=== PATIENT | male | born 1980 | race Caucasian/White ===

== ENCOUNTER 2021-05-14 19:10 | Emergency (ER) | payer OTHER, SELFPAY ==
--- NOTE | ~2021-05-14 | XR_ITS ---
EXAMINATION: XR thoracic spine 3V DATE: 05/14/2021 19:52 INDICATION: Back injury. TECHNIQUE: 3 views of thoracic spine on 4 radiographs were obtained. COMPARISON: Thoracic spine CT 07/30/2018 FINDINGS: There is 8 degrees dextrocurvature of thoracic spine. Vertebral body heights and interverte bral disc heights are normal. There are endplate osteophytes at multiple levels. IMPRESSION: 1. Mild thoracic spondylosis. Reviewed, dictated and finalized at location A.
--- NOTE | ~2021-05-14 | XR_ITS ---
EXAMINATION: XR_CERV2-3V_CR DATE: 05/14/2021 19:52 INDICATION: Neck injury. TECHNIQUE: 3 views of cervical spine were obtained. COMPARISON: None. FINDINGS: There is 6 degrees levocurvature of cervicothoracic spine. Vertebral body heights are felix l. There is mildly decreased disc height at C4-C5. The facet joints are unremarkable. No central janes l stenosis or prevertebral soft tissue swelling. IMPRESSION: 1. Mild cervical spondylosis. Reviewed, dictated and finalized at location A.
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
[2021-05-14 19:22] VITALS: BP 159/106; PULSE 115; RESP 16; TEMP 36.1; O2SAT 99
[2021-05-14 20:13] VITALS: BP 148/97; PULSE 104; O2SAT 100
== END 2021-05-14 20:13 | disposition home or self-care (01) ==
PROVIDERS: Emergency Provider Nurse Practitioner
DX: M54.6 Pain in thoracic spine (principal); S16.1XXA Strain of muscle, fascia and tendon at neck level, initial encounter; V49.50XA Passenger injured in collision with unspecified motor vehicles in traffic accident, initial encounter
CPT/HCPCS: 72040; 72072; 99213; G0463

== ENCOUNTER 2021-08-06 08:12 | Emergency (ER) | payer OTHER, SELFPAY ==
[2021-08-06 08:22] VITALS: BP 122/81; PULSE 85; RESP 18; TEMP 35.8; O2SAT 100
--- NOTE | 2021-08-06 08:42 | ED.EXTPRO ---
HPI - Extremity Problem General Chief complaint: Extremity Problem,Nontraumatic Stated complaint: Left Knee Pain Time Seen by Provider: 08/06/21 08:42 Source: patient and RN notes reviewed Mode of arrival: ambulatory Limitations: no limitations History of Present Illness HPI Narrative: 41-year-old male presents concern for left knee pain that started on Friday. He reports he did not have any acute injury Friday. Reports he was sleeping on the couch with his knee elevated on his stool, woke up in pain. Reports the pain is sharp and shooting, radiates down the medial left lower leg. He reports distal to the pain his knee feels tingly. He reports he took a leftover amoxicillin. Reports he used ice and an Mika wrap. He reports a week prior to the pain he had a trip and fall, causing a small abrasion on the knee. He denies any pain after that fall until Friday. He denies redness, warmth, swelling to the knee. Denies fever or body aches. MD Complaint: extremity pain Related Data Allergies Allergy/AdvReac Type Severity Reaction Status Date / Time MOXIFLOXACIN HCL Allergy Intermediate rash Uncoded 08/06/21 08:22 Review of Systems Review of Systems: CONSTITUTIONAL: Denies malaise, chills, sweats, or fever. CARDIOVASCULAR: Denies chest pain, palpitations, or edema. RESPIRATORY: Denies cough or dyspnea. SKIN: Reports healing, scabbed abrasion to the left anterior knee MUSCULOSKELETAL: Reports left knee pain, tingling NEUROLOGIC: Denies weakness All systems reviewed & are unremarkable except as noted in HPI and below PMFSH Social History Social History Gender identity (if verbalized by the patient): Male Comments At time of signature, agree with nursing past medical, surgical, social and family history. There is no relevant family history pertinent to the presenting complaint Exam Narrative: GENERAL: Well-appearing, well-nourished, and in no acute distress. HEAD: Normocephalic, atraumatic. EYES: PERRLA, conjunctivae clear NECK: Supple. CHEST: Speaks in full sentences. No respiratory distress. HEART: Regular rate and rhythm. Normal and equal peripheral pulses. EXTREMITIES: Left knee, left lower leg have normal strength and sensation, normal range of motion. No edema, erythema, warmth, or ecchymosis. 5/5 strength with knee flexion and extension. Normal sensation with sensitivity to light touch and pain. Anterior, lateral and medial tenderness to palpation. No calf erythema, warmth, tenderness. No skin tenting, no devitalized tissue or atrophy, no trophic changes, no obvious deformity, alignment normal, nearby joints and structures intact. Distal pulses palpable and equal bilaterally, skin warm, dry, pink. Capillary refill less than 3 seconds. SKIN: Warm, dry, no rash. Scabbed abrasion noted to the anterior knee without surrounding erythema, warmth, induration, no drainage NEURO: Alert and oriented x3. PSYCH: Normal mood and affect Course Course Emergency Course: Patient is aware of diagnosis, understands and agrees to treatment plan. Anticipatory guidance given. Patient agrees to follow-up as directed and is aware of reasons to seek care at the emergency department. Portions of this record may have been created with voice recognition software Vital Signs Vital signs: Vital Signs Temperature 96.5 F L 08/06/21 08:22 Pulse Rate 85 08/06/21 08:22 Respiratory Rate 18 08/06/21 08:22 Blood Pressure 122/81 08/06/21 08:22 Pulse Oximetry 100 08/06/21 08:22 Temperature 96.5 F L 08/06/21 08:22 Pulse Rate 85 08/06/21 08:22 Respiratory Rate 18 08/06/21 08:22 Blood Pressure 122/81 08/06/21 08:22 Pulse Oximetry 100 08/06/21 08:22 Reviewed. MDM - Extremity (Nontraumatic) MDM Narrative Medical decision making narrative: Patients pain is consistent with musculoskeletal etiology. No signs of neurological or vascular compromise on exam. Compartments and ti
== END 2021-08-06 08:59 | disposition home or self-care (01) ==
PROVIDERS: Emergency Provider Nurse Practitioner
DX: M25.562 Pain in left knee (principal); K21.9 Gastro-esophageal reflux disease without esophagitis
CPT/HCPCS: 99213; G0463

== ENCOUNTER 2021-09-07 18:26 | Inpatient (IN) | payer OTHER, SELFPAY ==
--- NOTE | ~2021-09-07 | MR_ITS ---
EXAMINATION: MR MRCP wo/w con/w 3D wo ind DATE: 09/12/2021 09:25 INDICATION: Epigastric pain. Elevated liver function tests. TECHNIQUE: Magnetic resonance imaging (MRI) of the abdomen was performed without and with 12 mL Multi fredrick intravenous contrast. Sequences included coronal T2-weighted SS-FSE, coronal T2-weighted FS SS- FSE, coronal T2-weighted FS FIESTA, axial T2-weighted FS FIESTA, axial T2-weighted FIESTA, sagittal T 2-weighted SS-FSE, axial T1-weighted dual-echo FSPGR, axial T2-weighted SS-FSE, axial T1-weighted LAV A, axial T2-weighted STIR FSE. Thick-slab T2-weighted FRFSE-XL images were obtained for magnetic reso nance cholangiopancreatography (MRCP). Rotating maximum intensity projection 3-D reconstructions of t he volumetric data were created by the technologist. Postcontrast sequences included a time course of axial T1-weighted LAVA. COMPARISON: CT dated 09/07/2021 FINDINGS: ABDOMEN MRI: Mild dependent atelectasis in the bilateral lower lobes. Heart size is normal. No pericardial effusio n. Trace bilateral pleural effusions. Liver, gallbladder, spleen, pancreas and bilateral adrenal glan ds are normal. T2 hyperintense nonenhancing cysts measuring 4 mm in the right kidney and 2 mm in the left kidney. Visualized portion of the bowels are unremarkable with no bowel obstruction. Visualized cephalad aspect of the bladder is normal. No pathologically enlarged abdominal lymphadenopathy. Bones are unremarkable with normal marrow signal throughout. ABDOMEN MRCP: No intra or extrahepatic biliary ductal dilation. The common bile duct measures up to 4 mm in maximal diameter tapering smoothly in the distal duct. The main pancreatic duct is also normal in caliber. N o evident choledocholithiasis. IMPRESSION: 1. Unremarkable abdominal MRI/MRCP with normal gallbladder and biliary tree with no ductal dilation o r cholelithiasis/choledocholithiasis. Reviewed, dictated and finalized at location A. IMPRESSION: 1. Unremarkable abdominal MRI/MRCP with normal gallbladder and biliary tree wit h no ductal dilation or cholelithiasis/choledocholithiasis.
--- NOTE | ~2021-09-07 | CT_ITS ---
EXAMINATION: CT abdomen pelvis w con DATE: 09/13/2021 15:43 INDICATION: Abdominal pain TECHNIQUE: Computed tomography (CT) of the abdomen and pelvis was performed with 100 mL Omnipaque-350 intravenous contrast. Automated exposure control and iterative reconstruction technique were employe d. The dose-length product was 273.19 mGy-cm. COMPARISON: 09/07/2021 and MRI dated 09/12/2021 FINDINGS: Mild dependent atelectasis in the bilateral lower lobes. Heart size is normal. No pericardial or pleu ral effusion. 4 mm cyst at the dome of the liver. Gallbladder, spleen, pancreas, bilateral adrenal gl ands and left kidney are normal. 4 mm right renal cyst. Moderate amount of stool within it or mixed c ontrast material scattered throughout the colon. Additional small amount of retained oral contrast ma terial within the normal appendix. Small bowel is normal with no obstruction. Bladder is normal. Mild prostatomegaly. No free intraperitoneal gas or fluid. No pathologically enlarged abdominal or pelvic lymphadenopathy. Partially lumbarized S1 segment. IMPRESSION: 1. No acute intra-abdominal/pelvic process. Reviewed, dictated and finalized at location A.
--- NOTE | ~2021-09-07 | NM_ITS ---
EXAMINATION: NM hepatobiliary wo pharm DATE: 09/11/2021 13:26 INDICATION: Elevated liver enzymes. Right upper quadrant abdominal pain. COMPARISON: None. TECHNIQUE: 5.7 mCi Tc-99m mebrofenin (Choletec) was administered intravenously. Scintigraphic images of the abdomen were obtained for one hour. At the 1 hour time point, the patient drank 8 oz Ensure, and imaging was continued for 60 minutes. Gallbladder ejection fraction was calculated by the technol ogrebekah. FINDINGS: There is normal clearance of radiotracer from the blood pool. There is homogeneous tracer u ptake by the liver. Activity progresses to the bowel and gallbladder. The gallbladder ejection fract ion (GBEF) is 20%. Note that with this technique, normal GBEF >= 33%. IMPRESSION: 1. Gallbladder ejection fraction is below the lower limits of normal which can be seen with gallblad elba dysfunction or chronic cholecystitis in the appropriate clinical setting. Reviewed, dictated and finalized at location A. IMPRESSION: 1. Gallbladder ejection fraction is below the lower limits of normal which can be seen with gallbladder dysfunction or chronic cholecystitis in the appropria te clinical setting.
--- NOTE | ~2021-09-07 | CT_ITS ---
EXAMINATION: CT abdomen pelvis w con DATE: 09/07/2021 22:23 INDICATION: Epigastric abdominal pain. TECHNIQUE: Computed tomography (CT) of the abdomen and pelvis was performed with 100 mL Omnipaque 350 intravenous contrast. Automated exposure control and iterative reconstruction technique were employe d. The dose-length product was 317.61 mGy-cm. COMPARISON: CT abdomen 02/24/18 FINDINGS: The visualized portions of the lung bases demonstrate minimal atelectasis. No pleural effus ion. The heart size is normal. No pericardial effusion. There is a 5 mm cyst in the liver. The gallbl adder, spleen, pancreas, adrenal glands, and kidneys are normal. There are no dilated loops of bowel. The appendix contains appendicoliths, but is otherwise normal. The prostate is mildly enlarged. Ther e are no pathologically enlarged lymph nodes. There is no free intraperitoneal fluid. There is mild t horacolumbar spondylosis. IMPRESSION: 1. No etiology for the patient's symptoms. Reviewed, dictated and finalized at location A.
--- NOTE | ~2021-09-07 | US_ITS ---
US abdomen limited INDICATION: Right upper quadrant abdominal pain PROCEDURE: Realtime right upper abdominal ultrasound. COMPARISON: 03/03/2013 FINDINGS: The pancreas is not well visualized due to bowel gas.. Liver echotexture is normal without focal mass or intrahepatic biliary dilatation. There is focal fatty infiltration of the liver near t he gallbladder. There is normal directional flow in the portal vein. The gallbladder is normal without stones, gallbladder wall thickening or pericholecystic fluid. Comm on bile duct measures 4 mm. No sonographic Holley's sign. IMPRESSION: 1: Unremarkable limited abdominal ultrasound. Reviewed, dictated and finalized at location A.
--- NOTE | ~2021-09-07 | XR_ITS ---
EXAMINATION: XR chest 2V DATE: 09/07/2021 18:51 INDICATION: Chest pain. TECHNIQUE: Frontal and lateral views of the chest were obtained. COMPARISON: Chest 2 views 07/14/2014 FINDINGS: The chest demonstrates clear lungs without pneumonia, pleural effusion, or pneumothorax. Th e heart size is normal. IMPRESSION: 1. No acute cardiopulmonary disease. Reviewed, dictated and finalized at location A.
--- NOTE | 2021-09-07 18:30 | ECG_ITS ---
Measurements Intervals [place] Rate: 94 P: 42 VT: 127 QRS: 57 QRSD: 67 T: 68 QT: 355 QTc: 445 Interpretive Statements SINUS RHYTHM BASELINE ARTIFACT- I, II, III, AVR, AVL NORMAL ECG Electronically Signed On 09-07-2021 19:58:37 CDT by Cm Yanez D.O.
[2021-09-07 18:34] VITALS: BP 125/89; PULSE 98; RESP 16; TEMP 36.4; O2SAT 98
--- NOTE | 2021-09-07 21:06 | PC.NURSE ---
Pt ambulatory in and out of ED WR multiple times during wait. No s/s of distress.
--- NOTE | 2021-09-07 21:21 | ED.GENADULT ---
HPI - General Adult General Chief complaint: Chest Pain Stated complaint: n/v x 3 wks, cp Time Seen by Provider: 09/07/21 21:10 Source: RN notes reviewed History of Present Illness HPI narrative: Patient presents emergency room from home for abdominal pain. Patient states symptoms began 3 weeks ago and have been constant since that time pain is located in the epigastric right upper quadrant left upper quadrant described as sharp and stabbing in nature. States associated with nausea vomiting and diarrhea he states is not taking thing for the pain today he denies any fevers or chills states he does have a lower midsternal chest pain as well with the symptoms denies any shortness of breath states he has had pancreatitis before in the past Related Data Allergies Allergy/AdvReac Type Severity Reaction Status Date / Time MOXIFLOXACIN HCL Allergy Intermediate rash Uncoded 08/06/21 08:22 Review of Systems Review of Systems: Gen.: Denies fevers or chills ENT: Denies congestion Respiratory: Denies shortness of breath or cough CV: Reports lower midsternal chest pain GI: See HPI Musculoskeletal: Denies back pain or muscle pain Neuro: Denies numbness, tingling, weakness or focal weakness Skin: Denies rash Except as documented, all other systems reviewed and negative [facility] Past Medical History Medical History (Updated 09/07/21 @ 23:47 by Ceferino Aguilar DO) Pancreatitis Social History Social History (Updated 09/07/21 @ 21:23 by Ceferino Aguilar DO) Smoking status: Never smoker Gender identity (if verbalized by the patient): Male Exam Narrative: APPEARANCE: No acute distress, nontoxic, resting in bed HEENT: Normocephalic, atraumatic, OMM RESPIRATORY: No respiratory distress, clear to auscultation bilaterally with no rhonchi wheezing or rales CARDIOVASCULAR: RRR s murmur ABDOMINAL: Soft nondistended tender palpation epigastric and right upper quadrant left upper quadrant no tenderness right lower quadrant left lower quadrant no rebound or guarding MUSCULOSKELETAl: Moves all extremities. No clubbing, cyanosis or edema. NEURO: Awake and alert. Following commands, speech normal, no focal deficits SKIN:: Warm, dry. Normal Color PSYCHIATRIC: Normal affect/mood Course Course Emergency Course: Patient continues to have pain in epigastric right upper quadrant with nausea will admit at this time I discussed with the patient his elevated liver enzymes patient does state he drinks approximately 4-6 beers a day. Patient states he has not drank since yesterday Discussed with Dr. Elias presentation work-up agrees with consult recommends ultrasound of the abdomen be obtained in the a.m. recommends no antibiotics at this time Discussed Dr. Schilling presentation work-up agrees with admission Discussed with patient and family results of workup and diagnosis. Discussed need for admission. Patient and family understand and agree to current treatment plan Vital Signs Vital signs: Vital Signs Temperature 97.5 F L 09/07/21 18:34 Pulse Rate 98 09/07/21 18:34 Respiratory Rate 16 09/07/21 18:34 Blood Pressure 125/89 09/07/21 18:34 Pulse Oximetry 98 09/07/21 18:34 Temperature 97.5 F L 09/07/21 18:34 Pulse Rate 87 09/07/21 22:47 Respiratory Rate 18 09/07/21 22:47 Blood Pressure 139/86 09/07/21 22:47 Pulse Oximetry 100 09/07/21 22:47 Medical Decision Making [facility] Narrative Medical decision making narrative: Patient presents with epigastric right upper quadrant pain for the past 3 weeks progressively worsening associate with nausea and vomiting. Liver enzymes are elevated white count within normal limits CT scan shows normal gallbladder. Further discussions with the patient shows that he does use alcohol regularly 4-6 beers a day question of whether liver enzymes are elevated secondary to alcohol use versus gallbladder dysfunction or combination of the 2 will admit with ultrasound of the abdomen with continued
[2021-09-07 21:35] LABS: Basophils Absolute Auto 0.1 K/mm3 (0.0-0.1); Basophils Percent Auto 1.4 % (0.2-1.2); Eosinophils Percent Auto 0.3 % (0-4.4); Hemoglobin 14.2 g/dL (14.0-18.0); Immature Granulocyte Absolute 0.04 K/mm3 (0.00-0.031); Immature Granulocyte Percent A 0.4 % (0-0.5); Lymphocytes Absolute Auto 2.69 K/mm3 (0.9-3.2); Lymphocytes Percent Auto 29.1 % (18.3-44.2); Mean Corpuscular HGB Conc 36.4 g/dl (32-36); Mean Corpuscular Hemoglobin 35.1 pg (26-34); Mean Corpuscular Volume 96.5 fl (80-100); Mean Platelet Volume 9.3 fl (7.4-10.4); Monocytes Absolute Auto 0.5 K/mm3 (0.1-0.6); Monocytes Percent Auto 5.1 % (2.6-8.5); Neutrophils Absolute Auto 5.9 K/mm3 (1.3-6.7); Neutrophils Percent Auto 63.7 % (45.5-73.1); Platelet Count Result 248 k/mm3 (150-375); Red Blood Count 4.04 M/mm3 (4.6-6.20); Red Cell Distribution Width 11.1 % (11.5-14.5); White Blood Count 9.3 K/mm3 (4.5-10.0)
[2021-09-07 21:47] LABS: INR 1.1; Prothrombin Time 14.5 Seconds (11.1-14.7)
[2021-09-07 21:48] LABS: Partial Thromboplastin Time 29.9 SECONDS (22.3-36.8)
[2021-09-07] MEDS: ONDANSETRON INJ 4 MG/2 ML VIAL IV PUSH (21:49)
[2021-09-07] MEDS: SODIUM CHLORIDE 0.9% IV 1,000 ML 999 ML IV CONT ×2 (21:49→22:49)
[2021-09-07] MEDS: MORPHINE SULFATE (*CRX) 4 MG/ML INJ IV PUSH (21:49)
[2021-09-07 21:52] VITALS: BP 116/84; PULSE 80; RESP 18; O2SAT 100
[2021-09-07 21:58] LABS: Alanine Aminotransferase 201 U/L (4-50); Albumin Level 3.6 g/dL (3.5-5.1); Alkaline Phosphatase 255 U/L (38-126); Anion Gap 8 mmol/L (8-16); Aspartate Amino Transferase 500 U/L (17-59); Bilirubin,Total 0.7 mg/dL (0.2-1.3); Blood Urea Nitrogen 14 mg/dL (9-20); Calcium 8.1 mg/dL (8.4-10.2); Carbon Dioxide 29 mmol/L (22-30); Chloride 96 mmol/L (98-107); Estimated CRCL calculation 90 ml/min; Estimated Glomerular Filt Rate > 60; Glucose 157 mg/dL (65-110); Potassium 3.6 mmol/L (3.4-5.0); Sodium 133 mmol/L (137-145)
[2021-09-07 21:59] LABS: Troponin I < 0.012 ng/mL (0.000-0.034)
[2021-09-07 22:21] LABS: Lipase 213 U/L (23-300)
[2021-09-07 22:47] VITALS: BP 139/86; PULSE 87; RESP 18; O2SAT 100
[2021-09-07] MEDS: PANTOPRAZOLE SODIUM IV 40 MG VIAL IV PUSH (22:48)
[2021-09-07] MEDS: HYDROmorphone HCL INJ (*CRX) 1 MG/ML SYR 0.5 MG IV PUSH (22:49)
[2021-09-07 22:54] LABS: Ethanol 216 mg/dL (<10)
[2021-09-07] MEDS: THIAMINE HCL 200 MG/2 ML VIAL 100 MG IV PUSH (23:01)
[2021-09-08] VITALS (7 sets, daily range): BP systolic 122–145; BP diastolic 80–92; PULSE 74–89; RESP 16; TEMP 36.1–36.9; O2SAT 98–100
--- NOTE | 2021-09-08 00:12 | PM.IMHP ---
H&P: HPI History of Present Illness Date/Time: 09/08/21 00:12 Chief Complaint: Right upper quadrant pain. Narrative: This is a 41-year-old male with past medical history significant for alcohol dependence, pancreatitis, tobacco dependence, patient is an everyday smoker he smokes about a pack of cigarettes a day. Patient has presented to the emergency room due to nausea vomiting and abdominal pain localized to the epigastric and right upper quadrant area this has been happening for the last 3 weeks patient has not been able to eat or drink properly as a result of these has been smoking less as well, patient also states that he has had black stools for the last 3 weeks , but no hematemesis ,no bright red blood per rectum, drinks 3-5 beers daily, has had a 30 lb weight loss roughly in the last 3 weeks unintentional. No fevers ,no chills ,no rigors, no cough, no sputum production, no shortness of breath. Preliminary workup was significant for alcohol level of 216, AST 500, ALT 200, alk phos 255, Hemoglobin is 14 CT of abdomen and pelvis pretty much unrevealing. Review of Systems Review of Systems: nausea and vomiting for 3 weeks weight loss melena epigastric and right upper quadrant pain decreased oral intake Constitutional: Constitutional: Denies chills, Denies fever(s), Denies malaise and Reports poor appetite Eyes: Eyes: Denies change in vision ENT: Reports system reviewed and no additional complaints, except as documented Cardiovascular: Cardiovascular: Reports no additional cardiovascular complaints Respiratory: Respiratory: Reports no additional respiratory complaints Gastrointestinal: Gastrointestinal: Reports abdominal pain, Reports melena, Denies hematochezia, Denies coffee ground emesis, Denies dyspepsia, Denies heartburn, Reports nausea and Reports vomiting Genitourinary: Genitourinary: Reports no additional male genitourinary complaints Musculoskeletal: Musculoskeletal: Reports no additional musculoskeletal complaints Integumentary/Breasts: Skin/Breast: Reports system reviewed and no additional complaints, except as docu Neurologic: Reports system reviewed and no additional complaints, except as documented Psychiatric: Psychiatric: Reports no additional psychiatric complaints Endocrine: Endocrine: Reports no additional endocrine complaints Hematologic/Lymphatic: Hematologic/Lymphatic: Reports no additional hematologic/lymphatic complaints Allergic/Immunologic: Allergic/Immunologic: Reports no additional allergic/immunologic complaints [facility] Past Medical History Medical History (Updated 09/08/21 @ 03:51 by Laurence Chavez MD) Pancreatitis Family History Family History (Updated 09/08/21 @ 02:42 by Maria E Pereyra RN) Father Cerebrovascular accident Hypertension Social History Social History (Updated 09/07/21 @ 21:23 by Ceferino Aguilar DO) Smoking packs per day: 1 Smoking cigarettes per day: 20.0 Years smoked: 20 Smoking pack-years: 20.00 Smoking status: Current every day smoker Tobacco type: cigarettes Alcohol intake: current Drinks per week: 20 Substance use: current Substance use type: marijuana Last use: unsure Gender identity (if verbalized by the patient): Male Spiritual care concerns: No Meds Home Medications and Allergies Allergies Allergy/AdvReac Type Severity Reaction Status Date / Time MOXIFLOXACIN HCL Allergy Intermediate rash Uncoded 08/06/21 08:22 Vital Signs Vital Signs - 24 hr 09/07/21 18:34 09/07/21 21:52 09/07/21 22:47 Temperature 97.5 F L Pulse Rate 98 80 87 Respiratory Rate 16 18 18 Blood Pressure 125/89 116/84 139/86 Pulse Oximetry 98 100 100 Exam Narrative: Laying in [place] Const: General: cooperative, comfortable, no acute distress, well developed, alert, awake, Physically active and other (Apprenhensive) Nutritional Appearance: thin Orientation/consciousness: patient oriented x3 HENMT: Head: normal to inspecti
[2021-09-08 00:14] LABS: Troponin I < 0.012 ng/mL (0.000-0.034)
--- NOTE | 2021-09-08 01:10 | ADMGEN ---
This patient, Iker Kuhn, was admitted to [address] [facility] Surg Room 313-01. Patient/family oriented to hospital policies and general routines including ID bracelet, bed and alarms, visiting hours, pain management, procedures, bathroom and other care routines, personal items, smoking policy, room service/diet, and visiting hours. Information on how to activate the Rapid Response Team has been discussed. Patient/Family are encouraged to report perceived risks to care and to ask questions if they do not understand what they are told or what they should do.
[2021-09-08] MEDS: SODIUM CHLORIDE 0.9% IV 1,000 ML 125 ML IV CONT ×2 (01:15→16:32)
[2021-09-08] MEDS: MORPHINE SULFATE (*CRX) 4 MG/ML INJ IV PUSH ×6 (01:16→19:29)
[2021-09-08 03:34] LABS: Basophils Absolute Auto 0.1 K/mm3 (0.0-0.1); Basophils Percent Auto 1.2 % (0.2-1.2); Eosinophils Percent Auto 0.4 % (0-4.4); Hematocrit 37.6 % (42.0-52.0); Hemoglobin 13.5 g/dL (14.0-18.0); Immature Granulocyte Absolute 0.03 K/mm3 (0.00-0.031); Immature Granulocyte Percent A 0.3 % (0-0.5); Lymphocytes Absolute Auto 3.03 K/mm3 (0.9-3.2); Lymphocytes Percent Auto 32.1 % (18.3-44.2); Mean Corpuscular HGB Conc 35.9 g/dl (32-36); Mean Corpuscular Volume 100.3 fl (80-100); Mean Platelet Volume 9.5 fl (7.4-10.4); Monocytes Absolute Auto 0.5 K/mm3 (0.1-0.6); Neutrophils Absolute Auto 5.8 K/mm3 (1.3-6.7); Platelet Count Result 211 k/mm3 (150-375); Red Blood Count 3.75 M/mm3 (4.6-6.20); Red Cell Distribution Width 11.4 % (11.5-14.5); White Blood Count 9.5 K/mm3 (4.5-10.0)
[2021-09-08 03:50] LABS: Alanine Aminotransferase 196 U/L (4-50); Albumin Level 3.3 g/dL (3.5-5.1); Alkaline Phosphatase 219 U/L (38-126); Anion Gap 5 mmol/L (8-16); Aspartate Amino Transferase 423 U/L (17-59); Bilirubin,Total 0.8 mg/dL (0.2-1.3); Blood Urea Nitrogen 11 mg/dL (9-20); Calcium 7.4 mg/dL (8.4-10.2); Carbon Dioxide 26 mmol/L (22-30); Chloride 102 mmol/L (98-107); Estimated CRCL calculation 106 ml/min; Estimated Glomerular Filt Rate > 60; Glucose 114 mg/dL (65-110); Lipase 320 U/L (23-300); Potassium 4.2 mmol/L (3.4-5.0); Sodium 133 mmol/L (137-145)
[2021-09-08 03:58] LABS: Troponin I < 0.012 ng/mL (0.000-0.034)
[2021-09-08] MEDS: PANTOPRAZOLE SODIUM IV 40 MG VIAL 80 MG IV PUSH (04:37)
[2021-09-08] MEDS: THIAMINE HCL INJ 100 MG, FOLIC ACID INJ 1 MG, MULTIVITAMINS-12 INJ VIAL 1 5 ML, MULTIVI... IV CONT (06:06)
--- NOTE | 2021-09-08 09:37 | PM.CNGS ---
Assessment and Plan Assessment and plan (1) Abdominal pain, acute, right upper quadrant: Code(s): R10.11 - Right upper quadrant pain Status: Acute Assessment and Plan: unknown etiology, CT and ultrasound unremarkable and reviewed, will start diet at this point, await GI workup (2) Elevated liver enzymes: Code(s): R74.8 - Abnormal levels of other serum enzymes Status: Acute Assessment and Plan: await GI workup, likely alcohol induced pathology (3) GI bleed: Code(s): K92.2 - Gastrointestinal hemorrhage, unspecified Status: Acute Assessment and Plan: no signs or symptoms of active bleeding, will check stool occult, await GI workup (4) Alcohol dependence: Code(s): F10.20 - Alcohol dependence, uncomplicated Status: Acute Assessment and Plan: alcohol withdrawal precautions (5) Pancreatitis: Code(s): K85.90 - Acute pancreatitis without necrosis or infection, unspecified Status: Acute Assessment and Plan: likely secondary to alcohol abuse History of Present Illness Consult details Consult date: 09/08/21 Reason for consult: abdominal pain Requesting physician: Laurence Chavez MD Narrative: The patient is a 41-year-old male presenting to the emergency department complaining of right upper quadrant and epigastric abdominal pain. The patient reports that the pain has been progressively worsening over the last 3 weeks. The patient reports associated nausea and vomiting, anorexia. The patient also describes loose dark stools over the last 3 wks. The patient reports no previous similar episodes. The patient does have a history of tobacco and alcohol abuse. The patient reports an unintentional weight loss over this time period. Review of Systems Constitutional: Constitutional: Reports anorexia, Denies body ache(s), Denies chills, Reports fatigue, Denies fever(s), Denies increased appetite, Reports lethargy, Reports malaise, Reports poor appetite, Reports weakness, Denies weight gain and Reports weight loss Eyes: Eyes: Reports no additional eye complaints ENT: Reports system reviewed and no additional complaints, except as documented Cardiovascular: Cardiovascular: Reports no additional cardiovascular complaints Respiratory: Respiratory: Reports no additional respiratory complaints Gastrointestinal: Gastrointestinal: Reports as per HPI, Reports abdominal pain, Reports melena, Reports bloating, Reports change in bowel habits, Reports change in stool character, Denies constipation, Reports GI cramping, Reports diarrhea, Reports loose stools, Reports nausea and Reports vomiting Genitourinary: Genitourinary: Reports no additional male genitourinary complaints Musculoskeletal: Musculoskeletal: Reports no additional musculoskeletal complaints Integumentary/Breasts: Skin/Breast: Reports system reviewed and no additional complaints, except as docu Neurologic: Reports system reviewed and no additional complaints, except as documented Psychiatric: Psychiatric: Reports no additional psychiatric complaints Endocrine: Endocrine: Reports no additional endocrine complaints Hematologic/Lymphatic: Hematologic/Lymphatic: Reports no additional hematologic/lymphatic complaints Allergic/Immunologic: Allergic/Immunologic: Reports no additional allergic/immunologic complaints PMFSH Past Medical History Medical History Pancreatitis Family History Family History Father Cerebrovascular accident Hypertension Social History Social History Smoking packs per day: 1 Smoking cigarettes per day: 20.0 Years smoked: 20 Smoking pack-years: 20.00 Smoking status: Current every day smoker Tobacco type: cigarettes Alcohol intake: current Drinks per week: 20 Substance use: current
[2021-09-08] MEDS: ONDANSETRON INJ 4 MG/2 ML VIAL IV PUSH (10:51)
[2021-09-08 11:25] LABS: Add Urine Microscopic? NO; Appearance Urine Clear (Clear); Bilirubin Urine Negative (Negative); Blood Urine Negative (Negative); Color Urine Straw (Yellow); Glucose Urine UA Negative (Negative); Ketones Urine Negative (Negative); Leukocyte Esterase Ur Negative LEU/UL (Negative); Nitrate Urine Negative (Negative); Protein Urine Negative (Negative); Specific Grav Ur 1.011 (1.001-1.035); Urobilinogen Urine Negative mg/dL (<2.0)
--- NOTE | 2021-09-08 11:25 | PC.NURSE ---
pt's mother called wanting an update. I answered her questions. She stated that he has gone through withdrawal many times before and that he usually hallucinates including having seizures at times. She stated that he is not usually violent but can be quite belligerent when he is hallucinating as well as having high anxiety/fear from the hallucinations.
--- NOTE | 2021-09-08 13:24 | PM.IMPN ---
Progress Note: A&P Assessment and Plan (1) Abdominal pain, acute, right upper quadrant: Code(s): R10.11 - Right upper quadrant pain Status: Acute Assessment and Plan: With alcohol history likely acute alcoholic hepatitis LFTs elevated on admission Continue IV fluids Clear liquid diet CT of abdomen and pelvis reviewed and negative Surgery consult appreciate recommendations GI awaited (2) Elevated liver enzymes: Code(s): R74.8 - Abnormal levels of other serum enzymes Status: Acute Assessment and Plan: Likely secondary to alcoholic hepatitis Continue to monitor supportive treatment (3) Nausea and vomiting: Code(s): R11.2 - Nausea with vomiting, unspecified Status: Acute Assessment and Plan: Supportive care Anti emetics (4) Alcohol dependence: Code(s): F10.20 - Alcohol dependence, uncomplicated Status: Acute Assessment and Plan: CIWA protocol as needed (5) Tobacco dependence: Code(s): F17.200 - Nicotine dependence, unspecified, uncomplicated Status: Acute Assessment and Plan: Nicotine patch as needed (6) GI bleed: Code(s): K92.2 - Gastrointestinal hemorrhage, unspecified Status: Acute Assessment and Plan: GI consult Continue to monitor H&H stable Transfuse as needed (7) Alcohol withdrawal: Code(s): F10.239 - Alcohol dependence with withdrawal, unspecified Status: Acute Assessment and Plan: Start Librium schedule CIWA protocol Subjective Date/time seen: 09/08/21 13:24 Interval history: HPI: This is a 41-year-old male with past medical history significant for alcohol dependence, pancreatitis, tobacco dependence, patient is an everyday smoker he smokes about a pack of cigarettes a day. Patient has presented to the emergency room due to nausea vomiting and abdominal pain localized to the epigastric and right upper quadrant area this has been happening for the last 3 weeks patient has not been able to eat or drink properly as a result of these has been smoking less as well, patient also states that he has had black stools for the last 3 weeks , but no hematemesis ,no bright red blood per rectum, drinks 3-5 beers daily, has had a 30 lb weight loss roughly in the last 3 weeks unintentional. No fevers ,no chills ,no rigors, no cough, no sputum production, no shortness of breath. Preliminary workup was significant for alcohol level of 216, AST 500, ALT 200, alk phos 255, Hemoglobin is 14 CT of abdomen and pelvis pretty much unrevealing. Interval history: Feels shaky right upper quadrant pain persists. Still having nausea and vomiting. No hematemesis or bright red blood per rectum. Drinking for several years. History of pancreatitis Review of Systems Review of Systems: All systems reviewed & are unremarkable except as noted in HPI and below (HPI) Exam Narrative: APPEARANCE: No acute distress, nontoxic, resting in bed is mildly tremulous HEENT: Normocephalic, atraumatic, OMM RESPIRATORY: No respiratory distress, clear to auscultation bilaterally with no rhonchi wheezing or rales CARDIOVASCULAR: RRR s murmur ABDOMINAL: Soft nondistended tender palpation epigastric and right upper quadrant left upper quadrant no tenderness right lower quadrant left lower quadrant no rebound or guarding MUSCULOSKELETAl: Moves all extremities. No clubbing, cyanosis or edema. NEURO: Awake and alert. Following commands, speech normal, no focal deficits SKIN:: Warm, dry. Normal Color PSYCHIATRIC: Normal affect/mood tremulous anxious looking Objective Data Vital Signs Vital Signs: Vital Signs - 24 hr 09/07/21 18:34 09/07/21 21:52 09/07/21 22:47 Temperature 97.5 F L Pulse Rate 98 80 87 Respiratory Rate 16 18 18 Blood Pressure 125/89 116/84 139/86 Pulse Oximetry 98 100 100 09/08/21 00:15 09/08/21 04:00 09/08/21 05:16 Temperature 97.1 F L 97 F L Pulse Rate 82 74 Respiratory Rate 16 16 Blood Pre
[2021-09-08] MEDS: chlordiazePOXIDE (*CRX) 25 MG CAPSULE PO ×3 (14:05→23:13)
[2021-09-08] MEDS: LORazepam INJ (*CRX) 2 MG/ML VIAL 1 MG IV PUSH ×2 (14:05→21:30)
[2021-09-08 14:52] LABS: Hepatitis B Surface Antigen Negative (Negative)
[2021-09-08 14:58] LABS: HAV RESULT Negative (Negative); Hepatitis B Core IgM Result Negative (Negative)
[2021-09-08 15:09] LABS: Hepatitis C Virus Antibody Negative (Negative)
--- NOTE | 2021-09-08 15:20 | PC.NURSE ---
Pt called the nurse's station to inform me that he is seeing tiny bright lights. As of the moment, he knows they are not there but he is still seeing them.
[2021-09-08 15:25] LABS: Acetaminophen < 10 ug/mL (10-30); Salicylate < 1.0 mg/dL (2-20)
--- NOTE | 2021-09-08 15:53 | PC.NURSE ---
pt called the nurse's station and stated that he is having blurry vision, headaches, and hallucinations. I have already given him Ativan and Librium and having nothing else to administer at this time. I will continue to monitor.
[2021-09-08] MEDS: NICOTINE (*PBKC) 21 MG PATCH 1 PATCH TRANSDERM (19:20)
[2021-09-09] VITALS: PULSE 84
[2021-09-09] MEDS: MORPHINE SULFATE (*CRX) 4 MG/ML INJ IV PUSH ×6 (00:24→19:53)
[2021-09-09] MEDS: SODIUM CHLORIDE 0.9% IV 1,000 ML 125 ML IV CONT ×3 (00:43→16:59)
[2021-09-09] MEDS: ONDANSETRON INJ 4 MG/2 ML VIAL IV PUSH ×3 (03:26→19:53)
[2021-09-09] MEDS: chlordiazePOXIDE (*CRX) 25 MG CAPSULE PO ×3 (05:11→16:59)
[2021-09-09 06:00] VITALS: BP 148/91; PULSE 86; RESP 18; TEMP 36.3; O2SAT 100
[2021-09-09 06:36] LABS: Basophils Absolute Auto 0.1 K/mm3 (0.0-0.1); Basophils Percent Auto 0.8 % (0.2-1.2); Eosinophils Absolute Auto 0.1 K/mm3 (0-0.3); Eosinophils Percent Auto 1.5 % (0-4.4); Hematocrit 36.2 % (42.0-52.0); Hemoglobin 13.2 g/dL (14.0-18.0); Immature Granulocyte Absolute 0.02 K/mm3 (0.00-0.031); Immature Granulocyte Percent A 0.2 % (0-0.5); Lymphocytes Absolute Auto 2.86 K/mm3 (0.9-3.2); Lymphocytes Percent Auto 33.6 % (18.3-44.2); Mean Corpuscular HGB Conc 36.5 g/dl (32-36); Mean Corpuscular Hemoglobin 35.5 pg (26-34); Mean Corpuscular Volume 97.3 fl (80-100); Mean Platelet Volume 9.8 fl (7.4-10.4); Monocytes Absolute Auto 0.3 K/mm3 (0.1-0.6); Neutrophils Absolute Auto 5.1 K/mm3 (1.3-6.7); Neutrophils Percent Auto 59.9 % (45.5-73.1); Platelet Count Result 211 k/mm3 (150-375); Red Blood Count 3.72 M/mm3 (4.6-6.20); Red Cell Distribution Width 10.8 % (11.5-14.5); White Blood Count 8.5 K/mm3 (4.5-10.0)
[2021-09-09 07:26] LABS: Alanine Aminotransferase 171 U/L (4-50); Albumin Level 3.3 g/dL (3.5-5.1); Alkaline Phosphatase 193 U/L (38-126); Anion Gap 6 mmol/L (8-16); Aspartate Amino Transferase 278 U/L (17-59); Bilirubin,Total 2.5 mg/dL (0.2-1.3); Blood Urea Nitrogen 4 mg/dL (9-20); Carbon Dioxide 25 mmol/L (22-30); Chloride 100 mmol/L (98-107); Estimated CRCL calculation 106 ml/min; Estimated Glomerular Filt Rate > 60; Glucose 103 mg/dL (65-110); Potassium 3.4 mmol/L (3.4-5.0); Sodium 131 mmol/L (137-145)
[2021-09-09] MEDS: NICOTINE (*PBKC) 21 MG PATCH 1 PATCH TRANSDERM (08:35)
--- NOTE | 2021-09-09 08:47 | PM.PNGS ---
Progress Note: A&P Assessment and Plan (1) Abdominal pain, acute, right upper quadrant: Code(s): R10.11 - Right upper quadrant pain Status: Acute Assessment and Plan: likely secondary to ETOH induced hepatitis, no acute surgical issues, ADAT, will sign off, call c ?s, issues (2) Elevated liver enzymes: Code(s): R74.8 - Abnormal levels of other serum enzymes Status: Acute Assessment and Plan: see above Subjective Subjective Date/Time Seen: 09/09/21 08:47 feels better today, shelley clears, still c RUQ abd pain Review of Systems Review of Systems: All systems reviewed & are unremarkable except as noted in HPI and below Exam Const: General: cooperative, comfortable and no acute distress Orientation/consciousness: patient oriented x3 Resp: Effort & Inspection: normal respiratory effort Auscultation: clear to auscultation bilaterally Cardio: Rate: regular rate Rhythm: regular rhythm GI: Inspection: normal to inspection GI Palp: Yes Soft to palpation, Yes Tenderness to palpation present (GI), No Guarding due to palpation present (GI) and No Rigid due to palpation Objective Data Vital Signs Vital Signs: Vital Signs - 24 hr 09/08/21 16:10 09/08/21 20:00 09/08/21 22:00 Temperature 36.9 C 36.6 C Pulse Rate 75 82 Pulse Rate [Monitor] 89 Respiratory Rate 16 16 Blood Pressure 145/92 H 137/89 137/89 Pulse Oximetry 100 100 09/09/21 00:00 09/09/21 06:00 Temperature 36.3 C L Pulse Rate 86 Pulse Rate [Monitor] 84 Respiratory Rate 18 Blood Pressure 148/91 H Pulse Oximetry 100 Intake/Output Intake/Output: Intake & Output 09/06/21 09/07/21 09/08/21 09/09/21 23:59 23:59 23:59 23:59 Intake Total 2573.2 2450 Output Total 1000 350 Balance 1573.2 2100 Meds/Results Medications: Active Medications Generic Name Dose Route Start Last Admin Trade Name Freq PRN Reason Stop Dose Admin Chlordiazepoxide HCl 25 mg 09/08/21 18:00 09/09/21 05:11 Chlordiazepoxide (*Crx) 25 Mg Capsule PO 25 mg Q6HR VICTORIA Administration Sodium Chloride 1,000 mls @ 125 mls/hr 09/07/21 22:50 09/09/21 08:40 Normal Saline Iv IV CONT 125 mls/hr .Q8H VICTORIA Administration Lorazepam 1 mg 09/08/21 13:56 09/08/21 21:30 Lorazepam Inj (*Crx) 2 Mg/Ml Vial IV PUSH 1 mg Q6H PRN Administration Anxiety Morphine Sulfate 4 mg 09/07/21 22:48 09/09/21 08:35 Morphine Sulfate (*Crx) 4 Mg/Ml Inj IV PUSH 4 mg Q2H PRN Administration Pain Rated 7-10 Nicotine 1 patch 09/08/21 17:15 09/09/21 08:35 Nicotine (*Pbkc) 21 Mg Patch TRANSDERM 1 patch QAM VICTORIA Administration Ondansetron HCl 4 mg 09/07/21 22:48 09/09/21 03:26 Ondansetron Inj 4 Mg/2 Ml Vial IV PUSH 4 mg Q4H PRN Administration Nausea Radiology Results: ITS Impressions Chest X-Ray 09/07/21 18:53 IMPRESSION: 1. No acute cardiopulmonary disease. Abdomen/Pelvis CT 09/07/21 22:27 IMPRESSION: 1. No etiology for the patient's symptoms. Abdomen Ultrasound 09/08/21 09:25 IMPRESSION: 1: Unremarkable limited abdominal ultrasound. Labs Labs: Laboratory Results - last 24 hr 09/08/21 09/08/21 09/08/21 11:11 13:54 13:54 WBC RBC Hgb Hct MCV MCH MCHC RDW Plt Count MPV Immature Gran % (Auto) Neut % (Auto) Lymph % (Auto) [place] % (Auto) Eos % (Auto) Baso % (Auto) Lymph # (Auto) [place] # (Auto) Eos # (Auto) Baso # (Auto) Abs Immat Gran (auto) Absolute Neuts (auto) Absolute Nucleated RBC Nucleated RBC % Sodium Potassium Chloride Carbon Dioxide Anion Gap BUN Creatinine Estim Creat Clear Calc Estimated GFR Glucose Calcium Total Bilirubin AST ALT Alkaline Phosphatase Total Protein Albumin Urine Color Straw Urine Appearance Clear Urine pH 6.0 Ur Specific [place] 1.011 Urine Protein
--- NOTE | 2021-09-09 10:15 | PM.IMPN ---
Progress Note: A&P Assessment and Plan (1) Abdominal pain, acute, right upper quadrant: Code(s): R10.11 - Right upper quadrant pain Status: Acute Assessment and Plan: With alcohol history likely acute alcoholic hepatitis LFTs elevated on admission which continues to improve Continue IV fluids Clear liquid diet CT of abdomen and pelvis reviewed and negative Surgery consult appreciate recommendations GI awaited Discriminant function around 14 (2) Elevated liver enzymes: Code(s): R74.8 - Abnormal levels of other serum enzymes Status: Acute Assessment and Plan: Likely secondary to alcoholic hepatitis Continue to monitor supportive treatment (3) Nausea and vomiting: Code(s): R11.2 - Nausea with vomiting, unspecified Status: Acute Assessment and Plan: Supportive care Anti emetics (4) Alcohol dependence: Code(s): F10.20 - Alcohol dependence, uncomplicated Status: Acute Assessment and Plan: CIWA protocol as needed (5) Tobacco dependence: Code(s): F17.200 - Nicotine dependence, unspecified, uncomplicated Status: Acute Assessment and Plan: Nicotine patch as needed (6) GI bleed: Code(s): K92.2 - Gastrointestinal hemorrhage, unspecified Status: Acute Assessment and Plan: GI consult Continue to monitor H&H stable Transfuse as needed (7) Alcohol withdrawal: Code(s): F10.239 - Alcohol dependence with withdrawal, unspecified Status: Acute Assessment and Plan: Start Librium schedule CIWA protocol Subjective Date/time seen: 09/09/21 10:15 Interval history: HPI: This is a 41-year-old male with past medical history significant for alcohol dependence, pancreatitis, tobacco dependence, patient is an everyday smoker he smokes about a pack of cigarettes a day. Patient has presented to the emergency room due to nausea vomiting and abdominal pain localized to the epigastric and right upper quadrant area this has been happening for the last 3 weeks patient has not been able to eat or drink properly as a result of these has been smoking less as well, patient also states that he has had black stools for the last 3 weeks , but no hematemesis ,no bright red blood per rectum, drinks 3-5 beers daily, has had a 30 lb weight loss roughly in the last 3 weeks unintentional. No fevers ,no chills ,no rigors, no cough, no sputum production, no shortness of breath. Preliminary workup was significant for alcohol level of 216, AST 500, ALT 200, alk phos 255, Hemoglobin is 14 CT of abdomen and pelvis pretty much unrevealing. Interval history: Feels less shaky today right upper quadrant pain is slightly better at 1 episode of vomiting yesterday feels little better today no hematemesis or bright red blood per rectum Review of Systems Review of Systems: All systems reviewed & are unremarkable except as noted in HPI and below (HPI) Exam Narrative: APPEARANCE: No acute distress, nontoxic, resting in bed is mildly tremulous HEENT: Normocephalic, atraumatic, OMM RESPIRATORY: No respiratory distress, clear to auscultation bilaterally with no rhonchi wheezing or rales CARDIOVASCULAR: RRR s murmur ABDOMINAL: Soft nondistended tender palpation epigastric and right upper quadrant left upper quadrant no tenderness right lower quadrant left lower quadrant no rebound or guarding MUSCULOSKELETAl: Moves all extremities. No clubbing, cyanosis or edema. NEURO: Awake and alert. Following commands, speech normal, no focal deficits SKIN:: Warm, dry. Normal Color PSYCHIATRIC: Normal affect/mood tremulous anxious looking Objective Data Vital Signs Vital Signs: Vital Signs - 24 hr 09/08/21 16:10 09/08/21 20:00 09/08/21 22:00 Temperature 98.4 F 97.9 F Pulse Rate 75 82 Pulse Rate [Monitor] 89 Respiratory Rate 16 16 Blood Pressure 145/92 H 137/89 137/89 Pulse Oximetry 100 100 09/09/21 00:00 09/09/21 06:00 Temperature 97.4 F L
[2021-09-09 14:00] VITALS: BP 139/90; PULSE 90; RESP 16; TEMP 36.6; O2SAT 100
[2021-09-09] MEDS: LORazepam INJ (*CRX) 2 MG/ML VIAL 1 MG IV PUSH (19:58)
[2021-09-09 20:00] VITALS: PULSE 90; RESP 16; O2SAT 100
[2021-09-09 22:00] VITALS: BP 141/87; PULSE 89; RESP 18; TEMP 36.8; O2SAT 100
[2021-09-10] VITALS (10 sets, daily range): BP systolic 114–141; BP diastolic 81–99; PULSE 84–108; RESP 16–23; TEMP 35.9–36.7; O2SAT 98–100
[2021-09-10] MEDS: chlordiazePOXIDE (*CRX) 25 MG CAPSULE PO ×2 (00:15→05:39)
[2021-09-10] MEDS: SODIUM CHLORIDE 0.9% IV 1,000 ML 125 ML IV CONT ×3 (01:13→19:56)
[2021-09-10] MEDS: MORPHINE SULFATE (*CRX) 4 MG/ML INJ IV PUSH ×5 (01:26→21:32)
[2021-09-10] MEDS: LORazepam INJ (*CRX) 2 MG/ML VIAL 1 MG IV PUSH ×2 (02:07→16:21)
--- NOTE | 2021-09-10 06:34 | WPDGICN ---
Assessment and Plan Assessment and plan (1) GI bleed: Code(s): K92.2 - Gastrointestinal hemorrhage, unspecified Status: Acute Assessment and Plan: he states his stools have been dark for over a week. He occasionally uses anti-inflammatory medications such as ibuprofen. There was no hematemesis. I doubt that he has varices but peptic ulcer disease would explain his symptoms and black stools. EGD is scheduled for this morning (2) Abdominal pain, acute, right upper quadrant: Code(s): R10.11 - Right upper quadrant pain Status: Acute Assessment and Plan: as noted, CT scan was negative, as was ultrasound, ruling out gallstones. (3) Elevated liver enzymes: Code(s): R74.8 - Abnormal levels of other serum enzymes Status: Acute Assessment and Plan: We need to continue to monitor these. Although transaminases are decreasing, his bilirubin is now 2.5. Fortunately, ultrasound shows hepatopedal flow. hepatitis serology is all negative and acetaminophen level was low, consequently alcohol abuse is most likely etiology (4) Weight loss: Code(s): R63.4 - Abnormal weight loss Status: Acute Assessment and Plan: whether this is due to alcoholic hepatitis or other pathology remains to be clarified GI Consult Note Consult date/time: 09/10/21 06:34 HPI: Iker Kuhn is a 41 year old male Who was admitted 2 days ago with a history of having black stools for the past couple of weeks and also having epigastric and right upper quadrant pain. The pain began about 3 weeks ago the pain seems to be worse when he is eating he and consequently he has not felt like eating and has lost about 30 lb in the last month. He admits to drinking alcohol heavily. Mostly beer but not daily. He states that he has been hospitalized 3 times with pancreatitis. This pain is not similar to the pain he had with pancreatitis. He has been told once that he had the beginnings of cirrhosis however he does not think he has ever had elevated liver enzymes were least was not told that. I admission his AST was 500 and ALT over 200. CT scan of the abdomen was unremarkable. He thinks he was diagnosed with an ulcer many years ago but did not have any diagnostic tests for that. He does get heartburn frequently. He takes [id number] omeprazole. He does not have a primary care physician although he did go see 1 last to get established with a primary care doctor. She told him that he should go straight to the emergency room. He waited in the ER at [facility] for 14 hours and finally left. Two days later he came here and was consequently admitted. He states he still does not feel much like eating he is not vomiting however has not had bloody emesis Review of Systems Review of Systems: All systems reviewed & are unremarkable except as noted in HPI and below PMFSH Past Medical History Medical History Pancreatitis Family History Family History Father Cerebrovascular accident Hypertension Social History Social History Smoking packs per day: 1 Smoking cigarettes per day: 20.0 Years smoked: 20 Smoking pack-years: 20.00 Smoking status: Current every day smoker Tobacco type: cigarettes Alcohol intake: current Drinks per week: 20 Substance use: current Substance use type: marijuana Last use: unsure Gender identity (if verbalized by the patient): Male Spiritual care concerns: No Meds Home Medications and Allergies Allergies Allergy/AdvReac Type Severity Reaction Status Date / Time MOXIFLOXACIN HCL Allergy Intermediate rash Uncoded 08/06/21 08:22 Vital Signs Vital Signs - 24 hr 09/09/21 14:00 09/09/21 20:00 09/09/21 22:00 Temperature 36.6 C 36.8 C Pulse Rate 90 90 89 Pulse R
[2021-09-10 06:37] LABS: Basophils Absolute Auto 0.1 K/mm3 (0.0-0.1); Basophils Percent Auto 1.1 % (0.2-1.2); Eosinophils Absolute Auto 0.1 K/mm3 (0-0.3); Eosinophils Percent Auto 1.7 % (0-4.4); Hematocrit 38.2 % (42.0-52.0); Hemoglobin 13.6 g/dL (14.0-18.0); Immature Granulocyte Absolute 0.02 K/mm3 (0.00-0.031); Immature Granulocyte Percent A 0.3 % (0-0.5); Lymphocytes Absolute Auto 2.54 K/mm3 (0.9-3.2); Lymphocytes Percent Auto 39.4 % (18.3-44.2); Mean Corpuscular HGB Conc 35.6 g/dl (32-36); Mean Corpuscular Hemoglobin 34.9 pg (26-34); Mean Corpuscular Volume 97.9 fl (80-100); Mean Platelet Volume 10.1 fl (7.4-10.4); Monocytes Absolute Auto 0.3 K/mm3 (0.1-0.6); Neutrophils Absolute Auto 3.4 K/mm3 (1.3-6.7); Neutrophils Percent Auto 52.5 % (45.5-73.1); Platelet Count Result 229 k/mm3 (150-375); Red Cell Distribution Width 10.9 % (11.5-14.5); White Blood Count 6.5 K/mm3 (4.5-10.0)
[2021-09-10 06:53] LABS: Alanine Aminotransferase 146 U/L (4-50); Albumin Level 3.5 g/dL (3.5-5.1); Alkaline Phosphatase 169 U/L (38-126); Anion Gap 4 mmol/L (8-16); Aspartate Amino Transferase 169 U/L (17-59); Bilirubin,Total 2.3 mg/dL (0.2-1.3); Calcium 8.5 mg/dL (8.4-10.2); Carbon Dioxide 26 mmol/L (22-30); Chloride 103 mmol/L (98-107); Estimated CRCL calculation 106 ml/min; Estimated Glomerular Filt Rate > 60; Glucose 103 mg/dL (65-110); Potassium 3.6 mmol/L (3.4-5.0); Sodium 133 mmol/L (137-145)
[2021-09-10 07:19] LABS: Blood Urea Nitrogen < 2 mg/dL (9-20)
[2021-09-10] MEDS: NICOTINE (*PBKC) 21 MG PATCH 1 PATCH TRANSDERM (08:52)
--- NOTE | 2021-09-10 09:15 | P.PNIM_ITS ---
Progress Note: A&P Assessment and Plan (1) Abdominal pain, acute, right upper quadrant: Code(s): R10.11 - Right upper quadrant pain Status: Acute Assessment and Plan: * alcohol history: likely acute alcoholic hepatitis * LFTs elevated on admission which continues to improve * IV fluids: NaCl 125 ml/hr * Clear liquid diet, NPO for EGD * CT of abdomen and pelvis - no etiology for the patient's symptoms * Abd Ultrasound: Unremarkable limited abdominal ultrasounds * Surgery consulted no further recommendations at this time * GI consulted, EGD scheduled for today * EGD found: EGD ETOH Gastritis * Discriminant function around 14 * Carafate 1gm PO QID before meals * HIDA scan to assess gallbladder (2) Gastrointestinal hemorrhage: Code(s): K92.2 - Gastrointestinal hemorrhage, unspecified Status: Acute Assessment and Plan: * ETOH cessation * EGD found gastritis * H.Pylori negative * carafate 1gm QID before meals * protonix 40mg PO daily * See above (3) GI bleed: Code(s): K92.2 - Gastrointestinal hemorrhage, unspecified Status: Acute Assessment and Plan: * GI consult thank you for recommendation * H/H 13.6/38.2 * Continue to monitor * H&H stable * Transfuse as needed * EGD scheduled for today (4) Gastritis: Code(s): K29.70 - Gastritis, unspecified, without bleeding Status: Acute Assessment and Plan: * Related to ETOH abuse * Protonix 40mg PO daily * Carafate (5) Elevated liver enzymes: Code(s): R74.8 - Abnormal levels of other serum enzymes Status: Acute Assessment and Plan: * AST/ALT 169/146 on labs * Hep panel negative * Likely secondary to alcoholic hepatitis * Continue to Trend (6) Nausea and vomiting: Code(s): R11.2 - Nausea with vomiting, unspecified Status: Acute Assessment and Plan: * Supportive care * Anti emetics: Zofran 4mg IV Q4hr (7) Alcohol dependence: Code(s): F10.20 - Alcohol dependence, uncomplicated Status: Acute Assessment and Plan: * CIWA protocol * CIWA score 10 * Trend symptoms * Librium 50mg PO Q3hr PRN * Ativan 1mg IV PRN for increased agitation * Cessation education provided (8) Tobacco dependence: Code(s): F17.200 - Nicotine dependence, unspecified, uncomplicated Status: Acute Assessment and Plan: * Nicotine patch as needed * Smoking cessation (9) Alcohol withdrawal: Code(s): F10.239 - Alcohol dependence with withdrawal, unspecified Status: Acute Assessment and Plan: * Librium PRN Q3hr, increase as needed * CIWA protocol * See above (10) Weight loss: Code(s): R63.4 - Abnormal weight loss Status: Acute Assessment and Plan: * Add daily weights * 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 Patient has presented to the emergency room due to nausea vomiting and abdominal pain localized to the
--- NOTE | 2021-09-10 09:15 | PM.IMPN ---
Progress Note: A&P Assessment and Plan (1) Abdominal pain, acute, right upper quadrant: Code(s): R10.11 - Right upper quadrant pain Status: Acute Assessment and Plan: alcohol history: likely acute alcoholic hepatitis LFTs elevated on admission which continues to improve IV fluids: NaCl 125 ml/hr Clear liquid diet, NPO for EGD CT of abdomen and pelvis - no etiology for the patient's symptoms Abd Ultrasound: Unremarkable limited abdominal ultrasounds Surgery consulted no further recommendations at this time GI consulted, EGD scheduled for today EGD found: EGD ETOH Gastritis Discriminant function around 14 Carafate 1gm PO QID before meals HIDA scan to assess gallbladder (2) Gastrointestinal hemorrhage: Code(s): K92.2 - Gastrointestinal hemorrhage, unspecified Status: Acute Assessment and Plan: ETOH cessation EGD found gastritis H.Pylori negative carafate 1gm QID before meals protonix 40mg PO daily See above (3) GI bleed: Code(s): K92.2 - Gastrointestinal hemorrhage, unspecified Status: Acute Assessment and Plan: GI consult thank you for recommendation H/H 13.6/38.2 Continue to monitor H&H stable Transfuse as needed EGD scheduled for today (4) Gastritis: Code(s): K29.70 - Gastritis, unspecified, without bleeding Status: Acute Assessment and Plan: Related to ETOH abuse Protonix 40mg PO daily Carafate (5) Elevated liver enzymes: Code(s): R74.8 - Abnormal levels of other serum enzymes Status: Acute Assessment and Plan: AST/ALT 169/146 on labs Hep panel negative Likely secondary to alcoholic hepatitis Continue to Trend (6) Nausea and vomiting: Code(s): R11.2 - Nausea with vomiting, unspecified Status: Acute Assessment and Plan: Supportive care Anti emetics: Zofran 4mg IV Q4hr (7) Alcohol dependence: Code(s): F10.20 - Alcohol dependence, uncomplicated Status: Acute Assessment and Plan: CIWA protocol CIWA score 10 Trend symptoms Librium 50mg PO Q3hr PRN Ativan 1mg IV PRN for increased agitation Cessation education provided (8) Tobacco dependence: Code(s): F17.200 - Nicotine dependence, unspecified, uncomplicated Status: Acute Assessment and Plan: Nicotine patch as needed Smoking cessation (9) Alcohol withdrawal: Code(s): F10.239 - Alcohol dependence with withdrawal, unspecified Status: Acute Assessment and Plan: Librium PRN Q3hr, increase as needed CIWA protocol See above (10) Weight loss: Code(s): R63.4 - Abnormal weight loss Status: Acute Assessment and Plan: Add daily weights Letter Of Credit Document Examiner 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 Patient has presented to the emergency room due to nausea vomiting and abdominal pain localized to the epigastric and right upper quadrant area this has been happening for the last 3 weeks patient has not been able to eat or drink properly as a result of these has been smoking less as well, patient also states that he has had black stools for the last 3 weeks , but no hematemesis ,no bright red blood per rectum, drinks 3-5 beers daily, has had a 30 lb weight loss roughly in the last 3 weeks unintentional. No fevers ,no chills ,no rigors, no cough, no sputum production, no shortness of breath. Preliminary workup was significant for alcohol level of 216, AST 500, ALT 200, alk phos 255, Hemoglobin is 14 CT of abdomen and pelvis pretty much unre
[2021-09-10] MEDS: chlordiazePOXIDE (*CRX) 25 MG CAPSULE 50 MG PO ×2 (11:08→19:55)
[2021-09-10] MEDS: LACTATED RINGERS 1,000 ML 150 ML IV CONT (11:33)
--- NOTE | 2021-09-10 11:39 | WPDANESEPPF ---
Anes - Initial Pre Proc Eval Procedure: Operation Date: 09/10/21 13:45 Proposed Procedures p Esophagogastroduodenoscopy - Fletcher Pretty MD Date/Time: 09/10/21 11:39 Surgeon: Laurence Chavez MD Pre Op Diagnosis: R upper quad abd pain; Elevated LFTs; Nausea/vomit Patient Data Age: 41 Gender: M Height: 1.78 m Weight: 63.2 kg Last Vital Signs Temp 36.1 C L 09/10/21 11:29 Pulse 84 09/10/21 11:29 Resp 18 09/10/21 11:29 BP 119/89 09/10/21 11:29 Pulse Ox 100 09/10/21 11:29 Allergies Allergy/AdvReac Type Severity Reaction Status Date / Time moxifloxacin Allergy Intermediate Rash Verified 09/10/21 11:24 Laboratory Tests 09/10/21 09/10/21 06:02 06:02 WBC 6.5 K/mm3 K/mm3 (4.5-10.0) RBC 3.90 M/mm3 L M/mm3 (4.6-6.20) Hgb 13.6 g/dL L g/dL (14.0-18.0) Hct 38.2 % L % (42.0-52.0) MCV 97.9 fl fl (80-100) MCH 34.9 pg H pg (26-34) MCHC 35.6 g/dl g/dl (32-36) RDW 10.9 % L % (11.5-14.5) Plt Count 229 k/mm3 k/mm3 (150-375) MPV 10.1 fl fl (7.4-10.4) Immature Gran % (Auto) 0.3 % % (0-0.5) Neut % (Auto) 52.5 % % (45.5-73.1) Lymph % (Auto) 39.4 % % (18.3-44.2) [place] % (Auto) 5.0 % % (2.6-8.5) Eos % (Auto) 1.7 % % (0-4.4) Baso % (Auto) 1.1 % % (0.2-1.2) Lymph # (Auto) 2.54 K/mm3 K/mm3 (0.9-3.2) [place] # (Auto) 0.3 K/mm3 K/mm3 (0.1-0.6) Eos # (Auto) 0.1 K/mm3 K/mm3 (0-0.3) Baso # (Auto) 0.1 K/mm3 K/mm3 (0.0-0.1) Abs Immat Gran (auto) 0.02 K/mm3 K/mm3 (0.00-0.031) Absolute Neuts (auto) 3.4 K/mm3 K/mm3 (1.3-6.7) Absolute Nucleated RBC 0.0 K/mm3 K/mm3 (0.0-0.012) Nucleated RBC % 0.0 % % (0.0-0.2) Sodium 133 mmol/L L mmol/L (137-145) Potassium 3.6 mmol/L mmol/L (3.4-5.0) Chloride 103 mmol/L mmol/L (98-107) Carbon Dioxide 26 mmol/L mmol/L (22-30) Anion Gap 4 mmol/L L mmol/L (8-16) BUN < 2 mg/dL L mg/dL (9-20) Creatinine 0.70 mg/dL mg/dL (0.7-1.3) Estim Creat Clear Calc 106 ml/min ml/min Estimated GFR > 60 (59 - ) Glucose 103 mg/dL mg/dL (65-110) Calcium 8.5 mg/dL mg/dL (8.4-10.2) Total Bilirubin 2.3 mg/dL H mg/dL (0.2-1.3) AST 169 U/L H U/L (17-59) ALT 146 U/L H U/L (4-50) Alkaline Phosphatase 169 U/L H U/L (38-126) Total Protein 6.0 g/dL L g/dL (6.3-8.2) Albumin 3.5 g/dL g/dL (3.5-5.1) Patient hx anesthesia problems: none Family hx anesthesia problems: none Results Review: All pre-operative results and documents have been reviewed as part of the pre-operative evaluation. [facility] Past Medical History Medical History Pancreatitis Family History Family History Father Cerebrovascular accident Hypertension Social History Social History Smoking packs per day: 1 Smoking cigarettes per day: 20.0 Years smoked: 20 Smoking pack-years: 20.00 Smoking status: Current every day smoker Tobacco type: cigarettes Alcohol intake: current Drinks per week: 20 Substance use: current Substance use type: marijuana Last use: unsure Gender identity (if verbalized by the patient): Male Spiritual care concerns: No Anes - Eval Final PreProcedure Day of Procedure 09/10/21 11:39 Patient weight: normal Heart: regular rate and rhythm Lungs: clear to auscultation and normal air movement Airway: Mallampati scale class 1 Neurological: alert and oriented Last oral intake: >/= 8 hours ASA classification: IV Emergent: no Anesthetic plan: proceed Anesthesia type and monitoring: general ETT and standard monitoring Results Review: All pre-operative results and documents have been reviewe
[2021-09-10] MEDS: BENZOCAINE (*SP) 60 ML SPRAY CAN (HURRICAINE) 1 SPRAY MUCOUS MEM (12:48)
[2021-09-10] MEDS: ONDANSETRON INJ 4 MG/2 ML VIAL IV PUSH (14:10)
[2021-09-10] MEDS: SUCRALFATE 1 GM TABLET PO ×2 (16:15→19:55)
[2021-09-11] VITALS (7 sets, daily range): BP systolic 116–131; BP diastolic 76–88; PULSE 81–84; RESP 16; TEMP 36.3–36.6; O2SAT 98–100
[2021-09-11] MEDS: LORazepam INJ (*CRX) 2 MG/ML VIAL 1 MG IV PUSH ×3 (01:03→23:25)
[2021-09-11] MEDS: ONDANSETRON INJ 4 MG/2 ML VIAL IV PUSH ×2 (01:03→13:42)
[2021-09-11] MEDS: SODIUM CHLORIDE 0.9% IV 1,000 ML 125 ML IV CONT ×3 (04:08→23:32)
[2021-09-11] MEDS: MORPHINE SULFATE (*CRX) 4 MG/ML INJ IV PUSH ×4 (04:13→21:15)
[2021-09-11] MEDS: SUCRALFATE 1 GM TABLET PO ×4 (06:40→21:19)
[2021-09-11 06:55] LABS: Basophils Percent Auto 0.5 % (0.2-1.2); Eosinophils Absolute Auto 0.1 K/mm3 (0-0.3); Eosinophils Percent Auto 2.4 % (0-4.4); Hematocrit 36.3 % (42.0-52.0); Hemoglobin 12.6 g/dL (14.0-18.0); Immature Granulocyte Absolute 0.01 K/mm3 (0.00-0.031); Immature Granulocyte Percent A 0.2 % (0-0.5); Lymphocytes Absolute Auto 2.34 K/mm3 (0.9-3.2); Lymphocytes Percent Auto 40.8 % (18.3-44.2); Mean Corpuscular HGB Conc 34.7 g/dl (32-36); Mean Corpuscular Hemoglobin 34.6 pg (26-34); Mean Corpuscular Volume 99.7 fl (80-100); Mean Platelet Volume 10.2 fl (7.4-10.4); Monocytes Absolute Auto 0.3 K/mm3 (0.1-0.6); Monocytes Percent Auto 5.6 % (2.6-8.5); Neutrophils Absolute Auto 2.9 K/mm3 (1.3-6.7); Neutrophils Percent Auto 50.5 % (45.5-73.1); Platelet Count Result 205 k/mm3 (150-375); Red Blood Count 3.64 M/mm3 (4.6-6.20); White Blood Count 5.7 K/mm3 (4.5-10.0)
--- NOTE | 2021-09-11 07:08 | WPDGIPROGNO ---
Progress Note: A&P Assessment and Plan (1) Weight loss: Code(s): R63.4 - Abnormal weight loss Status: Acute Assessment and Plan: I will have him weight today. I told that this is something we will need to follow as an outpatient. Hopefully as his hepatopathy and pain improve his appetite will return. (2) GI bleed: Code(s): K92.2 - Gastrointestinal hemorrhage, unspecified Status: Acute Assessment and Plan: I again emphasized the need for him to stop drinking because of his multiple health problems, the hepatitis, gastritis, not to mention the likelihood of recurrence of pancreatitis. I reviewed the findings of his endoscopy and showed him pictures of his stomach which had a coarse, nodular mucosa consistent with portal hypertensive gastropathy. H pylori is negative but we are awaiting biopsies of the gastric mucosa. Occasionally, gastric lymphoma can have such a pattern and characteristics. (3) Alcohol withdrawal: Code(s): F10.239 - Alcohol dependence with withdrawal, unspecified Status: Acute Assessment and Plan: so far no significant withdrawal issues. There is no asterixis today (4) Abdominal pain, acute, right upper quadrant: Code(s): R10.11 - Right upper quadrant pain Status: Acute Assessment and Plan: because of persistent elevation of enzymes and now rising bilirubin. I am going to get a HIDA scan just to be sure there is not a biliary component Subjective Date/time seen: 09/11/21 07:08 He states that his pain in the right upper quadrant and epigastric area is about the same. It is continuous dull uncomfortable. Consequently he has not had a great appetite. He would however like to try eating regular food this morning. Review of Systems Review of Systems: All systems reviewed & are unremarkable except as noted in HPI and below Exam Const: General: cooperative and no acute distress Nutritional Appearance: average body habitus Orientation/consciousness: patient oriented x3 GI: GI Palp: Yes Tenderness to palpation present (GI) ( Right upper quadrant and epigastric area), Yes Hepatomegaly present ( liver edge palpable just below right upper quadrant) and No Splenomegaly present Auscultation: normal bowel sounds Neuro: Motor exam (neuro): No asterixis Objective Data Vital Signs Vital Signs: Vital Signs - 24 hr 09/10/21 11:29 09/10/21 12:59 09/10/21 13:09 Temperature 36.1 C L Pulse Rate 84 85 98 Pulse Rate [Monitor] Respiratory Rate 18 17 23 H Blood Pressure 119/89 114/82 126/84 Pulse Oximetry 100 100 100 09/10/21 13:16 09/10/21 14:17 09/10/21 20:00 Temperature 36.1 C L Pulse Rate 91 86 86 Pulse Rate [Monitor] 84 Respiratory Rate 20 16 16 Blood Pressure 130/92 H 125/94 H 125/94 H Pulse Oximetry 100 100 100 09/10/21 22:00 09/11/21 00:00 09/11/21 03:51 Temperature 36.7 C Pulse Rate 88 Pulse Rate [Monitor] 84 84 Respiratory Rate 16 Blood Pressure 126/81 126/81 126/81 Pulse Oximetry 100 Intake/Output Intake/Output: Intake & Output 09/08/21 09/09/21 09/10/21 09/11/21 23:59 23:59 23:59 23:59 Intake Total 2573.2 4050 4120 1000 Output Total 1000 1100 2500 Balance 1573.2 2950 1620 1000 Meds/Results Medications: Active Medications Generic Name Dose Route Start Last Admin Trade Name Freq PRN Reason Stop Dose Admin Chlordiazepoxide HCl 50 mg 09/10/21 11:02 09/10/21 19:55 Chlordiazepoxide (*Crx) 25 Mg Capsule PO 50 mg Q3HR PRN Administration CIWA >10 Sodium Chloride 1,000 mls @ 125 mls/hr 09/07/21 22:50 09/11/21 04:08 Normal Saline Iv IV CONT 125 mls/hr .Q8H VICTORIA Administration Lorazepam 1 mg 09/08/21 13:56 09/11/21 01:03 Lorazepam Inj (*Crx) 2 Mg/Ml Vial IV PUSH 1 mg Q6H PRN Administration Anxiety Morphine Sulfate 4 mg 09/07/21 22:48 09/11/21 04:13 Morphine Sulfate (*Crx) 4 Mg/Ml Inj IV PUSH 4 mg Q2H PRN Administration Pain R
[2021-09-11 07:13] LABS: Alanine Aminotransferase 103 U/L (4-50); Alkaline Phosphatase 112 U/L (38-126); Anion Gap 5 mmol/L (8-16); Aspartate Amino Transferase 91 U/L (17-59); Bilirubin,Total 1.6 mg/dL (0.2-1.3); Calcium 8.2 mg/dL (8.4-10.2); Carbon Dioxide 25 mmol/L (22-30); Chloride 106 mmol/L (98-107); Estimated CRCL calculation 122 ml/min; Estimated Glomerular Filt Rate > 60; Glucose 85 mg/dL (65-110); Magnesium 1.6 mg/dL (1.6-2.3); Potassium 3.6 mmol/L (3.4-5.0); Sodium 136 mmol/L (137-145)
[2021-09-11 07:58] LABS: Blood Urea Nitrogen < 2 mg/dL (9-20)
[2021-09-11 08:12] LABS: INR 0.9; Prothrombin Time 11.9 Seconds (11.1-14.7)
[2021-09-11] MEDS: MAGNESIUM SULF 2 GM/WATER 50ML 2 GM/50 ML BAG IVPB (09:56)
[2021-09-11] MEDS: NICOTINE (*PBKC) 21 MG PATCH 1 PATCH TRANSDERM (10:00)
--- NOTE | 2021-09-11 10:35 | P.PNIM_ITS ---
Progress Note: A&P Assessment and Plan (1) Abdominal pain, acute, right upper quadrant: Code(s): R10.11 - Right upper quadrant pain Status: Acute Assessment and Plan: * alcohol history: likely acute alcoholic hepatitis * LFTs elevated on admission which continues to improve * Total bili also trending down 1.6 today * IV fluids: NaCl 125 ml/hr * Regular diet * CT of abdomen and pelvis - no etiology for the patient's symptoms * Abd Ultrasound: Unremarkable limited abdominal ultrasounds * Surgery consulted no further recommendations at this time-follow up outpatient for decreased EF * GI consulted * EGD found: EGD ETOH Gastritis * Carafate 1gm PO QID before meals * HIDA scan shows decrease EF of 20% (2) Gastrointestinal hemorrhage: Code(s): K92.2 - Gastrointestinal hemorrhage, unspecified Status: Acute Assessment and Plan: * ETOH cessation * EGD found gastritis * H.Pylori negative * carafate 1gm QID before meals * protonix 40mg PO daily * See above (3) Gastritis: Code(s): K29.70 - Gastritis, unspecified, without bleeding Status: Acute Assessment and Plan: * Related to ETOH abuse * Protonix 40mg PO daily * Carafate (4) Elevated liver enzymes: Code(s): R74.8 - Abnormal levels of other serum enzymes Status: Acute Assessment and Plan: * AST/ALT 91/103 on labs * Hep panel negative * Likely secondary to alcoholic hepatitis * Continue to Trend (5) Nausea and vomiting: Code(s): R11.2 - Nausea with vomiting, unspecified Status: Acute Assessment and Plan: * Supportive care * Anti emetics: Zofran 4mg IV Q4hr (6) Alcohol dependence: Code(s): F10.20 - Alcohol dependence, uncomplicated Status: Acute Assessment and Plan: * CIWA protocol * CIWA score 10 * Trend symptoms * Librium 50mg PO Q3hr PRN * Ativan 1mg IV PRN for increased agitation * Cessation education provided (7) Tobacco dependence: Code(s): F17.200 - Nicotine dependence, unspecified, uncomplicated Status: Acute Assessment and Plan: * Nicotine patch as needed * Smoking cessation (8) Alcohol withdrawal: Code(s): F10.239 - Alcohol dependence with withdrawal, unspecified Status: Acute Assessment and Plan: * Librium PRN Q3hr, increase as needed * CIWA protocol * See above (9) Weight loss: Code(s): R63.4 - Abnormal weight loss Status: Acute Assessment and Plan: * Add daily weights * Healthcare Insurance Sales Agent consult thank you * Regular diet * Daily weight (10) Hypomagnesemia: Code(s): E83.42 - Hypomagnesemia Status: Acute Assessment and Plan: * Mg 1.6 borderline low * Replace with 2gm IV * Trend * Replace as needed Subjective Date/time seen: 09/11/21 10:35 Interval history: Date of Service 09/08/21 00:12 HPI: This is a 41-year-old male with past medical history significant for alcohol dependence, pancreatitis, tobacco dependence, patient is an everyday smoker he smokes about a pack of cigarettes a day. Patient has presented to the emergency room due to nausea vomiting and abdominal pain localized to the epigastric and right upper quadrant area this has been happening for the last 3 weeks patient h
--- NOTE | 2021-09-11 10:35 | PM.IMPN ---
Progress Note: A&P Assessment and Plan (1) Abdominal pain, acute, right upper quadrant: Code(s): R10.11 - Right upper quadrant pain Status: Acute Assessment and Plan: alcohol history: likely acute alcoholic hepatitis LFTs elevated on admission which continues to improve Total bili also trending down 1.6 today IV fluids: NaCl 125 ml/hr Regular diet CT of abdomen and pelvis - no etiology for the patient's symptoms Abd Ultrasound: Unremarkable limited abdominal ultrasounds Surgery consulted no further recommendations at this time-follow up outpatient for decreased EF GI consulted EGD found: EGD ETOH Gastritis Carafate 1gm PO QID before meals HIDA scan shows decrease EF of 20% (2) Gastrointestinal hemorrhage: Code(s): K92.2 - Gastrointestinal hemorrhage, unspecified Status: Acute Assessment and Plan: ETOH cessation EGD found gastritis H.Pylori negative carafate 1gm QID before meals protonix 40mg PO daily See above (3) Gastritis: Code(s): K29.70 - Gastritis, unspecified, without bleeding Status: Acute Assessment and Plan: Related to ETOH abuse Protonix 40mg PO daily Carafate (4) Elevated liver enzymes: Code(s): R74.8 - Abnormal levels of other serum enzymes Status: Acute Assessment and Plan: AST/ALT 91/103 on labs Hep panel negative Likely secondary to alcoholic hepatitis Continue to Trend (5) Nausea and vomiting: Code(s): R11.2 - Nausea with vomiting, unspecified Status: Acute Assessment and Plan: Supportive care Anti emetics: Zofran 4mg IV Q4hr (6) Alcohol dependence: Code(s): F10.20 - Alcohol dependence, uncomplicated Status: Acute Assessment and Plan: CIWA protocol CIWA score 10 Trend symptoms Librium 50mg PO Q3hr PRN Ativan 1mg IV PRN for increased agitation Cessation education provided (7) Tobacco dependence: Code(s): F17.200 - Nicotine dependence, unspecified, uncomplicated Status: Acute Assessment and Plan: Nicotine patch as needed Smoking cessation (8) Alcohol withdrawal: Code(s): F10.239 - Alcohol dependence with withdrawal, unspecified Status: Acute Assessment and Plan: Librium PRN Q3hr, increase as needed CIWA protocol See above (9) Weight loss: Code(s): R63.4 - Abnormal weight loss Status: Acute Assessment and Plan: Add daily weights [employer] 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 Patient has presented to the emergency room due to nausea vomiting and abdominal pain localized to the epigastric and right upper quadrant area this has been happening for the last 3 weeks patient has not been able to eat or drink properly as a result of these has been smoking less as well, patient also states that he has had black stools for the last 3 weeks , but no hematemesis ,no bright red blood per rectum, drinks 3-5 beers daily, has had a 30 lb weight loss roughly in the last 3 weeks unintentional. No fevers ,no chills ,no rigors, no cough, no sputum production, no shortness of breath. Preliminary workup was significant for alcohol level of 216, AST 500, ALT 200, alk phos 255, Hemoglobin is 14 CT of abdomen and pelvis pretty much unrevealing. Date of Service 09/08/21 13:24 Feels shaky right upper quadrant pain persists. Stil
[2021-09-11] MEDS: PANTOPRAZOLE 40 MG TABLET PO (13:48)
[2021-09-11] MEDS: chlordiazePOXIDE (*CRX) 25 MG CAPSULE 50 MG PO ×2 (15:19→23:26)
[2021-09-11 20:15] LABS: Lipase 35 U/L (23-300)
[2021-09-12] VITALS (7 sets, daily range): BP systolic 111–120; BP diastolic 71–84; PULSE 81–88; RESP 16–18; TEMP 36.1–36.4; O2SAT 100
[2021-09-12] MEDS: MORPHINE SULFATE (*CRX) 4 MG/ML INJ IV PUSH ×4 (05:52→19:09)
[2021-09-12] MEDS: SUCRALFATE 1 GM TABLET PO ×4 (05:59→21:09)
[2021-09-12 06:45] LABS: Alanine Aminotransferase 109 U/L (4-50); Albumin Level 2.8 g/dL (3.5-5.1); Alkaline Phosphatase 130 U/L (38-126); Anion Gap 4 mmol/L (8-16); Aspartate Amino Transferase 100 U/L (17-59); Basophils Absolute Auto 0.1 K/mm3 (0.0-0.1); Basophils Percent Auto 0.8 % (0.2-1.2); Bilirubin,Total 1.1 mg/dL (0.2-1.3); Calcium 8.4 mg/dL (8.4-10.2); Carbon Dioxide 27 mmol/L (22-30); Chloride 106 mmol/L (98-107); Eosinophils Absolute Auto 0.2 K/mm3 (0-0.3); Eosinophils Percent Auto 2.9 % (0-4.4); Estimated CRCL calculation 106 ml/min; Estimated Glomerular Filt Rate > 60; Glucose 102 mg/dL (65-110); Hematocrit 35.5 % (42.0-52.0); Hemoglobin 12.3 g/dL (14.0-18.0); Immature Granulocyte Absolute 0.01 K/mm3 (0.00-0.031); Immature Granulocyte Percent A 0.2 % (0-0.5); Immature Platelet Fraction Pct 4.5 % (0.9-11.2); Lymphocytes Absolute Auto 2.54 K/mm3 (0.9-3.2); Lymphocytes Percent Auto 40.4 % (18.3-44.2); Magnesium 1.8 mg/dL (1.6-2.3); Mean Corpuscular HGB Conc 34.6 g/dl (32-36); Mean Corpuscular Hemoglobin 36.1 pg (26-34); Mean Corpuscular Volume 104.1 fl (80-100); Mean Platelet Volume 10.7 fl (7.4-10.4); Monocytes Absolute Auto 0.4 K/mm3 (0.1-0.6); Monocytes Percent Auto 6.2 % (2.6-8.5); Neutrophils Absolute Auto 3.1 K/mm3 (1.3-6.7); Neutrophils Percent Auto 49.5 % (45.5-73.1); Platelet Count Result 201 k/mm3 (150-375); Potassium 3.7 mmol/L (3.4-5.0); Red Blood Count 3.41 M/mm3 (4.6-6.20); Red Cell Distribution Width 11.2 % (11.5-14.5); Sodium 137 mmol/L (137-145); White Blood Count 6.3 K/mm3 (4.5-10.0)
[2021-09-12] MEDS: LORazepam INJ (*CRX) 2 MG/ML VIAL 1 MG IV PUSH ×3 (07:42→21:54)
[2021-09-12] MEDS: SODIUM CHLORIDE 0.9% IV 1,000 ML 125 ML IV CONT (07:42)
[2021-09-12 07:43] LABS: Blood Urea Nitrogen < 2 mg/dL (9-20)
[2021-09-12] MEDS: chlordiazePOXIDE (*CRX) 25 MG CAPSULE 50 MG PO ×3 (07:43→19:09)
--- NOTE | 2021-09-12 08:17 | PC.NURSE ---
to MRI per w/c for MRCP. nicotine patch removed and iv saline locked
--- NOTE | 2021-09-12 09:20 | WPDGIPROGNO ---
Progress Note: A&P Assessment and Plan (1) Alcohol withdrawal: Code(s): F10.239 - Alcohol dependence with withdrawal, unspecified Status: Acute Assessment and Plan: he has had no signs of alcohol withdrawal syndrome. (2) Abdominal pain, acute, right upper quadrant: Code(s): R10.11 - Right upper quadrant pain Status: Acute Assessment and Plan: Although his pain is improved it continues. No definite etiology. HIDA scan was abnormal. There is a possibility he may have had some common bile duct sludge. Therefore I will obtain a MRCP today. I did repeat his lipase which was slightly elevated on admission and it is normal. (3) Elevated liver enzymes: Code(s): R74.8 - Abnormal levels of other serum enzymes Status: Acute Assessment and Plan: these are improving but still not quite normal Subjective Date/time seen: 09/12/21 09:20 this morning he states that his pain is decreased but is still constant and nagging. Still mostly in the right upper quadrant. He tried eating yesterday. He kept food down but did not feel like eating very much Review of Systems Review of Systems: All systems reviewed & are unremarkable except as noted in HPI and below Exam GI: Inspection: normal to inspection GI Palp: Yes abdominal tenderness ( right upper quadrant) and Yes Soft to palpation Percussion: Yes normal to percussion Auscultation: normal bowel sounds Objective Data Vital Signs Vital Signs: Vital Signs - 24 hr 09/11/21 14:00 09/11/21 14:44 09/11/21 20:00 Temperature 36.6 C Pulse Rate 82 Pulse Rate [Monitor] 84 Respiratory Rate 16 Blood Pressure 118/80 118/78 Pulse Oximetry 98 99 99 09/11/21 22:00 09/12/21 00:00 09/12/21 04:00 Temperature 36.3 C L Pulse Rate 81 Pulse Rate [Monitor] 84 81 Respiratory Rate 16 Blood Pressure 116/76 118/71 120/80 Pulse Oximetry 98 09/12/21 06:00 Temperature 36.1 C L Pulse Rate 82 Pulse Rate [Monitor] Respiratory Rate 18 Blood Pressure 118/81 Pulse Oximetry 100 Intake/Output Intake/Output: Intake & Output 09/09/21 09/10/21 09/11/21 09/12/21 23:59 23:59 23:59 23:59 Intake Total 4050 4120 4360 1400 Output Total 1100 2500 900 850 Balance 2950 1620 3460 550 Meds/Results Medications: Active Medications Generic Name Dose Route Start Last Admin Trade Name Freq PRN Reason Stop Dose Admin Chlordiazepoxide HCl 50 mg 09/10/21 11:02 09/12/21 07:43 Chlordiazepoxide (*Crx) 25 Mg Capsule PO 50 mg Q3HR PRN Administration CIWA >10 Sodium Chloride 1,000 mls @ 125 mls/hr 09/07/21 22:50 09/12/21 07:42 Normal Saline Iv IV CONT 125 mls/hr .Q8H VICTORIA Administration Lorazepam 1 mg 09/08/21 13:56 09/12/21 07:42 Lorazepam Inj (*Crx) 2 Mg/Ml Vial IV PUSH 1 mg Q6H PRN Administration Anxiety Morphine Sulfate 4 mg 09/07/21 22:48 09/12/21 05:52 Morphine Sulfate (*Crx) 4 Mg/Ml Inj IV PUSH 4 mg Q2H PRN Administration Pain Rated 7-10 Nicotine 1 patch 09/08/21 17:15 09/11/21 10:00 Nicotine (*Pbkc) 21 Mg Patch TRANSDERM 1 patch QAM VITCORIA Administration Ondansetron HCl 4 mg 09/07/21 22:48 09/11/21 13:42 Ondansetron Inj 4 Mg/2 Ml Vial IV PUSH 4 mg Q4H PRN Administration Nausea Pantoprazole Sodium 40 mg 09/11/21 09:00 09/11/21 13:48 Pantoprazole 40 Mg Tablet PO 40 mg QAM VICTORIA Administration Sucralfate 1 gm 09/10/21 16:30 09/12/21 05:59 Sucralfate 1 Gm Tablet PO 1 gm ACHS VICTORIA Administration Radiology Results: ITS Impressions Chest X-Ray 09/07/21 18:53 IMPRESSION: 1. No acute cardiopulmonary disease. Abdomen/Pelvis CT 09/07/21 22:27 IMPRESSION: 1. No etiology for the patient's symptoms. Abdomen Ultrasound 09/08/21 09:25 IMPRESSION: 1: Unremarkable limited abdominal ultrasound. Hepatobiliary Scan Nuclear Medicine 09/11/21 13:27 IMPRESSION: 1. Gallbladder ejection f
[2021-09-12] MEDS: NICOTINE (*PBKC) 21 MG PATCH 1 PATCH TRANSDERM (09:35)
[2021-09-12] MEDS: PANTOPRAZOLE 40 MG TABLET PO (09:35)
[2021-09-12] MEDS: ONDANSETRON INJ 4 MG/2 ML VIAL IV PUSH (10:45)
--- NOTE | 2021-09-12 11:00 | PM.IMPN ---
Progress Note: A&P Assessment and Plan (1) Abdominal pain, acute, right upper quadrant: Code(s): R10.11 - Right upper quadrant pain Status: Acute Assessment and Plan: alcohol history: likely acute alcoholic hepatitis LFTs elevated on admission which continues to improve Total bili also trending down 1.1 today IV fluids: NaCl 125 ml/hr, DC'd for now Regular diet, consider bring diet to full liquids CT of abdomen and pelvis - no etiology for the patient's symptoms Abd Ultrasound: Unremarkable limited abdominal ultrasounds General surgery consulted- called to have patient reevaluated GI consulted thank you EGD found: EGD ETOH Gastritis Carafate 1gm PO QID before meals HIDA scan shows decrease EF of 20% MRCP negative for gallstones or sludge (2) Gastrointestinal hemorrhage: Code(s): K92.2 - Gastrointestinal hemorrhage, unspecified Status: Acute Assessment and Plan: ETOH cessation EGD found gastritis H.Pylori negative carafate 1gm QID before meals protonix 40mg PO daily See above (3) Gastritis: Code(s): K29.70 - Gastritis, unspecified, without bleeding Status: Acute Assessment and Plan: Related to ETOH abuse Protonix 40mg PO daily Carafate (4) Elevated liver enzymes: Code(s): R74.8 - Abnormal levels of other serum enzymes Status: Acute Assessment and Plan: AST/ALT 100/109 on labs Hep panel negative Likely secondary to alcoholic hepatitis Continue to Trend (5) Nausea and vomiting: Code(s): R11.2 - Nausea with vomiting, unspecified Status: Acute Assessment and Plan: Supportive care Anti emetics: Zofran 4mg IV Q4hr (6) Alcohol dependence: Code(s): F10.20 - Alcohol dependence, uncomplicated Status: Acute Assessment and Plan: CIWA protocol CIWA score 13 Trend symptoms Librium 50mg PO Q3hr PRN Ativan 1mg IV PRN for increased agitation Cessation education provided (7) Tobacco dependence: Code(s): F17.200 - Nicotine dependence, unspecified, uncomplicated Status: Acute Assessment and Plan: Nicotine patch as needed Smoking cessation (8) Alcohol withdrawal: Code(s): F10.239 - Alcohol dependence with withdrawal, unspecified Status: Acute Assessment and Plan: Librium PRN Q3hr, increase as needed CIWA protocol See above (9) Weight loss: Code(s): R63.4 - Abnormal weight loss Status: Acute Assessment and Plan: Add daily weights Back End Engineer consult thank you Regular diet Daily weight (10) Hypomagnesemia: Code(s): E83.42 - Hypomagnesemia Status: Acute Assessment and Plan: Mg 1.8 Trend Replace as needed Subjective Date/time seen: 09/12/21 11:00 Interval history: Date of Service 09/08/21 00:12 HPI: This is a 41-year-old male with past medical history significant for alcohol dependence, pancreatitis, tobacco dependence, patient is an everyday smoker he smokes about a pack of cigarettes a day. Patient has presented to the emergency room due to nausea vomiting and abdominal pain localized to the epigastric and right upper quadrant area this has been happening for the last 3 weeks patient has not been able to eat or drink properly as a result of these has been smoking less as well, patient also states that he has had black stools for the last 3 weeks , but no hematemesis ,no bright red blood per rectum, drinks 3-5 beers daily, has had a 30 lb weight loss roughly in the last 3 weeks unintentional. No fevers ,no chills ,no rigors, no cough, no sputum production, no shortness of breath. Preliminary workup was significant for alcohol level of 216, AST 500, ALT 200, alk phos 255, Hemoglobin is 14 CT of abdomen and pelvis pretty much unrevealing. Date of Service 09/08/21 13:24 Feels shaky right upp
--- NOTE | 2021-09-12 11:00 | P.PNIM_ITS ---
Progress Note: A&P Assessment and Plan (1) Abdominal pain, acute, right upper quadrant: Code(s): R10.11 - Right upper quadrant pain Status: Acute Assessment and Plan: * alcohol history: likely acute alcoholic hepatitis * LFTs elevated on admission which continues to improve * Total bili also trending down 1.1 today * IV fluids: NaCl 125 ml/hr, DC'd for now * Regular diet, consider bring diet to full liquids * CT of abdomen and pelvis - no etiology for the patient's symptoms * Abd Ultrasound: Unremarkable limited abdominal ultrasounds * General surgery consulted- called to have patient reevaluated * GI consulted thank you * EGD found: EGD ETOH Gastritis * Carafate 1gm PO QID before meals * HIDA scan shows decrease EF of 20% * MRCP negative for gallstones or sludge (2) Gastrointestinal hemorrhage: Code(s): K92.2 - Gastrointestinal hemorrhage, unspecified Status: Acute Assessment and Plan: * ETOH cessation * EGD found gastritis * H.Pylori negative * carafate 1gm QID before meals * protonix 40mg PO daily * See above (3) Gastritis: Code(s): K29.70 - Gastritis, unspecified, without bleeding Status: Acute Assessment and Plan: * Related to ETOH abuse * Protonix 40mg PO daily * Carafate (4) Elevated liver enzymes: Code(s): R74.8 - Abnormal levels of other serum enzymes Status: Acute Assessment and Plan: * AST/ALT 100/109 on labs * Hep panel negative * Likely secondary to alcoholic hepatitis * Continue to Trend (5) Nausea and vomiting: Code(s): R11.2 - Nausea with vomiting, unspecified Status: Acute Assessment and Plan: * Supportive care * Anti emetics: Zofran 4mg IV Q4hr (6) Alcohol dependence: Code(s): F10.20 - Alcohol dependence, uncomplicated Status: Acute Assessment and Plan: * CIWA protocol * CIWA score 13 * Trend symptoms * Librium 50mg PO Q3hr PRN * Ativan 1mg IV PRN for increased agitation * Cessation education provided (7) Tobacco dependence: Code(s): F17.200 - Nicotine dependence, unspecified, uncomplicated Status: Acute Assessment and Plan: * Nicotine patch as needed * Smoking cessation (8) Alcohol withdrawal: Code(s): F10.239 - Alcohol dependence with withdrawal, unspecified Status: Acute Assessment and Plan: * Librium PRN Q3hr, increase as needed * CIWA protocol * See above (9) Weight loss: Code(s): R63.4 - Abnormal weight loss Status: Acute Assessment and Plan: * Add daily weights * [employer] consult thank you * Regular diet * Daily weight (10) Hypomagnesemia: Code(s): E83.42 - Hypomagnesemia Status: Acute Assessment and Plan: * Mg 1.8 * Trend * Replace as needed Subjective Date/time seen: 09/12/21 11:00 Interval history: Date of Service 09/08/21 00:12 HPI: This is a 41-year-old male with past medical history significant for alcohol dependence, pancreatitis, tobacco dependence, patient is an everyday smoker he smokes about a pack of cigarettes a day. Patient has presented to the emergency room due to nausea vomiting and abdominal pain localized to the epigastric and right upper quadrant area this has been happening for the
--- NOTE | 2021-09-12 11:25 | PCNFU ---
Nutrition Follow-Up Complete: Unintended weight loss as related to ab pain as evidenced by 30 ibs weight loss reported in 2-3 weeks. Goal: Adequate Intake of at least 75% of meals/supplements Patient is progressing towards goal. We will continue current goal. Pt current nutrition is regular with Ensure Clear BID. Last recorded weight is 63.2 kg, no new weight to report. Bowel Motility:Last BM reported on 09/07 Labs Reviewed:Alb 2.8,Hct 35.5,Hgb 12.3 Meds Noted:Carafate, Ativan, Morphine,Zofran, NS Additional Notes: Patient seen today for nutrition follow up. He states to not tolerating breakfast well- 1/2 pancake, bites of sausage. GI on the case, MRCP planned. Ensure Clear BID will provide patient with an additional 240 kcals and 8 gms protein. He is going to try and drink supplement today. PO intake encouraged. Agree with diet orders. Monitoring: RD will monitor every 3 days.
[2021-09-13] MEDS: MORPHINE SULFATE (*CRX) 4 MG/ML INJ IV PUSH ×4 (01:13→16:24)
[2021-09-13 05:36] VITALS: BP 105/69; PULSE 81; RESP 18; TEMP 36.7; O2SAT 100
[2021-09-13 06:34] LABS: Basophils Absolute Auto 0.1 K/mm3 (0.0-0.1); Basophils Percent Auto 1.1 % (0.2-1.2); Eosinophils Absolute Auto 0.1 K/mm3 (0-0.3); Eosinophils Percent Auto 2.1 % (0-4.4); Hematocrit 32.2 % (42.0-52.0); Immature Granulocyte Absolute 0.01 K/mm3 (0.00-0.031); Immature Granulocyte Percent A 0.2 % (0-0.5); Lymphocytes Absolute Auto 2.66 K/mm3 (0.9-3.2); Lymphocytes Percent Auto 43.2 % (18.3-44.2); Mean Corpuscular HGB Conc 34.2 g/dl (32-36); Mean Corpuscular Hemoglobin 35.6 pg (26-34); Mean Corpuscular Volume 104.2 fl (80-100); Monocytes Absolute Auto 0.5 K/mm3 (0.1-0.6); Monocytes Percent Auto 8.4 % (2.6-8.5); Neutrophils Absolute Auto 2.8 K/mm3 (1.3-6.7); Platelet Count Result 183 k/mm3 (150-375); Red Blood Count 3.09 M/mm3 (4.6-6.20); Red Cell Distribution Width 11.3 % (11.5-14.5); White Blood Count 6.2 K/mm3 (4.5-10.0)
[2021-09-13 06:44] LABS: Alanine Aminotransferase 76 U/L (4-50); Albumin Level 2.8 g/dL (3.5-5.1); Alkaline Phosphatase 104 U/L (38-126); Anion Gap 2 mmol/L (8-16); Aspartate Amino Transferase 54 U/L (17-59); Bilirubin,Total 0.3 mg/dL (0.2-1.3); Calcium 8.7 mg/dL (8.4-10.2); Carbon Dioxide 33 mmol/L (22-30); Chloride 103 mmol/L (98-107); Estimated CRCL calculation 110 ml/min; Estimated Glomerular Filt Rate > 60; Glucose 124 mg/dL (65-110); Magnesium 1.6 mg/dL (1.6-2.3); Potassium 3.8 mmol/L (3.4-5.0); Sodium 138 mmol/L (137-145)
[2021-09-13 06:45] LABS: Blood Urea Nitrogen < 2 mg/dL (9-20)
--- NOTE | 2021-09-13 07:01 | WPDGIPROGNO ---
Progress Note: A&P Assessment and Plan (1) Alcohol withdrawal: Code(s): F10.239 - Alcohol dependence with withdrawal, unspecified Status: Acute Assessment and Plan: he has had no signs of alcohol withdrawal syndrome. (2) Abdominal pain, acute, right upper quadrant: Code(s): R10.11 - Right upper quadrant pain Status: Acute Assessment and Plan: 09/12 Although his pain is improved it continues. No definite etiology. HIDA scan was abnormal. There is a possibility he may have had some common bile duct sludge. Therefore I will obtain a MRCP today. I did repeat his lipase which was slightly elevated on admission and it is normal. 09/13 his MRCP was unremarkable. No evidence of common bile duct stones. I discussed this with him told that we are still concerned that he may have gallbladder disease. Will have surgery see. I discussed with him cholecystectomy. I told that in most cases he would be home in 24 hours. I told not to eat anything this morning until he is seen by surgery (3) Elevated liver enzymes: Code(s): R74.8 - Abnormal levels of other serum enzymes Status: Acute Assessment and Plan: these are improving but still not quite normal I am sure that he will continue to have some liver enzyme elevation due to his alcohol abuse. He expresses his plan to stop using alcohol Subjective Date/time seen: 09/13/21 07:01 although he feels somewhat better today. His pain persist. Every day it is a little less intense. He still has of poor appetite and he feels that fatty foods make him more uncomfortable. We discussed his diagnostic studies a been done so far. The only thing abnormal is the HIDA scan. I discussed his case with Hay Jang, and we agree that we should get surgery to see him again regarding possible cholecystectomy Review of Systems Review of Systems: All systems reviewed & are unremarkable except as noted in HPI and below Exam Const: General: cooperative, comfortable and no acute distress Nutritional Appearance: average body habitus Orientation/consciousness: patient oriented x3 Resp: Auscultation: clear to auscultation bilaterally Cardio: Rhythm: regular rhythm GI: Inspection: normal to inspection GI Palp: Yes abdominal tenderness ( still mostly right upper quadrant but not quite as much as yesterday) and No Guarding due to palpation present (GI) Auscultation: normal bowel sounds Neuro: General: patient oriented x3 Motor exam (neuro): No asterixis Objective Data Vital Signs Vital Signs: Vital Signs - 24 hr 09/12/21 14:00 09/12/21 15:47 09/12/21 20:00 Temperature 36.3 C L Pulse Rate 88 Pulse Rate [Monitor] 81 Respiratory Rate 16 Blood Pressure 119/84 Pulse Oximetry 100 100 09/12/21 21:50 09/13/21 05:36 Temperature 36.4 C L 36.7 C Pulse Rate 82 81 Pulse Rate [Monitor] Respiratory Rate 18 18 Blood Pressure 111/72 105/69 Pulse Oximetry 100 100 Intake/Output Intake/Output: Intake & Output 09/10/21 09/11/21 09/12/21 09/13/21 23:59 23:59 23:59 23:59 Intake Total 4120 4360 2230 250 Output Total 2500 900 1500 Balance 1620 3460 730 250 Meds/Results Medications: Active Medications Generic Name Dose Route Start Last Admin Trade Name Freq PRN Reason Stop Dose Admin Chlordiazepoxide HCl 50 mg 09/10/21 11:02 09/12/21 19:09 Chlordiazepoxide (*Crx) 25 Mg Capsule PO 50 mg Q3HR PRN Administration CIWA >10 Lorazepam 1 mg 09/08/21 13:56 09/12/21 21:54 Lorazepam Inj (*Crx) 2 Mg/Ml Vial IV PUSH 1 mg Q6H PRN Administration Anxiety Morphine Sulfate 4 mg 09/07/21 22:48 09/13/21 01:13 Morphine Sulfate (*Crx) 4 Mg/Ml Inj IV PUSH 4 mg Q2H PRN Administration Pain Rated 7-10 Nicotine 1 patch 09/08/21 17:15 09/12/21 09:35 Nicotine (*Pbkc) 21 Mg Patch TRANSDERM 1 patch QAM VICTORIA Administration Ondansetron HCl 4 mg 09/07/21 22:48 09/12/21 10:45 Ondansetron I
[2021-09-13] MEDS: LORazepam INJ (*CRX) 2 MG/ML VIAL 1 MG IV PUSH ×2 (07:41→19:19)
[2021-09-13] MEDS: SUCRALFATE 1 GM TABLET PO ×4 (07:47→21:10)
[2021-09-13] MEDS: PANTOPRAZOLE 40 MG TABLET PO (07:47)
[2021-09-13] MEDS: NICOTINE (*PBKC) 21 MG PATCH 1 PATCH TRANSDERM (09:55)
[2021-09-13] MEDS: chlordiazePOXIDE (*CRX) 25 MG CAPSULE 50 MG PO (12:20)
[2021-09-13 14:00] VITALS: BP 115/83; PULSE 80; RESP 16; TEMP 36.5; O2SAT 100
--- NOTE | 2021-09-13 14:02 | PM.PNGS ---
Progress Note: A&P Assessment and Plan (1) Abdominal pain, acute, right upper quadrant: Code(s): R10.11 - Right upper quadrant pain Status: Acute Assessment and Plan: ?etiology, long d/w pt re: cholecystectomy, pt would like to try low fat diet at this time, if shelley ok to dc home c f/u as outpt for discussion of poss interval yara Subjective Subjective Date/Time Seen: 09/13/21 14:02 feels a little better, shelley full liquids Review of Systems Review of Systems: All systems reviewed & are unremarkable except as noted in HPI and below Exam Const: General: cooperative, comfortable, no acute distress and ill appearing Nutritional Appearance: malnourished Orientation/consciousness: patient oriented x3 GI: Inspection: normal to inspection GI Palp: Yes abdominal tenderness, Yes Soft to palpation, Yes Tenderness to palpation present (GI) and No Guarding due to palpation present (GI) Other: mild TTP RUQ Objective Data Vital Signs Vital Signs: Vital Signs - 24 hr 09/12/21 15:47 09/12/21 20:00 09/12/21 21:50 Temperature 36.4 C L Pulse Rate 82 Pulse Rate [Monitor] 81 Respiratory Rate 18 Blood Pressure 111/72 Pulse Oximetry 100 100 09/13/21 05:36 Temperature 36.7 C Pulse Rate 81 Pulse Rate [Monitor] Respiratory Rate 18 Blood Pressure 105/69 Pulse Oximetry 100 Intake/Output Intake/Output: Intake & Output 09/10/21 09/11/21 09/12/21 09/13/21 23:59 23:59 23:59 23:59 Intake Total 4120 4360 2230 490 Output Total 2500 900 1500 Balance 1620 3460 730 490 Meds/Results Medications: Active Medications Generic Name Dose Route Start Last Admin Trade Name Freq PRN Reason Stop Dose Admin Chlordiazepoxide HCl 50 mg 09/10/21 11:02 09/13/21 12:20 Chlordiazepoxide (*Crx) 25 Mg Capsule PO 50 mg Q3HR PRN Administration CIWA >10 Lorazepam 1 mg 09/08/21 13:56 09/13/21 07:41 Lorazepam Inj (*Crx) 2 Mg/Ml Vial IV PUSH 1 mg Q6H PRN Administration Anxiety Morphine Sulfate 4 mg 09/07/21 22:48 09/13/21 12:20 Morphine Sulfate (*Crx) 4 Mg/Ml Inj IV PUSH 4 mg Q2H PRN Administration Pain Rated 7-10 Nicotine 1 patch 09/08/21 17:15 09/13/21 09:55 Nicotine (*Pbkc) 21 Mg Patch TRANSDERM 1 patch QAM VICTORIA Administration Ondansetron HCl 4 mg 09/07/21 22:48 09/12/21 10:45 Ondansetron Inj 4 Mg/2 Ml Vial IV PUSH 4 mg Q4H PRN Administration Nausea Pantoprazole Sodium 40 mg 09/11/21 09:00 09/13/21 07:47 Pantoprazole 40 Mg Tablet PO 40 mg QAM VICTORIA Administration Sucralfate 1 gm 09/10/21 16:30 09/13/21 12:09 Sucralfate 1 Gm Tablet PO 1 gm ACHS VICTORIA Administration Radiology Results: ITS Impressions Chest X-Ray 09/07/21 18:53 IMPRESSION: 1. No acute cardiopulmonary disease. Abdomen/Pelvis CT 09/07/21 22:27 IMPRESSION: 1. No etiology for the patient's symptoms. Abdomen Ultrasound 09/08/21 09:25 IMPRESSION: 1: Unremarkable limited abdominal ultrasound. Hepatobiliary Scan Nuclear Medicine 09/11/21 13:27 IMPRESSION: 1. Gallbladder ejection fraction is below the lower limits of normal which can be seen with gallbladder dysfunction or chronic cholecystitis in the appropriate clinical setting. MRCP 09/12/21 09:34 IMPRESSION: 1. Unremarkable abdominal MRI/MRCP with normal gallbladder and biliary tree with no ductal dilation or cholelithiasis/choledocholithiasis. Labs Labs: Laboratory Results - last 24 hr 09/13/21 09/13/21 05:58 05:58 WBC 6.2 RBC 3.09 L Hgb 11.0 L Hct 32.2 L MCV 104.2 H MCH 35.6 H MCHC 34.2 RDW 11.3 L Plt Count 183 MPV 10.0 Immature Gran % (Auto) 0.2 Neut % (Auto) 45.0 L Lymph % (Auto) 43.2 [place] % (Auto) 8.4 Eos % (Auto) 2.1 Baso % (Auto) 1.1 Lymph # (Auto) 2.66 [place] # (Auto) 0.5 Eos # (Auto) 0.1 Baso # (Auto) 0.1 Abs Immat Gran (auto) 0.01 Absolute Neuts (auto) 2.8
--- NOTE | 2021-09-13 15:15 | P.PNIM_ITS ---
Progress Note: A&P Assessment and Plan (1) Abdominal pain, acute, right upper quadrant: Code(s): R10.11 - Right upper quadrant pain Status: Acute Assessment and Plan: * alcohol history: likely acute alcoholic hepatitis * LFTs elevated on admission which continues to improve * Total bili also trending down 1.1 today * IV fluids: NaCl 125 ml/hr, DC'd for now * Regular diet, consider bring diet to full liquids * CT of abdomen and pelvis - no etiology for the patient's symptoms * Abd Ultrasound: Unremarkable limited abdominal ultrasounds * General surgery consulted- called to have patient reevaluated * GI consulted thank you * EGD found: EGD ETOH Gastritis * Carafate 1gm PO QID before meals * HIDA scan shows decrease EF of 20% * MRCP negative for gallstones or sludge * Abd CT: constipation (2) Gastrointestinal hemorrhage: Code(s): K92.2 - Gastrointestinal hemorrhage, unspecified Status: Acute Assessment and Plan: * ETOH cessation * EGD found gastritis * H.Pylori negative * carafate 1gm QID before meals * protonix 40mg PO daily * See above (3) Gastritis: Code(s): K29.70 - Gastritis, unspecified, without bleeding Status: Acute Assessment and Plan: * Related to ETOH abuse * Protonix 40mg PO daily * Carafate (4) Elevated liver enzymes: Code(s): R74.8 - Abnormal levels of other serum enzymes Status: Acute Assessment and Plan: * AST/ALT 54/76 on labs * Hep panel negative * Likely secondary to alcoholic hepatitis * Continue to Trend (5) Nausea and vomiting: Code(s): R11.2 - Nausea with vomiting, unspecified Status: Acute Assessment and Plan: * Supportive care * Anti emetics: Zofran 4mg IV Q4hr (6) Alcohol dependence: Code(s): F10.20 - Alcohol dependence, uncomplicated Status: Acute Assessment and Plan: * CIWA protocol * CIWA score 12 * Trend symptoms * Librium 75mg PO Q3hr PRN * Ativan 1mg IV PRN for increased agitation * Cessation education provided (7) Tobacco dependence: Code(s): F17.200 - Nicotine dependence, unspecified, uncomplicated Status: Acute Assessment and Plan: * Nicotine patch as needed * Smoking cessation (8) Alcohol withdrawal: Code(s): F10.239 - Alcohol dependence with withdrawal, unspecified Status: Acute Assessment and Plan: * Librium PRN Q3hr, increase as needed * CIWA protocol * See above (9) Weight loss: Code(s): R63.4 - Abnormal weight loss Status: Acute Assessment and Plan: * Add daily weights * Senior Java Ui Developer consult thank you * Regular diet * Daily weight (10) Hypomagnesemia: Code(s): E83.42 - Hypomagnesemia Status: Acute Assessment and Plan: * Mg 1.3 * replace with 4mg IV * Trend * Replace as needed Time Spent With Patient Time with patient: Greater than 35 minutes Subjective Date/time seen: 09/13/21 15:15 Interval history: Date of Service 09/08/21 00:12 HPI: This is a 41-year-old male with past medical history significant for alcohol dependence, pancreatitis, tobacco dependence, patient is an everyday smoker he smokes about a pack of cigarettes a day. Patient has presented to the emergency room due
--- NOTE | 2021-09-13 15:15 | PM.IMPN ---
Progress Note: A&P Assessment and Plan (1) Abdominal pain, acute, right upper quadrant: Code(s): R10.11 - Right upper quadrant pain Status: Acute Assessment and Plan: alcohol history: likely acute alcoholic hepatitis LFTs elevated on admission which continues to improve Total bili also trending down 1.1 today IV fluids: NaCl 125 ml/hr, DC'd for now Regular diet, consider bring diet to full liquids CT of abdomen and pelvis - no etiology for the patient's symptoms Abd Ultrasound: Unremarkable limited abdominal ultrasounds General surgery consulted- called to have patient reevaluated GI consulted thank you EGD found: EGD ETOH Gastritis Carafate 1gm PO QID before meals HIDA scan shows decrease EF of 20% MRCP negative for gallstones or sludge Abd CT: constipation (2) Gastrointestinal hemorrhage: Code(s): K92.2 - Gastrointestinal hemorrhage, unspecified Status: Acute Assessment and Plan: ETOH cessation EGD found gastritis H.Pylori negative carafate 1gm QID before meals protonix 40mg PO daily See above (3) Gastritis: Code(s): K29.70 - Gastritis, unspecified, without bleeding Status: Acute Assessment and Plan: Related to ETOH abuse Protonix 40mg PO daily Carafate (4) Elevated liver enzymes: Code(s): R74.8 - Abnormal levels of other serum enzymes Status: Acute Assessment and Plan: AST/ALT 54/76 on labs Hep panel negative Likely secondary to alcoholic hepatitis Continue to Trend (5) Nausea and vomiting: Code(s): R11.2 - Nausea with vomiting, unspecified Status: Acute Assessment and Plan: Supportive care Anti emetics: Zofran 4mg IV Q4hr (6) Alcohol dependence: Code(s): F10.20 - Alcohol dependence, uncomplicated Status: Acute Assessment and Plan: CIWA protocol CIWA score 12 Trend symptoms Librium 75mg PO Q3hr PRN Ativan 1mg IV PRN for increased agitation Cessation education provided (7) Tobacco dependence: Code(s): F17.200 - Nicotine dependence, unspecified, uncomplicated Status: Acute Assessment and Plan: Nicotine patch as needed Smoking cessation (8) Alcohol withdrawal: Code(s): F10.239 - Alcohol dependence with withdrawal, unspecified Status: Acute Assessment and Plan: Librium PRN Q3hr, increase as needed CIWA protocol See above (9) Weight loss: Code(s): R63.4 - Abnormal weight loss Status: Acute Assessment and Plan: Add daily weights 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 Patient has presented to the emergency room due to nausea vomiting and abdominal pain localized to the epigastric and right upper quadrant area this has been happening for the last 3 weeks patient has not been able to eat or drink properly as a result of these has been smoking less as well, patient also states that he has had black stools for the last 3 weeks , but no hematemesis ,no bright red blood per rectum, drinks 3-5 beers daily, has had a 30 lb weight loss roughly in the last 3 weeks unintentional. No fevers ,no chills ,no rigors, no cough, no sputum production, no shortness of breath. Preliminary workup was significant for alcohol level of 216, AST 500, ALT 200, alk phos 255, Hemoglobin is
[2021-09-13 16:00] VITALS: PULSE 81
[2021-09-13] MEDS: MAGNESIUM SULF 4 GM/WATER100ML 4 GM/100 ML BAG IVPB (17:31)
[2021-09-13 22:00] VITALS: BP 105/72; PULSE 80; RESP 18; TEMP 36.7; O2SAT 100
[2021-09-14] MEDS: MORPHINE SULFATE (*CRX) 4 MG/ML INJ IV PUSH ×2 (00:54→12:10)
[2021-09-14] MEDS: chlordiazePOXIDE (*CRX) 25 MG CAPSULE 75 MG PO ×2 (01:24→06:54)
[2021-09-14] MEDS: LORazepam INJ (*CRX) 2 MG/ML VIAL 1 MG IV PUSH ×2 (01:24→08:31)
[2021-09-14 05:29] VITALS: BP 110/75; PULSE 80; RESP 18; TEMP 36.8; O2SAT 99
[2021-09-14 05:58] LABS: Basophils Absolute Auto 0.1 K/mm3 (0.0-0.1); Basophils Percent Auto 0.8 % (0.2-1.2); Eosinophils Absolute Auto 0.1 K/mm3 (0-0.3); Eosinophils Percent Auto 2.1 % (0-4.4); Hematocrit 33.2 % (42.0-52.0); Hemoglobin 11.6 g/dL (14.0-18.0); Immature Granulocyte Absolute 0.01 K/mm3 (0.00-0.031); Immature Granulocyte Percent A 0.2 % (0-0.5); Lymphocytes Absolute Auto 2.45 K/mm3 (0.9-3.2); Mean Corpuscular HGB Conc 34.9 g/dl (32-36); Mean Corpuscular Hemoglobin 35.3 pg (26-34); Mean Corpuscular Volume 100.9 fl (80-100); Mean Platelet Volume 9.8 fl (7.4-10.4); Monocytes Absolute Auto 0.5 K/mm3 (0.1-0.6); Monocytes Percent Auto 8.1 % (2.6-8.5); Neutrophils Absolute Auto 3.1 K/mm3 (1.3-6.7); Neutrophils Percent Auto 49.8 % (45.5-73.1); Platelet Count Result 188 k/mm3 (150-375); Red Blood Count 3.29 M/mm3 (4.6-6.20); White Blood Count 6.3 K/mm3 (4.5-10.0)
[2021-09-14 06:10] LABS: Alanine Aminotransferase 64 U/L (4-50); Alkaline Phosphatase 95 U/L (38-126); Anion Gap 5 mmol/L (8-16); Aspartate Amino Transferase 38 U/L (17-59); Bilirubin,Total 0.4 mg/dL (0.2-1.3); Calcium 8.5 mg/dL (8.4-10.2); Carbon Dioxide 30 mmol/L (22-30); Chloride 104 mmol/L (98-107); Estimated CRCL calculation 110 ml/min; Estimated Glomerular Filt Rate > 60; Glucose 109 mg/dL (65-110); Magnesium 1.9 mg/dL (1.6-2.3); Potassium 3.5 mmol/L (3.4-5.0); Sodium 139 mmol/L (137-145)
[2021-09-14 06:29] LABS: Blood Urea Nitrogen < 2 mg/dL (9-20)
[2021-09-14] MEDS: SUCRALFATE 1 GM TABLET PO ×2 (06:54→15:34)
[2021-09-14 08:00] VITALS: PULSE 80
--- NOTE | 2021-09-14 08:29 | PM.PNGS ---
Progress Note: A&P Assessment and Plan (1) Abdominal pain, acute, right upper quadrant: Code(s): R10.11 - Right upper quadrant pain Status: Acute Assessment and Plan: exam improved, shelley low fat diet, plan to dc home on low fat diet c f/u c me in 1 wk (2) Elevated liver enzymes: Code(s): R74.8 - Abnormal levels of other serum enzymes Status: Acute Assessment and Plan: resolved, likely secondary to ETOH induced hepatitis Subjective Subjective Date/Time Seen: 09/14/21 08:29 feels better this am, shelley low fat diet for dinner Review of Systems Review of Systems: All systems reviewed & are unremarkable except as noted in HPI and below Exam Const: General: cooperative, comfortable, no acute distress and ill appearing Nutritional Appearance: malnourished Orientation/consciousness: patient oriented x3 Resp: Auscultation: clear to auscultation bilaterally Cardio: Rate: regular rate Rhythm: regular rhythm GI: Inspection: normal to inspection and non-distended GI Palp: Yes Soft to palpation, Yes Tenderness to palpation present (GI), No Guarding due to palpation present (GI) and No Rigid due to palpation Objective Data Vital Signs Vital Signs: Vital Signs - 24 hr 09/13/21 14:00 09/13/21 16:00 09/13/21 22:00 Temperature 36.5 C 36.7 C Pulse Rate 80 80 Pulse Rate [Monitor] 81 Respiratory Rate 16 18 Blood Pressure 115/83 105/72 Pulse Oximetry 100 100 09/14/21 05:29 Temperature 36.8 C Pulse Rate 80 Pulse Rate [Monitor] Respiratory Rate 18 Blood Pressure 110/75 Pulse Oximetry 99 Intake/Output Intake/Output: Intake & Output 09/11/21 09/12/21 09/13/21 09/14/21 23:59 23:59 23:59 23:59 Intake Total 4360 2230 790 250 Output Total 900 1500 Balance 3460 730 790 250 Meds/Results Medications: Active Medications Generic Name Dose Route Start Last Admin Trade Name Freq PRN Reason Stop Dose Admin Chlordiazepoxide HCl 75 mg 09/13/21 16:37 09/14/21 06:54 Chlordiazepoxide (*Crx) 25 Mg Capsule PO 75 mg Q3HR PRN Administration CIWA >10 Lorazepam 1 mg 09/08/21 13:56 09/14/21 01:24 Lorazepam Inj (*Crx) 2 Mg/Ml Vial IV PUSH 1 mg Q6H PRN Administration Anxiety Morphine Sulfate 4 mg 09/07/21 22:48 09/14/21 00:54 Morphine Sulfate (*Crx) 4 Mg/Ml Inj IV PUSH 4 mg Q2H PRN Administration Pain Rated 7-10 Nicotine 1 patch 09/08/21 17:15 09/13/21 09:55 Nicotine (*Pbkc) 21 Mg Patch TRANSDERM 1 patch QAM VICTORIA Administration Ondansetron HCl 4 mg 09/07/21 22:48 09/12/21 10:45 Ondansetron Inj 4 Mg/2 Ml Vial IV PUSH 4 mg Q4H PRN Administration Nausea Pantoprazole Sodium 40 mg 09/11/21 09:00 09/13/21 07:47 Pantoprazole 40 Mg Tablet PO 40 mg QAM VICTORIA Administration Sucralfate 1 gm 09/10/21 16:30 09/14/21 06:54 Sucralfate 1 Gm Tablet PO 1 gm ACHS VICTORIA Administration Radiology Results: ITS Impressions Chest X-Ray 09/07/21 18:53 IMPRESSION: 1. No acute cardiopulmonary disease. Abdomen Ultrasound 09/08/21 09:25 IMPRESSION: 1: Unremarkable limited abdominal ultrasound. Hepatobiliary Scan Nuclear Medicine 09/11/21 13:27 IMPRESSION: 1. Gallbladder ejection fraction is below the lower limits of normal which can be seen with gallbladder dysfunction or chronic cholecystitis in the appropriate clinical setting. MRCP 09/12/21 09:34 IMPRESSION: 1. Unremarkable abdominal MRI/MRCP with normal gallbladder and biliary tree with no ductal dilation or cholelithiasis/choledocholithiasis. Abdomen/Pelvis CT 09/13/21 16:03 IMPRESSION: 1. No acute intra-abdominal/pelvic process. Labs Labs: Laboratory Results - last 24 hr 09/14/21 09/14/21 05:38 05:38 WBC 6.3 RBC 3.29 L Hgb 11.6 L Hct 33.2 L MCV 100.9 H MCH 35.3 H MCHC 34.9 RDW 11.0 L Plt Count 188 MPV 9.8 Immature Gran % (Auto) 0.2 Neut % (
[2021-09-14] MEDS: NICOTINE (*PBKC) 21 MG PATCH 1 PATCH TRANSDERM (08:30)
[2021-09-14] MEDS: PANTOPRAZOLE 40 MG TABLET PO (08:31)
--- NOTE | 2021-09-14 10:54 | PCNFU ---
Nutrition Follow-Up Complete: Unintended weight loss as related to ab pain as evidenced by 30 ibs weight loss reported in 2-3 weeks. Goal: Adequate Intake of at least 75% of meals/supplements Patient is progressing towards goal. We will continue current goal. Pt current nutrition is Low Fat with ensure clear BID. Last recorded weight is 65.4 kg, up from 63.2 kg. Bowel Motility:No BM reported. Labs Reviewed:Hgb 11.6,Hct 33.2,Alb 3.0 Meds Noted:Ativan, NS, Carafate, Librium, Protonix, Zofran. Additional Notes: Nutrition follow up. Patient seen today, he ate better today. Discussed low fat diet, patient instruction attached. No plans for surgery at this time, surgery is following. Agree with diet orders. Monitoring: RD will monitor every 5 days.
--- NOTE | 2021-09-14 11:00 | PM.DS ---
DS: Admitting Diagnosis Discharge Date Date of service 09/14/2021 at 11:00 a.m. Admitting Diagnosis Right upper quadrant abdominal pain DS: Discharge Diagnosis Discharge Diagnosis (1) Abdominal pain, acute, right upper quadrant: Code(s): R10.11 - Right upper quadrant pain Status: Acute Assessment and Plan: alcohol history: likely acute alcoholic hepatitis LFTs elevated on admission which continues to improve Total bili also trending down 1.1 today IV fluids: NaCl 125 ml/hr, DC'd for now Regular diet, consider bring diet to full liquids CT of abdomen and pelvis - no etiology for the patient's symptoms Abd Ultrasound: Unremarkable limited abdominal ultrasounds General surgery consulted- called to have patient reevaluated GI consulted thank you EGD found: EGD ETOH Gastritis Carafate 1gm PO QID before meals HIDA scan shows decrease EF of 20% MRCP negative for gallstones or sludge Abd CT: constipation (2) Gastrointestinal hemorrhage: Code(s): K92.2 - Gastrointestinal hemorrhage, unspecified Status: Acute Assessment and Plan: ETOH cessation EGD found gastritis H.Pylori negative carafate 1gm QID before meals protonix 40mg PO daily See above (3) Gastritis: Code(s): K29.70 - Gastritis, unspecified, without bleeding Status: Acute Assessment and Plan: Related to ETOH abuse Protonix 40mg PO daily Carafate (4) Elevated liver enzymes: Code(s): R74.8 - Abnormal levels of other serum enzymes Status: Acute Assessment and Plan: AST/ALT 38/64 on labs Hep panel negative Likely secondary to alcoholic hepatitis Continue to Trend (5) Nausea and vomiting: Code(s): R11.2 - Nausea with vomiting, unspecified Status: Acute Assessment and Plan: Supportive care Anti emetics: Zofran 4mg IV Q4hr (6) Alcohol dependence: Code(s): F10.20 - Alcohol dependence, uncomplicated Status: Acute Assessment and Plan: CIWA protocol CIWA score 2 Trend symptoms Librium 75mg PO Q3hr PRN Ativan 1mg IV PRN for increased agitation Cessation education provided (7) Tobacco dependence: Code(s): F17.200 - Nicotine dependence, unspecified, uncomplicated Status: Acute Assessment and Plan: Nicotine patch as needed Smoking cessation (8) Alcohol withdrawal: Code(s): F10.239 - Alcohol dependence with withdrawal, unspecified Status: Acute Assessment and Plan: Librium PRN Q3hr, increase as needed CIWA protocol See above (9) Weight loss: Code(s): R63.4 - Abnormal weight loss Status: Acute Assessment and Plan: Add daily weights Manager Ccu consult thank you Regular diet Daily weight (10) Hypomagnesemia: Code(s): E83.42 - Hypomagnesemia Status: Acute Assessment and Plan: Mg 1.9 Trend Replace as needed DS: Summary Hospital Course Hospital Course: Patient is a 41-year-old male with past medical history alcohol dependence, pancreatitis, tobacco abuse presented to the emergency room nausea vomiting abdominal pain the right upper quadrant. GI was consulted for this case who did an EGD and found alcoholic gastritis. General surgery was also consulted for possibility of gallbladder for complications. HIDA scan showed a decreased EF of 20%. Abdominal ultrasound was unremarkable, MRCP was negative for sludge and gallstones in the bile duct, CT of the abdomen showed no etiology for patient's symptoms. A repeat CT of the abdomen for pain radiating to the back showed constipation. Patient states that he is feeling better however he is having lots of anxiety but is stating that he is ready to go home. Long extensive conversation about alcohol cessation was given and provided to the patient. I also recommended is just the patient see someone
--- NOTE | 2021-09-14 11:00 | P.DS_ITS ---
DS: Admitting Diagnosis Discharge Date Date of service 09/14/2021 at 11:00 a.m. Admitting Diagnosis Right upper quadrant abdominal pain DS: Discharge Diagnosis Discharge Diagnosis (1) Abdominal pain, acute, right upper quadrant: Code(s): R10.11 - Right upper quadrant pain Status: Acute Assessment and Plan: * alcohol history: likely acute alcoholic hepatitis * LFTs elevated on admission which continues to improve * Total bili also trending down 1.1 today * IV fluids: NaCl 125 ml/hr, DC'd for now * Regular diet, consider bring diet to full liquids * CT of abdomen and pelvis - no etiology for the patient's symptoms * Abd Ultrasound: Unremarkable limited abdominal ultrasounds * General surgery consulted- called to have patient reevaluated * GI consulted thank you * EGD found: EGD ETOH Gastritis * Carafate 1gm PO QID before meals * HIDA scan shows decrease EF of 20% * MRCP negative for gallstones or sludge * Abd CT: constipation (2) Gastrointestinal hemorrhage: Code(s): K92.2 - Gastrointestinal hemorrhage, unspecified Status: Acute Assessment and Plan: * ETOH cessation * EGD found gastritis * H.Pylori negative * carafate 1gm QID before meals * protonix 40mg PO daily * See above (3) Gastritis: Code(s): K29.70 - Gastritis, unspecified, without bleeding Status: Acute Assessment and Plan: * Related to ETOH abuse * Protonix 40mg PO daily * Carafate (4) Elevated liver enzymes: Code(s): R74.8 - Abnormal levels of other serum enzymes Status: Acute Assessment and Plan: * AST/ALT 38/64 on labs * Hep panel negative * Likely secondary to alcoholic hepatitis * Continue to Trend (5) Nausea and vomiting: Code(s): R11.2 - Nausea with vomiting, unspecified Status: Acute Assessment and Plan: * Supportive care * Anti emetics: Zofran 4mg IV Q4hr (6) Alcohol dependence: Code(s): F10.20 - Alcohol dependence, uncomplicated Status: Acute Assessment and Plan: * CIWA protocol * CIWA score 2 * Trend symptoms * Librium 75mg PO Q3hr PRN * Ativan 1mg IV PRN for increased agitation * Cessation education provided (7) Tobacco dependence: Code(s): F17.200 - Nicotine dependence, unspecified, uncomplicated Status: Acute Assessment and Plan: * Nicotine patch as needed * Smoking cessation (8) Alcohol withdrawal: Code(s): F10.239 - Alcohol dependence with withdrawal, unspecified Status: Acute Assessment and Plan: * Librium PRN Q3hr, increase as needed * CIWA protocol * See above (9) Weight loss: Code(s): R63.4 - Abnormal weight loss Status: Acute Assessment and Plan: * Add daily weights * [employer] 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 GI was consulted for this case who did an EGD and
[2021-09-14] MEDS: polyethylene glycoL 3350 17 GM POWD.PACK PO (12:01)
[2021-09-14] MEDS: DICYCLOMINE HCL 10 MG CAPSULE 20 MG PO (13:00)
[2021-09-14 14:00] VITALS: BP 114/75; PULSE 104; RESP 20; TEMP 36.3; O2SAT 100
== END 2021-09-14 15:30 | disposition home or self-care (01) | DRG 241 ==
LOC: ANHED 22:09 → ANH3MEDSUR 23:26
PROVIDERS: Internal Medicine; Internal Medicine Gastroenterology; Admitting Provider Internal Medicine; Emergency Provider Emergency Medicine; Visit Provider Nurse Practitioner
PROC: 0DJ08ZZ Inspection of Upper Intestinal Tract, Via Natural or Artificial Opening Endoscopic (ICD-10-PCS; CPT 43235; principal; 2021-09-10 13:45)
DX: K29.21 Alcoholic gastritis with bleeding (principal); K76.6 Portal hypertension; E83.42 Hypomagnesemia; K86.1 Other chronic pancreatitis; F10.229 Alcohol dependence with intoxication, unspecified; Y90.9 Presence of alcohol in blood, level not specified; F17.210 Nicotine dependence, cigarettes, uncomplicated; Z23 Encounter for immunization; Y90.7 Blood alcohol level of 200-239 mg/100 ml; R63.4 Abnormal weight loss; Z68.20 Body mass index [BMI] 20.0-20.9, adult; F12.90 Cannabis use, unspecified, uncomplicated; F10.239 Alcohol dependence with withdrawal, unspecified; K59.00 Constipation, unspecified; K31.89 Other diseases of stomach and duodenum; K21.9 Gastro-esophageal reflux disease without esophagitis
CPT/HCPCS: 36415; 71046; 74177; 74183; 76376; 76705; 78226; 80048; 80053; 80074; 80076; 80307; 81003; 83690; 83735; 84484; 85025; 85055; 85610; 85730; 87081; 88305; 90471; 90653; 93005; 96361; 96365; 96366; 96374; 96375; 96376; 99285; A9270; A9537; A9577; C9113; G0008; G0378; G0379; J1170; J2060; J2270; J2405; J2704; J3411; J3475; J7030; J7042; J7120; Q9967

== ENCOUNTER 2021-09-24 08:57 | Outpatient (CLI) | payer OTHER, SELFPAY ==
[2021-09-24 09:44] LABS: Amylase 63 U/L (30-110)
== END 2021-09-24 08:58 | disposition home or self-care (01) ==
LOC: ANHSURGERY 09:03
PROVIDERS: Visit Provider Surgery
DX: K81.1 Chronic cholecystitis (principal); Z01.818 Encounter for other preprocedural examination
CPT/HCPCS: 36415; 82150; 86850; 86900; 86901

== ENCOUNTER 2021-09-26 01:06 | Day surgery (SDC) | payer OTHER, SELFPAY ==
[2021-09-26] VITALS (9 sets, daily range): BP systolic 119–146; BP diastolic 77–94; PULSE 59–104; RESP 11–20; TEMP 36.4–36.9; O2SAT 93–100
--- NOTE | 2021-09-26 10:11 | WPDANESEPPF ---
Anes - Initial Pre Proc Eval Procedure: Operation Date: 09/26/21 13:00 Proposed Procedures p Laparoscopic Cholecystectomy - Jaz Elias MD Date/Time: 09/26/21 10:11 Surgeon: Jaz Elias MD Pre Op Diagnosis: chronic cholecystitis Patient Data Age: 41 Gender: M Height: 1.78 m Weight: 63.5 kg Allergies Allergy/AdvReac Type Severity Reaction Status Date / Time moxifloxacin Allergy Intermediate Rash Verified 09/26/21 11:09 Home Medications Medication Instructions Recorded Confirmed Type pantoprazole 40 mg PO QAM #30 tablet 09/14/21 09/26/21 Rx sucralfate 1 g PO ACHS 30 Days #120 tablet 09/14/21 09/26/21 Rx tramadol 50 mg tablet 50 mg PO Q6H PRN #20 tablet 09/18/21 09/26/21 Rx naproxen 250 mg PO BID PRN 09/26/21 09/26/21 History Patient hx anesthesia problems: none Family hx anesthesia problems: none Results Review: All pre-operative results and documents have been reviewed as part of the pre-operative evaluation. 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 NO DRINKS IN PAST 2 WEEKS. Substance use: current Substance use type: marijuana Other substance usage details: SMOKE Last use: 09/17/21 Living arrangements: with family Gender identity (if verbalized by the patient): Male Spiritual care concerns: No Anes - Eval Final PreProcedure Day of Procedure 09/26/21 10:11 Patient weight: normal Heart: regular rate and rhythm Lungs: clear to auscultation and normal air movement Airway: Mallampati scale class II Neurological: alert and oriented Last oral intake: >/= 8 hours ASA classification: III Emergent: no Anesthetic plan: proceed Anesthesia type and monitoring: general ETT Results Review: All pre-operative results and documents have been reviewed as part of the pre-operative evaluation. Informed Consent: The patient's anesthetic plan and its attendant risks and benefits were discussed with the patient/family/POA. Questions were solicited and answers provided to the satisfaction of the patient/family/POA.
[2021-09-26] MEDS: ACETAMINOPHEN 500 MG TABLET 1000 MG PO (11:21)
[2021-09-26] MEDS: LACTATED RINGERS 1,000 ML 30 ML IV CONT ×2 (11:34→13:23)
[2021-09-26] MEDS: KETOROLAC 15 MG/ML VIAL (*BKC) IV PUSH (11:35)
--- NOTE | 2021-09-26 11:35 | WPDHPUPDATE1 ---
History and Physical Update Update Date/Time: 09/26/21 11:36 History and Physical has been reviewed, including an updated exam of the patient. There are NO changes in the patient's condition. Risks, benefits, and alternatives have been discussed and questions answered. Patient agrees to proceed with procedure.
[2021-09-26] MEDS: ceFAZolin 2 GM/D5W 50 ML 2 GM/50 ML BAG IVPB (11:58)
[2021-09-26] MEDS: BUPIVACAINE HCL 0.5% PF 30 ML VIAL INFILTRATE (11:58)
--- NOTE | 2021-09-26 12:43 | W.PM.PROC2 ---
Procedure Note - Detailed Date of Procedure 09/26/21 Pre-op Diagnosis chronic cholecystitis Post-op Diagnosis same Procedure Performed Laparoscopic cholecystectomy Surgeon Jaz Elias MD Anesthesia general Indications 41-year-old male with history of alcohol abuse presenting with chronic cholecystitis Findings chronic cholecystitis Description of Procedure The patient was taken to the operating room placed in the supine position. After adequate induction of general anesthesia, the patient was prepped and draped in normal sterile fashion. A time-out was then performed to verify the patient's identity as well as the procedure being performed. I then made a 5 mm incision in the infraumbilical region. Through this, a Veress needle was placed into the peritoneal cavity and CO2 gas was then insufflated. After adequate pneumoperitoneum was achieved, the Veress needle was removed and a 5 mm optiview trocar was placed through this incision under direct visualization. I then placed the laparoscope through this trocar site and under direct visualization placed a further 12 mm subxiphoid port as well as 2 additional 5 mm ports in the right upper abdomen. The gallbladder was then identified and was noted to be moderately inflamed and distended. I was able to place a grasper at the dome of the gallbladder and this was retracted anterior and cephalad up over the liver. A 2nd retractor was then placed at the infundibulum and retracted laterally, this allowed visualization of the triangle of Calot. I then was able to visualize the cystic duct in its entirety from its proximal insertion into the gallbladder, to its distal junction with the common hepatic/common bile duct junction. At this point, I carefully skeletonized the proximal cystic duct with the [place] dissector. I then clipped and transected the proximal cystic duct. Next I visualized the cystic artery. Again the artery was skeletonized, clipped, and transected. I then used the Bovie cautery to take down the peritoneal attachments of the gallbladder off the liver bed. Once the gallbladder specimen was completely detached, an endo-pouch was placed through the 12 mm port site. I then placed the gallbladder specimen into the Endo pouch and removed the endo-pouch from the 12 mm port site. The specimen will now be sent to pathology for further review. I then copiously irrigated the right upper quadrant. Some mild oozing was noted in the liver bed and this was controlled with the bovie cautery. Hemostasis was noted in the liver bed, the clips were noted to be in good position on both the cystic duct stump and the cystic artery stump. No other pathology was noted in the right upper quadrant. I then moved the laparoscope to the subxiphoid port. No iatrogenic injury or other pathology was noted in the lower abdomen. I then closed the 12 mm trocar site under direct visualization using the Lan cone and 0 Vicryl suture. At this point, the abdomen was desufflated and all ports removed. All port sites were then closed with 4.O Monocryl subcuticular sutures. Dermabond was placed on each incision. The patient tolerated the procedure well, was extubated in the operating room postoperative and will be transferred to the recovery room in stable condition Estimated Blood Loss 10 Drains No Packing No Pathology yes Complications No immediate complications Condition stable Disposition PACU
[2021-09-26] MEDS: fentaNYL CITRATE INJ (*CRX) 100 MCG/2 ML VIAL 25 MCG IV PUSH ×8 (13:09→13:41)
[2021-09-26] MEDS: oxyCODONE HCL (*CRX) 5 MG TAB IR PO (14:02)
== END 2021-09-26 14:56 | disposition home or self-care (01) ==
PROVIDERS: Visit Provider Surgery
PROC: 0FT44ZZ Resection of Gallbladder, Percutaneous Endoscopic Approach (ICD-10-PCS; CPT 47562; principal; 2021-09-26 12:00)
DX: K81.1 Chronic cholecystitis (principal); F10.20 Alcohol dependence, uncomplicated; F41.9 Anxiety disorder, unspecified; F17.210 Nicotine dependence, cigarettes, uncomplicated; F12.90 Cannabis use, unspecified, uncomplicated
CPT/HCPCS: 47562; 88304; A9270; J0330; J0690; J1170; J1885; J2250; J2405; J2704; J2710; J3010; J7120

== ENCOUNTER 2021-12-17 14:10 | Emergency (ER) | payer OTHER, SELFPAY ==
[2021-12-17 14:15] VITALS: BP 149/95; PULSE 128; RESP 20; TEMP 36.2; O2SAT 97
[2021-12-17 16:28] VITALS: BP 161/91; PULSE 115; RESP 20; TEMP 36.9; O2SAT 95
[2021-12-17 19:45] VITALS: BP 137/104; PULSE 113; RESP 16; O2SAT 97
[2021-12-17] MEDS: LACTATED RINGERS 1,000 ML 999 ML IV CONT (20:44)
[2021-12-17] MEDS: PHENobarbitaL sodium (*CRX) 130 MG/ML VIAL 260 MG IV PUSH (20:45)
[2021-12-17] MEDS: THIAMINE HCL 200 MG/2 ML VIAL IV PUSH (20:45)
[2021-12-17 20:51] LABS: Basophils Percent Auto 0.3 % (0.2-1.2); Eosinophils Percent Auto 0.1 % (0-4.4); Hematocrit 45.2 % (42.0-52.0); Hemoglobin 15.9 g/dL (14.0-18.0); Immature Granulocyte Absolute 0.04 K/mm3 (0.00-0.031); Immature Granulocyte Percent A 0.3 % (0-0.5); Lymphocytes Absolute Auto 1.12 K/mm3 (0.9-3.2); Mean Corpuscular HGB Conc 35.2 g/dl (32-36); Mean Corpuscular Hemoglobin 34.6 pg (26-34); Mean Corpuscular Volume 98.5 fl (80-100); Mean Platelet Volume 8.7 fl (7.4-10.4); Monocytes Absolute Auto 1.1 K/mm3 (0.1-0.6); Monocytes Percent Auto 8.7 % (2.6-8.5); Neutrophils Absolute Auto 10.1 K/mm3 (1.3-6.7); Neutrophils Percent Auto 81.6 % (45.5-73.1); Platelet Count Result 227 k/mm3 (150-375); Red Blood Count 4.59 M/mm3 (4.6-6.20); Red Cell Distribution Width 11.8 % (11.5-14.5); White Blood Count 12.4 K/mm3 (4.5-10.0)
[2021-12-17 20:56] VITALS: BP 130/96; PULSE 104; RESP 14; O2SAT 97
--- NOTE | 2021-12-17 20:58 | ED.SEIZURE ---
HPI - Seizure General Chief Complaint: Seizure Stated Complaint: seizure with history Time Seen by Provider: 12/17/21 19:38 Source: patient Mode of arrival: ambulatory Limitations: no limitations History of Present Illness HPI Narrative: 41-year-old male History of alcoholism Also history of alcohol withdrawal type seizures most recently about 2 years ago to the best of his recollection Patient reports that after a fairly brief period of abstinence measuring a few days that he drank very heavily on Friday and Friday and then this afternoon had a single seizure which she reports was witnessed by his father Said to be brief, generalized, self-limited, and there is no associated incontinence or tongue biting but his dad is not here in the room to get the full description from Seizure History: Yes (FROM ALCOHOL WITHDRAWALS - NONE IN PAST 4 YEARS) Related Data Allergies Allergy/AdvReac Type Severity Reaction Status Date / Time moxifloxacin Allergy Intermediate Rash Verified 12/17/21 19:41 Review of Systems Review of Systems: All systems reviewed & are unremarkable except as noted in HPI and below Constitutional: Constitutional: Reports no additional constitutional complaints, Denies chills, Reports fatigue, Denies fever(s), Denies headache(s) and Reports weakness Eyes: Eyes: Reports no additional eye complaints and Denies change in vision ENT: Denies headache(s) and Denies sore throat Cardiovascular: Cardiovascular: Denies chest pain and Denies dyspnea Respiratory: Respiratory: Denies cough and Denies dyspnea Gastrointestinal: Gastrointestinal: Denies abdominal pain, Denies diarrhea and Denies vomiting Genitourinary: Genitourinary: Denies dysuria and Denies urinary frequency Musculoskeletal: Musculoskeletal: Denies deformity, Denies arthralgias, Denies joint swelling and Denies numbness Integumentary/Breasts: Skin/Breast: Denies rash and Denies wounds Neurologic: Denies headache(s), Denies focal weakness and Denies numbness Psychiatric: Psychiatric: Reports no additional psychiatric complaints Endocrine: Endocrine: Reports no additional endocrine complaints Hematologic/Lymphatic: Hematologic/Lymphatic: Reports no additional hematologic/lymphatic complaints Allergic/Immunologic: Allergic/Immunologic: Reports no additional allergic/immunologic complaints PMFSH Past Medical History Medical History Alcohol dependence Anxiety Chronic cholecystitis without calculus Gastritis History of ETOH abuse Pancreatitis Smoker Surgical History Surgical History Hx laparoscopic cholecystectomy 09/26/21 Family History Family History Father Cerebrovascular accident Hypertension Social History Social History Smoking packs per day: 1 Smoking cigarettes per day: 20.0 Years smoked: 20 Smoking pack-years: 20.00 Smoking status: Current every day smoker Tobacco type: cigarettes Alcohol intake: former Drinks per week: 20 Alcohol use details: AT LEAST 1/2 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 NO DRINKS IN PAST 2 WEEKS. Substance use: current Substance use type: marijuana Other substance usage details: SMOKE Last use: 09/17/21 Gender identity (if verbalized by the patient): Male Spiritual care concerns: No Exam Const: General: cooperative, no acute distress and alert Orientation/consciousness: patient oriented x3 (alert) and No confusion HENMT: Head: normal to inspection, normocephalic, atraumatic, no contusions and no hematomas Ears: external ears normal General nose exam: no epistaxis Eyes: Conjunctivae: conjunctivae normal EOM: EOMs intact bilaterally Neck: Neck: normal visual inspection, supple and no JVD Resp: Effort & Inspection: normal respiratory effort and not labored Auscultation: clear t
[2021-12-17 21:00] LABS: Anion Gap 5 mmol/L (8-16); Blood Urea Nitrogen 5 mg/dL (9-20); Calcium 9.4 mg/dL (8.4-10.2); Carbon Dioxide 30 mmol/L (22-30); Chloride 98 mmol/L (98-107); Estimated CRCL calculation 118 ml/min; Estimated Glomerular Filt Rate > 60; Glucose 111 mg/dL (65-110); Sodium 133 mmol/L (137-145)
[2021-12-17 21:01] LABS: Ethanol < 10 mg/dL (<10)
[2021-12-17 21:03] LABS: Glucose Point of Care 114 mg/dl (65-105)
[2021-12-17 22:13] VITALS: BP 98/73; PULSE 97; RESP 18; O2SAT 99
[2021-12-17 23:20] VITALS: BP 111/77; PULSE 93; RESP 14; O2SAT 99
== END 2021-12-17 23:21 | disposition home or self-care (01) ==
PROVIDERS: Emergency Provider Emergency Medicine
DX: F10.239 Alcohol dependence with withdrawal, unspecified (principal); R56.9 Unspecified convulsions; F17.210 Nicotine dependence, cigarettes, uncomplicated; Y90.0 Blood alcohol level of less than 20 mg/100 ml
CPT/HCPCS: 36415; 80048; 80307; 82948; 85025; 96361; 96374; 96375; 99284; J2560; J3411; J7120

== ENCOUNTER 2022-02-14 11:43 | Inpatient (IN) | payer OTHER, SELFPAY ==
[2022-02-14] VITALS (18 sets, daily range): BP systolic 102–132; BP diastolic 66–95; PULSE 99–123; RESP 11–22; TEMP 36.1–36.9; O2SAT 93–100; BMI 21.3
--- NOTE | ~2022-02-14 | CT_ITS ---
EXAMINATION: CT brain wo con INDICATION: Transient alteration of awareness COMPARISON: 02/12/2019 TECHNIQUE: Standard unenhanced head CT. The dose-length product (DLP) was 605.33 mGy-cm. The mA was a djusted according to patient size. Iterative reconstruction technique was employed. FINDINGS: There is no intracranial hemorrhage, acute infarction, or abnormal mass lesion. The ventric les are normal. There is no abnormal mass effect or midline shift. The starks-white matter differentiat ion is normal. The basal cisterns are patent. The orbits are normal. The paranasal sinuses, mastoids and calvarium are normal. IMPRESSION: 1. No acute intracranial abnormality. Reviewed, dictated and finalized at location B.
[2022-02-14] MEDS: ONDANSETRON INJ 4 MG/2 ML VIAL IV PUSH (12:45)
[2022-02-14] MEDS: SODIUM CHLORIDE 0.9% IV 1,000 ML 999 ML IV CONT (12:45)
[2022-02-14] MEDS: diazePAM INJ (*CRX) 10 MG/2 ML SYRINGE 5 MG IV PUSH ×2 (12:47→16:14)
[2022-02-14 12:49] LABS: Ethanol < 10 mg/dL (<10)
[2022-02-14 13:08] LABS: Basophils Absolute Auto 0.1 K/mm3 (0.0-0.1); Basophils Percent Auto 0.5 % (0.2-1.2); Eosinophils Absolute Auto 0.1 K/mm3 (0-0.3); Eosinophils Percent Auto 0.5 % (0-4.4); Hematocrit 45.9 % (42.0-52.0); Hemoglobin 16.2 g/dL (14.0-18.0); Immature Granulocyte Absolute 0.03 K/mm3 (0.00-0.031); Immature Granulocyte Percent A 0.3 % (0-0.5); Lymphocytes Absolute Auto 1.05 K/mm3 (0.9-3.2); Lymphocytes Percent Auto 9.2 % (18.3-44.2); Mean Corpuscular HGB Conc 35.3 g/dl (32-36); Mean Corpuscular Hemoglobin 34.5 pg (26-34); Mean Corpuscular Volume 97.7 fl (80-100); Mean Platelet Volume 8.9 fl (7.4-10.4); Monocytes Absolute Auto 0.7 K/mm3 (0.1-0.6); Monocytes Percent Auto 6.3 % (2.6-8.5); Neutrophils Absolute Auto 9.5 K/mm3 (1.3-6.7); Neutrophils Percent Auto 83.2 % (45.5-73.1); Platelet Count Result 204 k/mm3 (150-375); Red Cell Distribution Width 11.6 % (11.5-14.5); White Blood Count 11.4 K/mm3 (4.5-10.0)
[2022-02-14 13:18] LABS: Alanine Aminotransferase 40 U/L (4-50); Alkaline Phosphatase 97 U/L (38-126); Anion Gap 6 mmol/L (8-16); Aspartate Amino Transferase 68 U/L (17-59); Bilirubin,Total 1.2 mg/dL (0.2-1.3); Blood Urea Nitrogen 5 mg/dL (9-20); Calcium 8.3 mg/dL (8.4-10.2); Carbon Dioxide 26 mmol/L (22-30); Chloride 97 mmol/L (98-107); Estimated CRCL calculation 139 ml/min; Estimated Glomerular Filt Rate > 60; Glucose 121 mg/dL (65-110); Lipase 45 U/L (23-300); Potassium 3.7 mmol/L (3.4-5.0); Sodium 129 mmol/L (137-145)
[2022-02-14 13:43] LABS: Barbiturate Screen Urine Negative (Negative)
[2022-02-14 13:45] LABS: Benzodiazepines Screen Urine Negative (Negative)
[2022-02-14 13:57] LABS: Amphetamine Screen Urine Negative (Negative); Cannabinoid Screen Urine Positive (Negative); Cocaine Screen Urine Negative (Negative); Methadone Screen Urine Negative (Negative); Opiate Screen Urine Negative (Negative); Phencyclidine Screen Urine Negative (Negative)
--- NOTE | 2022-02-14 16:09 | ED.SEIZURE ---
HPI - Seizure General Chief Complaint: Seizure Stated Complaint: SZ Time Seen by Provider: 02/14/22 11:58 History of Present Illness HPI Narrative: Patient is a 42-year-old male who presents ER status post seizure. Reports 10-minute seizure at his mother's house. Patient has history of alcoholism. Reports nausea and vomiting for the last 2 to 3 days has been unable to consume any alcohol. He has history of alcohol withdrawal seizures. Patient reports mild anxiety and tremulousness at this time. Seizure History: Yes (FROM ALCOHOL) Related Data Home Medications Medication Instructions Recorded Confirmed No Home Medications 02/14/22 02/14/22 Allergies Allergy/AdvReac Type Severity Reaction Status Date / Time moxifloxacin Allergy Intermediate Rash Verified 12/17/21 19:41 Review of Systems Review of Systems: All systems reviewed & are unremarkable except as noted in HPI and below Constitutional: Constitutional: Denies chills, Denies fever(s) and Denies weakness ENT: Denies nasal congestion and Denies sore throat Cardiovascular: Cardiovascular: Denies chest pain and Denies radiating jaw, neck or arm pain Respiratory: Respiratory: Denies cough, Denies dyspnea and Denies wheezing Gastrointestinal: Gastrointestinal: Denies abdominal pain, Denies nausea and Denies vomiting Neurologic: Denies focal weakness and Denies numbness Comments: seizure PMFSH Past Medical History Medical History Alcohol dependence Anxiety Chronic cholecystitis without calculus Gastritis History of ETOH abuse Pancreatitis Smoker Surgical History Surgical History Hx laparoscopic cholecystectomy 09/26/21 Family History Family History Father Cerebrovascular accident Hypertension Social History Social History Smoking packs per day: 1 Smoking cigarettes per day: 20.0 Years smoked: 20 Smoking pack-years: 20.00 Smoking status: Current every day smoker Alcohol intake: current Drinks per week: 20 Alcohol use details: AT LEAST 1/2 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 NO DRINKS IN PAST 2 WEEKS. Substance use: current Substance use type: marijuana Other substance usage details: SMOKE Last use: 09/17/21 Gender identity (if verbalized by the patient): Male Spiritual care concerns: No Exam Narrative: GENERAL: Fatigued-appearing, well-nourished, and in no acute distress. HEAD: Normocephalic, atraumatic. EYES: PERRL and EOMI. ENT: Mucous membranes moist. Bite solitario to the tongue from seizing. NECK: Supple. CHEST: Clear to auscultation. No respiratory distress. HEART: Tachycardic and regular. Normal peripheral pulses. ABDOMEN: Soft, nontender, nondistended. EXTREMITIES: Normal range of motion. No edema. SKIN: Warm, dry, no rash. NEURO: No focal deficits. Mildly tremulous. Alert and oriented x3. PSYCH: Normal mood and affect. Course Course Emergency Course: Patient hydrated, given Valium. Still feeling anxious and shaky. No recurrent seizure here. Will admit for observation. Vital Signs Vital signs: Vital Signs Temperature 97 F L 02/14/22 11:50 Pulse Rate 115 H 02/14/22 11:50 Respiratory Rate 12 02/14/22 11:50 Blood Pressure 127/93 H 02/14/22 11:50 Pulse Oximetry 100 02/14/22 11:50 Temperature 98.2 F 02/16/22 16:00 Pulse Rate 76 02/16/22 18:00 Respiratory Rate 20 02/16/22 16:00 Blood Pressure 120/89 02/16/22 16:00 Pulse Oximetry 100 02/16/22 16:00 MDM - Seizure Lab Data Result diagrams: 02/16/22 04:13 02/16/22 04:13 Labs: Lab Results 02/14/22 02/14/22 02/14/22 Range/Units 12:30 13:05 13:05 WBC 11.4 H (4.5-10.0) K/mm3 RBC 4.70 (4.6-6.20) M/mm3 Hgb 16.2 (14.0-18.0) g/dL Hct 45.9 (42.0-52.0) % MCV 97.7 (80-100) fl MCH
--- NOTE | 2022-02-14 18:18 | PM.IMHP ---
H&P: HPI History of Present Illness Date/Time: Patient was placed observation status for expected length of stay less than 23 hours for management, will plan to re-evaluate tomorrow for improvement. 02/14/22 18:18 Chief Complaint: Seizure Narrative: Mr. Kuhn is a 42-year-old gentleman who presented emergency room after having a seizure today. Patient states for the last 2 days he has been having nausea and vomiting and been unable to drink any alcoholic beverages. Patient states he typically drinks 424 oz cans of beer daily. Patient states he has gone through alcohol withdrawals before and has had seizures with his withdrawals before. Patient states that he began having some queasiness on Friday and then Friday he started having vomiting and Friday he began having diarrhea. Patient states he did attempt to have a beer last evening, but he was unable to tolerate it and could not drink it. Patient's seizure was witnessed by his mother and stated that his seizure was approximately 10 minutes. Patient denies any dysuria, hematuria, frequency, or urgency. Patient denies any abdominal pain at this time. Patient states he does remain nauseated but has had no vomiting or diarrhea since he has been in the emergency room. Patient states that he does have a known history of alcoholism and pancreatitis. Patient states he had quit drinking for some time by going to AA meetings, but then he started hanging out with people that encouraged him to drink and he started drinking again. Patient denies any other past medical history and states he takes no medications at home. Review of Systems Review of Systems: A 12 point review of systems was completed patient all pertinent positive and negative per HPI the remainder are unremarkable. PMFSH Past Medical History Medical History Alcohol dependence Anxiety Chronic cholecystitis without calculus Gastritis History of ETOH abuse Pancreatitis Smoker Surgical History Surgical History Hx laparoscopic cholecystectomy 09/26/21 Family History Family History Father Cerebrovascular accident Hypertension Social History Social History Smoking packs per day: 1 Smoking cigarettes per day: 20.0 Years smoked: 20 Smoking pack-years: 20.00 Smoking status: Current every day smoker Tobacco type: cigarettes Alcohol intake: former Drinks per week: 20 Alcohol use details: AT LEAST 1/2 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 NO DRINKS IN PAST 2 WEEKS. Substance use: current Substance use type: marijuana Other substance usage details: SMOKE Last use: 09/17/21 Gender identity (if verbalized by the patient): Male Spiritual care concerns: No Meds Home Medications and Allergies Home Medications Medication Instructions Recorded Confirmed Type No Home Medications 02/14/22 02/14/22 History Allergies Allergy/AdvReac Type Severity Reaction Status Date / Time moxifloxacin Allergy Intermediate Rash Verified 12/17/21 19:41 Vital Signs Vital Signs - 24 hr 02/14/22 11:50 02/14/22 12:01 02/14/22 12:16 Temperature 36.1 C L Pulse Rate 115 H 123 H 116 H Respiratory Rate 12 16 15 Blood Pressure 127/93 H 132/78 117/82 Pulse Oximetry 100 93 93 02/14/22 14:01 02/14/22 14:16 02/14/22 14:31 Temperature Pulse Rate 102 H 103 H 104 H Respiratory Rate 11 L 18 20 Blood Pressure 117/83 127/88 119/87 Pulse Oximetry 99 98 99 02/14/22 15:01 02/14/22 15:46 02/14/22 16:01 Temperature Pulse Rate 104 H 105 H 102 H Respiratory Rate 21 H 15 21 H Blood Pressure 120/87 102/79 104/71 Pulse Oximetry 98 97 97 02/14/22 16:16 02/14/22 16:31 02/14/22 16:46 Temperature Pulse Rate 111 H 110 H 99 Respiratory Rate 16 17 22 H Blood Pressure 128/95 H 103/66 123/85 Pulse Oximetry 98 97 Exam
[2022-02-14] MEDS: SODIUM CHLORIDE 0.9% IV 1,000 ML 125 ML IV CONT (19:47)
--- NOTE | 2022-02-14 19:58 | PC.NURSE ---
Pt updated on bed situation. Pt c/o due to long wait. RN explained process and states she is working on finding bed for pt at this time. Pt provided a drink and food per request. Pt has IV fluids infusing. will contiue to monitor.
--- NOTE | 2022-02-14 21:10 | ADMGEN ---
This patient, Iker Kuhn, was admitted to IMU Room 232-01 at 2110. Patient/family oriented to hospital policies and general routines including ID bracelet, bed and alarms, visiting hours, pain management, procedures, bathroom and other care routines, personal items, smoking policy, room service/diet, and visiting hours. Information on how to activate the Rapid Response Team has been discussed. Patient/Family are encouraged to report perceived risks to care and to ask questions if they do not understand what they are told or what they should do.
[2022-02-14] MEDS: chlordiazePOXIDE (*CRX) 10 MG CAPSULE PO (21:45)
[2022-02-14] MEDS: LORazepam INJ (*CRX) 2 MG/ML VIAL IV PUSH (23:12)
[2022-02-14 23:25] LABS: SARS-CoV-2 RNA PCR Negative
[2022-02-15] VITALS (19 sets, daily range): BP systolic 91–139; BP diastolic 48–94; PULSE 84–111; RESP 16–22; TEMP 36.6–36.9; O2SAT 97–100
[2022-02-15 05:00] LABS: Basophils Absolute Auto 0.1 K/mm3 (0.0-0.1); Basophils Percent Auto 0.8 % (0.2-1.2); Eosinophils Absolute Auto 0.1 K/mm3 (0-0.3); Eosinophils Percent Auto 1.4 % (0-4.4); Hematocrit 42.2 % (42.0-52.0); Hemoglobin 14.8 g/dL (14.0-18.0); Immature Granulocyte Absolute 0.02 K/mm3 (0.00-0.031); Immature Granulocyte Percent A 0.2 % (0-0.5); Lymphocytes Absolute Auto 2.23 K/mm3 (0.9-3.2); Lymphocytes Percent Auto 25.2 % (18.3-44.2); Mean Corpuscular HGB Conc 35.1 g/dl (32-36); Mean Corpuscular Hemoglobin 34.4 pg (26-34); Mean Corpuscular Volume 98.1 fl (80-100); Monocytes Absolute Auto 0.8 K/mm3 (0.1-0.6); Monocytes Percent Auto 8.5 % (2.6-8.5); Neutrophils Absolute Auto 5.7 K/mm3 (1.3-6.7); Neutrophils Percent Auto 63.9 % (45.5-73.1); Platelet Count Result 196 k/mm3 (150-375); Red Cell Distribution Width 11.5 % (11.5-14.5); White Blood Count 8.8 K/mm3 (4.5-10.0)
[2022-02-15 05:14] LABS: Alanine Aminotransferase 30 U/L (4-50); Albumin Level 3.4 g/dL (3.5-5.1); Alkaline Phosphatase 78 U/L (38-126); Anion Gap 4 mmol/L (8-16); Aspartate Amino Transferase 46 U/L (17-59); Bilirubin,Total 1.3 mg/dL (0.2-1.3); Blood Urea Nitrogen 7 mg/dL (9-20); Carbon Dioxide 25 mmol/L (22-30); Chloride 105 mmol/L (98-107); Estimated CRCL calculation 112 ml/min; Estimated Glomerular Filt Rate > 60; Glucose 76 mg/dL (65-110); Potassium 3.5 mmol/L (3.4-5.0); Sodium 134 mmol/L (137-145)
[2022-02-15] MEDS: chlordiazePOXIDE (*CRX) 10 MG CAPSULE PO ×2 (08:12→20:53)
[2022-02-15] MEDS: LORazepam INJ (*CRX) 2 MG/ML VIAL IV PUSH ×4 (08:12→23:17)
[2022-02-15] MEDS: ENOXAPARIN 40 MG/0.4 ML SYRINGE SUB-Q (08:13)
[2022-02-15] MEDS: FOLIC ACID 1 MG TABLET PO (09:57)
[2022-02-15] MEDS: THIAMINE HCL 100 MG TABLET PO (09:57)
--- NOTE | 2022-02-15 10:50 | PCDIET ---
Nutrition consult received for history of alcohol abuse. Pt is on a heart healthy diet, intake 100% of meals at this time. BMI is WNL at 21. Meds include folic acid and thiamin. No further nutrition interventions needed at this time. Will assess length of stay
[2022-02-15] MEDS: NICOTINE (*PBKC) 21 MG PATCH 1 PATCH TRANSDERM (10:54)
[2022-02-15] MEDS: SODIUM CHLORIDE 0.9% IV 1,000 ML 125 ML IV CONT (12:11)
--- NOTE | 2022-02-15 17:26 | PM.IMPN ---
Progress Note: A&P Assessment and Plan (1) Seizure: Code(s): R56.9 - Unspecified convulsions Status: Acute Assessment and Plan: Patient with seizures most likely secondary to alcohol withdrawal. CT of the brain showed no acute findings. He states he never has had a seizure when actively drinking. Patient has been started on Librium. Ativan available as needed for seizures. Continue seizure precautions. Hold on anticonvulsants. (2) Alcohol withdrawal: Code(s): F10.239 - Alcohol dependence with withdrawal, unspecified Status: Acute Assessment and Plan: Patient states he has been unable to drink any alcohol due to the nausea and vomiting. His last drink he believes was on 02/13/2022 at 5:00 a.m.. He typically drinks four 24 oz cans of beer a day and also drinks spirits at times. Patient has been started on scheduled Librium. CIWA score noted. Continue Ativan as needed. Will add thiamine and folate. Continue supportive care. (3) Nausea and vomiting: Code(s): R11.2 - Nausea with vomiting, unspecified Status: Acute Assessment and Plan: Patient still with nausea but no further vomiting. Lipase was normal. Patient is tolerating oral intake. Symptoms appear to be resolving. Continue to follow. (4) Alcohol dependence: Code(s): F10.20 - Alcohol dependence, uncomplicated Status: Acute Assessment and Plan: Patient was educated about the benefits of abstain from alcohol use. Care coordination to provide information about alcohol rehab. (5) Tobacco abuse: Code(s): Z72.0 - Tobacco use Status: Acute Assessment and Plan: Patient was educated about the benefits of smoking cessation. Subjective Date/time seen: 02/15/22 17:26 Interval history: 42yo male with hx of alcoholism here for seizures. Patient has a slight headache. He has also been having tremors. He has a cold sweat at times. Does have a history of seizures and withdrawal symptoms when he stops drinking. He does have a nonproductive cough. Some nausea but able to eat okay. No diarrhea. Last drink was 02/13/2022 at 5:00 a.m. Exam Narrative: AF 98.3 118/77 111 20 99% ra Gen - NARD Chest - CTA bilaterally but with prolonged expir phase, nml RR CV - RRR S1/S2. Tele showing no significant dysrhythmia Abd - Soft, NT/ND, Positive BS Ext - No pedal edema Psych - Nml mood and affect. No tremors. Skin - Warm and dry. No diaphoresis Objective Data Vital Signs Vital Signs: Vital Signs - 24 hr 02/14/22 18:00 02/14/22 19:00 02/14/22 21:00 Temperature Pulse Rate 100 99 105 H Respiratory Rate 16 16 18 Blood Pressure 120/80 113/83 123/88 Pulse Oximetry 98 98 98 02/14/22 21:10 02/14/22 21:34 02/14/22 22:00 Temperature 98.4 F Pulse Rate 112 H 112 H 99 Respiratory Rate 16 16 Blood Pressure 128/90 Pulse Oximetry 98 98 02/15/22 00:00 02/15/22 02:00 02/15/22 04:00 Temperature 98.2 F 98.0 F Pulse Rate 94 89 85 Respiratory Rate 22 H 18 Blood Pressure 91/48 L 115/84 Pulse Oximetry 99 98 02/15/22 05:09 02/15/22 06:00 02/15/22 07:57 Temperature 97.8 F Pulse Rate 89 93 Respiratory Rate 16 Blood Pressure 118/82 Pulse Oximetry 98 100 02/15/22 08:00 02/15/22 10:00 02/15/22 12:00 Temperature 98.3 F Pulse Rate 84 95 92 Respiratory Rate 20 20 Blood Pressure 118/77 Pulse Oximetry 100 99 02/15/22 14:00 02/15/22 16:00 Temperature Pulse Rate 85 111 H Respiratory Rate Blood Pressure Pulse Oximetry Intake/Output Intake/Output: Intake & Output 02/12/22 02/13/22 02/14/22 02/15/22 23:59 23:59 23:59 23:59 Intake Total 1000 1989 Output Total 750 1500 Balance 250 490 Meds/Results Medications: Active Medications Generic Name Dose Route Start Last Admin Trade Name Freq PRN Reason Stop Dose Admin Acetaminophen 650 mg 02/14/22 16:13 Acetaminophen 325 Mg Tablet PO Q4H
[2022-02-15] MEDS: LORazepam INJ (*CRX) 2 MG/ML VIAL 1 MG IV PUSH (20:54)
--- NOTE | 2022-02-15 21:46 | PM.EVENT ---
Event Note Event Note Event Note: The patient is very anxious tonight with a high CIWA score. His liver enzymes are within normal limits today. I did increase his Librium to routine but continue to monitor liver enzymes. I did continue with p.rdorcas Ativan. Hold Librium if the patient becomes lethargic.
[2022-02-15] MEDS: SODIUM CHLORIDE 0.9% IV 1,000 ML 60 ML IV CONT (23:16)
[2022-02-15] MEDS: chlordiazePOXIDE (*CRX) 25 MG CAPSULE PO (23:16)
[2022-02-16] VITALS (14 sets, daily range): BP systolic 117–137; BP diastolic 77–89; PULSE 76–100; RESP 16–20; TEMP 35.9–36.8; O2SAT 97–100
[2022-02-16] MEDS: LORazepam INJ (*CRX) 2 MG/ML VIAL IV PUSH ×5 (04:18→22:44)
[2022-02-16 04:31] LABS: Basophils Absolute Auto 0.1 K/mm3 (0.0-0.1); Basophils Percent Auto 0.8 % (0.2-1.2); Eosinophils Absolute Auto 0.2 K/mm3 (0-0.3); Eosinophils Percent Auto 1.8 % (0-4.4); Hematocrit 43.1 % (42.0-52.0); Immature Granulocyte Absolute 0.04 K/mm3 (0.00-0.031); Immature Granulocyte Percent A 0.4 % (0-0.5); Lymphocytes Absolute Auto 2.39 K/mm3 (0.9-3.2); Lymphocytes Percent Auto 26.7 % (18.3-44.2); Mean Corpuscular HGB Conc 34.8 g/dl (32-36); Mean Corpuscular Hemoglobin 34.8 pg (26-34); Mean Platelet Volume 9.3 fl (7.4-10.4); Monocytes Absolute Auto 0.7 K/mm3 (0.1-0.6); Monocytes Percent Auto 7.3 % (2.6-8.5); Neutrophils Absolute Auto 5.6 K/mm3 (1.3-6.7); Platelet Count Result 192 k/mm3 (150-375); Red Blood Count 4.31 M/mm3 (4.6-6.20); Red Cell Distribution Width 11.2 % (11.5-14.5); White Blood Count 8.9 K/mm3 (4.5-10.0)
[2022-02-16 04:41] LABS: Alanine Aminotransferase 25 U/L (4-50); Albumin Level 3.5 g/dL (3.5-5.1); Alkaline Phosphatase 83 U/L (38-126); Anion Gap 7 mmol/L (8-16); Aspartate Amino Transferase 32 U/L (17-59); Bilirubin,Total 0.9 mg/dL (0.2-1.3); Blood Urea Nitrogen 4 mg/dL (9-20); Calcium 8.4 mg/dL (8.4-10.2); Carbon Dioxide 23 mmol/L (22-30); Chloride 104 mmol/L (98-107); Estimated CRCL calculation 126 ml/min; Estimated Glomerular Filt Rate > 60; Glucose 86 mg/dL (65-110); Potassium 3.2 mmol/L (3.4-5.0); Sodium 134 mmol/L (137-145)
[2022-02-16] MEDS: chlordiazePOXIDE (*CRX) 25 MG CAPSULE PO (06:25)
[2022-02-16] MEDS: THIAMINE HCL 100 MG TABLET PO (08:54)
[2022-02-16] MEDS: FOLIC ACID 1 MG TABLET PO (08:54)
[2022-02-16] MEDS: ENOXAPARIN 40 MG/0.4 ML SYRINGE SUB-Q (08:54)
[2022-02-16] MEDS: NICOTINE (*PBKC) 21 MG PATCH 1 PATCH TRANSDERM (08:54)
[2022-02-16] MEDS: HYDROcodone/acetaminophen (*CRX) 5-325 MG TABLET 1 TAB PO ×2 (09:15→16:04)
--- NOTE | 2022-02-16 12:09 | PM.IMPN ---
Progress Note: A&P Assessment and Plan (1) Seizure: Code(s): R56.9 - Unspecified convulsions Status: Acute Assessment and Plan: Patient with seizures most likely secondary to alcohol withdrawal. CT of the brain showed no acute findings. He states he never has had a seizure when actively drinking. Patient has been started on Librium. Ativan available as needed for seizures. Continue seizure precautions. Hold on anticonvulsants. Resolved (2) Alcohol withdrawal: Code(s): F10.239 - Alcohol dependence with withdrawal, unspecified Status: Acute Assessment and Plan: Patient states he has been unable to drink any alcohol due to the nausea and vomiting. His last drink he believes was on 02/13/2022 at 5:00 a.m.. He typically drinks four 24 oz cans of beer a day and also drinks spirits at times. Increased the dose of Librium CIWA score noted. Continue Ativan as needed. Will add thiamine and folate. Continue supportive care. (3) Nausea and vomiting: Code(s): R11.2 - Nausea with vomiting, unspecified Status: Acute Assessment and Plan: Motion vomiting has improved advance diet as tolerated. (4) Alcohol dependence: Code(s): F10.20 - Alcohol dependence, uncomplicated Status: Acute Assessment and Plan: Counseling alcohol withdrawal protocol (5) Tobacco abuse: Code(s): Z72.0 - Tobacco use Status: Acute Assessment and Plan: Counseling was given (6) Hypokalemia: Code(s): E87.6 - Hypokalemia Status: Acute Assessment and Plan: Replaced check magnesium level Subjective Date/time seen: 02/16/22 12:09 Interval history: 42yo male with hx of alcoholism here for seizures. Patient still anxious his CIWA protocol is 16 discussed with the nurse increase the dose of Librium Patient denies fever headache chest pain shortness of breath I am seeing the patient for alcohol withdrawal Exam Narrative: Looks anxious Chest no wheeze crackles Abdomen nontender nondistended CVS S1 + S2 Lower extremity edema Objective Data Vital Signs Vital Signs: Vital Signs - 24 hr 02/15/22 14:00 02/15/22 16:00 02/15/22 17:45 Temperature 98.2 F Pulse Rate 85 102 H 90 Pulse Rate [Bilateral Pedal (Dorsalis Pedis) Palpation] Pulse Rate [Monitor] Respiratory Rate 20 Blood Pressure 122/90 Pulse Oximetry 99 03/25/22 19:59 02/15/22 20:00 02/15/22 21:00 Temperature 98.5 F Pulse Rate 103 H 93 Pulse Rate [Bilateral Pedal (Dorsalis Pedis) Palpation] Pulse Rate [Monitor] 103 H Respiratory Rate 18 18 Blood Pressure 132/81 132/81 Pulse Oximetry 100 100 97 02/15/22 22:00 02/15/22 23:07 02/15/22 23:14 Temperature 98.5 F Pulse Rate 99 106 H Pulse Rate [Bilateral Pedal (Dorsalis Pedis) Palpation] 106 H Pulse Rate [Monitor] Respiratory Rate 20 Blood Pressure 139/94 H 139/94 H Pulse Oximetry 100 02/15/22 23:44 02/16/22 00:00 02/16/22 01:28 Temperature Pulse Rate 106 H 91 89 Pulse Rate [Bilateral Pedal (Dorsalis Pedis) Palpation] Pulse Rate [Monitor] Respiratory Rate 20 Blood Pressure Pulse Oximetry 100 02/16/22 04:00 02/16/22 06:00 02/16/22 08:00 Temperature 96.7 F L 97.8 F Pulse Rate 87 87 81 Pulse Rate [Bilateral Pedal (Dorsalis Pedis) Palpation] 79 96 Pulse Rate [Monitor] Respiratory Rate 16 20 Blood Pressure 137/89 122/89 Pulse Oximetry 100 98 02/16/22 10:00 Temperature Pulse Rate 94 Pulse Rate [Bilateral Pedal (Dorsalis Pedis) Palpation] Pulse Rate [Monitor] Respiratory Rate Blood Pressure Pulse Oximetry Intake/Output Intake/Output: Intake & Output 02/13/22 02/14/22 02/15/22 02/16/22 23:59 23:59 23:59 23:59 Intake Total 1000 3340 860 Output Total 750 3590 900 Balance 250 -250 -40 Meds/Results Medications: Active Medications Generic Name Dose Route Start Last Admin Trade Name Freq PRN Reason Stop Dose Adm
[2022-02-16] MEDS: POTASSIUM CHLORIDE 20 MEQ TABLET 40 MEQ PO (12:41)
[2022-02-16] MEDS: chlordiazePOXIDE (*CRX) 25 MG CAPSULE 50 MG PO ×3 (12:41→23:39)
[2022-02-16 12:52] LABS: Magnesium 1.7 mg/dL (1.6-2.3)
[2022-02-16] MEDS: SODIUM CHLORIDE 0.9% IV 1,000 ML 60 ML IV CONT (16:05)
[2022-02-16] MEDS: MORPHINE SULFATE (*CRX) 4 MG/ML INJ IV PUSH (20:18)
[2022-02-17] VITALS (9 sets, daily range): BP systolic 108–135; BP diastolic 74–95; PULSE 76–99; RESP 16; TEMP 36.2–36.7; O2SAT 97–100
[2022-02-17] MEDS: HYDROcodone/acetaminophen (*CRX) 5-325 MG TABLET 1 TAB PO (01:06)
[2022-02-17] MEDS: LORazepam INJ (*CRX) 2 MG/ML VIAL IV PUSH ×4 (04:17→20:49)
[2022-02-17] MEDS: chlordiazePOXIDE (*CRX) 25 MG CAPSULE 50 MG PO ×3 (05:35→17:29)
[2022-02-17] MEDS: NICOTINE (*PBKC) 21 MG PATCH 1 PATCH TRANSDERM (08:43)
[2022-02-17] MEDS: THIAMINE HCL 100 MG TABLET PO (08:43)
[2022-02-17] MEDS: FOLIC ACID 1 MG TABLET PO (08:43)
[2022-02-17] MEDS: ENOXAPARIN 40 MG/0.4 ML SYRINGE SUB-Q (08:44)
[2022-02-17] MEDS: SODIUM CHLORIDE 0.9% IV 1,000 ML 60 ML IV CONT (09:06)
--- NOTE | 2022-02-17 10:42 | PM.IMPN ---
Progress Note: A&P Assessment and Plan (1) Seizure: Code(s): R56.9 - Unspecified convulsions Status: Acute Assessment and Plan: Patient with seizures most likely secondary to alcohol withdrawal. CT of the brain showed no acute findings. He states he never has had a seizure when actively drinking. Patient has been started on Librium. Ativan available as needed for seizures. Continue seizure precautions. Hold on anticonvulsants. Resolved (2) Alcohol withdrawal: Code(s): F10.239 - Alcohol dependence with withdrawal, unspecified Status: Acute Assessment and Plan: Patient states he has been unable to drink any alcohol due to the nausea and vomiting. His last drink he believes was on 02/13/2022 at 5:00 a.m.. He typically drinks four 24 oz cans of beer a day and also drinks spirits at times. Increased the dose of Librium CIWA score noted. Continue Ativan as needed. Will add thiamine and folate. Continue supportive care. Patient still requiring IV Ativan IV Librium The dose of IV Librium adjusted Patient stated that he take Librium 100 mg during withdrawal the dose of Librium has naomie increased today (3) Nausea and vomiting: Code(s): R11.2 - Nausea with vomiting, unspecified Status: Acute Assessment and Plan: Motion vomiting has improved advance diet as tolerated. (4) Alcohol dependence: Code(s): F10.20 - Alcohol dependence, uncomplicated Status: Acute Assessment and Plan: Counseling alcohol withdrawal protocol (5) Tobacco abuse: Code(s): Z72.0 - Tobacco use Status: Acute Assessment and Plan: Counseling was given (6) Hypokalemia: Code(s): E87.6 - Hypokalemia Status: Acute Assessment and Plan: Replaced pending [facility] Anticipate discharge once withdrawal symptom is under control probably on Friday Subjective Date/time seen: 02/17/22 10:42 Interval history: 42yo male with hx of alcoholism here for seizures. Patient still anxious his CIWA protocol is between 11-15 discussed with the nurse increase the dose of Librium Patient stated that he went through withdrawal multiple times where he required a dose of Librium 100 mg patient was given 25 upgraded to 50 mg still having withdrawal symptom and still requiring IV Ativan every 4 hours I will increase the dose of Librium today to 75 mg continue tele monitor discussed with the nurse discussed with the patient Patient denies fever headache chest pain shortness of breath I am seeing the patient for alcohol withdrawal Exam Narrative: Looks anxious Chest no wheeze crackles Abdomen nontender nondistended CVS S1 + S2 Lower extremity edema Objective Data Vital Signs Vital Signs: Vital Signs - 24 hr 02/16/22 12:00 02/16/22 14:00 02/16/22 16:00 Temperature 98.0 F 98.2 F Pulse Rate 93 92 96 Pulse Rate [Bilateral Pedal (Dorsalis Pedis) Palpation] 100 87 Respiratory Rate 20 20 Blood Pressure 117/81 120/89 Pulse Oximetry 98 100 02/16/22 18:00 02/16/22 19:58 02/16/22 20:00 Temperature 97.6 F Pulse Rate 76 91 95 Pulse Rate [Bilateral Pedal (Dorsalis Pedis) Palpation] 91 Respiratory Rate 16 16 Blood Pressure 127/77 127/77 Pulse Oximetry 97 97 02/16/22 21:37 02/16/22 23:59 02/17/22 00:00 Temperature 97.3 F L Pulse Rate 78 88 82 Pulse Rate [Bilateral Pedal (Dorsalis Pedis) Palpation] 88 Respiratory Rate 16 16 Blood Pressure 125/88 125/88 Pulse Oximetry 98 99 99 02/17/22 01:57 02/17/22 04:00 02/17/22 05:55 Temperature 98 F Pulse Rate 79 76 78 Pulse Rate [Bilateral Pedal (Dorsalis Pedis) Palpation] 76 Respiratory Rate 16 Blood Pressure 135/95 H Pulse Oximetry 97 02/17/22 08:00 Temperature 97.5 F L Pulse Rate 86 Pulse Rate [Bilateral Pedal (Dorsalis Pedis) Palpation] 85 Respiratory Rate 16 Blood Pressure 132/87 Pulse Oximetry 100 Intake/Output Intake/Output: Intake & Output 02/14/22
[2022-02-17 10:54] LABS: Basophils Absolute Auto 0.1 K/mm3 (0.0-0.1); Basophils Percent Auto 0.9 % (0.2-1.2); Eosinophils Absolute Auto 0.2 K/mm3 (0-0.3); Hematocrit 40.9 % (42.0-52.0); Hemoglobin 14.2 g/dL (14.0-18.0); Immature Granulocyte Absolute 0.01 K/mm3 (0.00-0.031); Immature Granulocyte Percent A 0.2 % (0-0.5); Lymphocytes Absolute Auto 1.89 K/mm3 (0.9-3.2); Mean Corpuscular HGB Conc 34.7 g/dl (32-36); Mean Corpuscular Hemoglobin 34.4 pg (26-34); Mean Platelet Volume 8.9 fl (7.4-10.4); Monocytes Absolute Auto 0.4 K/mm3 (0.1-0.6); Monocytes Percent Auto 6.6 % (2.6-8.5); Neutrophils Absolute Auto 3.2 K/mm3 (1.3-6.7); Neutrophils Percent Auto 56.3 % (45.5-73.1); Platelet Count Result 183 k/mm3 (150-375); Red Blood Count 4.13 M/mm3 (4.6-6.20); Red Cell Distribution Width 11.5 % (11.5-14.5); White Blood Count 5.7 K/mm3 (4.5-10.0)
[2022-02-17 11:04] LABS: Alanine Aminotransferase 25 U/L (4-50); Albumin Level 3.4 g/dL (3.5-5.1); Alkaline Phosphatase 66 U/L (38-126); Anion Gap 4 mmol/L (8-16); Aspartate Amino Transferase 43 U/L (17-59); Bilirubin,Total 0.6 mg/dL (0.2-1.3); Blood Urea Nitrogen 3 mg/dL (9-20); Calcium 8.5 mg/dL (8.4-10.2); Carbon Dioxide 26 mmol/L (22-30); Chloride 105 mmol/L (98-107); Estimated CRCL calculation 127 ml/min; Estimated Glomerular Filt Rate > 60; Glucose 155 mg/dL (65-110); Potassium 3.2 mmol/L (3.4-5.0); Sodium 135 mmol/L (137-145)
--- NOTE | 2022-02-17 13:06 | PC.NURSE ---
This patient, Iker Kuhn, was transferred to [320 ] on 02/17/22 at 1306. Personal belongings sent with patient. Report given to [Virginie ]. Appropriate documentation sent with patient.
--- NOTE | 2022-02-17 13:22 | PC.NURSE ---
This patient, Iker Kuhn, was received from [ IMU 232/01 to room 320] on 02/17/22 at 1315. Patient/family oriented to unit policies and routines
[2022-02-18] VITALS: BP 120/77; PULSE 79; PULSE 85; RESP 18; TEMP 36.3; O2SAT 98
[2022-02-18] MEDS: chlordiazePOXIDE (*CRX) 25 MG CAPSULE 50 MG PO ×2 (00:17→05:40)
[2022-02-18] MEDS: SODIUM CHLORIDE 0.9% IV 1,000 ML 60 ML IV CONT (00:20)
[2022-02-18 04:00] VITALS: BP 115/85; PULSE 79; PULSE 85; RESP 16; TEMP 35.8; O2SAT 100
[2022-02-18 06:36] LABS: Basophils Absolute Auto 0.1 K/mm3 (0.0-0.1); Basophils Percent Auto 0.7 % (0.2-1.2); Eosinophils Absolute Auto 0.3 K/mm3 (0-0.3); Eosinophils Percent Auto 2.9 % (0-4.4); Hematocrit 39.3 % (42.0-52.0); Immature Granulocyte Absolute 0.02 K/mm3 (0.00-0.031); Immature Granulocyte Percent A 0.2 % (0-0.5); Lymphocytes Absolute Auto 2.69 K/mm3 (0.9-3.2); Lymphocytes Percent Auto 30.4 % (18.3-44.2); Mean Corpuscular HGB Conc 35.6 g/dl (32-36); Mean Corpuscular Volume 98.3 fl (80-100); Mean Platelet Volume 9.6 fl (7.4-10.4); Monocytes Absolute Auto 0.6 K/mm3 (0.1-0.6); Monocytes Percent Auto 6.9 % (2.6-8.5); Neutrophils Absolute Auto 5.2 K/mm3 (1.3-6.7); Neutrophils Percent Auto 58.9 % (45.5-73.1); Platelet Count Result 198 k/mm3 (150-375); Red Cell Distribution Width 11.3 % (11.5-14.5); White Blood Count 8.9 K/mm3 (4.5-10.0)
[2022-02-18 06:48] LABS: Alanine Aminotransferase 26 U/L (4-50); Albumin Level 3.3 g/dL (3.5-5.1); Alkaline Phosphatase 78 U/L (38-126); Anion Gap 5 mmol/L (8-16); Aspartate Amino Transferase 37 U/L (17-59); Bilirubin,Total 0.3 mg/dL (0.2-1.3); Blood Urea Nitrogen 5 mg/dL (9-20); Calcium 8.7 mg/dL (8.4-10.2); Carbon Dioxide 24 mmol/L (22-30); Chloride 109 mmol/L (98-107); Estimated CRCL calculation 132 ml/min; Estimated Glomerular Filt Rate > 60; Glucose 119 mg/dL (65-110); Potassium 3.4 mmol/L (3.4-5.0); Sodium 138 mmol/L (137-145)
[2022-02-18 08:00] VITALS: BP 114/96; PULSE 77; PULSE 82; RESP 20; TEMP 36.4; O2SAT 100
[2022-02-18] MEDS: NICOTINE (*PBKC) 21 MG PATCH 1 PATCH TRANSDERM (09:04)
[2022-02-18] MEDS: THIAMINE HCL 100 MG TABLET PO (09:05)
[2022-02-18] MEDS: POTASSIUM CHLORIDE 20 MEQ TABLET 40 MEQ PO (09:05)
[2022-02-18] MEDS: FOLIC ACID 1 MG TABLET PO (09:05)
[2022-02-18 10:13] VITALS: BP 114/96; PULSE 77; RESP 20; TEMP 36.4; O2SAT 100
--- NOTE | 2022-02-18 10:45 | PM.DS ---
DS: Admitting Diagnosis Discharge Date 02/18/22 Admitting Diagnosis Seizure DS: Discharge Diagnosis Discharge Diagnosis (1) Seizure: Code(s): R56.9 - Unspecified convulsions Status: Acute Assessment and Plan: Patient with seizures most likely secondary to alcohol withdrawal. CT of the brain showed no acute findings. He states he never has had a seizure when actively drinking. Patient was started on Librium. Ativan was available as needed for seizures. Seizure precautions. Anticonvulsants were held. No further seizure activity. (2) Alcohol withdrawal: Code(s): F10.239 - Alcohol dependence with withdrawal, unspecified Status: Acute Assessment and Plan: Patient states he has been unable to drink any alcohol due to the nausea and vomiting. His last drink was on 02/13/2022 at 5:00 a.m.. He typically drinks four 24 oz cans of beer a day and also drinks spirits at times. He was monitored with CIWA protocol. Librium was adjusted to control symptoms. He had improvement and able to wean Librium. We added thiamine and folate. (3) Nausea and vomiting: Code(s): R11.2 - Nausea with vomiting, unspecified Status: Acute Assessment and Plan: Nausea and vomiting resolved. We advanced diet as tolerated. (4) Alcohol dependence: Code(s): F10.20 - Alcohol dependence, uncomplicated Status: Acute Assessment and Plan: He was educated about the benefits of alcohol cessation (5) Tobacco abuse: Code(s): Z72.0 - Tobacco use Status: Acute Assessment and Plan: Patient was educated about benefits of smoking cessation (6) Hypokalemia: Code(s): E87.6 - Hypokalemia Status: Acute Assessment and Plan: Mild hypokalemia that was treated. DS: Summary Hospital Course Reason for hospitalization: 42yo male with hx of alcoholism here for seizures. Please see H&P for details. Hospital Course: Please see above for details hospital course Status at Discharge Cognitive/behavioral status at discharge: Stable Time Spent with Patient Time attestation: Total time spent providing and/or coordinating discharge services: 32 minutes Time spent: Greater than 30 minutes Exam Narrative: AF 97.5 114/96 77 20 100% ra Gen - NARD Chest - CTA bilaterally CV - RRR S1/S2. Tele showing no significant dysrhythmia Abd - Soft, NT/ND, Positive BS Ext - No pedal edema Psych - Nml mood and affect. No tremors. Skin - Warm and dry. No diaphoresis DS: Data Data Completed and Pending Labs on day of discharge: Labs from last 24 hours 02/18/22 02/18/22 02/17/22 06:18 06:18 10:49 WBC 8.9 RBC 4.00 L Hgb 14.0 Hct 39.3 L MCV 98.3 MCH 35.0 H MCHC 35.6 RDW 11.3 L Plt Count 198 MPV 9.6 Immature Gran % (Auto) 0.2 Neut % (Auto) 58.9 Lymph % (Auto) 30.4 [place] % (Auto) 6.9 Eos % (Auto) 2.9 Baso % (Auto) 0.7 Lymph # (Auto) 2.69 [place] # (Auto) 0.6 Eos # (Auto) 0.3 Baso # (Auto) 0.1 Abs Immat Gran (auto) 0.02 Absolute Neuts (auto) 5.2 Absolute Nucleated RBC 0.0 Nucleated RBC % 0.0 Sodium 138 135 L Potassium 3.4 3.2 L Chloride 109 H 105 Carbon Dioxide 24 26 Anion Gap 5 L 4 L BUN 5 L 3 L Creatinine 0.60 L 0.60 L Estim Creat Clear Calc 132 127 Estimated GFR > 60 > 60 Glucose 119 H 155 H Calcium 8.7 8.5 Total Bilirubin 0.3 0.6 AST 37 43 ALT 26 25 Alkaline Phosphatase 78 66 Total Protein 6.0 L 6.0 L Albumin 3.3 L 3.4 L 02/17/22 10:49 WBC 5.7 RBC 4.13 L Hgb 14.2 Hct 40.9 L MCV 99.0 MCH 34.4 H MCHC 34.7 RDW 11.5 Plt Count 183 MPV 8.9 Immature Gran % (Auto) 0.2 Neut % (Auto) 56.3 Lymph % (Auto) 33.0 [place] % (Auto) 6.6 Eos % (Auto) 3.0 Baso % (Auto) 0.9 Lymph # (Auto) 1.89 [place] # (Auto) 0.4 Eos # (Auto) 0.2 Baso # (Auto) 0.1 Abs Immat Gran (auto) 0.01
== END 2022-02-18 11:40 | disposition home or self-care (01) | DRG 775 ==
LOC: ANHED 12:13 → ANH2MED 18:46 → ANHIMU 20:29 → ANH3MEDSUR 02-18 10:56 → ANHIMU 02-19 11:11
PROVIDERS: Internal Medicine; Nurse Practitioner; Nurse Practitioner Adult Health; Admitting Provider Internal Medicine; Emergency Provider Emergency Medicine; Visit Provider Internal Medicine
DX: F10.239 Alcohol dependence with withdrawal, unspecified (principal); G40.89 Other seizures; E87.6 Hypokalemia; Z20.822 Contact with and (suspected) exposure to COVID-19; F41.9 Anxiety disorder, unspecified; R11.2 Nausea with vomiting, unspecified; F17.210 Nicotine dependence, cigarettes, uncomplicated; Z90.49 Acquired absence of other specified parts of digestive tract
CPT/HCPCS: 36415; 70450; 80053; 80307; 83690; 83735; 85025; 96361; 96372; 96374; 96375; 96376; 99285; A9270; C9803; G0378; G0379; J1650; J2060; J2270; J2405; J3360; J7030; U0003; U0005

== ENCOUNTER 2022-07-26 16:54 | Emergency (ER) | payer OTHER, SELFPAY ==
--- NOTE | ~2022-07-26 | XR_ITS ---
XR ankle LT min 3V DATE: 07/26/2022 17:11 INDICATION: Fall. Medial pain. TECHNIQUE: 4 views COMPARISON: None FINDINGS: There is mild soft tissue swelling, greater laterally. No fracture or dislocation of the a nkle or disruption of the ankle mortise. IMPRESSION: Mild soft tissue swelling; no fracture or dislocation Reviewed, dictated and finalized at location B.
--- NOTE | ~2022-07-26 | XR_ITS ---
XR ankle RT min 3V DATE: 07/26/2022 17:11 INDICATION: Fall. Medial pain, lateral swelling TECHNIQUE: 4 views COMPARISON: None FINDINGS: There is ankle joint effusion. There is soft tissue swelling, greater laterally. No fracture or dislocation of the ankle or disruption of the ankle mortise. No periosteal reaction or bone destruction. IMPRESSION: Soft tissue swelling and ankle joint effusion; no fracture or dislocation Reviewed, dictated and finalized at location B. IMPRESSION: Soft tissue swelling and ankle joint effusion; no fracture or dislo cation
[2022-07-26 17:09] VITALS: BP 137/86; PULSE 112; RESP 18; TEMP 36.9; O2SAT 100
[2022-07-26] MEDS: KETOROLAC 30 MG/ML VIAL (*BKC) IM (18:35)
--- NOTE | 2022-07-26 19:14 | ED.LOWEXIN ---
HPI - Extremity Injury (Lower) General Chief Complaint: Extremity Injury, Lower <Libertad Ruby PA-C - Last Filed: 07/26/22 19:30> Stated Complaint: possible bilateral broken ankles <EITAN Rodriguez Last Filed: 07/26/22 19:30> Time Seen by Provider: 07/26/22 17:23 <EITAN Rodriguez Last Filed: 07/26/22 19:30> Source: patient <EITAN Rodriguez Last Filed: 07/26/22 19:30> Mode of arrival: wheelchair <EITAN Rodriguez Last Filed: 07/26/22 19:30> Limitations: no limitations <EITAN Rodriguez Last Filed: 07/26/22 19:30> History of Present Illness HPI Narrative: This is a 42 year old male that presents to the ER for bilateral ankle pain after a fall today. Reports he was swinging on a swing. He accidentally fell off of the swing. He landed with with his feet behind him. Since he has had pain and swelling in both of his ankles. He did not hit his head or lose consciousness. Denies decreased range of motion or numbness. <EITAN Rodriguez Last Filed: 07/26/22 19:30> Related Data Home Medications: Home Medications Medication Instructions Recorded Confirmed acetaminophen 500 mg tablet 500 mg PO Q6H PRN 08/06/22 08/06/22 (Tylenol Extra Strength) <EITAN Rodriguez Last Filed: 07/26/22 19:30> Allergies/Adverse Reactions: Allergies Allergy/AdvReac Type Severity Reaction Status Date / Time moxifloxacin Allergy Intermediate Rash Verified 08/06/22 13:04 <EITAN Rodriguez Last Filed: 07/26/22 19:30> Review of Systems Review of Systems: CONSTITUTIONAL: Denies fever MUSCULOSKELETAL: Reports joint pain, and myalgia. NEUROLOGIC: Denies numbness, or weakness. <EITAN Rodriguez Last Filed: 07/26/22 19:30> All systems reviewed & are unremarkable except as noted in HPI and below <Libertad Ruby PA-C - Last Filed: 07/26/22 19:30> FOR[facility]LY [facility] Past Medical History Medical History: Medical History Alcohol dependence Anxiety Chronic cholecystitis without calculus Gastritis History of ETOH abuse Pancreatitis Smoker <Libertad Ruby PA-C - Last Filed: 07/26/22 19:30> Surgical History Surgical History: Surgical History Hx laparoscopic cholecystectomy 09/26/21 <Libertad Ruby PA-C - Last Filed: 07/26/22 19:30> Family History Family History: Family History Father Cerebrovascular accident Hypertension Other Cancer Sibling Diabetes mellitus Grandparent Heart disease <Libertad Ruby PA-C - Last Filed: 07/26/22 19:30> Social History Social History: Social History Smoking packs per day: 1 Smoking cigarettes per day: 20.0 Years smoked: 20 Smoking pack-years: 20.00 Smoking status: Current every day smoker Alcohol intake: current Drinks per week: 20 Alcohol use details: AT LEAST 1/2 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 NO DRINKS IN PAST 2 WEEKS. 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 HEAD: Normocephalic, atraumatic. EYES: EOMI. EXTREMITIES: Normal range of motion. Mild edema about the bilateral ankles. Normal DP pulses. SKIN: Warm, dry, no rash. NEURO: No focal deficits. Alert and oriented x3. PSYCH: Normal mood and affect <Libertad Ruby PA-C - Last Filed: 07/26/22 19:30> Course [employer]/PA Physician Supervision For this patient encounter, I reviewed the BACK [employer] or PA documentation, treatment plan, and medical de
== END 2022-07-26 20:07 | disposition home or self-care (01) ==
PROVIDERS: Emergency Provider Emergency Medicine
DX: S93.401A Sprain of unspecified ligament of right ankle, initial encounter (principal); W09.1XXA Fall from playground swing, initial encounter; F17.210 Nicotine dependence, cigarettes, uncomplicated
CPT/HCPCS: 73610; 96372; 99284; J1885

== ENCOUNTER 2023-02-16 11:50 | Inpatient (IN) | payer OTHER, SELFPAY ==
[2023-02-16] VITALS (53 sets, daily range): BP systolic 101–181; BP diastolic 64–114; PULSE 70–133; RESP 7–29; TEMP 36.8–37.2; O2SAT 92–100; BMI 26.2
--- NOTE | 2023-02-16 12:19 | ECG_ITS ---
Measurements Intervals [place] Rate: 123 P: TN: 0 QRS: 8 QRSD: 66 T: 52 QT: 325 QTc: 467 Interpretive Statements SINUS TACHYCARDIA CONSDIER ANTERIOR INFARCT, AGE INDETERMINATE BASELINE ARTIFACT- I, II, III, AVR, AVL, AVF, V1-V2 ABNORMAL ECG COMPARED TO ECG 09/07/2021 18:35:23 HEART RATE HAS INCREASED Electronically Signed On 02-16-2023 15:55:03 CDT by Cm Yanez D.O.
[2023-02-16 13:23] LABS: Glucose Point of Care 118 mg/dl (65-105)
--- NOTE | 2023-02-16 13:31 | ED.ALCOHOL ---
HPI - Alcohol General Chief Complaint: Alcohol Stated Complaint: cant stop vomiting Time Seen by Provider: 02/16/23 13:14 History of Present Illness HPI narrative: This is a 43-year-old male with past history of alcohol withdrawal, alcohol seizures, who presents to the emergency department complaining of alcohol withdrawal for the past 2 days. He states his last drink was 2 days ago. In the previous week he drank a pint of vodka and a sixpack of beer daily. He states he is seeing things, feels sensation of ants crawling over his body and has vomited multiple times. Related Data Home Medications Medication Instructions Recorded Confirmed No Home Medications 02/17/23 02/17/23 Allergies Allergy/AdvReac Type Severity Reaction Status Date / Time moxifloxacin Allergy Intermediate Rash Verified 02/16/23 12:19 Review of Systems Review of Systems: CONSTITUTIONAL: Chills and sweats denies fever CARDIOVASCULAR: Palpitations denies chest pain, or edema. RESPIRATORY: Denies cough or dyspnea. GASTROINTESTINAL: Cramping abdominal pain, nausea and vomiting denies diarrhea. GENITOURINARY: Denies dysuria or hematuria. SKIN: Denies rash or itching. MUSCULOSKELETAL: Denies back pain, joint pain, or myalgia. NEUROLOGIC: Headache, dizziness, paresthesias, generalized weakness denies numbness PSYCHIATRIC: Denies anxiety or depression. Denies suicidal or homicidal ideations [facility] Past Medical History Medical History Alcohol dependence Anxiety Chronic cholecystitis without calculus Gastritis History of ETOH abuse Pancreatitis Seizure Due to alcohol withdrawal Smoker Surgical History Surgical History (Updated 02/16/23 @ 19:18 by Ann Heath NP) H/O removal of cyst Hx laparoscopic cholecystectomy 09/26/21 Family History Family History Father Cerebrovascular accident Hypertension Other Cancer Sibling Diabetes mellitus Grandparent Heart disease Social History Social History (Updated 02/16/23 @ 19:19 by Ann Heath NP) Social History: The patient lives with his parents. He has been drinking a pt of vodka and a 6 pack of beer daily and had his last drink 2 days ago. He does not currently work and does not have any children. Patient currently smokes a pack a cigarettes a day. Code status full code Smoking packs per day: 1 Smoking cigarettes per day: 20.0 Years smoked: 20 Smoking pack-years: 20.00 Smoking status: Current every day smoker Tobacco type: cigarettes Alcohol intake: current Drinks per week: 70 Alcohol use details: AT LEAST 1/2 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 NO DRINKS IN PAST 2 WEEKS. 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 EYES: PERRLA and EOMI. ENT: Nares clear, no rhinorrhea or epistaxis. Mucous membranes moist. Oropharynx without tonsillar hypertrophy exudate or other lesions. Tongue fasciculations noted CHEST: Clear to auscultation. No respiratory distress. No wheezes rales or rhonchi HEART: Tachycardic with regular rhythm. No murmur heard. Normal peripheral pulses. ABDOMEN: Soft, nontender, nondistended, normal active bowel sounds. EXTREMITIE
[2023-02-16] MEDS: THIAMINE HCL 200 MG/2 ML VIAL 100 MG IV PUSH (13:36)
[2023-02-16] MEDS: PHENobarbitaL sodium (*CRX) 130 MG/ML VIAL 200 MG IV PUSH (13:36)
[2023-02-16] MEDS: SODIUM CHLORIDE 0.9% IV 1,000 ML 999 ML IV CONT (13:47)
[2023-02-16] MEDS: ONDANSETRON INJ 4 MG/2 ML VIAL IV PUSH (13:47)
[2023-02-16 13:55] LABS: Basophils Absolute Auto 0.1 K/mm3 (0.0-0.1); Basophils Percent Auto 0.8 % (0.2-1.2); Eosinophils Percent Auto 0.1 % (0-4.4); Hematocrit 50.2 % (42.0-52.0); Hemoglobin 18.1 g/dL (14.0-18.0); Immature Granulocyte Absolute 0.05 K/mm3 (0.00-0.031); Immature Granulocyte Percent A 0.4 % (0-0.5); Lymphocytes Absolute Auto 1.92 K/mm3 (0.9-3.2); Lymphocytes Percent Auto 13.6 % (18.3-44.2); Mean Corpuscular HGB Conc 36.1 g/dl (32-36); Mean Corpuscular Hemoglobin 34.7 pg (26-34); Mean Corpuscular Volume 96.4 fl (80-100); Mean Platelet Volume 9.9 fl (7.4-10.4); Monocytes Percent Auto 6.7 % (2.6-8.5); Neutrophils Absolute Auto 11.1 K/mm3 (1.3-6.7); Neutrophils Percent Auto 78.4 % (45.5-73.1); Platelet Count Result 209 k/mm3 (150-375); Red Blood Count 5.21 M/mm3 (4.6-6.20); Red Cell Distribution Width 12.2 % (11.5-14.5); White Blood Count 14.2 K/mm3 (4.5-10.0)
[2023-02-16 14:41] LABS: Alanine Aminotransferase 40 U/L (6-50); Albumin Level 4.2 g/dL (3.5-5.1); Alkaline Phosphatase 111 U/L (38-126); Anion Gap 12 mmol/L (8-16); Aspartate Amino Transferase 56 U/L (17-59); Bilirubin,Total 1.7 mg/dL (0.2-1.3); Blood Urea Nitrogen 7 mg/dL (9-20); Calcium 8.9 mg/dL (8.4-10.2); Carbon Dioxide 25 mmol/L (22-30); Chloride 97 mmol/L (98-107); Estimated CRCL calculation 120 ml/min; Estimated Glomerular Filt Rate > 60; Glucose 107 mg/dL (65-110); Magnesium 1.5 mg/dL (1.6-2.3); Potassium 3.4 mmol/L (3.4-5.0); Sodium 134 mmol/L (137-145)
--- NOTE | 2023-02-16 14:45 | PM.IMHP ---
H&P: HPI History of Present Illness Date/Time: 02/16/23 14:45 Chief Complaint: Alcohol withdrawal Narrative: This is a 43-year-old male patient who has a history of alcoholism and alcohol seizures. the patient has been drinking a pt of vodka and a 6 pack of beer a day. The patient felt like there answer crawling all over him and that he had vomited multiple times. His white count 14.2. Sodium 134. Magnesium is low at 1.5 and it is being replaced. Total bilirubin 1.7. The patient was given phenobarbital, thiamin, Zofran, magnesium, and IV fluids. The computer peripheral equipment operator had been consulted and the patient is going to ICU on a Precedex drip. The patient is being admitted to observation status to ICU on the date of service of 02/16/2023 Review of Systems Review of Systems: All systems reviewed & are unremarkable except as noted in HPI and below Constitutional: Constitutional: Reports as per HPI and Reports no additional constitutional complaints Eyes: Eyes: Reports as per HPI and Reports no additional eye complaints ENT: Reports system reviewed and no additional complaints, except as documented and Reports Normal hearing present Cardiovascular: Cardiovascular: Reports no additional cardiovascular complaints Respiratory: Respiratory: Reports no additional respiratory complaints and Reports no additional respiratory complaints Gastrointestinal: Gastrointestinal: Reports as per HPI and Reports no additional gastrointestinal complaints Musculoskeletal: Musculoskeletal: Reports no additional musculoskeletal complaints Integumentary/Breasts: Skin/Breast: Reports system reviewed and no additional complaints, except as docu and Reports as per HPI Neurologic: Reports system reviewed and no additional complaints, except as documented, Reports as per HPI and Reports Normal hearing present Psychiatric: Psychiatric: Reports no additional psychiatric complaints and Reports as per HPI Endocrine: Endocrine: Reports no additional endocrine complaints Hematologic/Lymphatic: Hematologic/Lymphatic: Reports no additional hematologic/lymphatic complaints Allergic/Immunologic: Allergic/Immunologic: Reports no additional allergic/immunologic complaints PMFSH Past Medical History Medical History Alcohol dependence Anxiety Chronic cholecystitis without calculus Gastritis History of ETOH abuse Pancreatitis Seizure Due to alcohol withdrawal Smoker Surgical History Surgical History (Updated 02/16/23 @ 19:18 by Ann Heath NP) H/O removal of cyst Hx laparoscopic cholecystectomy 09/26/21 Family History Family History Father Cerebrovascular accident Hypertension Other Cancer Sibling Diabetes mellitus Grandparent Heart disease Social History Social History (Updated 02/16/23 @ 19:19 by Ann Heath NP) Social History: The patient lives with his parents. He has been drinking a pt of vodka and a 6 pack of beer daily and had his last drink 2 days ago. He does not currently work and does not have any children. Patient currently smokes a pack a cigarettes a day. Code status full code Smoking packs per day: 1 Smoking cigarettes per day: 20.0 Years smoked: 20 Smoking pack-years: 20.00 Smoking status: Current every day smoker Tobacco type: cigarettes Alcohol intake: current Drinks per week: 70 Alcohol use details: AT LEAST 1/2 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 NO DRINKS IN PAST 2 WEEKS. Substance use: current Substance use type: marijuana Other substance usage details: SMOKE Last use: 09/17/21 Lack of Transportation: No Lack of Food: Never True Current Housing: I Do Not Have Housing Concerned About Future Housing: No Difficulty Paying Gas/Electric Bills: No Difficulty Paying for Meds: No Currently Unemployed: Decline to Answer Education: Decline to Answer Difficulty w/ Childcare or Family Care: Decl
[2023-02-16] MEDS: PHENobarbitaL sodium (*CRX) 130 MG/ML VIAL 100 MG IV PUSH (14:57)
[2023-02-16] MEDS: SODIUM CHLORIDE 0.9% IV 2,000 ML 999 ML IV CONT (15:14)
[2023-02-16] MEDS: MAGNESIUM SULF 1 GM/D5W 100 ML 1 GM/100 ML BAG IVPB (15:24)
[2023-02-16] MEDS: NICOTINE (*PBKC) 21 MG PATCH 1 PATCH TRANSDERM (15:41)
[2023-02-16] MEDS: dexmedeTOMIDine 400 MCG/100 ML 400 MCG/100 ML BAG IV CONT (15:45)
--- NOTE | 2023-02-16 16:10 | ADMGEN ---
This patient, Iker Kuhn, was admitted to Intensive Care Unit-3 at 1609. Patient/family oriented to hospital policies and general routines including ID bracelet, bed and alarms, visiting hours, pain management, procedures, bathroom and other care routines, personal items, smoking policy, room service/diet, and visiting hours. Information on how to activate the Rapid Response Team has been discussed. Patient/Family are encouraged to report perceived risks to care and to ask questions if they do not understand what they are told or what they should do.
[2023-02-16] MEDS: SODIUM CHLORIDE 0.9% IV 1,000 ML 125 ML IV CONT (19:36)
[2023-02-16 20:34] LABS: Lipase 29 U/L (23-300)
[2023-02-16] MEDS: dexmedeTOMIDine 400 MCG/100 ML 400 MCG/100 ML BAG 11.23 MCG IV CONT (23:13)
[2023-02-16] MEDS: chlordiazePOXIDE (*CRX) 25 MG CAPSULE PO (23:51)
[2023-02-17] VITALS (112 sets, daily range): BP systolic 108–156; BP diastolic 74–104; PULSE 62–95; RESP 9–39; TEMP 36.1–37.1; O2SAT 87–100
[2023-02-17] MEDS: SODIUM CHLORIDE 0.9% IV 1,000 ML 125 ML IV CONT ×3 (01:45→22:28)
[2023-02-17] MEDS: LORazepam INJ (*CRX) 2 MG/ML VIAL IV PUSH ×3 (03:07→18:04)
[2023-02-17] MEDS: chlordiazePOXIDE (*CRX) 25 MG CAPSULE PO (04:19)
[2023-02-17 04:40] LABS: Basophils Percent Auto 0.6 % (0.2-1.2); Eosinophils Absolute Auto 0.1 K/mm3 (0-0.3); Eosinophils Percent Auto 0.7 % (0-4.4); Hematocrit 39.8 % (42.0-52.0); Hemoglobin 14.3 g/dL (14.0-18.0); Immature Granulocyte Absolute 0.02 K/mm3 (0.00-0.031); Immature Granulocyte Percent A 0.3 % (0-0.5); Lymphocytes Absolute Auto 2.26 K/mm3 (0.9-3.2); Lymphocytes Percent Auto 31.7 % (18.3-44.2); Mean Corpuscular HGB Conc 35.9 g/dl (32-36); Mean Corpuscular Hemoglobin 34.3 pg (26-34); Mean Corpuscular Volume 95.4 fl (80-100); Mean Platelet Volume 9.5 fl (7.4-10.4); Monocytes Absolute Auto 0.5 K/mm3 (0.1-0.6); Monocytes Percent Auto 7.6 % (2.6-8.5); Neutrophils Absolute Auto 4.2 K/mm3 (1.3-6.7); Neutrophils Percent Auto 59.1 % (45.5-73.1); Platelet Count Result 142 k/mm3 (150-375); Red Blood Count 4.17 M/mm3 (4.6-6.20); Red Cell Distribution Width 11.9 % (11.5-14.5); White Blood Count 7.1 K/mm3 (4.5-10.0)
[2023-02-17 04:52] LABS: Alanine Aminotransferase 30 U/L (6-50); Alkaline Phosphatase 73 U/L (38-126); Anion Gap 2 mmol/L (8-16); Aspartate Amino Transferase 30 U/L (17-59); Bilirubin,Total 1.5 mg/dL (0.2-1.3); Blood Urea Nitrogen 6 mg/dL (9-20); Calcium 7.8 mg/dL (8.4-10.2); Carbon Dioxide 25 mmol/L (22-30); Chloride 104 mmol/L (98-107); Estimated CRCL calculation 120 ml/min; Estimated Glomerular Filt Rate > 60; Glucose 112 mg/dL (65-110); Lactate Dehydrogenase 118 U/L (120-246); Lipase 18 U/L (23-300); Magnesium 1.9 mg/dL (1.6-2.3); Phosphorus 3.4 mg/dL (2.5-4.5); Potassium 3.7 mmol/L (3.4-5.0); Sodium 131 mmol/L (137-145)
[2023-02-17 04:53] LABS: Lactic Acid Reflex 0.8 mmol/L (0.7-2.0)
[2023-02-17] MEDS: NICOTINE (*PBKC) 21 MG PATCH 1 PATCH TRANSDERM (08:30)
[2023-02-17] MEDS: chlordiazePOXIDE (*CRX) 25 MG CAPSULE 50 MG PO ×4 (08:30→22:52)
[2023-02-17] MEDS: THIAMINE HCL 100 MG TABLET PO (08:31)
[2023-02-17] MEDS: FOLIC ACID 1 MG TABLET PO (08:31)
[2023-02-17] MEDS: ACETAMINOPHEN 500 MG TABLET PO (08:36)
--- NOTE | 2023-02-17 11:24 | WPDCNINT ---
Assessment and Plan Assessment and plan (1) Alcohol withdrawal: Code(s): F10.239 - Alcohol dependence with withdrawal, unspecified Status: Acute Assessment and Plan: Patient presented with alcohol withdrawal, was tachycardic, tactile and visual hallucinations -patient was given IV fluids bolus x2, currently on maintenance IV fluids -patient is on Precedex infusion -continue Librium, folic acid and thiamine -continue CIWA protocol -Ativan p.r.n. (2) Alcohol dependence: Code(s): F10.20 - Alcohol dependence, uncomplicated Status: Acute Assessment and Plan: Patient has history of alcohol dependence, once he is medically stable will milieu counselor him on cessation of alcohol will have care coordination provided additional help (3) Tobacco dependence: Code(s): F17.200 - Nicotine dependence, unspecified, uncomplicated Status: Acute Assessment and Plan: Have counseled patient on cessation of smoking and tobacco use (4) Hypomagnesemia: Code(s): E83.42 - Hypomagnesemia Status: Acute Assessment and Plan: Magnesium was replaced on admission, currently 1.9 this morning, will continue to monitor Plan DVT prophylaxis: Lovenox SQ Stress ulcer prophylaxis: Not indicated Nutrition: Regular diet Code Status: Full code Critical Care Time Spent: 44 minutes Due to a high probability of clinically significant, life threatening deterioration, the patient required my highest level of preparedness to intervene emergently and I personally spent this critical care time directly and personally managing the patient. This critical care time included obtaining a history; examining the patient; pulse oximetry; ordering and review of studies; arranging urgent treatment with development of a management plan; evaluation of patient's response to treatment; frequent reassessment; and discussions with other providers. It was exclusive of separately billable procedures and treating other patients and teaching time. Please see Assessment and Plan section and the rest of the note for further information on patient assessment and treatment This dictation may have been done utilizing a voice recognition system. Attempts have been made to correct errors. However, there may be uncorrected grammatical, spelling, and recognitions errors present. Environmental Technology Professor Consult Note Consult date: 02/17/23 Reason for consult: Alcohol withdrawal, tactile hallucination HPI: Iker Kuhn is a 43 year old male with past medical history of alcohol dependence, anxiety, chronic cholecystitis, gastritis, history alcohol abuse, pancreatitis, tobacco abuse presented the ED with complains of nausea, vomiting, complaining of acid in terms of alcohol withdrawal, tachycardia, tremulous. Stated his last drink was 2 days prior to admission on . In the previous week he drank a pt of vodka and a 6 pack of beer daily. He is stated in the ER that he was seeing things and feeling sensation of ants crawling over his body and had multiple episodes of emesis. In the ER his WBC count was 14.2, hemoglobin 18.1, platelet count of 209. Sodium 134, potassium 3.4, chloride 97, CO2 25, BUN 7, creatinine 0.70, total bilirubin 1.7, LFTs are within normal limits, lipase was 29. Patient was given 2 L of IV fluid bolus, he was also given phenobarbital is started on Precedex infusion and transfer the ICU for further management Patient seen and examined this morning, is awake, alert, pleasant, in no acute distress. Does state that he has tactile hallucinations and feels that is insects crawling over him and he seeing things. Also tremulous. Patient denies any chest pain, shortness of breath abdominal pain, nausea vomiting through the night. Hemodynamically stable, adequate urine output, afebrile. Review of Systems Review of Systems: All systems reviewed & are unremarkable except as noted in HPI and below PMFSH Past Medical History Medical His
--- NOTE | 2023-02-17 13:47 | PCWOUND ---
WOCN NOTE received notice of possible pressure injury, spoke to day RN, she reports no wounds present. did not assess patient.
[2023-02-17] MEDS: ENOXAPARIN 40 MG/0.4 ML SYRINGE SUB-Q ×2 (14:04→14:05)
[2023-02-17] MEDS: dexmedeTOMIDine 400 MCG/100 ML 400 MCG/100 ML BAG IV CONT (14:08)
[2023-02-18] VITALS (91 sets, daily range): BP systolic 109–148; BP diastolic 63–91; PULSE 64–114; RESP 14–40; TEMP 36.1–36.9; O2SAT 92–99
[2023-02-18] MEDS: LORazepam INJ (*CRX) 2 MG/ML VIAL IV PUSH ×6 (00:45→22:40)
--- NOTE | 2023-02-18 02:46 | PC.NURSE ---
Precedex increased as patient is calling his mom hallucinating. Patient reassured that he is safe and at [facility].
[2023-02-18] MEDS: chlordiazePOXIDE (*CRX) 25 MG CAPSULE 50 MG PO ×3 (06:13→17:05)
[2023-02-18] MEDS: dexmedeTOMIDine 400 MCG/100 ML 400 MCG/100 ML BAG 13.1 MCG IV CONT (06:14)
[2023-02-18] MEDS: SODIUM CHLORIDE 0.9% IV 1,000 ML 125 ML IV CONT (06:14)
[2023-02-18] MEDS: THIAMINE HCL 100 MG TABLET PO (08:37)
[2023-02-18] MEDS: FOLIC ACID 1 MG TABLET PO (08:37)
[2023-02-18] MEDS: NICOTINE (*PBKC) 21 MG PATCH 1 PATCH TRANSDERM (08:38)
[2023-02-18] MEDS: POTASSIUM CHLORIDE 20 MEQ TABLET 40 MEQ PO (09:10)
[2023-02-18] MEDS: CALCIUM CARBONATE (TUMS) 500 MG (200 MG ELEMENTAL) PO (09:10)
[2023-02-18] MEDS: ACETAMINOPHEN 500 MG TABLET PO ×2 (09:11→17:06)
[2023-02-18] MEDS: LORazepam INJ (*CRX) 2 MG/ML VIAL 1 MG IV PUSH (09:13)
--- NOTE | 2023-02-18 09:41 | WPDINTPN ---
Progress Note: A&P Assessment and Plan (1) Alcohol withdrawal: Code(s): F10.239 - Alcohol dependence with withdrawal, unspecified Status: Acute Assessment and Plan: Patient presented with alcohol withdrawal, was tachycardic, tremors tactile and visual hallucinations -patient was given IV fluids bolus x2 and is currently on maintenance IV fluids -patient is currently on Precedex infusion which I will wean off this morning -he has clinically improved. Normal sinus rhythm on the monitor. No tremors on exam. Alert oriented x3 -continue Librium, folic acid and thiamine -her add p.r.n. Ativan -continue CIWA protocol (2) Alcohol dependence: Code(s): F10.20 - Alcohol dependence, uncomplicated Status: Acute Assessment and Plan: Patient has history of alcohol dependence, once he is medically stable will curriculum counselor him on cessation of alcohol will have care coordination provided additional help (3) Tobacco dependence: Code(s): F17.200 - Nicotine dependence, unspecified, uncomplicated Status: Acute Assessment and Plan: Have counseled patient on cessation of smoking and tobacco use (4) Hypomagnesemia: Code(s): E83.42 - Hypomagnesemia Status: Acute Assessment and Plan: Magnesium was replaced on admission, today's level pending (5) Dyspepsia: Code(s): R10.13 - Epigastric pain Status: Acute Assessment and Plan: P.o. Pepcid P.r.n. Tums and Maalox Plan DVT prophylaxis: Lovenox SQ Stress ulcer prophylaxis: Not indicated Nutrition: Regular diet Code Status: Full code Up in chair Incentive spirometry Transfer out of ICU today Subjective Date/time seen: 02/18/23 Patient is sleeping comfortably in bed. When I woke him out he states that he still having tremors although on exam no tremors were seen. He states that he still seeing and hearing things. He states that his abdominal discomfort remains from nausea vomiting that he had on admission. Reports that as a heartburn.. He has been tolerating p.o. diet. Afebrile. Good urine output. Stable vital signs. He states that he had nausea yesterday but none this morning. All other systems were reviewed and were negative Review of Systems Review of Systems: All systems reviewed & are unremarkable except as noted in HPI and below Exam Narrative: General: Patient lying in bed comfortably in no acute distress HEENT:? Pupils equal and reactive, sclera is clear Neck:? Supple Respiratory:? Clear to auscultation bilaterally, adequate air entry Cardiac:? S1-S2 is normal, regular rate and rhythm Abdomen:? Soft, nontender, nondistended, normoactive bowel sounds Extremities:? No edema, palpable pedal pulses Neuro:? Patient is awake, alert, oriented x3, no tremors Skin:? Warm and dry, acne on the face Psych:? Patient reports visual hallucinations. Normal speech Objective Data Vital Signs Vital Signs: Vital Signs - 24 hr 02/17/23 10:00 02/17/23 09:45 02/17/23 10:00 Temperature Pulse Rate 67 67 68 Pulse Rate [Monitor] Respiratory Rate 25 H 16 Blood Pressure Pulse Oximetry 94 93 Oxygen Delivery 02/17/23 10:01 02/17/23 10:15 02/17/23 10:30 Temperature Pulse Rate 81 66 71 Pulse Rate [Monitor] Respiratory Rate 20 25 H 26 H Blood Pressure 124/80 Pulse Oximetry 95 94 95 Oxygen Delivery 02/17/23 10:45 02/17/23 11:00 02/17/23 11:01 Temperature Pulse Rate 68 75 69 Pulse Rate [Monitor] Respiratory Rate 11 L 30 H 23 H Blood Pressure 113/77 Pulse Oximetry 92 95 96 Oxygen Delivery 02/17/23 12:00 02/17/23 11:02 02/17/23 11:15 Temperature Pulse Rate 72 66 67 Pulse Rate [Monitor] Respiratory Rate 26 H 22 H 27 H Blood Pressure Pulse Oximetry 97 95 95 Oxygen Delivery Room Air 02/17/23 11:30 02/17/23 11:45 02/17/23 12:00 Temperature Pulse Rate 66 67 68 Pulse Rate [Monitor] Respiratory Rate 27 H 26 H 25 H Blood P
[2023-02-18 10:58] LABS: Anion Gap 7 mmol/L (8-16); Blood Urea Nitrogen 3 mg/dL (9-20); Calcium 7.9 mg/dL (8.4-10.2); Carbon Dioxide 22 mmol/L (22-30); Chloride 104 mmol/L (98-107); Estimated CRCL calculation 120 ml/min; Estimated Glomerular Filt Rate > 60; Glucose 97 mg/dL (65-110); Potassium 3.4 mmol/L (3.4-5.0); Sodium 133 mmol/L (137-145)
[2023-02-18 11:14] LABS: Magnesium 1.6 mg/dL (1.6-2.3)
[2023-02-18] MEDS: FAMOTIDINE 20 MG TABLET PO ×2 (11:53→20:30)
[2023-02-18] MEDS: MAG HYDROX/AL HYDROX/SIMETH 30 ML UDC PO (13:10)
--- NOTE | 2023-02-18 13:20 | PC.NURSE ---
Patient called out. This nurse in to check on him. He states I'm having f hallucinations and no one's doing s about it. Patient encouraged to allow this nurse to discuss complaint with patient's nurse. Patient complains of abdominal pain and states No one's doing anything about it, either. Dr. Ma notified of patient complaints of hallucinations and abdominal pain. No new orders received. Reported off to Opal YEH upon her return from lunch.
--- NOTE | 2023-02-18 14:56 | PC.NURSE ---
Patient agitated today, threatening to leave against medical advice in one hour despite of being educated and updated on plan of care. Patient requesting 100mg of Librium , phenobarbital, patient states that he is hallucinating and will have a seizure. Patient cursing at staff , stating nobody has checked on him all day and nurses should be in his room every hour.
[2023-02-18] MEDS: IBUPROFEN 400 MG TABLET 800 MG PO (15:25)
--- NOTE | 2023-02-18 18:40 | PC.NURSE ---
This patient, Iker Kuhn, was received from ICU-3 on 02/18/23 at 1841. Patient/family oriented to unit policies and routines
[2023-02-19] VITALS (11 sets, daily range): BP systolic 122–147; BP diastolic 78–93; PULSE 80–111; RESP 16–18; TEMP 36.7; O2SAT 94–100
[2023-02-19] MEDS: LORazepam INJ (*CRX) 2 MG/ML VIAL IV PUSH ×4 (00:17→05:45)
[2023-02-19] MEDS: chlordiazePOXIDE (*CRX) 25 MG CAPSULE 50 MG PO ×3 (00:18→11:44)
[2023-02-19 04:31] LABS: Hemoglobin 15.2 g/dL (14.0-18.0); Mean Corpuscular HGB Conc 36.2 g/dl (32-36); Mean Corpuscular Hemoglobin 33.8 pg (26-34); Mean Corpuscular Volume 93.3 fl (80-100); Mean Platelet Volume 9.4 fl (7.4-10.4); Platelet Count Result 139 k/mm3 (150-375); Red Cell Distribution Width 11.3 % (11.5-14.5); White Blood Count 7.6 K/mm3 (4.5-10.0)
[2023-02-19 04:44] LABS: Alanine Aminotransferase 28 U/L (6-50); Albumin Level 3.7 g/dL (3.5-5.1); Alkaline Phosphatase 80 U/L (38-126); Anion Gap 9 mmol/L (8-16); Aspartate Amino Transferase 29 U/L (17-59); Blood Urea Nitrogen 3 mg/dL (9-20); Calcium 8.5 mg/dL (8.4-10.2); Carbon Dioxide 23 mmol/L (22-30); Chloride 102 mmol/L (98-107); Estimated CRCL calculation 120 ml/min; Estimated Glomerular Filt Rate > 60; Glucose 98 mg/dL (65-110); Magnesium 1.7 mg/dL (1.6-2.3); Potassium 3.2 mmol/L (3.4-5.0); Sodium 134 mmol/L (137-145)
--- NOTE | 2023-02-19 08:21 | PC.NURSE ---
Spoke with Nery RN @ 7014 on 02/19/23 regarding Librium and Ativan. She stated I gave both the Librium and the Ativan at around 0545. I must have forgotten to scan them. The medication Pyxis shows above medications being removed at 0542. EMAR was updated manually by this RN per conversation with night RN.
[2023-02-19] MEDS: FAMOTIDINE 20 MG TABLET PO (09:03)
[2023-02-19] MEDS: FOLIC ACID 1 MG TABLET PO (09:03)
[2023-02-19] MEDS: POTASSIUM CHLORIDE 20 MEQ TABLET 40 MEQ PO (09:03)
[2023-02-19] MEDS: THIAMINE HCL 100 MG TABLET PO (09:03)
[2023-02-19] MEDS: ENOXAPARIN 40 MG/0.4 ML SYRINGE SUB-Q (09:03)
[2023-02-19] MEDS: NICOTINE (*PBKC) 21 MG PATCH 1 PATCH TRANSDERM (09:03)
[2023-02-19] MEDS: LORazepam INJ (*CRX) 2 MG/ML VIAL 1 MG IV PUSH ×2 (09:07→14:01)
[2023-02-19] MEDS: SODIUM CHLORIDE 0.9% IV 1,000 ML 125 ML IV CONT ×2 (09:17→16:44)
[2023-02-19] MEDS: PANTOPRAZOLE SODIUM IV 40 MG VIAL IV PUSH (10:10)
[2023-02-19] MEDS: diphenhydrAMINE HCl CAP 25 MG CAPSULE PO (10:10)
[2023-02-19 10:48] LABS: Folic Acid 10.3 ng/mL (2.76->20)
[2023-02-19] MEDS: LORazepam (*CRX) 1 MG TABLET PO ×2 (11:43→16:44)
[2023-02-19] MEDS: ACETAMINOPHEN 500 MG TABLET PO (11:43)
--- NOTE | 2023-02-19 18:20 | PM.IMPN ---
Progress Note: A&P Assessment and Plan (1) Alcohol withdrawal: Code(s): F10.239 - Alcohol dependence with withdrawal, unspecified Status: Acute Assessment and Plan: Patient presented with alcohol withdrawal, was tachycardic, tremors tactile and visual hallucinations -patient was given IV fluids bolus x2 and is currently on maintenance IV fluids -patient is currently on Precedex infusion which I will wean off this morning -he has clinically improved. Normal sinus rhythm on the monitor. No tremors on exam. Alert oriented x3 -continue Librium, folic acid and thiamine -her add p.r.n. Ativan -continue CIWA protocol 02/19/2023 interval history: patient with history alcohol abuse patient was agitated and he had high CIWA score patient was placed on Precedex infusion in ICU, patient did impeove and he was weaned off the infusion and now he is IMU today patient states he feels weak and tired and feels his dehydrated, started patient on IVF, also started patient on portonix IV for his history of GERD and complaining of heart leonardo, will continue to monitor, have PT/OT evaluate the patient and patient will benefit going to acute rehab. (2) Alcohol dependence: Code(s): F10.20 - Alcohol dependence, uncomplicated Status: Acute Assessment and Plan: Patient has history of alcohol dependence, once he is medically stable will enrollment counselor him on cessation of alcohol will have care coordination provided additional help (3) Tobacco dependence: Code(s): F17.200 - Nicotine dependence, unspecified, uncomplicated Status: Acute Assessment and Plan: Have counseled patient on cessation of smoking and tobacco use (4) Hypomagnesemia: Code(s): E83.42 - Hypomagnesemia Status: Acute Assessment and Plan: Magnesium was replaced on admission, today's level pending (5) Dyspepsia: Code(s): R10.13 - Epigastric pain Status: Acute Assessment and Plan: P.o. Pepcid P.r.n. Tums and Maalox Plan DVT prophylaxis: Lovenox SQ Stress ulcer prophylaxis: Not indicated Nutrition: Regular diet Code Status: Full code Up in chair Incentive spirometry Transfer out of ICU today Subjective Date/time seen: 02/19/23 18:20 Patient presented with alcohol withdrawal, was tachycardic, tremors tactile and visual hallucinations -patient was given IV fluids bolus x2 and is currently on maintenance IV fluids -patient is currently on Precedex infusion which I will wean off this morning -he has clinically improved. Normal sinus rhythm on the monitor. No tremors on exam. Alert oriented x3 -continue Librium, folic acid and thiamine -her add p.r.n. Ativan -continue CIWA protocol 02/19/2023 interval history: patient with history alcohol abuse patient was agitated and he had high CIWA score patient was placed on Precedex infusion in ICU, patient did impeove and he was weaned off the infusion and now he is IMU today patient states he feels weak and tired and feels his dehydrated, started patient on IVF, also started patient on portonix IV for his history of GERD and complaining of heart leonardo, will continue to monitor, have PT/OT evaluate the patient and patient will benefit going to acute rehab. Review of Systems Review of Systems: All systems reviewed & are unremarkable except as noted in HPI and below Exam Narrative: Appears chronically ill older than his age Patient is comfortable, NAD HEENT: eyes are clear and none icteric LUNGS:CTA HEART: RR S1S2 ABD: BS+, Soft and nontender Lower extremities: no edema SKIN: nonjaundiced Neuro: grossly intact. Objective Data Vital Signs Vital Signs: Vital Signs - 24 hr 02/18/23 18:43 02/18/23 19:53 02/18/23 20:00 Temperature 97.8 F Pulse Rate 97 Pulse Rate [Monitor] 105 H 81 Respiratory Rate 20 Blood Pressure 125/83 Pulse Oximetry 98 02/18/23 20:00 02/18/23 22:00 02/18/23 23:25 Temperature 98.0 F Pulse Rate 112
--- NOTE | 2023-02-20 16:18 | PM.DS ---
DS: Admitting Diagnosis Discharge Date 02/19/23 Admitting Diagnosis Alcohol withdrawal DS: Summary Hospital Course Hospital Course: patient with history alcohol abuse patient was agitated and he had high CIWA score patient was placed on Precedex infusion in ICU, patient did impeove and he was weaned off the infusion and now he is IMU today patient states he feels weak and tired and feels his dehydrated, started patient on IVF, also started patient on portonix IV for his history of GERD and complaining of heart leonardo, will continue to monitor, have PT/OT evaluate the patient and patient will benefit going to acute rehab. Patient left AMA Time Spent with Patient Time attestation: Total time spent providing and/or coordinating discharge services: Discharge Plan Discharge Consulting providers: Soniya Christiansen ; Ann Heath ; Cm Yanez ; Geoffrey Ma Patient Disposition: Left Against Medical Advice Discharge Medications: No Action No Home Medications Date of admission: 02/17/23 09:38 Primary Care Provider: PHYSICIAN NOT ON STAFF,NONSTAFF Admitting Provider: Charu Carpenter Attending physician on admission: Casandra Mcneal Condition: Critical
== END 2023-02-19 19:30 | disposition left against medical advice (07) | DRG 770 ==
LOC: ANHED 14:50 → ANHICU 15:27 → ANHIMU 02-18 18:30
PROVIDERS: Internal Medicine; Nurse Practitioner; Admitting Provider Student in an Organized Health Care Education/Training Program; Emergency Provider Preventive Medicine Aerospace Medicine; Visit Provider Family Medicine
DX: F10.239 Alcohol dependence with withdrawal, unspecified (principal); E83.42 Hypomagnesemia; F17.210 Nicotine dependence, cigarettes, uncomplicated; K21.9 Gastro-esophageal reflux disease without esophagitis; R10.13 Epigastric pain; Z90.49 Acquired absence of other specified parts of digestive tract
CPT/HCPCS: 36415; 80048; 80053; 82607; 82746; 82948; 83605; 83615; 83690; 83735; 84100; 84443; 85025; 85027; 93005; 96361; 96365; 96366; 96372; 96375; 96376; 99285; A9270; C9113; G0378; G0379; J1650; J2060; J2405; J2560; J3411; J3475; J7030

== ENCOUNTER 2023-07-04 00:18 | Inpatient (IN) | payer OTHER, SELFPAY ==
[2023-07-04] VITALS (29 sets, daily range): BP systolic 100–132; BP diastolic 67–95; PULSE 104–131; RESP 13–27; TEMP 36.6–37.2; O2SAT 94–99; BMI 21.2
--- NOTE | ~2023-07-04 | CT_ITS ---
Non-contrast Head CT History: Status post fall COMPARISON: 02/14/2022 Technique: Axial non-contrast imaging of the brain was performed. Dose reduction technique was used on this scan by utilizing automated exposure control and iterative reconstruction technique. The dose -length product (DLP) was 681.00 mGy-cm. Findings: There is no evidence of intracranial hemorrhage, mass lesion, or acute infarct. Brain par enchyma appears normal. The ventricles and subarachnoid spaces are normal in size. The calvarium ap pears normal. The visualized paranasal sinuses and mastoid air cells are clear. Impression: No significant abnormality seen. Reviewed, dictated and finalized at location . Impression: No significant abnormality seen.
--- NOTE | 2023-07-04 00:24 | ECG_ITS ---
Measurements Intervals [place] Rate: 123 P: NV: 0 QRS: 52 QRSD: 67 T: 69 QT: 336 QTc: 481 Interpretive Statements SINUS TACHYCARDIA ANTEROSEPTAL MYOCARDIAL INFARCTION , OF INDETERMINATE AGE [40+ ms Q WAVE IN V1-V4] COMPARED TO ECG 02/16/2023 12:11:01 NO SIGNIFICANT CHANGES Electronically Signed On 07-04-2023 8:59:39 CDT by Danielle Allen M.D.
--- NOTE | 2023-07-04 00:32 | ED.ALCOHOL ---
HPI - Alcohol General Chief Complaint: Alcohol Stated Complaint: seizure Time Seen by Provider: 07/04/23 00:23 History of Present Illness HPI narrative: Patient is a 43-year-old male presenting with a seizure. Patient states that he has a long history of alcohol use disorder. States that he has had seizures related to alcohol withdrawal before. States that he has been drinking heavily over the last week but he stopped yesterday. States he has not had a drink in about 36 hours. States that he woke up on the floor tonight and is concerned that he had a seizure. States that he bit his lip. No urinary incontinence. Denies seizures outside of alcohol withdrawal. States that he knows he needs to stop drinking otherwise he will . Currently complains of abdominal burning and nausea but otherwise denies complaints. Related Data Home Medications Medication Instructions Recorded Confirmed No Home Medications 02/17/23 07/04/23 Allergies Allergy/AdvReac Type Severity Reaction Status Date / Time moxifloxacin Allergy Intermediate Rash Verified 02/16/23 12:19 Review of Systems Review of Systems: All systems reviewed & are unremarkable except as noted in HPI and below PMFSH Past Medical History Medical History Alcohol dependence Anxiety Chronic cholecystitis without calculus Gastritis History of ETOH abuse Pancreatitis Seizure Due to alcohol withdrawal Smoker Surgical History Surgical History H/O removal of cyst Hx laparoscopic cholecystectomy 09/26/21 Family History Family History Father Cerebrovascular accident Hypertension Other Cancer Sibling Diabetes mellitus Grandparent Heart disease Social History Social History Social History: The patient lives with his parents. He has been drinking a pt of vodka and a 6 pack of beer daily and had his last drink 2 days ago. He does not currently work and does not have any children. Patient currently smokes a pack a cigarettes a day. 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 NO DRINKS IN PAST 2 WEEKS. 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 EYES: PERRLA and EOMI. ENT: Nares clear, no rhinorrhea or epistaxis. Mucous membranes dry; + tongue fasciculations NECK: Supple. CHEST: Clear to auscultation. No respiratory distress. HEART: Tachycardic, regular rhythm ABDOMEN: Soft, nontender, nondistended EXTREMITIES: Normal range of motion. No edema. SKIN: Warm, slightly diaphoretic NEURO: No focal deficits. Alert and oriented x3. PSYCH: Anxious Course Vital Signs Vital signs: Vital Signs Temperature 98.1 F 07/04/23 00:20 Pulse Rate 122 H 07/04/23 00:20 Respiratory Rate 15 07/04/23 00:20 Blood Pressure 128/82 07/04/23 00:20 Pulse Oximetry 97
[2023-07-04] MEDS: FAMOTIDINE 20 MG/2 ML VIAL IV PUSH (00:37)
[2023-07-04] MEDS: ONDANSETRON INJ 4 MG/2 ML VIAL IV PUSH ×3 (00:37→12:13)
[2023-07-04] MEDS: PHENobarbitaL sodium (*CRX) 130 MG/ML VIAL 260 MG IV PUSH (00:37)
[2023-07-04] MEDS: SODIUM CHLORIDE 0.9% IV 1,000 ML 999 ML IV CONT ×2 (00:42→00:43)
[2023-07-04] MEDS: LORazepam INJ (*CRX) 2 MG/ML VIAL IV PUSH ×4 (00:43→12:13)
[2023-07-04 00:50] LABS: Basophils Absolute Auto 0.1 K/mm3 (0.0-0.1); Eosinophils Percent Auto 0.1 % (0-4.4); Hematocrit 50.7 % (42.0-52.0); Hemoglobin 17.6 g/dL (14.0-18.0); Immature Granulocyte Absolute 0.02 K/mm3 (0.00-0.031); Immature Granulocyte Percent A 0.2 % (0-0.5); Lymphocytes Absolute Auto 1.19 K/mm3 (0.9-3.2); Lymphocytes Percent Auto 12.4 % (18.3-44.2); Mean Corpuscular HGB Conc 34.7 g/dl (32-36); Mean Corpuscular Hemoglobin 31.3 pg (26-34); Mean Corpuscular Volume 90.1 fl (80-100); Mean Platelet Volume 8.9 fl (7.4-10.4); Monocytes Absolute Auto 0.6 K/mm3 (0.1-0.6); Monocytes Percent Auto 5.7 % (2.6-8.5); Neutrophils Absolute Auto 7.8 K/mm3 (1.3-6.7); Neutrophils Percent Auto 80.6 % (45.5-73.1); Platelet Count Result 308 k/mm3 (150-375); Red Blood Count 5.63 M/mm3 (4.6-6.20); Red Cell Distribution Width 14.3 % (11.5-14.5); White Blood Count 9.6 K/mm3 (4.5-10.0)
[2023-07-04 00:54] LABS: Appearance Urine Clear (Clear); Bacteria Urine None Seen /hpf; Bilirubin Urine Negative (Negative); Blood Urine Negative (Negative); Color Urine Dark Yellow (Yellow); Glucose Urine UA Negative (Negative); Ketones Urine 1+ mg/dL (Negative); Leukocyte Esterase Ur Trace LEU/UL (Negative); Nitrate Urine Negative (Negative); Non Pathogenic Casts 0-2; Protein Urine 1+ mg/dL (Negative); RBC Urine 0-2 /hpf (0-2); Specific Grav Ur 1.014 (1.001-1.035); Squamous Epithelial Cell Urine None seen /hpf (Few); WBC Urine 0-5 /hpf
[2023-07-04 00:55] LABS: Add Urine Microscopic? YES
[2023-07-04 01:08] LABS: Alanine Aminotransferase 62 U/L (6-50); Alkaline Phosphatase 115 U/L (38-126); Anion Gap 20 mmol/L (8-16); Aspartate Amino Transferase 112 U/L (17-59); Bilirubin,Total 0.9 mg/dL (0.2-1.3); Blood Urea Nitrogen 9 mg/dL (9-20); Calcium 9.5 mg/dL (8.4-10.2); Carbon Dioxide 29 mmol/L (22-30); Chloride 91 mmol/L (98-107); Estimated CRCL calculation 95 ml/min; Estimated Glomerular Filt Rate > 60; Glucose 127 mg/dL (65-110); Magnesium 1.7 mg/dL (1.6-2.3); Phosphorus 4.4 mg/dL (2.5-4.5); Sodium 140 mmol/L (137-145)
[2023-07-04 01:08] LABS: Amphetamine Screen Urine Negative (Negative); Barbiturate Screen Urine Negative (Negative); Benzodiazepines Screen Urine Negative (Negative); Cannabinoid Screen Urine Positive (Negative); Cocaine Screen Urine Negative (Negative); Methadone Screen Urine Negative (Negative); Opiate Screen Urine Negative (Negative); Phencyclidine Screen Urine Negative (Negative)
[2023-07-04 01:10] LABS: Lactic Acid Reflex 7.3 mmol/L (0.7-2.0)
[2023-07-04 01:22] LABS: Ethanol 170 mg/dL (<10)
[2023-07-04 01:35] LABS: Lipase 97 U/L (23-300)
[2023-07-04 03:37] LABS: Reflex Lactic Acid Yes or No Add Lactic
[2023-07-04] MEDS: MECLIZINE HCL 25 MG TABLET PO (03:41)
--- NOTE | 2023-07-04 05:37 | ADMGEN ---
This patient, Iker Kuhn, was admitted to IMU Room 200-01. Patient/family oriented to hospital policies and general routines including ID bracelet, bed and alarms, visiting hours, pain management, procedures, bathroom and other care routines, personal items, smoking policy, room service/diet, and visiting hours. Information on how to activate the Rapid Response Team has been discussed. Patient/Family are encouraged to report perceived risks to care and to ask questions if they do not understand what they are told or what they should do.
[2023-07-04 05:45] LABS: Lactic Acid 2.5 mmol/L (0.7-2.0)
--- NOTE | 2023-07-04 08:47 | PM.IMHP ---
H&P: HPI History of Present Illness Date/Time: 07/04/23 08:47 Chief Complaint: 43-year-old male with history of alcoholism presenting with alcohol withdrawal seizure. Patient states he stopped drinking about 36 hours ago and woke up on the floor with his tongue bleeding from a bite. Denies any loss of bowel or bladder control. He states that he has had seizures in the past when he stops drinking. He is interested in quitting drinking. In the ER, he was noted to be tachycardic, tremulous, diaphoretic and banana bag and phenobarbital loading dose where administered. Review of Systems Review of Systems: 12 point review of systems was assessed and was negative except as noted in the HPI PMFSH Past Medical History Medical History Alcohol dependence Anxiety Chronic cholecystitis without calculus Gastritis History of ETOH abuse Pancreatitis Seizure Due to alcohol withdrawal Smoker Surgical History Surgical History H/O removal of cyst Hx laparoscopic cholecystectomy 09/26/21 Family History Family History Father Cerebrovascular accident Hypertension Other Cancer Sibling Diabetes mellitus Grandparent Heart disease Social History Social History Social History: The patient lives with his parents. He has been drinking a pt of vodka and a 6 pack of beer daily and had his last drink 2 days ago. He does not currently work and does not have any children. Patient currently smokes a pack a cigarettes a day. 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 NO DRINKS IN PAST 2 WEEKS. 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 Gender identity (if verbalized by the patient): Male Spiritual care concerns: No Meds Home Medications and Allergies Home Medications Medication Instructions Recorded Confirmed Type No Home Medications 02/17/23 07/04/23 History Allergies Allergy/AdvReac Type Severity Reaction Status Date / Time moxifloxacin Allergy Intermediate Rash Verified 02/16/23 12:19 Vital Signs Vital Signs - 24 hr 07/04/23 00:20 07/04/23 00:53 07/04/23 01:16 Temperature 98.1 F Pulse Rate 122 H 120 H 131 H Pulse Rate [Monitor] Respiratory Rate 15 15 Blood Pressure 128/82 Pulse Oximetry 97 95 96 Oxygen Delivery Room Air 07/04/23 01:30 07/04/23 01:35 07/04/23 01:36 Temperature Pulse Rate 127 H 124 H 124 H Pulse Rate [Monitor] Respiratory Rate 13 20 13 Blood Pressure 117/87 Pulse Oximetry 98 94 95 Oxygen Delivery 07/04/23 01:45 07/04/23 01:46 07/04/23 02:00 Temperature Pulse Rate 121 H 121 H 117 H Pulse Rate [Monitor] Respiratory Rate 24 H 24 H 20 Blood Pressure 118/79 113/77 Pulse Oximetry 95 95 94 Oxygen Delivery 07/04/23 02:01 07/04/23 02:15 07/04/23 02:17 Temperature Pulse Rate 117 H 123 H 121 H Pulse Rate [Monitor] Respiratory Rate 27 H 19 20 Blood Pressure 116/82 Pulse Oximetry 95 95 96 Oxygen Delivery 07/04/23 02:47 07/04/23 03:35 07/04/23 03:45 T
[2023-07-04] MEDS: chlordiazePOXIDE (*CRX) 25 MG CAPSULE PO ×2 (09:38→13:14)
--- NOTE | 2023-07-04 14:53 | PC.NURSE ---
Patient notified of risks of leaving AMA. Dr. Carpenter notified. Follow up instructions given to patient. Patient signed AMA form.
== END 2023-07-04 14:53 | disposition left against medical advice (07) | DRG 770 ==
LOC: ANHED 01:28 → ANHIMU 14:08
PROVIDERS: Admitting Provider Internal Medicine; Emergency Provider Emergency Medicine; Visit Provider Student in an Organized Health Care Education/Training Program
DX: F10.239 Alcohol dependence with withdrawal, unspecified (principal); G40.89 Other seizures; K29.70 Gastritis, unspecified, without bleeding; F17.210 Nicotine dependence, cigarettes, uncomplicated; F41.9 Anxiety disorder, unspecified; Z90.49 Acquired absence of other specified parts of digestive tract
CPT/HCPCS: 36415; 70450; 80053; 80307; 81001; 83605; 83690; 83735; 84100; 85025; 93005; 96361; 96374; 96375; 99285; A9270; J2060; J2405; J2560; J3411; J3475; J7030

== ENCOUNTER 2025-03-17 15:57 | Emergency (ER) | payer OTHER, SELFPAY ==
[2025-03-17] VITALS (27 sets, daily range): BP systolic 111–137; BP diastolic 83–101; PULSE 85–115; RESP 9–27; TEMP 36.1–36.7; O2SAT 97–99
--- NOTE | 2025-03-17 16:10 | ED.ALCOHOL ---
HPI - Alcohol General Chief Complaint: Alcohol <Jacque Blackwood APRN - Last Filed: 03/17/25 16:19> Stated Complaint: 2 syncopal/ 1 seizure episodes since 1100 today <Jacque Blackwood APRN - Last Filed: 03/17/25 16:19> Time Seen by Provider: 03/17/25 16:10 <Jacque Blackwood APRN - Last Filed: 03/17/25 16:19> Focused HPI: Patient is a 45-year-old male who presents to the ER in alcohol withdrawal. He reports he is an alcoholic and has not had a drink in two days. Patient reports he has had 2 seizures this morning. He endorses history of pancreatitis but is not experiencing any abdominal pain at this time. Patient reports he is unable to keep any p.o. intake down. He denies any chest pain, recent fevers, or urinary symptoms. GENERAL: Ill-appearing, diaphoretic, and in acute distress. HEAD: Normocephalic, atraumatic. CHEST: Clear to auscultation. ?No respiratory distress. HEART: Tachycardia, no notable murmur NEURO: ?Alert and oriented x3. +Tremulousness Patient screened in triage and initial orders placed.? ?Additional care and disposition to be based upon?diagnostic testing and treatment. <Jacque Blackwood APRN - Last Filed: 03/17/25 16:19> History of Present Illness HPI narrative: Agree with the HPI above. Patient states he has not had a drink in 2 days as he is trying to cut back and quit. He has a history of relapsed from alcohol cessation and alcohol withdrawal seizures in the past. He states that he feels nauseous and trembling with some subjective paresthesias globally but denies any vision changes, weakness, abdominal pain, back pain, chest pain, shortness a breath. No injury or trauma. Last drink was about 48 hours ago. <Elmer Jones MD - Last Filed: 03/17/25 22:00> Related Data Allergies/Adverse Reactions: Allergies Allergy/AdvReac Type Severity Reaction Status Date / Time moxifloxacin Allergy Intermediate Rash Verified 03/17/25 15:59 <Jacque Blackwood APRN - Last Filed: 03/17/25 16:19> Review of Systems Review of Systems: As reviewed above in HPI <Elmer Jones MD - Last Filed: 03/17/25 22:00> [facility] Past Medical History Medical History: Medical History Seizure Due to alcohol withdrawal Smoker Anxiety History of ETOH abuse Chronic cholecystitis without calculus Gastritis Alcohol dependence Pancreatitis <Jacque Blackwood PROPERTY CLERK - Last Filed: 03/17/25 16:19> Surgical History Surgical History: Surgical History H/O removal of cyst Hx laparoscopic cholecystectomy 09/26/21 <Jacque Blackwood APRN - Last Filed: 03/17/25 16:19> Family History Family History: Family History Father Cerebrovascular accident Hypertension Other Cancer Sibling Diabetes mellitus Grandparent Heart disease <Jacque Blackwood, PROPERTY CLERK - Last Filed: 03/17/25 16:19> Social History Social History: Social History Social History: The patient lives with his parents. He has been drinking a pt of vodka and a 6 pack of beer daily and had his last drink 2 days ago. He does not currently work and does not have any children. Patient currently smokes a pack a cigarettes a day. 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 NO DRINKS IN PAST 2 WEEKS. 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 He is awake and answer all questions appropriately. HEAD: [Normocephalic, atraumatic.] EYES: [PERRLA and EOMI.] ENT: Nares clear, no rhinorrhea or epistaxis. Mucous membranes moist. NECK: Supple. CHEST: [Clear to auscultation. No respiratory distress.] HEART: [Regular rate and rhythm]. No murmur heard. [Normal peripheral pulses.] ABDOMEN: [Soft, nondistended], [nontender], [No rigidity or guarding] EXTREMITIES: Normal range of motion. [No edema.] SKIN: Warm, dry, no rash. NEURO: [No focal deficits]. Alert and oriented [x3.] PSYCH: [Normal mood and affect.] <Elmer Jones MD - Last Filed: 03/17/25 22:00> Course Vital Signs Vital signs: Vital Signs Temperature 36.7 C 03/17/25 16:10 Pulse Rate 111 H 03/17/25 16:10 Respiratory Rate 18 03/17/25 16:10 Blood Pressure 128/91 H 03/17/25 16:10 Pulse Oximetry 99 03/17/25 16:10 Oxygen Delivery Room Air 03/17/25 16:10 Temperature 36.7 C 03/17/25 16:10 Pulse Rate 109 H 03/17/25 19:16 Respiratory Rate 18 03/17/25 19:16 Blood Pressure 134/95 H 03/17/25 19:15 Pulse Oximetry 98 03/17/25 19:16 Oxygen Delivery Room Air 03/17/25 16:22 <Jacque Blackwood APRN - Last Filed: 03/17/25 16:19> Vital Signs Temperature 36.7 C 03/17/25 16:10 Pulse Rate 111 H 03/17/25 16:10 Respiratory Rate 18 03/17/25 16:10 Blood Pressure 128/91 H 03/17/25 16:10 Pulse Oximetry 99 03/17/25 16:10 Oxygen Delivery Room Air 03/17/25 16:10 Temperature 36.7 C 03/17/25 16:10 Pulse Rate 109 H 03/17/25 19:16 Respiratory Rate 18 03/17/25 19:16 Blood Pressure 134/95 H 03/17/25 19:15 Pulse Oximetry 98 03/17/25 19:16 Oxygen Delivery Room Air 03/17/25 16:22 <Elmer Jones MD - Last Filed: 03/17/25 22:00> MDM - Alcohol MDM Narrative Medical decision making narrative: 45-year-old male with history of alcohol withdrawal seizures and alcohol dependence. Presents to the emergency department with suspicion for alcohol withdrawal. Patient states he had 2 witnessed seizures earlier today. Family members at bedside. Patient states that whenever he stops drinking alcohol he get seizures. He tried cutting off his alcohol intake 2 days ago and he normally drinks multiple large cans of beer and several shots of vodka per day. Today he presents with signs and symptoms suspicious for alcohol withdrawal. He is not any acute physical distress, is slightly diaphoretic and nauseous. Mildly tremulous. Slightly tachycardic but no significant hypertension, tachypnea, fever or hypoxia. Normal neurological assessment. Given his historical features with a history of alcohol withdrawal seizures and alcohol abuse we will load him with a 10 milligram/kilogram starting dose of phenobarbital and re-evaluate. Most likely patient has [id number] alcohol withdrawal and alcohol withdrawal seizure. Low suspicion for other organic causes of seizure disorder such as a brain mass or bleed. Will obtain head CT for further evaluation in addition to laboratory studies to assess for any electrolyte deficiencies abnormalities or any liver/kidney injury. He was given a banana bag for hydration and vitamins and re-evaluated frequently on church secretary and pulse oximetry. Patient was re-evaluated after phenobarbital load and he felt significantly improved. He felt no longer nauseous or anxious. No myalgia or neuropathy residual. His anion gap was elevated but this could be secondary to his alcohol withdrawal seizure. There is also potential component of starvation ketosis as his urine does have 4+ ketones. He was given a D5 LR bolus in addition to his banana bag. Patient had repeat BMP and lactic acid drawn. Vital signs remained stable. Remaining laboratory studies unremarkable. Patient would like to go home upon completion of his workup and given that he is hemodynamically stable and improved after phenobarbital load I believe he can be discharged home with a course of medications. Patient was observed here for numerous hours without any recurrence of his seizure or seizure-like activity. Repeat BMP shows resolution of his anion gap improvement in his hypokalemia. Patient will be prescribed at a Librium taper and verbalized understanding need for compliance. Patient will follow up with his regular doctor or return with any new or worsening concerns. <Elmer Jones MD - Last Filed: 03/17/25 22:00> Medical Records Attestation: I reviewed the patient's medical records. <Elmer Jones MD - Last Filed: 03/17/25 22:00> Lab Data Attestation: I reviewed the patient's lab results. <Elmer Jones MD - Last Filed: 03/17/25 22:00> Result diagrams: 03/17/25 17:19 03/17/25 21:08 <Jacque Blackwood APRN - Last Filed: 03/17/25 16:19> Labs: Lab Results 03/17/25 03/17/25 03/17/25 Range/Units 16:21 17:18 17:19 WBC 9.6 (4.5-10.0) K/mm3 RBC 4.67 (4.6-6.20) M/mm3 Hgb 15.8 (14.0-18.0) g/dL Hct 46.0 (42.0-52.0) % MCV 98.5 (80-100) fl MCH 33.8 (26-34) pg MCHC 34.3 (32-36) g/dl RDW 11.5 (11.5-14.5) % Plt Count 211 (150-375) k/mm3 MPV 9.5 (7.4-10.4) fl Immature Gran % (Auto) 0.3 (0-0.5) % Neut % (Auto) 81.9 H (45.5-73.1) % Lymph % (Auto) 9.9 L (18.3-44.2) % [facility] % (Auto) 6.9 (2.6-8.5) % Eos % (Auto) 0.3 (0-4.4) % Baso % (Auto) 0.7 (0.2-1.2) % Lymph # (Auto) 0.95 (0.9-3.2) K/mm3 [facility] # (Auto) 0.7 H (0.1-0.6) K/mm3 Eos # (Auto) 0.0 (0-0.3) K/mm3 Baso # (Auto) 0.1 (0.0-0.1) K/mm3 Abs Immat Gran (auto) 0.03 (0.00-0.031) K/mm3 Absolute Neuts (auto) 7.8 H (1.3-6.7) K/mm3 Absolute Nucleated RBC 0.000 (0.0-0.012) K/mm3 Nucleated RBC % 0.0 (0.0-0.2) % Sodium 132 L (137-145) mmol/L Potassium 3.0 L (3.4-5.0) mmol/L Chloride 90 L (98-107) mmol/L Carbon Dioxide 23 (22-30) mmol/L Anion Gap 19 H (4-12) mmol/L BUN 7 L (9-20) mg/dL Creatinine 0.64 L (0.7-1.3) mg/dL Estim Creat Clear Calc 123 ml/min Estimated GFR > 60 (59 - ) Glucose 139 H (65-110) mg/dL POC Capillary Glucose 176 H (65-105) mg/dl Lactic Acid 1.1 (0.7-2.0) mmol/L Calcium 9.2 (8.4-10.2) mg/dL Magnesium 1.7 (1.6-2.3) mg/dL Total Bilirubin (0.2-1.3) mg/dL AST (17-59) U/L ALT (6-50) U/L Alkaline Phosphatase (38-126) U/L Total Protein (6.3-8.2) g/dL Albumin (3.5-5.1) g/dL Urine Color (Yellow) Urine Appearance (Clear) Urine pH (5.0-9.0) Ur Specific [place] (1.001-1.035) Urine Protein (Negative) mg/dL Urine Glucose (UA) (Negative) mg/dL Urine Ketones (Negative) mg/dL Ur Blood (Man) (Negative) Urine Nitrate (Negative) Urine Bilirubin (Negative) Urine Urobilinogen (<2.0) mg/dL Add Ur Microanalysis Leukocyte Esterase Rfl (Negative) KYLER/UL Urine RBC (0-2) /hpf Urine WBC (0-3) /hpf Ur Squamous Epith Cells (Few) /hpf Urine Bacteria /hpf Urine Casts Hyaline Casts (None) /lpf Urine Mucus /lpf Urine Opiates Screen (Negative) Urine Methadone Screen (Negative) Ur Barbiturates Screen (Negative) Ur Phencyclidine Scrn (Negative) Ur Amphetamine Screen (Negative) U Benzodiazepines Scrn (Negative) Urine Cocaine Screen (Negative) U Cannabinoids Screen (Negative) Ethyl Alcohol (<10) mg/dL 03/17/25 03/17/25 03/17/25 Range/Units 17:19 17:50 21:08 WBC (4.5-10.0) K/mm3 RBC (4.6-6.20) M/mm3 Hgb (14.0-18.0) g/dL Hct (42.0-52.0) % MCV (80-100) fl MCH (26-34) pg MCHC (32-36) g/dl RDW (11.5-14.5) % Plt Count (150-375) k/mm3 MPV (7.4-10.4) fl Immature Gran % (Auto) (0-0.5) % Neut % (Auto) (45.5-73.1) % Lymph % (Auto) (18.3-44.2) % [facility] % (Auto) (2.6-8.5) % Eos % (Auto) (0-4.4) % Baso % (Auto) (0.2-1.2) % Lymph # (Auto) (0.9-3.2) K/mm3 [facility] # (Auto) (0.1-0.6) K/mm3 Eos # (Auto) (0-0.3) K/mm3 Baso # (Auto) (0.0-0.1) K/mm3 Abs Immat Gran (auto) (0.00-0.031) K/mm3 Absolute Neuts (auto) (1.3-6.7) K/mm3 Absolute Nucleated RBC (0.0-0.012) K/mm3 Nucleated RBC % (0.0-0.2) % Sodium 129 L (137-145) mmol/L Potassium 3.3 L (3.4-5.0) mmol/L Chloride 96 L (98-107) mmol/L Carbon Dioxide 26 (22-30) mmol/L Anion Gap 7 (4-12) mmol/L BUN 6 L (9-20) mg/dL Creatinine 0.56 L (0.7-1.3) mg/dL Estim Creat Clear Calc 138 ml/min Estimated GFR > 60 (59 - ) Glucose 265 H (65-110) mg/dL POC Capillary Glucose (65-105) mg/dl Lactic Acid (0.7-2.0) mmol/L Calcium 7.8 L (8.4-10.2) mg/dL Magnesium Cancelled (1.6-2.3) mg/dL Total Bilirubin 1.8 H (0.2-1.3) mg/dL AST 97 H (17-59) U/L ALT 44 (6-50) U/L Alkaline Phosphatase 115 (38-126) U/L Total Protein 7.0 (6.3-8.2) g/dL Albumin 4.4 (3.5-5.1) g/dL Urine Color Dark yellow (Yellow) Urine Appearance Clear (Clear) Urine pH 7.0 (5.0-9.0) Ur Specific [place] 1.025 (1.001-1.035) Urine Protein 1+ H (Negative) mg/dL Urine Glucose (UA) Negative (Negative) mg/dL Urine Ketones 4+ H (Negative) mg/dL Ur Blood (Man) Negative (Negative) Urine Nitrate Negative (Negative) Urine Bilirubin 2+ H (Negative) Urine Urobilinogen 1.0 (<2.0) mg/dL Add Ur Microanalysis Reviewed Leukocyte Esterase Rfl 2+ H (Negative) KYLER/UL Urine RBC 0-2 (0-2) /hpf Urine WBC 6-10 H (0-3) /hpf Ur Squamous Epith Cells None seen (Few) /hpf Urine Bacteria None seen /hpf Urine Casts 11-20 Hyaline Casts Present (None) /lpf Urine Mucus Present /lpf Urine Opiates Screen Negative (Negative) Urine Methadone Screen Negative (Negative) Ur Barbiturates Screen Negative (Negative) Ur Phencyclidine Scrn Negative (Negative) Ur Amphetamine Screen Negative (Negative) U Benzodiazepines Scrn Negative (Negative) Urine Cocaine Screen Negative (Negative) U Cannabinoids Screen Positive A (Negative) Ethyl Alcohol < 10 (<10) mg/dL <Jacquebrock Blackwood, PROPERTY CLERK - Last Filed: 03/17/25 16:19> Lab Results 03/17/25 03/17/25 03/17/25 Range/Units 16:21 17:18 17:19 WBC 9.6 (4.5-10.0) K/mm3 RBC 4.67 (4.6-6.20) M/mm3 Hgb 15.8 (14.0-18.0) g/dL Hct 46.0 (42.0-52.0) % MCV 98.5 (80-100) fl MCH 33.8 (26-34) pg MCHC 34.3 (32-36) g/dl RDW 11.5 (11.5-14.5) % Plt Count 211 (150-375) k/mm3 MPV 9.5 (7.4-10.4) fl Immature Gran % (Auto) 0.3 (0-0.5) % Neut % (Auto) 81.9 H (45.5-73.1) % Lymph % (Auto) 9.9 L (18.3-44.2) % [facility] % (Auto) 6.9 (2.6-8.5) % Eos % (Auto) 0.3 (0-4.4) % Baso % (Auto) 0.7 (0.2-1.2) % Lymph # (Auto) 0.95 (0.9-3.2) K/mm3 [facility] # (Auto) 0.7 H (0.1-0.6) K/mm3 Eos # (Auto) 0.0 (0-0.3) K/mm3 Baso # (Auto) 0.1 (0.0-0.1) K/mm3 Abs Immat Gran (auto) 0.03 (0.00-0.031) K/mm3 Absolute Neuts (auto) 7.8 H (1.3-6.7) K/mm3 Absolute Nucleated RBC 0.000 (0.0-0.012) K/mm3 Nucleated RBC % 0.0 (0.0-0.2) % Sodium 132 L (137-145) mmol/L Potassium 3.0 L (3.4-5.0) mmol/L Chloride 90 L (98-107) mmol/L Carbon Dioxide 23 (22-30) mmol/L Anion Gap 19 H (4-12) mmol/L BUN 7 L (9-20) mg/dL Creatinine 0.64 L (0.7-1.3) mg/dL Estim Creat Clear Calc 123 ml/min Estimated GFR > 60 (59 - ) Glucose 139 H (65-110) mg/dL POC Capillary Glucose 176 H (65-105) mg/dl Lactic Acid 1.1 (0.7-2.0) mmol/L Calcium 9.2 (8.4-10.2) mg/dL Magnesium 1.7 (1.6-2.3) mg/dL Total Bilirubin (0.2-1.3) mg/dL AST (17-59) U/L ALT (6-50) U/L Alkaline Phosphatase (38-126) U/L Total Protein (6.3-8.2) g/dL Albumin (3.5-5.1) g/dL Urine Color (Yellow) Urine Appearance (Clear) Urine pH (5.0-9.0) Ur Specific [place] (1.001-1.035) Urine Protein (Negative) mg/dL Urine Glucose (UA) (Negative) mg/dL Urine Ketones (Negative) mg/dL Ur Blood (Man) (Negative) Urine Nitrate (Negative) Urine Bilirubin (Negative) Urine Urobilinogen (<2.0) mg/dL Add Ur Microanalysis Leukocyte Esterase Rfl (Negative) KYLER/UL Urine RBC (0-2) /hpf Urine WBC (0-3) /hpf Ur Squamous Epith Cells (Few) /hpf Urine Bacteria /hpf Urine Casts Hyaline Casts (None) /lpf Urine Mucus /lpf Urine Opiates Screen (Negative) Urine Methadone Screen (Negative) Ur Barbiturates Screen (Negative) Ur Phencyclidine Scrn (Negative) Ur Amphetamine Screen (Negative) U Benzodiazepines Scrn (Negative) Urine Cocaine Screen (Negative) U Cannabinoids Screen (Negative) Ethyl Alcohol (<10) mg/dL 04/24/25 04/24/25 04/24/25 Range/Units 17:19 17:50 21:08 WBC (4.5-10.0) K/mm3 RBC (4.6-6.20) M/mm3 Hgb (14.0-18.0) g/dL Hct (42.0-52.0) % MCV (80-100) fl MCH (26-34) pg MCHC (32-36) g/dl RDW (11.5-14.5) % Plt Count (150-375) k/mm3 MPV (7.4-10.4) fl Immature Gran % (Auto) (0-0.5) % Neut % (Auto) (45.5-73.1) % Lymph % (Auto) (18.3-44.2) % [facility] % (Auto) (2.6-8.5) % Eos % (Auto) (0-4.4) % Baso % (Auto) (0.2-1.2) % Lymph # (Auto) (0.9-3.2) K/mm3 [facility] # (Auto) (0.1-0.6) K/mm3 Eos # (Auto) (0-0.3) K/mm3 Baso # (Auto) (0.0-0.1) K/mm3 Abs Immat Gran (auto) (0.00-0.031) K/mm3 Absolute Neuts (auto) (1.3-6.7) K/mm3 Absolute Nucleated RBC (0.0-0.012) K/mm3 Nucleated RBC % (0.0-0.2) % Sodium 129 L (137-145) mmol/L Potassium 3.3 L (3.4-5.0) mmol/L Chloride 96 L (98-107) mmol/L Carbon Dioxide 26 (22-30) mmol/L Anion Gap 7 (4-12) mmol/L BUN 6 L (9-20) mg/dL Creatinine 0.56 L (0.7-1.3) mg/dL Estim Creat Clear Calc 138 ml/min Estimated GFR > 60 (59 - ) Glucose 265 H (65-110) mg/dL POC Capillary Glucose (65-105) mg/dl Lactic Acid (0.7-2.0) mmol/L Calcium 7.8 L (8.4-10.2) mg/dL Magnesium Cancelled (1.6-2.3) mg/dL Total Bilirubin 1.8 H (0.2-1.3) mg/dL AST 97 H (17-59) U/L ALT 44 (6-50) U/L Alkaline Phosphatase 115 (38-126) U/L Total Protein 7.0 (6.3-8.2) g/dL Albumin 4.4 (3.5-5.1) g/dL Urine Color Dark yellow (Yellow) Urine Appearance Clear (Clear) Urine pH 7.0 (5.0-9.0) Ur Specific [place] 1.025 (1.001-1.035) Urine Protein 1+ H (Negative) mg/dL Urine Glucose (UA) Negative (Negative) mg/dL Urine Ketones 4+ H (Negative) mg/dL Ur Blood (Man) Negative (Negative) Urine Nitrate Negative (Negative) Urine Bilirubin 2+ H (Negative) Urine Urobilinogen 1.0 (<2.0) mg/dL Add Ur Microanalysis Reviewed Leukocyte Esterase Rfl 2+ H (Negative) KYLER/UL Urine RBC 0-2 (0-2) /hpf Urine WBC 6-10 H (0-3) /hpf Ur Squamous Epith Cells None seen (Few) /hpf Urine Bacteria None seen /hpf Urine Casts 11-20 Hyaline Casts Present (None) /lpf Urine Mucus Present /lpf Urine Opiates Screen Negative (Negative) Urine Methadone Screen Negative (Negative) Ur Barbiturates Screen Negative (Negative) Ur Phencyclidine Scrn Negative (Negative) Ur Amphetamine Screen Negative (Negative) U Benzodiazepines Scrn Negative (Negative) Urine Cocaine Screen Negative (Negative) U Cannabinoids Screen Positive A (Negative) Ethyl Alcohol < 10 (<10) mg/dL <Elmer Jones MD - Last Filed: 03/17/25 22:00> ECG Data EKG #1: Attestation: I personally reviewed and interpreted this ECG as follows: <Elmer Jones MD - Last Filed: 03/17/25 22:00> ECG completion date: 03/17/25 <Elmer Jones MD - Last Filed: 03/17/25 22:00> ECG completion time: 16:29 <Elmer Jones MD - Last Filed: 03/17/25 22:00> Prior ECG tracings: not available for review <Elmer Jones MD - Last Filed: 03/17/25 22:00> Interpretation: No ST segment elevations, depressions or inversions. Sinus tachycardia with rate of 103. QTC 486, QRS 74, NC interval 157. Final interpretation sinus tachycardia with baseline artifact. <Elmer Jones MD - Last Filed: 03/17/25 22:00> Critical Care Time Critical Care Time Critical Care Time: Yes <Elmer Jones MD - Last Filed: 03/17/25 22:00> Total Critical Care Time: 35 <Elmer Jones MD - Last Filed: 03/17/25 22:00> Discharge Plan Discharge Clinical Impression: Alcohol withdrawal seizure without complication, Alcohol dependence <Jacque Blackwood APRN - Last Filed: 03/17/25 16:19> Patient Disposition: Home <Jacque Blackwood APRN - Last Filed: 03/17/25 16:19> Condition: Stable <Jacque Blackwood APRN - Last Filed: 03/17/25 16:19> Instructions: Antibiotic Form, Alcohol Withdrawal (ED), Alcohol Dependence (ED) <Jacque Blackwood APRN - Last Filed: 03/17/25 16:19> Additional Instructions: You were treated for alcohol withdrawal here in the emergency department. We will send you home with a Librium taper which will help control alcohol withdrawal symptoms. If you do choose to drink do not drink and take this medication simultaneously. Follow-up with your regular doctor and we will provide the resources for alcohol abuse. Return with any new or worsening concerns at any time. <Jacque Blackwood APRN - Last Filed: 03/17/25 16:19> Patient Language: Egyptian <Jacque Blackwood APRN - Last Filed: 03/17/25 16:19> Prescriptions: New chlordiazepoxide HCl 25 mg capsule See Rx Instructions .ROUTE .COMPLEX Qty: 20 0RF Rx Instructions: 50mg of chlordiazepoxide every 8 hours for two days, then decrease to 25mg every 8 hours for another two days followed by 25mg as needed ondansetron 4 mg tablet,disintegrating 4 mg PO Q8H PRN (Reason: nausea and vomiting) Qty: 10 0RF <Jacque Blackwood APRN - Last Filed: 03/17/25 16:19> Follow-up/Referrals: Dwayne Leos MD [Primary Care Provider] - <Jacque Blackwood APRN - Last Filed: 03/17/25 16:19> Time of Disposition: 21:59 <Jacque Blackwood APRN - Last Filed: 03/17/25 16:19> 21:59 <Elmer Jones MD - Last Filed: 03/17/25 22:00>
[2025-03-17 16:24] LABS: Glucose Point of Care 176 mg/dl (65-105)
--- NOTE | 2025-03-17 16:26 | ECG_ITS ---
Test Date: 2025-03-17 16:29:26 Measurements Intervals [place] Rate: 103 P: 58 VT: 157 QRS: 16 QRSD: 74 T: 65 QT: 371 QTc: 486 Interpretive Statements SINUS TACHYCARDIA POSSIBLE LEFT ATRIAL ENLARGEMENT CONSIDER ANTERIOR INFARCT, AGE INDETERMINATE BASELINE ARTIFACT- I, II, III, AVR, AVL, AVF, V1-V6 ABNORMAL ECG No previous ECG available for comparison Electronically Signed On 03-17-2025 16:56:28 CDT by Cm Yanez D.O.
[2025-03-17] MEDS: SODIUM CHLORIDE 0.9% IV 1,000 ML 999 ML IV CONT (16:39)
[2025-03-17] MEDS: LORazepam INJ (*CRX) 2 MG/ML VIAL IV PUSH (16:40)
--- OUTSIDE RECORDS SUMMARY | 2025-03-17 17:11 | XMS_ITS | CONTINUITY OF CARE DOCUMENT ---
Author Name marlin isaac Address Unknown Organization [facility] Address [id number] [place] [address] [address] [place] [address] Phone [phone] Care Team Providers Care Quality Assurance Director Name Role Phone Moe GAMA, Angelo Unavailable INGE IVEY MD Unavailable INSURANCE PROVIDERS Payer name Policy type / Coverage type [place] red libertarian ID [employer] Medicaid [id number]
--- OUTSIDE RECORDS SUMMARY | 2025-03-17 17:11 | XMS_ITS | Encounter Summary ---
Author Organization [facility] Healthcare Address [address] [place] [address] Care Team Providers Care Frozen Foods Manager Name Role Phone Ghislaine Garcia MD Primary Care Provider No, Physician Primary Care Provider [phone] Encounter Details Date Type Department Care Team (Late st Contact Info) Description 02/28/2023 Documentation [facility] Warm Hand Off Program [address] [place] [address] Bharat Huitron Social History Tobacco Use Types Packs/Day Years Used Date Smoking Tobacco: Every Day Cigarettes 0.8 30 Sex and Gender Information Value Date Recorded Sex Assigned at Not on file Legal Sex Male 9:08 PM [employer] Gender Identity Not on file Sexual Orientation Not on file documented as of this encounter Plan of Treatment Not on file documented as of this encounter Visit Diagnoses Not on filedocumented in this encounter Care Teams Frozen Foods Manager Relationship Specialty Start Date End Date Ghislaine Garcia MD [address] [place] [id number] PCP - General 07/14/18 03/09/23 No, Physician PCP - General 03/10/23 documented as of this encounter
--- OUTSIDE RECORDS SUMMARY | 2025-03-17 17:11 | XMS_ITS | Referral Summary ---
Author Organization [facility] Address [address] [place] [address] Care Team Providers Care Creel Clerk Name Role Phone No, Physician Primary Care Provider [phone] Allergies Active Allergy Reactions Criticality Noted Date Comments Moxifloxacin Other (See comments) Reaction: Hives, Medications OLANZapine (ZyPREXA) 10 mg tablet Take 1 tablet (10 mg total) by mouth 2 (two) times a day 60 tablet 03/05/2023 Active chlordiazePOXID E (LIBRIUM) 25 mg capsule Take 2 capsules (50 mg total) by mouth 4 (four) times a day for 1 day, THEN 2 capsules (50 mg total) 3 (three) times a day for 1 day, THEN 2 capsules (50 mg total) 2 (two) times a day for 1 day, THEN 1 capsule (25 mg total) 2 (two) times a day for 1 day, THEN 1 capsule (25 mg total) nightly for 1 day. 21 capsule 07/14/[address] (CAMPRAL) 333 mg EC tabletIndicatio ns:alcoholism Take 2 tablets (666 mg total) by mouth 3 (three) times a day 90 tablet 07/14/2023 Active Active Problems Problem Noted Date Diagnosed Date Seizures 07/07/2023 Alcohol withdrawal syndrome with perceptual dist urbance 07/07/2023 GERD (gastroesophageal reflux disease) History of acute pancreatitis 07/05/2023 Elevated AST (SGOT) 07/05/2023 Alcohol withdrawal syndrome without complication 02/28/2023 Immunizations Immunization Administration Dates Next Due Influenza, Trivalent, IM (MDV) 07/29/2016 Social History Tobacco Use Types Packs/Day Years Used Date Smoking Tobacco: Every Day Cigarettes 0.8 30 Tobacco Cessation:Ready to Q uit: No; Counseling Given: Not Answered AUDIT-C Answer Date Recorded Q1: How often do you have a drink containing alcohol? 4 or more times a week 07/05/2023 Q2: How many drinks containi ng alcohol do you have on a typical day when you are drinking? 3 or 4 Q3: How often do you have si x or more drinks on one occasion? Daily or almost daily 07/05/2023 Personal Safety Answer Date Recorded Have you ever been in or are you currently in a harmful physical or emotional relationship or is someone making you feel afraid or unsafe? 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 Gender Identity Not on file Sexual Orientation Not on file Last Filed Vital Signs Vital Sign Reading Time Taken Comments Blood Pressure 101/70 07/14/2023 2:00 PM CDT Pulse 95 07/14/2023 2:00 PM CDT Temperature 37.4 C (99.3 F) 07/14/2023 2:00 PM CDT Respiratory Rate 17 07/14/2023 2:00 PM CDT Oxygen Saturation 94% 07/14/2023 11:00 AM CDT Inhaled Oxygen Concentration - - Weight 65.8 kg (145 lb) 07/14/2023 10:01 AM CDT Height 177.8 cm (5' 10 ) 07/12/2023 12:45 AM CDT Body Mass Index 20.81 07/12/2023 12:45 AM CDT Plan of Treatment Not on file Insurance [facility] MED[facility] Member Subscriber Plan / Payer (Ef fective 2023-Present) Name:Iker Kuhn Relation to Subscriber:Self Name:Iker Kuhn Payer ID:[id number] (NAIC) Group ID:Not on file Type:MEDICAID RISK OTHER Address: ATTN: CLAIMS DEPT [address] [facility] [place] [phone] [facility] Advance Directives For more information, please contact: [phone] * Full Code (Latest Code Status on File) Date Activated Date Inactivated Comments 07/05/2023 9:03 AM 07/07/2023 8:26 PM * Full Code Date Activated Date Inactivated Comments 02/28/2023 12:06 PM 03/05/2023 7:01 PM Care Teams Creel Clerk Relationship Specialty Start Date End Date No, Physician PCP - General 03/10/23
--- OUTSIDE RECORDS SUMMARY | 2025-03-17 17:11 | XMS_ITS | Clinical Summary ---
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 Gender Identity Not on file Sexual Orientation Not on file Obstetrics History Last Filed Vital Signs Vital Sign Reading [...] 07/12/2023 12:45 AM CDT Plan of Treatment Health Maintenance Due Date Last Done Comments Colon Cancer Screening-Colonoscopy 1979 Depression Screening 1979 Hepatitis C Screening 1979 DTaP/Tdap/Td Vaccine (1 - Tdap) 1990 Hepatitis B Screening 1997 Regular Well Visit/Exam 18-64 1997 Covid-19 Vaccine ( season) 2024 05/17/2022, 08/31/2021, 01/26/2021, Additional history exists Influenza Vaccine (Season Ended) 2025 09/11/2022, 09/14/2021, 10/05/2016, Additional history exists Pneumococcal vaccine <65 (3 of 3 - PCV20 or PCV21) 2029 09/24/2017, 09/24/2016 HPV Vaccines Aged Out No longer eligi ble based on patient's age to complete this topic Insurance [facility] MEDICAID [facility] Advance Directives For more information, please contact: [phone] * Full Code (Latest Code Status on File) Date Activated Date Inactivated Comments 07/05/2023 9:03 AM 07/07/2023 8:26 PM * Full Code Date Activated Date Inactivated Comments 02/28/2023 12:06 PM 03/05/2023 7:01 PM Care Teams Director Writing Relationship Specialty Start Date End Date No, Physician PCP - General 03/10/23
[2025-03-17] MEDS: PHENOBARBITAL SODIUM IVPB (17:20)
[2025-03-17] MEDS: SODIUM CHLORIDE 0.9% IVPB (17:20)
[2025-03-17 17:34] LABS: Basophils Absolute Auto 0.1 K/mm3 (0.0-0.1); Basophils Percent Auto 0.7 % (0.2-1.2); Eosinophils Percent Auto 0.3 % (0-4.4); Hemoglobin 15.8 g/dL (14.0-18.0); Immature Granulocyte Absolute 0.03 K/mm3 (0.00-0.031); Immature Granulocyte Percent A 0.3 % (0-0.5); Lymphocytes Absolute Auto 0.95 K/mm3 (0.9-3.2); Lymphocytes Percent Auto 9.9 % (18.3-44.2); Mean Corpuscular HGB Conc 34.3 g/dl (32-36); Mean Corpuscular Hemoglobin 33.8 pg (26-34); Mean Corpuscular Volume 98.5 fl (80-100); Mean Platelet Volume 9.5 fl (7.4-10.4); Monocytes Absolute Auto 0.7 K/mm3 (0.1-0.6); Monocytes Percent Auto 6.9 % (2.6-8.5); Neutrophils Absolute Auto 7.8 K/mm3 (1.3-6.7); Neutrophils Percent Auto 81.9 % (45.5-73.1); Platelet Count Result 211 k/mm3 (150-375); Red Blood Count 4.67 M/mm3 (4.6-6.20); Red Cell Distribution Width 11.5 % (11.5-14.5); White Blood Count 9.6 K/mm3 (4.5-10.0)
[2025-03-17 17:48] LABS: Ethanol < 10 mg/dL (<10)
[2025-03-17 17:57] LABS: Alanine Aminotransferase 44 U/L (6-50); Albumin Level 4.4 g/dL (3.5-5.1); Alkaline Phosphatase 115 U/L (38-126); Anion Gap 19 mmol/L (4-12); Aspartate Amino Transferase 97 U/L (17-59); Bilirubin,Total 1.8 mg/dL (0.2-1.3); Blood Urea Nitrogen 7 mg/dL (9-20); Calcium 9.2 mg/dL (8.4-10.2); Carbon Dioxide 23 mmol/L (22-30); Chloride 90 mmol/L (98-107); Estimated CRCL calculation 123 ml/min; Estimated Glomerular Filt Rate > 60; Glucose 139 mg/dL (65-110); Magnesium 1.7 mg/dL (1.6-2.3); Sodium 132 mmol/L (137-145)
[2025-03-17 18:07] LABS: Add Urine Microscopic? YES; Appearance Urine Clear (Clear); Bacteria Urine None Seen /hpf; Bilirubin Urine 2+ (Negative); Blood Urine Negative (Negative); Color Urine Dark Yellow (Yellow); Glucose Urine UA Negative (Negative); Hyaline Casts Urine Present /lpf; Ketones Urine 4+ mg/dL (Negative); Leukocyte Esterase Ur 2+ LEU/UL (Negative); Mucus Urine Present /lpf; Need Manual Microscopic Reviewed; Nitrate Urine Negative (Negative); Protein Urine 1+ mg/dL (Negative); RBC Urine 0-2 /hpf (0-2); Specific Grav Ur 1.025 (1.001-1.035); Squamous Epithelial Cell Urine None Seen /hpf (Few)
[2025-03-17 18:14] LABS: Amphetamine Screen Urine Negative (Negative); Barbiturate Screen Urine Negative (Negative); Benzodiazepines Screen Urine Negative (Negative); Cannabinoid Screen Urine Positive (Negative); Cocaine Screen Urine Negative (Negative); Methadone Screen Urine Negative (Negative); Opiate Screen Urine Negative (Negative); Phencyclidine Screen Urine Negative (Negative)
--- OUTSIDE RECORDS SUMMARY | 2025-03-17 18:31 | XMS_ITS | Encounter Summary ---
Author Organization [facility] Address [address] [facility] [facility] [place] [address] Care Team Providers Care Gas Brazer Name Role Phone Power Garcia PA-C Primary Care Provider None, Physician Primary Care Provider Unavailabl e Reason for Visit * Reason Onset Date Comments MEDICATION REFILL 10/04/2024 Encounter Details Date Type Department Care Team (Late st Contact Info) Description 10/04/2024 Refill [facility] [address] [facility], [facility] [place] [phone] Candie Brady PA-C [address] [place] [phone] MEDICATION REFILL Social History Tobacco Use Types Packs/Day Years Used Date Smoking Tobacco: Every Day Cigarettes 0.5 25 Smokeless Tobacco: Never Alcohol Use Standard Drinks/Week Comments Yes 0 (1 standard drink = 0.6 oz pur e alcohol) AUDIT-C Answer Date Recorded Q1: How often do you have a drink containing alc ohol? 2-4 times a month 09/17/2024 Q2: How many drinks containi ng alcohol do you have on a typical day when you are drinking? 3 or 4 09/17/2024 Q3: How often do you have si x or more drinks on one occasion? 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 on file Not on file documented as of this encounter Plan of Treatment Upcoming Encounters Date Type Department Care Team (Late st Contact Info) Description 04/07/2025 10:00 AM CDT Office Visit [facility] [address] [facility], [place] [phone] Rasheeda Bajwa APRN-ASSESSMENT NURSE PRACTITIONER [address] [phone] documented as of this encounter Visit Diagnoses Diagnosis Inclusion cyst Sebaceous cyst documented in this encounter Care Teams Gas Brazer Relationship Specialty Start Date End Date Power Garcia PA-C [address] [facility] [address] [place] [phone] PCP - General 08/13/21 11/02/24 None, Physician PCP - General 11/03/24 documented as of this encounter
--- OUTSIDE RECORDS SUMMARY | 2025-03-17 18:31 | XMS_ITS | Referral Summary ---
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 Gender Identity Not on file Sexual Orientation [...] Plan of Treatment Not on file Insurance [facility] MEDICAID [facility] Member Subscriber Plan / Payer (Ef fective 2023-Present) Name:Iker Kuhn Relation to Subscriber:Self Name:Iker Kuhn Payer ID:[id number] (NAIC) Group ID:Not on file Type:MEDICAID RISK OTHER Address: ATTN: CLAIMS DEPT [address] [facility] [place] [phone] [facility] Advance Directives For more information, please contact: [phone] * Full Code (Latest Code Status on File) Date Activated Date Inactivated Comments 07/05/2023 9:03 AM 07/07/2023 8:26 PM * Full Code Date Activated Date Inactivated Comments 02/28/2023 12:06 PM 03/05/2023 7:01 PM Care Teams Nitroglycerin Distributor Relationship Specialty Start Date End Date No, Physician PCP - General 03/10/23
--- OUTSIDE RECORDS SUMMARY | 2025-03-17 18:31 | XMS_ITS | Clinical Summary ---
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 Gender Identity Not on file Sexual Orientation [...] age to complete this topic Insurance [facility] MEDICAID [facility] Advance Directives For more information, please contact: [phone] * Full Code (Latest Code Status on File) Date Activated Date Inactivated Comments 07/05/2023 9:03 AM 07/07/2023 8:26 PM * Full Code Date Activated Date Inactivated Comments 02/28/2023 12:06 PM 03/05/2023 7:01 PM Care Teams Auto Repair Technician Relationship Specialty Start Date End Date No, Physician PCP - General 03/10/23
--- OUTSIDE RECORDS SUMMARY | 2025-03-17 18:31 | XMS_ITS | Encounter Summary ---
Author Organization [facility] Address [address] [place] [address] Care Team Providers Care Research Staff Member Name Role Phone Ghislaine Garcia MD Primary Care Provider No, Physician Primary Care Provider [phone] Encounter Details Date Type Department Care Team (Late st Contact Info) Description 02/28/2023 Documentation [facility] Warm Hand Off Program [address] [place] [address] Bharat Huitron Social History Tobacco Use Types Packs/Day Years Used Date Smoking Tobacco: Every Day Cigarettes 0.8 30 Sex and Gender Information Value Date Recorded Sex Assigned at Not on file 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
--- OUTSIDE RECORDS SUMMARY | 2025-03-17 18:31 | XMS_ITS | Encounter Summary ---
Author Organization [facility] Health Address [address] [place] [address] Care Team Providers Care Operater Name Role Phone Power Garcia PA-C Primary Care Provider None, Physician Primary Care Provider Unavailabl e Reason for Visit * Reason Onset Date Comments MEDICATION REFILL 10/06/2024 Encounter Details Date Type Department Care Team (Late st Contact Info) Description 10/06/2024 Refill [facility] [address] [place] [address] Power Garcia PA-C [address] [phone] MEDICATION REFILL Social History Tobacco Use Types [...] on file 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 Gender Identity Not on file Sexual Orientation Not on file 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 on file Not on file documented as of this encounter Miscellaneous Notes * Telephone Encounter - Pati Chambers MA - 10/06/2024 10:38 AM CST .Refill Request Iker Kuhn ZEYNEP: 07/22/24 NOV due: NOV scheduled: Visit date not found LRF:11/02/10 Qty Disp: 12 # of refills: 0 Allergies: Allergies Allergen Reactions Moxifloxacin Rash Moxifloxacin Hcl In Nacl Swelling Pended Medication Order: Requested Prescriptions Pending Prescriptions Disp Refills chlordiazePOXIDE (Librium) 25 MG capsule 12 capsule 0 Sig: Take 1 (one) capsule by mouth every 6 hours as needed for Anxiety or Agitation RITY ATTENDANT documented in this encounter Plan of Treatment Upcoming Encounters Date Type Department Care Team (Late st Contact Info) Description 04/07/2025 10:00 AM CDT Office Visit [facility] [address] [place] [address], [place] [phone] Rasheeda Bajwa APRN-COLLAR SEWER [address] [place] [phone] documented as of this encounter Visit Diagnoses Not on filedocumented in this encounter Care Teams Operater Relationship Specialty Start Date End Date Power Garcia PA-C [address] [facility] [address] [place] [phone] PCP - General 08/13/21 11/02/24 None, Physician PCP - General 11/03/24 documented as of this encounter
--- OUTSIDE RECORDS SUMMARY | 2025-03-17 18:31 | XMS_ITS | Encounter Summary ---
Author Organization [facility] Address [address] [facility] [place] [address] Care Team Providers Care Carton Maker Name Role Phone None, Physician Primary Care Provider Unavailabl e Reason for Visit * Reason Onset Date Comments MEDICATION REFILL 11/24/2024 Encounter Details Date Type Department Care Team (Late st Contact Info) Description 11/24/2024 Refill [facility] [address] [place] [address] Audrey Richard MD [address] [address] MEDICATION REFILL Social History Tobacco Use Types Packs/Day Years Used Date Smoking Tobacco: Every Day Cigarettes 0.5 27.3 Started: 1997 Smokeless Tobacco: Never Alcohol Use Standard Drinks/Week Comments Yes 1 (1 standard drink = 0.6 oz pur e alcohol) occasional AUDIT-C Answer Date Recorded Q1: How often do you have a drink containing alc ohol? 2-4 times a month 11/12/2024 Q2: How many drinks containi ng alcohol do you have on a typical day when you are drinking? 3 or 4 11/12/2024 Q3: How often do you have si x or more drinks on one occasion? 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 on file Not on file documented as of this encounter Miscellaneous Notes * Telephone Encounter - Rm Mondragon - 11/25/2024 8:53 AM CST duplicate HES SHAKER documented in this encounter Plan of Treatment Upcoming Encounters Date Type Department Care Team (Late st Contact Info) Description 04/07/2025 10:00 AM CDT Office Visit [facility] - Family [address], [place] [address] Rasheeda Bajwa APRN-ANA [address] [place] [phone] documented as of this encounter Visit Diagnoses Diagnosis Anxiety Anxiety state, unspecified documented in this encounter Care Teams Carton Maker Relationship Specialty Start Date End Date None, Physician PCP - General 11/03/24 documented as of this encounter
--- OUTSIDE RECORDS SUMMARY | 2025-03-17 18:31 | XMS_ITS | Clinical Summary ---
Author Organization [facility] Address [address] [place] [address] Phone Care Team Providers Care Splunk Consultant Name Role Phone Provider, None Primary Care Provider Unavailabl e Allergies Active Allergy Reactions Criticality Noted Date Comments Moxifloxacin Hcl In Nacl Swelling 01/04/2012 Medications nicotine 21 MG/24HR TD PT24 1 Patch by Transdermal route daily. 30 Patch 3 0 Active citalopram 40 MG PO TABS Take 1 Tab by mouth daily. 30 Tab 0 0 Active ondansetron 4 MG PO TAB-DISPERSE Take 1 Tab by mouth every 12 hours as needed for Nausea. 20 Tab 0 0 Active hydrocodone-amelia taminophen (NORCO) 5-325 MG PO TABS Take 2 Tabs by mouth every 4 hours as needed for Pain. 20 Tab 0 0 Active folic acid 1 MG PO TABS Take 1 Tab by mouth daily. 30 0 2 Active chlordiazePOXID E 10 MG PO CAPS Take 1 Cap by mouth 2 times daily as needed for Anxiety. 8 Cap 0 2 Active metoprolol tartrate 25 MG PO TABS Take 2 Tabs by mouth 2 times daily. 180 0 2 Active metoprolol tartrate 50 MG PO TABS Take 1 Tab by mouth 2 times daily. 180 0 2 Active Active Problems Problem Noted Date Diagnosed Date Hypertension 01/11/2012 HUAN (acute kidney injury) 01/04/2012 Alcohol withdrawal syndrome 09/25/2010 Alcohol abuse 09/07/2010 HTN (hypertension) 09/07/2010 Pancreatitis 09/07/2010 Overview (09/07/2010): 4 episodes in the past. Abdominal pain 09/07/2010 Hematemesis 09/07/2010 Overview (09/07/2010): 4 episodes in the last 24 hours. 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 Gender Identity Not on file Sexual Orientation Not on file Last Filed Vital Signs Vital Sign Reading Time Taken Comments Blood Pressure 105/75 07/11/2023 7:35 PM CDT Pulse 98 07/11/2023 7:32 PM CDT Temperature 35.9 C (96.7 F) 07/11/2023 7:32 PM CDT Respiratory Rate 18 07/11/2023 7:32 PM CDT Oxygen Saturation 96% 07/11/2023 7:32 PM CDT Inhaled Oxygen Concentration - - Weight 63.5 kg (140 lb) 07/11/2023 7:32 PM CDT Height 177.8 cm (5' 10 ) 07/11/2023 7:32 PM CDT Body Mass Index 20.09 07/11/2023 7:32 PM CDT Plan of Treatment Health Maintenance Due Date Last Done Comments Hepatitis C Virus (HCV) Screening 1979 TdaP Immunization 1979 Hepatitis B Immunization (1 of 3 - 19+ 3-dose series) 1998 Colonoscopy 2024 Colorectal Cancer Screening 2024 Influenza Immunization (#1) 07/25/202408/25, 09/19/2016, 07/29/2016, Additional history exists SARS-COV-2 Immunization ( season) 2024 08/31/2021, 01/26/2021, 01/05/2021 Immunochemical Fecal Occult Blood 2029 09/27/2010, 09/08/2010 Pneumococcal Immunization Combined (3 of 3 - PCV20 or PCV21) 2029 09/24/2017, 09/24/2016 Respiratory Syncytial Virus (RSV) Immunization (Adult) (1 - 1-dose 75+ series) 2054 Meningococcal Immunization (ACWY) Aged Out No longer eligible based on patient's age to complete this topic Rotavirus Immunization Aged Out No lo nger eligible based on patient's age to complete this topic Procedures Procedure Name Priority Date/Time Associated Diagnosis Comments POCT STOOL, OCCULT BLOOD X 1 SCREEN Routine 09/27/2010 4:00 PM CDT from Last 3 Months or Most Recently Relevant to Health Maintenance Results * POCT Stool, Occult Blood (09/27/2010 4:00 PM CDT) POC FECAL OCCULT BLOOD Negative POC FECAL OCCULT BLOOD CONTROL Hydraulic Assembler Pass Stool specimen (specimen) 09/27/2010 4:00 PM CDT Dale Ye MD POINT OF CARE TESTING [facility] Final Result from Last 3 Months or Most Recently Relevant to Health Maintenance Insurance MEDICAID [facility] Advance Directives * Full Code (Latest Code Status on File) Date Activated Date Inactivated Comments 01/04/2012 6:02 PM 01/11/2012 6:48 PM * Full Code Date Activated Date Inactivated Comments 09/23/2010 9:50 PM 09/28/2010 6:39 PM * Full Code Date Activated Date Inactivated Comments 09/07/2010 5:22 PM 09/12/2010 5:06 PM Care Teams Splunk Consultant Relationship Specialty Start Date End Date Provider, None [place] PCP - General 09/07/10
--- OUTSIDE RECORDS SUMMARY | 2025-03-17 18:31 | XMS_ITS | Encounter Summary ---
Author Organization [facility] Address [address] [facility] [address] Care Team Providers Care Oil Changer Name Role Phone Power Garcia PA-C Primary Care Provider None, Physician Primary Care Provider Unavailabl e Reason for Visit * Reason Onset Date Comments MEDICATION REFILL 10/14/2024 Encounter Details Date Type Department Care Team (Late st Contact Info) Description 10/14/2024 Refill [facility] [address] [facility], [facility] [place] [phone] Candie Brady PA-C [address] [place] [address] MEDICATION REFILL Social History Tobacco Use Types [...] on file 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 Gender Identity Not on file Sexual Orientation Not on file 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 on file Not on file documented as of this encounter Plan of Treatment Upcoming Encounters Date Type Department Care Team (Late st Contact Info) Description 04/07/2025 10:00 AM CDT Office Visit [facility] [address] [facility], [place] [phone] Rasheeda Bajwa APRN-BALL WINDER [address] [phone] documented as of this encounter Visit Diagnoses Diagnosis Inclusion cyst Sebaceous cyst documented in this encounter Care Teams Oil Changer Relationship Specialty Start Date End Date Power Garcia PA-C [address] [facility] [address] [place] [phone] PCP - General 08/13/21 11/02/24 None, Physician PCP - General 11/03/24 documented as of this encounter
--- OUTSIDE RECORDS SUMMARY | 2025-03-17 18:31 | XMS_ITS | CONTINUITY OF CARE DOCUMENT ---
Author Name marlin isaac Address Unknown Organization [facility] Address [address] [place] [address] [address] [place] [address] Phone [phone] Care Team Providers Care Inclusion Paraeducator Name Role Phone Moe GAMA, Angelo Unavailable INGE IVEY MD Unavailable [phone] INSURANCE PROVIDERS Payer name Policy type / Coverage type [place] [employer] party ID [employer] Medicaid [id number]
--- OUTSIDE RECORDS SUMMARY | 2025-03-17 18:31 | XMS_ITS | Encounter Summary ---
Author Organization [facility] Health Address [address] [facility] [place] [address] Care Team Providers Care Forensic Nurse Name Role Phone Power Garcia PA-C Primary Care Provider None, Physician Primary Care Provider Unavailabl e Reason for Visit * Reason Onset Date Comments MEDICATION REFILL 09/18/2021 Encounter Details Date Type Department Care Team (Late st Contact Info) Description 09/18/2021 Refill [facility] Family and Community Medicine [address], [place] [phone] Power Garcia PA-C [address] [place] [phone] MEDICATION REFILL Social History Tobacco Use Types Packs/Day Years Used Date Smoking Tobacco: Every Day Cigarettes Smokeless Tobacco: Never Alcohol Use Standard Drinks/Week Comments Yes 0 (1 standard drink = 0.6 oz pur e alcohol) 4 per Sex and Gender Information Value Date Recorded Sex Assigned at Not on file 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 * Telephone Encounter - Leni Bhatti - 09/19/2021 9:21 AM CDT Refill Request Ikermarisol Kuhn ZEYNEP:08/22/2021 NOV due:none NOV scheduled:no appt sceduled LRF:08/22/2021 Qty Disp:10 # of refills:0 ZEYNEP:08/22/2021 NOV due:none NOV scheduled:no appt sceduled LRF:08/14/2021 Qty Disp:20 # of refills:0 Allergies Allergen Reactions ??? Moxifloxacin Rash documented in this encounter Plan of Treatment Upcoming Encounters Date Type Department Care Team (Late st Contact Info) Description 04/07/2025 10:00 AM CDT Office Visit [facility] - Family Medicine [address] [place] [address], [place] [address] Rasheeda Bajwa APRN-[address] [phone] documented as of this encounter Visit Diagnoses Diagnosis Pain of left heel Pain in limb documented in this encounter Care Teams Forensic Nurse Relationship Specialty Start Date End Date Power Garcia PA-C [address] [place] [phone] PCP - General 08/13/21 11/02/24 None, Physician PCP - General 11/03/24 documented as of this encounter
--- OUTSIDE RECORDS SUMMARY | 2025-03-17 18:31 | XMS_ITS | Encounter Summary ---
Author Organization 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 Gender Identity Not on file Sexual Orientation Not on file 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 on file Not on file documented as of this encounter Plan of Treatment Upcoming Encounters Date Type Department Care Team (Late st Contact Info) Description 04/07/2025 10:00 AM CDT Office Visit [facility] - [address], [place] [address] Rasheeda Bajwa APRN-ANA [address] [place] [phone] documented as of this encounter Visit Diagnoses Diagnosis Anxiety Anxiety state, unspecified documented in this encounter Care Teams Medicaid Billing Clerk Relationship Specialty Start Date End Date None, Physician PCP - General 11/03/24 documented as of this encounter
--- OUTSIDE RECORDS SUMMARY | 2025-03-17 18:31 | XMS_ITS | Encounter Summary ---
Author Organization [facility] Address [address] [facility] [place] [address] Care Team Providers Care Division Order Technician Name Role Phone Power Garcia PA-C Primary Care Provider None, Physician Primary Care Provider Unavailabl e Reason for Visit * Reason Onset Date Comments MEDICATION REFILL 10/01/2024 Encounter Details Date Type Department Care Team (Late st Contact Info) Description 10/01/2024 Refill [facility] - Plastic Surgery [address] [facility], [facility] [place] [phone] Candie Brady PA-C [address] [place] [phone] MEDICATION REFILL Social History Tobacco Use Types [...] on file 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 Gender Identity Not on file Sexual Orientation Not on file 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 on file Not on file documented as of this encounter Plan of Treatment Upcoming Encounters Date Type Department Care Team (Late st Contact Info) Description 04/07/2025 10:00 AM CDT Office Visit [facility] - Family [facility] [address] [facility], [place] [phone] Rasheeda Bajwa APRN-DIRECTOR OF FIRST IMPRESSIONS [address] [phone] documented as of this encounter Visit Diagnoses Diagnosis Inclusion cyst Sebaceous cyst documented in this encounter Care Teams Division Order Technician Relationship Specialty Start Date End Date Power Garcia PA-C [address] [facility] [address] [place] [phone] PCP - General 08/13/21 11/02/24 None, Physician PCP - General 11/03/24 documented as of this encounter
--- OUTSIDE RECORDS SUMMARY | 2025-03-17 18:32 | XMS_ITS | Encounter Summary ---
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 Gender Identity Not on file Sexual Orientation Not on file 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 on file Not on file documented as of this encounter Miscellaneous Notes * Telephone Encounter - Khang Pettit - 01/14/2025 10:52 AM CST Refill Request Iker Kuhn ZEYNEP: 07/22/2024Sep due: - NOV scheduled: Visit date not found LRF: 11/16/2025 Qty Disp: 4 # of refills: 0 Allergies: Allergies Allergen Reactions Moxifloxacin Rash Pended Medication Order: Requested Prescriptions Pending Prescriptions Disp Refills LORazepam (Ativan) 1 MG tablet 4 tablet 0 Sig: Take 1 (one) tablet by mouth every 6 hours as needed for Anxiety or Agitation GER INVENTORY CONTROL documented in this encounter Plan of Treatment Upcoming Encounters Date Type Department Care Team (Late st Contact Info) Description 04/07/2025 10:00 AM CDT Office Visit [facility] - Family Medicine [address] [place] [address], [facility] [place] [address] Rasheeda Bajwa APRN-PASTRY ASSISTANT [address] [place] [phone] documented as of this encounter Visit Diagnoses Diagnosis Anxiety Anxiety state, unspecified documented in this encounter Care Teams Lining Setter Relationship Specialty Start Date End Date None, Physician PCP - General 11/03/24 documented as of this encounter
--- OUTSIDE RECORDS SUMMARY | 2025-03-17 18:32 | XMS_ITS | Encounter Summary ---
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 Gender Identity Not on file Sexual Orientation Not on file 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 on file Not on file documented as of this encounter Miscellaneous Notes * Telephone Encounter - Pati Chambers MA - 11/29/2024 9:32 AM CST .Refill Request Iker Kuhn ZEYNEP: 07/22/24 NOV due: NOV scheduled: Visit date not found LRF: 11-16-24 Qty Disp: 4 # of refills: 0 Allergies: Allergies Allergen Reactions Moxifloxacin Rash Pended Medication Order: Requested Prescriptions Pending Prescriptions Disp Refills LORazepam (Ativan) 1 MG tablet 4 tablet 0 Sig: Take 1 (one) tablet by mouth every 6 hours as needed for Anxiety or Agitation ORK PROGRAM MANAGER documented in this encounter Plan of Treatment Upcoming Encounters Date Type Department Care Team (Late st Contact Info) Description 04/07/2025 10:00 AM CDT Office Visit [facility] - Family Medicine [address] [place] [address], [place] [phone] Rasheeda Bajwa APRN-ANA [address] [place] [phone] documented as of this encounter Visit Diagnoses Diagnosis Anxiety Anxiety state, unspecified documented in this encounter Care Teams Sand Temperer Relationship Specialty Start Date End Date None, Physician PCP - General 11/03/24 documented as of this encounter
--- OUTSIDE RECORDS SUMMARY | 2025-03-17 18:32 | XMS_ITS | Encounter Summary ---
Author Organization [facility] Health Address [address] [place] [address] Care Team Providers Care Rater Associate Name Role Phone None, Physician Primary Care Provider Unavailabl e Encounter Details Date Type Department Care Team (Late st Contact Info) Description 03/07/2025 Orders Only [facility] - Family Medicine [address] [place] [address] Audrey Richard MD [address] [phone] Anxiety Social History Tobacco Use Types Packs/Day Years [...] Answer Date Recorded Patient Health Questionnaire-2 Score 2 03/14/2025 Sex and Gender Information Value Date Recorded Sex Assigned at Not on file 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 Question Answer Date of Assessment Author Patient Health Questionnaire-2 Score 2 03/14/2025 10:55 AM CDT Mychart, Proce ss Support User * Little interest or pleasure in doing things Answer Date of Assessment Author Several days 03/14/2025 10:55 AM CDT Mychart, Process Support User * Feeling down, depressed, or hopeless Answer Date of Assessment Author Several days 03/14/2025 10:55 AM CDT Mychart, Process Support User documented as of this encounter Plan of Treatment Upcoming Encounters Date Type Department Care Team (Late st Contact Info) Description 04/07/2025 10:00 AM CDT Office Visit [facility] - Family Medicine [address] [place] [address], [place] [phone] Rasheeda Bajwa APRN-ANA [address] [place] [address] [place] [address] documented as of this encounter Visit Diagnoses Diagnosis Anxiety Anxiety state, unspecified documented in this encounter Care Teams Rater Associate Relationship Specialty Start Date End Date None, Physician PCP - General 11/03/24 documented as of this encounter
--- OUTSIDE RECORDS SUMMARY | 2025-03-17 18:32 | XMS_ITS | Clinical Summary ---
Author Organization [facility] [employer] Address [address] [place] [address] Care Team Providers Care Refractory Technician Name Role Phone None, Physician Primary Care Provider Unavailabl e Source Comments [facility],non-owned Affiliates and Associated Physician Practices is amultiple site organization consisting of ambulatory clinics and hospital sitesin [place], [place], [place] and [place]. This disclosure is being madepursuant to the Care Everywhere program and may not contain all information available regarding this patient. Last updated 18.[facility] [employer] Allergies Active Allergy Reactions Criticality Noted Date Comments Moxifloxacin Rash Medium 09/17/2016 Medications * Be aware that medications may not be up to date on this document. Alwaysverify current medications with the patient. busPIRone (BUSPAR) 10 MG tablet Take 0.5 (one-half) tablet by mouth 2 times daily 30 tablet 09/19/20 21 Active senna-docusate (Senokot-S) 8.6-50 MG tablet Take 1 (one) tablet by mouth once daily 30 tablet 09/17/2024 12:53 PM CDT 09/17/20 24 Active tretinoin (Retin-A) 0.05 % cream Apply to affected area at bedtime 08/10/20 24 Active acetaminophen (Tylenol) 500 MG tablet Take 1 (one) tablet by mouth every 6 hours as needed for Fever or Pain Maximum allowable Acetaminophen amount = 4 Grams (4000 mg) / 24 hours. 11/12/20 24 Active ondansetron, disintegrating , (Zofran ODT) 4 MG tablet Take 1 (one) tablet by mouth every 6 hours as needed for Nausea/Vomiting Allow tablet to dissolve on the tongue 6 tablet 11/12/20 24 Active bacitracin ointment Apply to affected area 3 times daily 30 g 11/12/20 24 Active LORazepam (Ativan) 1 MG tabletIndicati ons:Anxiety Take 1 (one) tablet by mouth every 6 hours as needed for Anxiety or Agitation 20 tablet 03/11/20 25 Active chlordiazepoxi de (LIBRIUM) 25 MG capsule Take 1 Cap by mouth every 6 hours as needed for Anxiety and Agitation. 12 Cap 0 11/02/20 10 025 Discontin ued(Tx Complete) hydrOXYzine hcl (ATARAX) 25 MG tabletIndicati ons:Anxiety Take 1 (one) tablet by mouth 4 times daily as needed (anxiety) 40 tablet 1 09/20/20 21 025 Discontin ued(Reord er) oxyCODONE, immediate release, (Roxicodone) 5 MG tabletIndicati ons:Inclusion cyst Take 1 (one) tablet by mouth every 6 hours as needed for Pain 8 tablet 11/15/20 24 025 Discontin ued(Tx Complete) LORazepam (Ativan) 1 MG tabletIndicati ons:Anxiety Take 1 (one) tablet by mouth every 6 hours as needed for Anxiety or Agitation 4 tablet 11/16/20 24 025 Discontin ued(Reord er) LORazepam (Ativan) 1 MG tabletIndicati ons:Anxiety Take 1 (one) tablet by mouth every 6 hours as needed for Anxiety or Agitation 10 tablet 03/07/20 25 025 Discontin ued(Tx Complete) hydrOXYzine HCl (Atarax) 25 MG tabletIndicati ons:Anxiety Take 1 (one) tablet by mouth 4 times daily as needed (anxiety) 40 tablet 1 03/07/20 25 025 Discontin ued(Tx Complete) Active Problems Problem Noted Date Diagnosed Date Long Q-T syndrome 03/11/2025 Abdominal pain, epigastric 08/23/2021 Other specified anxiety disorders 09/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 Hypertension 09/07/2010 PUD (peptic ulcer disease) 09/07/2010 Resolved Problems Problem Noted Date Diagnosed Date Resolved Date Alcohol withdrawal syndrome without complication 08/23/2021 07/23/2024 Alcohol dependence with withdrawal 09/17/2016 07/23/2024 Convulsions 09/17/2016 07/23/2024 Alcohol withdrawal seizure 09/07/2010 0 07/23/2024 Overview (08/23/2021): Patient reports that he has had 4 alcohol withdrawal seizures in the past Encounters Date Type Department Care Team Description 03/11/2025 Orders Only [facility] Physician [facility] [place] [address] [place] [address] Audrey Richard MD Anxiety 03/11/2025 Orders Only [facility] Physician [place] [address] [place] [address] Audrey Richard MD 03/07/2025 Orders Only [facility] Physician [place] [address] [place] [address] Audrey Richard MD Anxiety 03/04/2025 Refill [facility] Physician [place] [address] [place] [address] Audrey Richard MD MEDICATION REFILL 02/10/2025 Travel 01/13/2025 Refill [facility] Physician [place] [address] [place] [address] Audrey Richard MD MEDICATION REFILL from Last 3 Months Immunizations Immunization Administration Dates Next Due INFLUENZA VACCINE, TRIV. (AF LURIA, FLUZONE TRIVALENT; 6MO+) (IIV3) 07/29/2016,09/24/2011,08/17/2010 COVID PFIZER 12+YR 30MCG/0.3mL 09/15/2023 Covid Pfizer primary Monoval ent 12+ yr 0.3ml 05/17/2022 Covid Pfizer primary monoval ent 12+ yr 0.3mL Purple cap 08/31/2021,01/26/2021,01/05/2021 FLU VACCINE TRI IIV3 SPLIT PF IM (FLUVIRIN) 08/25 INFLUENZA VACCINE, QUADR. (F LUZONE; FLULAVAL; FLUARIX; AFLURIA QUADRIVALENT; 6MO+), 0.5 ML (IIV4) 09/15/2023,09/11/2022,09/14/2021 INFLUENZA VACCINE, TRIV. (FL UZONE; FLULAVAL; FLUARIX; AFLURIA TRIVALENT; 6MO+), 0.5 ML (IIV3) 10/03/2013,12/02/2012 PNEUMOCOCCAL PPSV23 09/24/2016 Pneumococcal Pcv13 Conj 09/24/2017 Family History Medical History Relation Name Comments Renal Disease Brother CVA Father Hypertension Father CAD (Coronary Artery Disease) Maternal Grandfather None Known Mother Relation Name Status Comments Brother Alive Father Alive Maternal Grandfather Maternal Grandmother Mother Alive Paternal Grandfather Paternal Grandmother Sister Alive Social History Tobacco Use Types Packs/Day Years Used Date Smoking Tobacco: Every Day Cigarettes 0.5 27.3 Started: 1997 Smokeless Tobacco: Never Tobacco Cessation:Ready to Q uit: Not Asked; Counseling Given: Not Answered Alcohol Use Standard Drinks/Week Comments Yes 1 [...] on file 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 Gender Identity Not on file Sexual Orientation Not on file 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 on file Not on file Last Filed Vital Signs Vital Sign Reading Time Taken Comments Blood Pressure 138/96 11/12/2024 2:30 PM MULTI NEEDLE MACHINE OPERATOR Pulse 89 11/12/2024 2:30 PM MULTI NEEDLE MACHINE OPERATOR Temperature 36.7 C (98 F) 11/12/2024 1:50 PM MULTI NEEDLE MACHINE OPERATOR Respiratory Rate 10 11/12/2024 2:30 PM MULTI NEEDLE MACHINE OPERATOR Oxygen Saturation 98% 11/12/2024 2:30 PM MULTI NEEDLE MACHINE OPERATOR Inhaled Oxygen Concentration - - Weight 68.5 kg (151 lb) 11/12/2024 9:32 AM MULTI NEEDLE MACHINE OPERATOR Height 177.8 cm (5' 10 ) 11/12/2024 9:32 AM MULTI NEEDLE MACHINE OPERATOR Body Mass Index 21.67 11/12/2024 9:32 AM MULTI NEEDLE MACHINE OPERATOR Plan of Treatment Upcoming Encounters Date Type Department Care Team (Late st Contact Info) Description 04/07/2025 10:00 AM CDT Office Visit [facility] - Family Medicine [address] [place] [address], [place] [phone] Rasheeda Bajwa APRN-ANA [address] [place] [phone] Health Maintenance Due Date Last Done Comments COLOGUARD (AGES 45-75) - COLON CA SCREENING 1979 COLON MONITORING 1979 COLONOSCOPY - COLON CA SCREENING 1979 CT COLONOGRAPHY - COLON CA SCREENING 1979 Colorectal Cancer Screening 1979 FIT - COLON CA SCREENING 1979 FLEX SIG - COLON CA SCREENING 1979 HIV SCREENING 1994 DTAP/TDAP/TD VACCINES (1 - Tdap) 1998 HEPATITIS B VACCINE (1 of 3 - 19+ 3-dose series) 1998 DEPRESSION SCREENING 11/24/2024 07/22/2024 PNEUMOCOCCAL VACCINE (3 of 3 - PCV20 or PCV21) 2029 09/24/2017, 09/24/2016 ZOSTER VACCINE (1 of 2) 2029 LIPID TESTING 08/02/2029 08/02/2024 HEPATITIS C SCREENING Completed 08/02/2024 COVID-19 VACCINE Completed 08/16/2024, , 05/17/2022, Additional history exists INFLUENZA VACCINE Completed 08/31/2024, , 09/11/2022, Additional history exists HIB VACCINE Aged Out No longer eligi ble based on patient's age to complete this topic HPV VACCINE Aged Out No longer eligi ble based on patient's age to complete this topic MENINGOCOCCAL (Group B) VACCINE SHARED DECISION-MAKING Aged Out No longer eligible based on patient's age to complete this topic MENINGOCOCCAL GROUPS A/C/Y/W VACCINE Aged Out No longer eligible based on patient's age to complete this topic Procedures Procedure Name Priority Date/Time Associated Diagnosis Comments LIPID PROFILE Routine 08/02/2024 10:24 AM CDT Lipid screening HEPATITIS C AB W/RFLX TO HCV RNA QN PCR Routine 08/02/2024 10:24 AM CDT Encounter for hepatitis C screening test for low risk patient from Last 3 Months or Most Recently Relevant to Health Maintenance Results * HEPATITIS C AB W/RFLX TO HCV RNA QN PCR (08/02/2024 10:24 AM CDT) Hepatitis C Antibody NON-REACTI VE NON-REACT [facility] Comment: HCV antibody was non-reactive. There is no laboratory evidence of HCV infection. In most cases, no further action is required. However, if recent HCV exposure is suspected, a test for HCV RNA (test code 49643) is suggested. For additional information please refer to http://education.[employer]/faq/HWQ70i9 (This link is being provided for informational/ educational purposes only.) REPORT COMMENT: FASTING:YES Test Performed at: [facility] [id number] [place] [address] LUISA FRAZIER MD Blood BLOOD SPECIMEN / Unknown 08/02/2024 10:24 AM CDT 08/02/2024 10:26 AM CDT us Power Garcia PA-C LAB - CHEMISTRY ORDERA BLES Final Result Performing Organization Address [facility] Co de Phone Number [address] [address] * (ABNORMAL) LIPID PROFILE (08/02/2024 10:24 AM CDT) Cholesterol 193 <200 mg/dL [facility] HDL Cholesterol 68 > OR = 40 mg/dL [facility] Triglycerides 108 <150 mg/dL [facility] LDL Calculated 105(H) mg/dL (calc) [facility] Comment: Reference range: <100 Desirable range <100 mg/dL for primary prevention; <70 mg/dL for patients with CHD or diabetic patients with > or = 2 CHD risk factors. LDL-C is now calculated using the Miri calculation, which is a validated novel method providing better accuracy than the Friedewald equation in the estimation of LDL-C. Mj DUONG et al. REBECCA. 2013;310(19): 8080-1898 (http://education.Buzzni.G-mode/faq/BZX476) CHOL/HDLC RATIO 2.8 <5.0 (calc) [facility] Non HDL Cholesterol 125 <130 mg/dL (calc) [facility] Comment: For patients with diabetes plus 1 major ASCVD risk factor, treating to a non-HDL-C goal of <100 mg/dL (LDL-C of <70 mg/dL) is considered a therapeutic option. Test Performed at: [facility] [address] LUISA FRAZIER MD Blood BLOOD SPECIMEN / Unknown 08/02/2024 10:24 AM CDT 08/02/2024 10:26 AM CDT Power Garcia PA-C LAB - CHEMISTRY ORDERA BLES Final Result Performing Organization Address [facility] Co de Phone Number [address] [address] from Last 3 Months or Most Recently Relevant to Health Maintenance Insurance [facility] Advance Directives * Full Code (Latest Code Status on File) Date Activated Date Inactivated Comments 08/23/2021 5:26 AM 08/24/2021 10:29 AM Care Teams Refractory Technician Relationship Specialty Start Date End Date None, Physician PCP - General 11/03/24
--- OUTSIDE RECORDS SUMMARY | 2025-03-17 18:32 | XMS_ITS | Encounter Summary ---
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
[2025-03-17] MEDS: THIAMINE HCL INJ 100 MG, FOLIC ACID INJ 1 MG, MAGNESIUM SULFATE INJ 1 GM, MULTIVITAMINS... 125 MG IV CONT (18:33)
[2025-03-17] MEDS: DEXTROSE 5%/LACTATED RINGERS 1,000 ML 999 ML IV CONT (20:11)
--- NOTE | 2025-03-17 20:28 | PC.NURSE ---
transit mixer driver called at this time to obtain blood sample for BMP. multiple nurses, techs, and staff members have attempted to draw blood
[2025-03-17 20:33] LABS: Lactic Acid Reflex 1.1 mmol/L (0.7-2.0)
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
[2025-03-17 21:24] LABS: Anion Gap 7 mmol/L (4-12); Blood Urea Nitrogen 6 mg/dL (9-20); Calcium 7.8 mg/dL (8.4-10.2); Carbon Dioxide 26 mmol/L (22-30); Chloride 96 mmol/L (98-107); Estimated CRCL calculation 138 ml/min; Estimated Glomerular Filt Rate > 60; Glucose 265 mg/dL (65-110); Potassium 3.3 mmol/L (3.4-5.0); Sodium 129 mmol/L (137-145)
== END 2025-03-17 22:30 | disposition home or self-care (01) ==
PROVIDERS: Registered Nurse; Emergency Provider Student in an Organized Health Care Education/Training Program; PCP Family Medicine
DX: F10.239 Alcohol dependence with withdrawal, unspecified (principal); R56.9 Unspecified convulsions; F17.210 Nicotine dependence, cigarettes, uncomplicated
CPT/HCPCS: 36415; 80048; 80053; 80307; 81001; 82077; 82948; 83605; 83735; 85025; 87086; 93005; 96365; 96366; 96368; 96375; 99284; J2060; J2560; J3411; J3475; J7030; J7121

== ENCOUNTER 2025-04-02 03:37 | Emergency (ER) | payer OTHER, SELFPAY ==
[2025-04-02] VITALS (11 sets, daily range): BP systolic 104–145; BP diastolic 71–88; PULSE 89–109; RESP 16–25; TEMP 36.6–36.8; O2SAT 98–100
--- OUTSIDE RECORDS SUMMARY | 2025-04-02 03:40 | XMS_ITS | Clinical Summary ---
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 Gender Identity Not on file Sexual Orientation [...] BLOOD Negative POC FECAL OCCULT BLOOD CONTROL Paramedic Rn Pass Stool specimen (specimen) 09/27/2010 4:00 PM CDT Dale Ye MD [facility] Final Result from Last 3 Months or Most Recently Relevant to Health Maintenance Insurance MEDICAID [facility] Advance Directives * Full Code (Latest Code Status on File) Date Activated Date Inactivated Comments 01/04/2012 6:02 PM 01/11/2012 6:48 PM * Full Code Date Activated Date Inactivated Comments 09/23/2010 9:50 PM 09/28/2010 6:39 PM * Full Code Date Activated Date Inactivated Comments 09/07/2010 5:22 PM 09/12/2010 5:06 PM Care Teams Software Application Tester Relationship Specialty Start Date End Date Provider, None PA PCP - General 09/07/10
--- OUTSIDE RECORDS SUMMARY | 2025-04-02 03:40 | XMS_ITS | Encounter Summary ---
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 Name Role Phone None, Physician Primary Care Provider Unavailabl e Reason for Visit * Auth/Cert (Routine) Specialty Diagnoses / Procedures Referred By Contac t Referred To Contact Diagnoses Alcohol withdrawl Referral ID Status Reason Start Date Expiration Date Visits Re quested Visits Authorized [id number] 1 1 Encounter Details Date Type Department Care Team (Latest Contact Info) Description 03/30/2025 11:03 AM CDT - 04/01/2025 2:26 PM CDT Hospital Encounter [facility] Pulmonary Med [address] [place] [address] Kunal Foster MD [address] [address] Addiction Medicine Discharge Disposition: Left Against Medical Advice/Discontinued Care Social History Tobacco Use Types Packs/Day Years Used Date Smoking Tobacco: Every Day Cigarettes 0.5 27.4 Started: 1997 Smokeless Tobacco: Never Alcohol Use Standard Drinks/Week Comments Yes 1 (1 standard drink = 0.6 oz pur e alcohol) occasional AUDIT-C Answer Date Recorded Q1: How often do you have a drink containing alcohol? 4 or more times a week 03/30/2025 Q2: How many drinks containi ng alcohol do you have on a typical day when you are drinking? 3 or 4 Q3: How often do you have si x or more drinks on one occasion? Daily or almost daily 03/30/2025 Overall Financial Resource Strain (CARDIA) Answe r Date Recorded How hard is it for you to pa y for the very basics like food, housing, medical care, and heating? Patient declined 03/30/2025 PHQ-2 Answer Date Recorded Patient Health Questionnaire-2 Score 2 03/14/2025 [facility] - Occupational Stress Questionnaire Answer Date Recorded Do you feel stress - tense, restless, nervous, or anxious, or unable to sleep at night because your mind is troubled all the time - these days? Rather much 03/30/2025 Hunger Vital Sign Answer Date Recorded Within the past 12 months, y ou worried that your food would run out before you got the money to buy more. Patient declined Within the past 12 months, t he food you bought just didn't last and you didn't have money to get more. Patient declined 05/2025 PRAPARE - Transportation Answer Date Re corded In the past 12 months, has l ack of transportation kept you from medical appointments or from getting medications? Patient declined 03/30/2025 In the past 12 months, has l ack of transportation kept you from meetings, work, or from getting things needed for daily living? Patient declined 03/30/2025 Housing Stability Vital Sign Answer Abraham e Recorded In the last 12 months, was t here a time when you were not able to pay the mortgage or rent on time? Patient declined 03/30/20 25 In the past 12 months, how m any times have you moved where you were living? 1 03/30/2025 At any time in the past 12 m [facility], were you homeless or living in a fdc (including now)? 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 on file Not on file documented as of this encounter Last Filed Vital Signs Vital Sign Reading Time Taken Comments Blood Pressure 151/100 04/01/2025 8:29 AM CDT Pulse 82 04/01/2025 8:29 AM CDT Temperature 36.7 C (98.1 F) 04/01/2025 8:29 AM CDT Respiratory Rate 18 04/01/2025 8:29 AM CDT Oxygen Saturation 100% 04/01/2025 8:29 AM CDT Inhaled Oxygen Concentration - - Weight 70.5 kg (155 lb 6.8 oz) 03/30/2025 11:00 AM CDT Height 177.8 cm (5' 10 ) 03/30/2025 11:00 AM CDT Body Mass Index 22.3 03/30/2025 11:00 AM CDT documented in this encounter Functional Status * Question Answer Date of Assessment Author Q1: How often do you have a drink containing alcohol? 4 or more times a week 03/30/2025 11:45 AM JUSTYNT Christin Barth RN Q2: How many drinks containing alcohol do you have on a typical day when you are drinking? 3 or 4 03/30/2025 11:45 AM JUSTYNT Christin Barth RN Q3: How often do you have six or more drinks on one occasion? Daily or almost daily 03/30/2025 11:45 AM JUSTYNT Christin Barth RN * Audit-C Score Answer Date of Assessment Author 9 03/30/2025 11:45 AM JUSTYNT Christin Barth RN * Is person deaf or have serious hearing difficulty? Answer Date of Assessment Author No 03/31/2025 8:32 AM JUSTYNT Chio Garcia RN * Is person blind or have serious difficulty seeing? Answer Date of Assessment Author No 03/31/2025 8:32 AM JUSTYNT Chio Garcia RN * Does person have serious difficulty walking/climbing stairs? Answer Date of Assessment Author No 03/31/2025 8:32 AM CDT Chio Garcia RN * Does person have difficulty dressing/bathing? Answer Date of Assessment Author No 03/31/2025 8:32 AM JUSTYNT Chio Garcia RN * Does person have difficulty doing errands alone? Answer Date of Assessment Author No 03/31/2025 8:32 AM Chio Lorenzo RN documented as of this encounter Mental Status * Does person have difficulty concentrating/remembering/making decisions? Answer Entry Date Author No 03/31/2025 8:32 AM Chio Lorenzo RN documented in this encounter Medications at Time of Discharge acetaminophen (Tylenol) 500 MG tablet Take 1 (one) tablet by mouth every 6 hours as needed for Fever or Pain Maximum allowable Acetaminophen amount = 4 Grams (4000 mg) / 24 hours. 11/12/2024 bacitracin ointment Apply to affected area 3 times daily 30 g 11/12/2024 busPIRone (BUSPAR) 10 MG tablet Take 0.5 (one-half) tablet by mouth 2 times daily 30 tablet 09/19/2021 LORazepam (Ativan) 1 MG tabletIndication s:Anxiety TAKE 1 TABLET BY MOUTH EVERY 6 HOURS NEEDED FOR ANXIETY OR AGITATION 20 tablet 03/24/2025 ondansetron, disintegrating, (Zofran ODT) 4 MG tablet Take 1 (one) tablet by mouth every 6 hours as needed for Nausea/Vomiting Allow tablet to dissolve on the tongue 6 tablet 11/12/2024 senna-docusate (Senokot-S) 8.6-50 MG tablet Take 1 (one) tablet by mouth once daily 30 tablet 09/17/2024 12:53 PM CDT 09/17/2024 tretinoin (Retin-A) 0.05 % cream Apply to affected area at bedtime 08/10/2024 documented as of this encounter Progress Notes * Carrie Light, Graduate Nurse - 04/01/2025 2:00 PM CDT Pt. Left AMA after signing the form. * Carrie Light Graduate Nurse - 04/01/2025 1:20 PM CDT Pt. Reported a malfunction of the describing the sound coming from the underneath the bed,which he believed was due to leak in the air hose attached to the bed, He stated that the bed was not in the room during admission and expressed he was assigned a 'bad Bed', RN and PRIMARY MILL ROLLER replaced the bed, Pt. Con tinued toto express concern about the sound. RN suggested to unplugging the bed pt refused stating he has tried and it does not work. Pt. Became increasingly agitated ordered and the nurse to leave the room, expressing he did not want any one in the room and threatened to leave the hospital . Pt. Refused BP check, later pt.exited the room with all belongigs stating he has seen his parent outside his room and they have come to pick him.Rn Verbalized to have not seen any visitors identified as pt's parent. Rn assisted pt. back to his room. Later patient returned to the nurses' station and stated he will remain in his room, reporting that afer calling his parents. Pt continued to express need to leave, family cllad RN to find out if pt is discharged they confirmed there were not in the hospital. RN notified the Dr. Instructed RN to have pt. Sign AMA for if he chooses to leave the facility. * Chio Garcia RN - 04/01/2025 11:14 AM CDT Care Coordination Progress Note Expected Discharge Date: 04/02/2025 Discharge Plan: home once medically cleared by Dr. Foster. Pt with auditory hallucinations today. Family Support (Name and Phone): Extended Emergency Contact Information Primary Emergency Contact: Dale Kuhn Mobile Relation: Father Tin Cutter needed? No Secondary Emergency Contact: Renzo Kuhnen Address: [place] [address] Mobile Relation: Mother Tin Cutter needed? No Transportation at Discharge: Family: READMISSION RISK SCORE is 6 at 11:14 AM 04/01/2025.: Name: Chio Garcia RN [phone] * Kunal Foster MD - 04/01/2025 9:47 AM CDT Progress Note 04/01/2025 Patient Name: kIer Kuhn CSN: [id number] Date of : 1980 Admit Date: 03/30/2025 11:03 AM Hospital Days: Hospital Day: 2 Subjective: Denies visual hallucinations but does complain of vivid dreams which startle him awake.Also mentions a bed malfunction with a whistling sound that he attributes to a leak in the air hoseattached to the bed Objective: Temp (30hrs) Max:98.8 ??F (37.1 ??C) BP (!) 151/100 (BP Location: Right arm, Patient Position: Sitting) Pulse 82 Temp 98.1 ??F (36.7??C) (Oral) Resp 18 Ht 1.778 m (5' 10 ) Wt 70.5 kg (155 lb 6.8 oz) SpO2 100% BMI 22.30 kg/m?? Withdrawal assessment: - - 19 - 15 - (sleeping) - - - 16 - 13 - 7 - 7 - 6 - 10 Lung: Clear to auscultation, no rhonchi or crepitus Cardiovascular: Regular rate and rhythm, normal S1S2 without murmur Abdomen: Soft, bowel sounds positive Extrem: Some ecchymosis noted left 5th digit Labs: Recent Labs Component Name 03/30/25 1133 WBC 11.2* HGB 14.4 HCT 41.4 PLTCOUNT 305 Recent Labs Component Name 03/30/25 1133 SODIUM 141 POTASSIUM 4.1 CHLORIDE 105 CO2 24 BUN 7 CREATININE 0.73 GLUCOSE 82 CALCIUM 8.8 Assessment: 1) Alcohol withdrawal -- possible early delirium tremens, noises in room may be auditory hallucinations 2) History seizures, likely alcohol withdrawal 3) History peptic ulcer disease / pancreatitis Plan: Medical stabilization with tapering doses of chlordiazepoxide -- withdrawal symptoms improving on current medication regimen, anticipated discharge tomorrow but should be hallucination free Start pantoprazole (which he has been on in the past) Plans to attend [facility] for aftercare Conservative treatment left 5th toe fracture (can use kurt taping if pain increases) Remove nicotine patch at bedtime as vivid nightmares can be a side effect * Chio Garcia RN - 03/31/2025 9:35 AM CDT Care Coordination Initial Assessment Expected Discharge Date: 04/02/2025 Expected Discharge Disposition: Home or Self Care Transportation at Discharge: Family Prior Level of Care: Home Prior to Admit Provider: Pt admitted to the Stabilization Unit for detox from ETOH. PMH: SZ, pancreatitis Discharge plan at this time: home. Pt plans to go to [facility] for aftercare. Pt will follow up with AA/NA meetings also. Barriers to discharge: medical clearance. Lives with: Family Members Physical Limitations: None Requires Assistance With: None Preferred Pharmacy: [id number] - [address] [facility] [phone] [facility] [employer] [address] [facility] [phone] READMISSION RISK SCORE is 5 at 10:14 AM 03/31/2025. Met with patient Family Support (name and phone): Extended Emergency Contact Information Primary Emergency Contact: Dale Kuhn Mobile Relation: Father Tin Cutter needed? No Secondary Emergency Contact: Cherelle Kuhn Address: [place] [address] Mobile Relation: Mother Tin Cutter needed? No Patient or credit and collections representative requests care coordination reach out to family or caregiver listed above regarding discharge planning and at time of discharge? Yes Durable Medical Equipment Planning Equipment at Home: None List DME pt. requires but does not have.: None Stoker Mechanic Referral: Yes Will continue to follow. For any questions or needs please contact: Rn Pool/Social Work Name/Phone number: Chio Garcia RN [phone] * Kunal Foster MD - 03/31/2025 8:32 AM CDT Progress Note 03/31/2025 Patient Name: Iker Kuhn CSN: [id number] Date of : 1980 Admit Date: 03/30/2025 11:03 AM Hospital Days: Hospital Day: 1 Subjective: Sweats, tremors, epigastric pain, had insomnia last night with visual hallucinations ( I saw a woo outside the window walking in the air ). Was able to keep down three strips of baig Objective: Temp (30hrs) Max:98.8 ??F (37.1 ??C) BP 136/94 Pulse 74 Temp 98.1 ??F (36.7 ??C) Resp 18 Ht 1.778 m (5' 10 ) Wt 70.5 kg (155 lb 6.8 oz) SpO2 99% BMI 22.30 kg/m?? Withdrawal assessment: - - - (sleeping) - Lung: Clear to auscultation, no rhonchi or crepitus Cardiovascular: Regular rate and rhythm, normal S1S2 without murmur Abdomen: Soft, bowel sounds positive Labs: Recent Labs Component Name 03/30/25 1133 WBC 11.2* HGB 14.4 HCT 41.4 PLTCOUNT 305 Recent Labs Component Name 03/30/25 1133 SODIUM 141 POTASSIUM 4.1 CHLORIDE 105 CO2 24 BUN 7 CREATININE 0.73 GLUCOSE 82 CALCIUM 8.8 ALT 41 AST 62 Bili 0.3 Alk phos 92 HIV negative Acute hepatitis negative Blood alcohol 52 magnesium 1.8 Urine drug screen positive for benzodiazepines and barbiturates Left foor X-ray with minimally displaced fracture left 5th proximal phalanx Assessment: 1) Alcohol withdrawal -- possible early delirium tremens 2) History seizures, likely alcohol withdrawal 3) History peptic ulcer disease / pancreatitis Plan: Medical stabilization with tapering doses of chlordiazepoxide -- withdrawal symptoms improving on current medication regimen Start pantoprazole (which he has been on in the past) Plans to attend [facility] for aftercare Conservative treatment left 5th toe fracture (can use kurt taping if pain increases) * Veronica Olmos RN - 03/30/2025 11:36 PM CDT Problem: Pain/Discomfort Goal: Patient exhibits reduced pain/discomfort as evidenced by pain scores Outcome: Progressing Goal: Patient uses pharmacological and non-pharmacological pain management strategies. Outcome: Progressing Goal: Patient verbalizes acceptable level of pain relief and ability to engage in desired activity. Outcome: Progressing * Arnold Glaser Marguerite - 03/30/2025 9:14 AM CDT Stabilization Services - Substance Use Withdrawal Initial Assessment Chief Complaint, Reason Seeking Treatment, and Appointment Observations: Pt, Iker Kuhn is a 44 yearold male seeking treatment for Alcohol withdrawal symptoms. Pt arrived on time. Pt is dressed casually and grooming and hygiene was within normal limits. Pt reports being motivated for treatment because, ???I want to stop drinking alcohol.?? Substance Use Information: ETOH, Oral, 2 pints for the last 20 years. Total history of use since age ???17?? . Longest period of abstinence ?? 18 months?? Pt reports reason for success ???Treatment?? Relapse occurred, ???Once Discharged.?? Pt smokes about 1 pack'(s) of cigarettes daily. Last Use (Date, Time, and Amount): Friday @1:00am (used amount of 2 pints at that time) Previous CD/ Treatment (Dates and Locations): [facility]. Threats to Engagement in Treatment, Reported Barriers to Recovery, or Safety Concerns: None Transportation or Housing Concerns: Pt has friend, family, or private pay ([employer], Taxi, etc.). No Housing concerns reported. Withdrawal Symptoms at Assessment: Pt HR 85; Pt eyes are red and she/he seems to be very lethargic.Pt seems nervous and agitated. Pt speech is slurred and voice is very course and heavy. Patient hashad 0 episode of diarrhea 6 episode of vomiting in last 24 hrs. CINA Score: N/A COWS Score: N/A CIWA Score: 40 Social History (Family Hx of Addiction, Sober Support System, Family Structure, Living Environment,Education Level, Employment Status, Legal Hx, Abuse Hx, Hx, Etc.): Pt has a high school diploma. Pt is currently employed. Pt is single. Pt support system consist of His family. Medical History: Pancreatitis, Seizure Hx. Infectious Disease: Denies. Medical/Other Providers: None. Allergic Reactions: Avalox. HI/SI/Hallucinations: Denies Medications: None. Pharmacy: [facility]. Primary Procedure and Provisional Diagnosis: Medical Stabilization for Alcohol withdrawal symptoms.Diagnosis = F10.239, Alcohol unspecified Level of Care Recommendation: Based on presented and reported withdrawal symptoms as well as high relapse risk, recommended level of care is IP Stabilization Services to ensure medical safety. Bag Search: 1 pack of cigarettes, 2 lighters. Goal: Minimal withdrawal symptoms at discharge and sustained recovery as evidenced by a CINA and/orCOWS, and CIWA score of 5 or less. Pt will participate in established treatment protocol as outlined by physician for withdrawal symptoms over a minimum of 2-night inpatient admission. Tentative Discharge Plan at Admission: Pt plans to go to [facility] for aftercare. Pt will follow up with AA/NA meetings also. Stabilization Coordinator(s) will continue to assist as needed during admission stay. documented in this encounter H&P Notes * Kunal Foster MD - 03/30/2025 10:07 AM CDT Patient name: Iker Kuhn Date of admission: No admission date for patient encounter. Chief Complaint: Detox from alcohol History of Present Illness: Patient is a [age] year old male started drinking heavy about twenty years ago. Longest period of abstinence in 1.5 years but most recently has been drinking 1 - 2 pints of vodka daily, occasionally supplementing with a couple of beers. Positive morning shakes which require several shots to chelsy (patient doesn't start drinking until the afternoon when he gets off work) with positive black-outs and history of withdrawal seizures, the most recent being within the past couple of weeks. Last drink was about thirty-two hours ago and since that time has been experiencing withdrawal symptoms of nausea, vomiting, tremors, sweats, double vision, visual hallucinations (sees shimmers in the corner of his vision) and thinks he may have had a seizure last night. Past Medical History: Seen at a [facility] but previous provider has left and has yet to meet his new one 1) Seizures, probably withdrawal 2) Pancreatitis x 2 3) s/p lab cholecystectomy 4) s/p excision facial cysts 2023 Medicines: Medications[1] Allergies: Allergies[2] Social History: Continuous alcohol use as above, also smokes marijuana and 1/2 packs of cigarettes daily. Has some college towards a welding degree. 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 Complains of left foot pain and thinks he may have injured it during a seizure Physical Exam: General: Well developed middle aged male HEENT: Normocephalic, atraumatic, EOMI Neck: Carotids without bruits Back: No CVA or spinal tenderness Lungs: Clear to auscultation, no rhonchi or crepitus Cardiovascular: Regular rate and rhythm, normal S1S2 without murmur Abdomen: Soft, bowel sound positive Extremities: No cyanosis, clubbing, or edema, DP 2+ bilaterally Neurologic: Alert and oriented x 3, Romberg negative with coarse tremor, Cannot walk heel/toe Mental status exam: Performs arithmetic but cannot spell WORLD backwards Labs: (not available at this time) Assessment: 1) Alcohol withdrawal 2) History seizures, likely alcohol withdrawal Plan: Medical stabilization with tapering doses of chlordiazepoxide -- Anticipated length of stay is greater than two days. Plans to attend [facility] for aftercare Check left foot X-ray Outpatient management not feasible due to severity of withdrawal symptoms requiring vvrnu-fil-[id number] supervision to reduce risk for relapse. [1] No medications prior to admission. [2] Allergies Allergen Reactions Moxifloxacin Rash documented in this encounter Plan of Treatment Upcoming Encounters Date Type Department Care Team (Late st Contact Info) Description 04/07/2025 10:00 AM CDT Office Visit [facility] - Family Medicine [address] [place] [address], [place] [address] Rasheeda Bajwa APRN-ANA [address] [place] [address] documented as of this encounter Procedures Procedure Name Priority Date/Time Associated Diagnosis Comments PT-INR Routine 03/30/2025 1:09 PM CDT XR FOOT LEFT 3VW OR MORE Routine 03/30/2025 12:45 PM CDT Foot pain, left DRUG ABUSE URINE PANEL Routine 11:34 AM CDT HIV-1 HIV-2 ANTIBODY + HIV P24 AG PANEL Routine 03/30/2025 11:33 AM CDT CBC W/O DIFFERENTIAL Routine 03/30/2025 11:33 AM CDT COMPREHENSIVE METABOLIC PANEL Routine 03/30/2025 11:33 AM CDT MAGNESIUM BLOOD Routine 03/30/2025 11:33 AM CDT ALCOHOL ETHYL BLOOD Routine 03/30/2025 1 1:33 AM CDT HEPATITIS SCREEN ACUTE Routine 11:33 AM CDT documented in this encounter Results * PT-INR (03/30/2025 1:09 PM CDT) PT 12.3 12.1 - 14.8 sec 03/30/2025 1:27 PM CDT [facility] INR 0.9 0.9 - 1.1 03/30/2025 1:27 PM CDT [facility] Blood BLOOD SPECIMEN / Unknown Venipuncture / Unknown 03/30/2025 1:09 PM CDT 03/30/2025 1:15 PM CDT Narrative [facility] - 03/30/2025 1:27 PM CDT Conventional Warfarin Anticoagulant Therapy: INR Reference Range: 2.0-3.0 Intensive Warfarin Anticoagulant Therapy: INR Reference Range: 2.5-3.5 Kunal Foster MD LAB - COAGULATION ORDERABLES Fin al Result [facility] [address] [place] [address] * XR Foot Left 3Vw or More (03/30/2025 12:45 PM CDT) Anatomical Region Laterality Modality Ankle / Foot Computed Radiogr aphy 03/30/2025 3:42 PM CDT Narrative 03/30/2025 3:43 PM CDT PROCEDURE(s): XR FOOT LEFT 3VW OR MORE DATE AND TIME OF EXAM(s): 03/30/2025 12:47 PM INDICATION(s): M79.672: Pain in left foot COMPARISON(s): None available. FINDINGS/IMPRESSION: Mildly displaced fracture of the fifth digit proximal phalanx with mild angulation and foreshortening. There is soft tissue swelling about this region. Multifocal IP joint narrowing. > Interpreting Provider: Hussein Alexander MD on 03/30/2025 3:43 PM Procedure Note Hussein Alexander MD - 03/30/2025 PROCEDURE(s): XR FOOT LEFT 3VW OR MORE DATE AND TIME OF EXAM(s): 03/30/2025 12:47 PM INDICATION(s): M79.672: Pain in left foot COMPARISON(s): None available. FINDINGS/IMPRESSION: Mildly displaced fracture of the fifth digit proximal phalanx with mild angulation and foreshortening. There is soft tissue swelling about this region. Multifocal IP joint narrowing. > Interpreting Provider: Hussein Alexander MD on 03/30/2025 3:43 PM Kunal Foster MD DIAGNOSTIC IMAGING ORDERABLES Fi nal Result * (ABNORMAL) DRUG ABUSE URINE PANEL (03/30/2025 11:34 AM CDT) [facility] Amphetamines Screen Urine Not detected Not detected 03/30/2025 12:09 PM CDT [facility] Barbiturates Screen Urine Detected(A) Not detected 03/30/2025 12:09 PM CDT [facility] Benzodiazepines Screen Urine Detected(A) Not detected 03/30/2025 12:09 PM CDT [facility] Cocaine Screen Urine Not detected Not detected 03/30/2025 12:09 PM CDT [facility] Fentanyl Urine Not detected Not detected 03/30/2025 12:09 PM CDT [facility] Methadone Screen Urine Not detected Not detected 03/30/2025 12:09 PM CDT [facility] Opiate Screen Urine Not detected Not detected 03/30/2025 12:09 PM CDT [facility] Phencyclidine Screen Urine Not detected Not detected 03/30/2025 12:09 PM CDT [facility] Urine URINE / Unknown Collection / Unknown 03/30/2025 11:34 AM CDT 03/30/2025 11:52 AM CDT Narrative [facility] - 03/30/2025 12:09 PM CDT This drug screen is designed for MEDICAL purposes only. It is not to be used for legal purposes, including but not limited to worker's comp, police investigations, occupational issues, child custody, etc. Any positive result is only presumptive and must be confirmed with a separate confirmatory test ordered by the physician. Drug Screening Test Cutoff Values: AMPHETAMINES 1000 ng/mL BARBITURATES 200 ng/mL BENZODIAZEPINES 200 ng/mL COCAINE 300 ng/mL FENTANYL 1.5 ng/mL METHADONE 300 ng/mL OPIATES 300 ng/mL PHENCYCLIDINE(PCP) 25 ng/mL Kunal Foster MD LAB - URINE CHEMISTRY ORDERABLES Final Result [facility] [address] [place] [address] * (ABNORMAL) COMPREHENSIVE METABOLIC PANEL (03/30/2025 11:33 AM CDT) Pathologist [facility] Glucose 82 70 - 99 mg/dL 03/30/2025 12:09 PM CDT [facility] Sodium 141 136 - 145 mmol/L 03/30/2025 12:09 PM CDT [facility] Potassium 4.1 3.5 - 5.1 mmol/L 03/30/2025 12:09 PM CDT [facility] Chloride 105 98 - 107 mmol/L 03/30/2025 12:09 PM CDT [facility] CO2 24 22 - 29 mmol/L 03/30/2025 12:09 PM CDT [facility] Calcium 8.8 8.4 - 10.4 mg/dL 03/30/2025 12:09 PM T [facility] Anion Gap 12 6 - 16 mmol/L 03/30/2025 12:09 PM CDT [facility] BUN 7 5.3 - 18.7 mg/dL 03/30/2025 12:09 PM T [facility] Creatinine 0.73 0.72 - 1.25 mg/dL 03/30/2025 12:09 PM T [facility] Alkaline Phosphatase 92 40 - 150 U/L 03/30/2025 12:09 PM CDT [facility] ALT 41 6 - 57 U/L 03/30/2025 12:09 PM T [facility] AST 62(H) 10 - 48 U/L 03/30/2025 12:09 PM T [facility] Protein Total 6.7 6.4 - 8.3 gm/dL 03/30/2025 12:09 PM T [facility] Albumin 3.7 3.4 - 5.0 gm/dL 03/30/2025 12:09 PM T [facility] Bilirubin Total 0.3 0.2 - 1.2 mg/dL 03/30/2025 12:09 PM T [facility] eGFR by CKD-EPI >90 >=90 mL/min/1.7 3 m2 03/30/2025 12:09 PM T [facility] Blood BLOOD SPECIMEN / Unknown Venipuncture / Unknown 03/30/2025 11:33 AM CDT 03/30/2025 11:52 AM CDT us Kunal Foster MD LAB - CHEMISTRY ORDERABLES Final Result [facility] [id number] [place] [address] * (ABNORMAL) CBC W/O DIFFERENTIAL (03/30/2025 11:33 AM CDT) WBC 11.2(H) 4.0 - 10.7 x10E9/L 03/30/2025 11:56 AM CDT [facility] RBC Count 4.24(L) 4.30 - 5.80 x10E12/L 03/30/2025 11:56 AM CDT [facility] Hemoglobin 14.4 13.3 - 17.5 g/dL 03/30/2025 11:56 AM CDT [facility] Hematocrit 41.4 38.7 - 51.1 % 03/30/2025 11:56 AM CDT [facility] MCV 97.6 80.0 - 98.0 fL 03/30/2025 11:56 AM CDT [facility] MCH 34.0(H) 26.7 - 33.6 pg 03/30/2025 11:56 AM CDT [facility] MCHC 34.8 31.7 - 36.3 g/dL 03/30/2025 11:56 AM CDT [facility] RDW-CV 12.3 11.3 - 14.8 % 03/30/2025 11:56 AM CDT [facility] Platelet Count 305 150 - 420 x10E9/L 03/30/2025 11:56 AM CDT [facility] MPV 8.8 7.8 - 11.4 fL 03/30/2025 11:56 AM CDT [facility] Blood BLOOD SPECIMEN / Unknown Venipuncture / Unknown 03/30/2025 11:33 AM CDT 03/30/2025 11:52 AM CDT Kunal Foster MD LAB - HEMATOLOGY ORDERABLES Trish Result [facility] [id number] [place] [address] * MAGNESIUM BLOOD (03/30/2025 11:33 AM CDT) [facility] Magnesium 1.8 1.6 - 2.6 mg/dL 03/30/2025 12:09 PM CDT [facility] Blood BLOOD SPECIMEN / Unknown Venipuncture / Unknown 03/30/2025 11:33 AM CDT 03/30/2025 11:52 AM CDT Kunal Foster MD LAB - CHEMISTRY ORDERABLES Final Result Performing Organization Address [facility] Co de Phone Number [facility] [id number] [place] [address] * (ABNORMAL) ALCOHOL ETHYL BLOOD (03/30/2025 11:33 AM CDT) Ethanol 52.1(H) <10 mg/dL 03/30/2025 12:09 PM CDT [facility] Ethanol Calculated 0.052 <=0.100 gm/dL 03/30/2025 12:09 PM CDT [facility] Blood BLOOD SPECIMEN / Unknown Venipuncture / Unknown 03/30/2025 11:33 AM CDT 03/30/2025 11:52 AM CDT Narrative [facility] - 03/30/2025 12:09 PM CDT Ethanol Interp <10: None Detected Depression of CSN: >100 mg/dL Potentially Critical: >250 mg/dL Potentially Fatal >400 mg/dL Ethanol in the patient's blood will contribute to the osmolar gap. Ethanol's contribution to the osmolar gap can be estimated by dividing the concentration of ethanol in mg/dL by 4.6. This test is for clinical use only and does not equal a SANDRA for legal purposes. Kunal Foster MD LAB - CHEMISTRY ORDERABLES Final Result Performing Organization Address [facility] de Phone Number [facility] [id number] [place] [address] * HIV-1 HIV-2 ANTIBODY + HIV P24 AG PANEL (03/30/2025 11:33 AM CDT) Pathologist [facility] HIV1/2 Ab + P24 Ag Non Reactive Non Reactive 03/30/2025 12:29 PM CDT [facility] Blood BLOOD SPECIMEN / Unknown Venipuncture / Unknown 03/30/2025 11:33 AM CDT 03/30/2025 11:52 AM CDT Narrative [facility] - 03/30/2025 12:29 PM CDT No Laboratory evidence of HIV infection. Kunal Foster MD LAB - CHEMISTRY ORDERABLES Final Result Performing Organization Address [facility] Co de Phone Number [facility] [address] [place] [address] * HEPATITIS SCREEN ACUTE (03/30/2025 11:33 AM CDT) HAV Antibody IgM Non Reactive Non Reactive 03/30/2025 12:30 PM CDT [facility] HBsAg Non Reactive Non Reactive 03/30/2025 12:30 PM CDT [facility] HBc Antibody IgM Non Reactive Non Reactive 03/30/2025 12:30 PM CDT [facility] HCV Antibody Screen Non Reactive Non Reactive 03/30/2025 12:30 PM CDT [facility] Blood BLOOD SPECIMEN / Unknown Venipuncture / Unknown 03/30/2025 11:33 AM CDT 03/30/2025 11:52 AM CDT Narrative [facility] - 03/30/2025 12:30 PM CDT Non Reactive - Antibodies to Hepatitis C virus (HCV) were not detected, result does not exclude early acute HCV infection. Kunal Foster MD LAB - CHEMISTRY ORDERABLES Final Result Performing Organization Address [facility] [facility] de Phone Number [facility] [id number] [place] [address] documented in this encounter Visit Diagnoses Diagnosis Alcohol withdrawal syndrome with complication (HCC)- Primary Alcohol withdrawal syndrome with complication (HCC) Foot pain, left Pain in limb documented in this encounter Administered Medications Inactive Administered Medications - up to 3 most recent administrations Medication Order MAR Action Action Date Dose Rate Site 0.9% NaCl injection 1-10 mL 1-10 mL, Intracatheter, PRN, Other, peripheral line flush, Starting on Fri03/30/25 at 0939, Until Fri04/01/25 at 1526, Flush peripheral IV catheter with 1-10 mL of normal saline before and after medications and prn to clear blood from the line or to verify patency. $ Given 03/30/2025 1:05 PM CDT 3 mL $ Given 03/30/2025 12:12 PM CDT 3 mL 0.9% NaCl injection 3 mL 3 mL, Intracatheter, EVERY 8 HOURS, First dose on Fri03/30/25 at 1400, Until Discontinued, Flush peripheral IV catheter with 3 mL of normal saline every 8 hours. $ Given 03/31/2025 5:52 AM CDT 3 mL $ Given 03/30/2025 8:30 PM CDT 3 mL $ Given 03/30/2025 1:06 PM CDT 3 mL acetaminophen (Tylenol) tablet 650 mg 650 mg, Oral, EVERY 6 HOURS PRN, Fever, Mild Pain, Moderate Pain, Starting on Fri03/30/25 at 0941, Until Fri04/01/25 at 1526, Patient preference for lesser PRN pain meds may be honored when the patient requests a less strong medication, a lower dose, or a less intrusive route of administration when the lesser drug, dose and route have been ordered for the patient. This patient request must be documented in the MAR. If both oral and IV options are ordered for the same pain severity, give oral first unless patient cannot tolerate oral intake $ Given 04/01/2025 8:53 A M CDT 650 mg $ Given 03/31/2025 12:48 PM CDT 650 mg $ Given 03/31/2025 5:49 AM CDT 650 mg chlordiazePOXIDE (Librium) capsule 10 mg 10 mg, Oral, EVERY 6 HOURS, 3 doses, First dose on Fri03/31/25 at 0900, Last dose on Fri03/31/25 at 2100 $ Given 03/31/2025 8:52 PM CDT 10 mg $ Given 03/31/2025 3:34 PM CDT 10 mg $ Given 03/31/2025 9:40 AM CDT 10 mg chlordiazePOXIDE (Librium) capsule 25 mg 25 mg, Oral, EVERY 6 HOURS, 3 doses, First dose on Fri03/30/25 at 1215, Last dose on Fri03/31/25 at 0015, Hold first dose until urine specimen obtained.Indications:Alcohol Withdrawal Syndrome $ Given 03/31/2025 12:10 AM CDT 25 mg $ Given 03/30/2025 5:09 PM CDT 25 mg $ Given 03/30/2025 12:11 PM CDT 25 mg chlordiazePOXIDE (Librium) capsule 5 mg 5 mg, Oral, EVERY 6 HOURS, 3 doses, First dose on Fri04/01/25 at 0900, Last dose on Fri04/01/25 at 2100 $ Given 04/01/2025 8:27 AM CDT 5 mg chlordiazePOXIDE (Librium) capsule 5 mg 5 mg, Oral, EVERY 4 HOURS PRN, Give for CIWA score 10 or greater--patient may refuse dose, Starting on Fri03/30/25 at 0943, Until Fri04/01/25 at 0942, Hold first dose until urine drug screen obtained.Indications:Alcohol Withdrawal Syndrome $ Given 04/01/2025 8:24 AM CDT 5 mg $ Given 04/01/2025 8:22 AM CDT 5 mg $ Given 03/31/2025 5:59 PM CDT 5 mg cloNIDine (Catapres) tablet 0.1 mg 0.1 mg, Oral, EVERY 4 HOURS PRN, Hypertension, Give for SBP greater than 160 or DBP greater than 100, Starting on Fri03/30/25 at 0941, Until Fri04/01/25 at 1526 $ Given 03/31/2025 6:07 PM CDT 0.1 mg $ Given 03/31/2025 12:48 PM CDT 0.1 mg hydrOXYzine HCl (Atarax) tablet 25 mg 25 mg, Oral, 4 TIMES DAILY PRN, Anxiety, Starting on Fri03/30/25 at 0941, Until Fri04/01/25 at 1526 $ Given 03/31/2025 6:00 PM CDT 25 mg $ Given 03/31/2025 12:49 PM CDT 25 mg $ Given 03/31/2025 5:50 AM CDT 25 mg methocarbamol (Robaxin) tablet 750 mg 750 mg, Oral, EVERY 6 HOURS PRN, Muscle Spasms, Starting on Fri03/30/25 at 0941, Until Fri04/01/25 at 1526 $ Given 03/31/2025 6:00 PM CDT 750 mg $ Given 03/31/2025 12:48 PM CDT 750 mg $ Given 03/31/2025 5:50 AM CDT 750 mg metoprolol tartrate IR (Lopressor) tablet 25 mg 25 mg, Oral, 2 TIMES DAILY, First dose on Fri03/30/25 at 1200, Until Discontinued, Hold for SBP less than 100 or pulse less than 60 $ Given 04/01/2025 8:55 AM CDT 25 mg $ Given 03/31/2025 8:52 PM CDT 25 mg $ Given 03/31/2025 9:39 AM CDT 25 mg NaCl IV 0.9 % 500 mL with multivitamin (Infuvite) 10 mL, thiamine (Vitamin B-1) 100 mg infusion at 125 mL/hr, Administer over 4 Hours, ONCE, 1 dose, On Fri03/30/25 at 1200 $ New Bag/Syringe 03/30/2025 1:06 PM CDT 125 mL/hr nicotine (Nicoderm CQ) patch 21 mg 21 mg, Administer over 24 Hours, DAILY, First dose on Fri03/30/25 at 1700, Until Discontinued, . WASTE DISPOSAL INSTRUCTIONS: P-Listed item. Special Disposal Required. .Indications:Nicotine Dependence $ Applied 04/01/2025 8:23 AM CDT 21 mg Right Arm $ Applied 03/31/2025 9:40 AM CDT 21 mg Le ft Arm $ Applied 03/30/2025 5:09 PM CDT 21 mg Le ft Arm nicotine (Nicoderm CQ) patch 21 mg 21 mg, Administer over 12 Hours, DAILY, First dose (after last modification) on [facility] 04/02/25 at 0900, Until Discontinued, Please remove at bedtime . WASTE DISPOSAL INSTRUCTIONS: P-Listed item. Special Disposal Required. .Indications:Nicotine Dependence ondansetron (disintegrating) (Zofran ODT) tablet 4 mg 4 mg, Oral, EVERY 6 HOURS PRN, Nausea/Vomiting, Nausea, Vomiting, Starting on Fri03/30/25 at 0941, Until Fri04/01/25 at 1526, Dissolved orally on tongue $ Given 03/31/2025 6:00 PM CDT 4 mg $ Given 03/31/2025 12:49 PM CDT 4 mg $ Given 03/31/2025 5:50 AM CDT 4 mg pantoprazole EC (Protonix) tablet 40 mg 40 mg, Oral, DAILY, First dose on Fri03/31/25 at 0915, Until Discontinued, Do not crush, chew, or cut in half. $ Given 04/01/2025 8:23 AM CDT 40 mg $ Given 03/31/2025 9:39 AM CDT 40 mg thiamine (Vitamin B-1) tablet 100 mg 100 mg, Oral, DAILY, First dose on Fri03/31/25 at 0900, Until Discontinued $ Given 04/01/2025 8:23 AM CDT 100 mg $ Given 03/31/2025 9:39 AM CDT 100 mg traZODone (Desyrel) tablet 100 mg 100 mg, Oral, AT BEDTIME PRN, Insomnia, Starting on Fri03/31/25 at 0909, Until Fri04/01/25 at 1526 $ Given 03/31/2025 8:52 PM CDT 100 mg traZODone (Desyrel) tablet 50 mg 50 mg, Oral, AT BEDTIME PRN, Insomnia, Starting on Fri03/30/25 at 0941, Until Fri03/31/25 at 0909 $ Given 03/30/2025 8:28 PM CDT 50 mg documented in this encounter Active and Recently Administered Medications Times are shown in CDT. Scheduled Medication Order 03/30/2025 03/31/2025 04/01/2025 0.9% NaCl injection 3 mL(Linked Group 1) 3 mL, Intracatheter, EVERY 8 HOURS, First dose on Fri03/30/25 at 1400, Until Discontinued, Flush peripheral IV catheter with 3 mL of normal saline every 8 hours. 1306 ($ Given - Provider: Christin Barth RN)2030 ($ Given - Provider: Veronica Olmos RN) 0552 ($ Given - Provider: Veronica Olmos RN)1400 (Not Administered - Provider: Hannah Cordova - Reason: Loss of Access)2048 (Not Administered - Provider: Veronica Olmos RN - Reason: Loss of Access) 0455 (Not Administered - Provider: Veronica Olmos RN - Reason: Loss of Access)1213 (Not Administered - Provider: Hannah Cordova - Reason: Loss of Access) chlordiazePOXIDE (Librium) capsule 10 mg (COMPLETED) 10 mg, Oral, EVERY 6 HOURS, 3 doses, First dose on Fri03/31/25 at 0900, Last dose on Fri03/31/25 at 2100 0940 ($ Given - Provider: Hannah Cordova Nurse)1534 ($ Given - Provider: Hannah Cordova)2051 ($ Given - Provider: Veronica Olmos RN) chlordiazePOXIDE (Librium) capsule 25 mg (COMPLETED) 25 mg, Oral, EVERY 6 HOURS, 3 doses, First dose on Fri03/30/25 at 1215, Last dose on Fri03/31/25 at 0015, Hold first dose until urine specimen obtained. 1211 ($ Given - Provider: Christin Barth RN)1709 ($ Given - Provider: Christin Barth RN) 0010 ($ Given - Provider: Veronica Olmos RN) chlordiazePOXIDE (Librium) capsule 5 mg 5 mg, Oral, EVERY 6 HOURS, 3 doses, First dose on Fri04/01/25 at 0900, Last dose on Fri04/01/25 at 2100 0827 ($ Given - Provider: Hannah Cordova Nurse) metoprolol tartrate IR (Lopressor) tablet 25 mg 25 mg, Oral, 2 TIMES DAILY, First dose on Fri03/30/25 at 1200, Until Discontinued, Hold for SBP less than 100 or pulse less than 60 1212 ($ Given - Provider: Christin Barth RN)2026 ($ Given - Provider: Veronica Olmos RN) 0939 ($ Given - Provider: Hannah Cordova Nurse)2051 ($ Given - Provider: Veronica Olmos RN) 0855 ($ Given - Provider: Hannah Cordova Nurse) NaCl IV 0.9 % 500 mL with multivitamin (Infuvite) 10 mL, thiamine (Vitamin B-1) 100 mg infusion (COMPLETED) at 125 mL/hr, Administer over 4 Hours, ONCE, 1 dose, On Fri03/30/25 at 1200 1306 ($ New Bag/Syringe - Provider: Christin Barth RN)1709 (Stopped - Provider: Christin Barth RN) nicotine (Nicoderm CQ) patch 21 mg (CANCELED) 21 mg, Administer over 24 Hours, DAILY, First dose on Fri03/30/25 at 1700, Until Discontinued, . WASTE DISPOSAL INSTRUCTIONS: P-Listed item. Special Disposal Required. . 1709 ($ Applied - Provider: Christin Barth RN) 0937 (Removed - Provider: Hannah Cordova Nurse)0940 ($ Applied - Provider: Hannah Cordova) 0819 (Removed - Provider: Hannah Cordova)0823 ($ Applied - Provider: Hannah Cordova) nicotine (Nicoderm CQ) patch 21 mg 21 mg, Administer over 12 Hours, DAILY, First dose (after last modification) on 04/02/25 at 0900, Until Discontinued, Please remove at bedtime . WASTE DISPOSAL INSTRUCTIONS: P-Listed item. Special Disposal Required. . 1426 (Due: Removed - Provider: Generic, Auto Release - Comment: Time automatically adjusted from order being discontinued) pantoprazole EC (Protonix) tablet 40 mg 40 mg, Oral, DAILY, First dose on [place] 03/31/25 at 0915, Until Discontinued, Do not crush, chew, or cut in half. 09 ($ Given - Provider: Hannah Cordova) 08 ($ Given - Provider: Hannah Cordova Nurse) thiamine (Vitamin B-1) tablet 100 mg 100 mg, Oral, DAILY, First dose on [place] 03/31/25 at 0900, Until Discontinued 938 ($ Given - Provider: Hannah Cordova) 08 ($ Given - Provider: Hannah Cordova) PRN Medication Order 03/30/2025 03/31/2025 04/01/2025 0.9% NaCl injection 1-10 mL(Linked Group 1) 1-10 mL, Intracatheter, PRN, Other, peripheral line flush, Starting on Fri03/30/25 at 0939, Until Fri04/01/25 at 1526, Flush peripheral IV catheter with 1-10 mL of normal saline before and after medications and prn to clear blood from the line or to verify patency. 1212 ($ Given - Provider: Christin Barth RN)1305 ($ Given - Provider: Christin Barth RN) acetaminophen (Tylenol) tablet 650 mg 650 mg, Oral, EVERY 6 HOURS PRN, Fever, Mild Pain, Moderate Pain, Starting on Fri03/30/25 at 0941, Until Fri04/01/25 at 1526, Patient preference for lesser PRN pain meds may be honored when the patient requests a less strong medication, a lower dose, or a less intrusive route of administration when the lesser drug, dose and route have been ordered for the patient. This patient request must be documented in the MAR. If both oral and IV options are ordered for the same pain severity, give oral first unless patient cannot tolerate oral intake 1212 ($ Given - Provider: Christin Barth RN)2026 ($ Given - Provider: Veronica Olmos RN) 0549 ($ Given - Provider: Veronica Olmos RN)1248 ($ Given - Provider: Hannah Cordova Nurse) 0853 ($ Given - Provider: Hannah Codrova Nurse) chlordiazePOXIDE (Librium) capsule 5 mg () 5 mg, Oral, EVERY 4 HOURS PRN, Give for CIWA score 10 or greater--patient may refuse dose, Starting on Fri03/30/25 at 0943, Until Fri04/01/25 at 0942, Hold first dose until urine drug screen obtained. 0550 ($ Given - Provider: Veronica Olmos RN)1247 ($ Given - Provider: Hannah Cordova Nurse)1759 ($ Given - Provider: Hannah Cordova Nurse) 0822 ($ Given - Provider: Hannah Cordova Nurse)0824 ($ Given - Provider: Hannah Cordova Nurse) cloNIDine (Catapres) tablet 0.1 mg 0.1 mg, Oral, EVERY 4 HOURS PRN, Hypertension, Give for SBP greater than 160 or DBP greater than 100, Starting on Fri03/30/25 at 0941, Until Fri04/01/25 at 1526 1248 ($ Given - Provider: Hannah Cordova Nurse)1807 ($ Given - Provider: Hannah Cordova Nurse) hydrOXYzine HCl (Atarax) tablet 25 mg 25 mg, Oral, 4 TIMES DAILY PRN, Anxiety, Starting on Fri03/30/25 at 0941, Until Fri04/01/25 at 1526 1211 ($ Given - Provider: Christin Barth RN)2027 ($ Given - Provider: Veronica Olmos RN) 0550 ($ Given - Provider: Veronica Olmos RN)1249 ($ Given - Provider: Hannah Cordova Nurse)1800 ($ Given - Provider: Hannah Cordova Nurse) methocarbamol (Robaxin) tablet 750 mg 750 mg, Oral, EVERY 6 HOURS PRN, Muscle Spasms, Starting on Fri03/30/25 at 0941, Until Fri04/01/25 at 1526 1211 ($ Given - Provider: Christin Barth RN)2027 ($ Given - Provider: Veronica Olmos RN) 0550 ($ Given - Provider: Veronica Olmos RN)1248 ($ Given - Provider: Hannah Cordova Nurse)1800 ($ Given - Provider: Hannah Cordova) ondansetron (disintegrating) (Zofran ODT) tablet 4 mg 4 mg, Oral, EVERY 6 HOURS PRN, Nausea/Vomiting, Nausea, Vomiting, Starting on Fri03/30/25 at 0941, Until Fri04/01/25 at 1526, Dissolved orally on tongue 1211 ($ Given - Provider: Christin Barth RN)2026 ($ Given - Provider: Veronica Olmos RN) 0550 ($ Given - Provider: Veronica Olmos RN)1249 ($ Given - Provider: Hannah Cordova)1800 ($ Given - Provider: Hannah Cordova) traZODone (Desyrel) tablet 100 mg 100 mg, Oral, AT BEDTIME PRN, Insomnia, Starting on Fri03/31/25 at 0909, Until Fri04/01/25 at 1526 2051 ($ Given - Provider: Veronica Olmos RN) traZODone (Desyrel) tablet 50 mg (CANCELED) 50 mg, Oral, AT BEDTIME PRN, Insomnia, Starting on Fri03/30/25 at 0941, Until Fri03/31/25 at 0909 2027 ($ Given - Provider: Veronica Olmos RN) Linked Groups Order Group 1: SALINE LOCK, INSERT AND MAINTAIN (CANCELED) Routine, CONTINUOUS, Starting on Fri03/30/25 at 0945, Until Specified, New collection And 0.9% NaCl injection 3 mLJump to med 3 mL, Intracatheter, EVERY 8 HOURS, First dose on Fri03/30/25 at 1400, Until Discontinued, Flush peripheral IV catheter with 3 mL of normal saline every 8 hours. And 0.9% NaCl injection 1-10 mLJump to med 1-10 mL, Intracatheter, PRN, Other, peripheral line flush, Starting on Fri03/30/25 at 0939, Until Fri04/01/25 at 1526, Flush peripheral IV catheter with 1-10 mL of normal saline before and after medications and prn to clear blood from the line or to verify patency. 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
--- OUTSIDE RECORDS SUMMARY | 2025-04-02 03:40 | XMS_ITS | Clinical Summary ---
Author Organization 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 Gender Identity Not on file Sexual Orientation [...] age to complete this topic Insurance [facility]ICAID [facility] Advance Directives For more information, please contact: [phone] * Full Code (Latest Code Status on File) Date Activated Date Inactivated Comments 07/05/2023 9:03 AM 07/07/2023 8:26 PM * Full Code Date Activated Date Inactivated Comments 02/28/2023 12:06 PM 03/05/2023 7:01 PM Care Teams Auto Servicer Relationship Specialty Start Date End Date No, Physician PCP - General 03/10/23
--- OUTSIDE RECORDS SUMMARY | 2025-04-02 03:40 | XMS_ITS | Clinical Summary ---
Author Organization [facility] Address [address] [place] [id number] Care Team Providers Care Embossing Tool Setter Name Role Phone None, Provider MD Primary Care Provider Unavaila ble Allergies Active Allergy Reactions Criticality Noted Date Comments Moxifloxacin Rash Low 03/01/2019 Medications citalopram 20 MG tablet Take 1 tablet (20 mg total) by mouth daily. 30 tablet 03/05/2019 Active multi vitamin/minerals tablet Take 1 tablet by mouth daily. 30 tablet 03/05/2019 Active Active Problems Problem Noted Date Diagnosed Date Alcohol withdrawal ([facility]) 03/01/2019 Social History Tobacco Use Types Packs/Day Years Used Date Smoking Tobacco: Every Day Cigarettes Smokeless Tobacco: Never Alcohol Use Standard Drinks/Week Comments Yes 0 (1 standard drink = 0.6 oz pur e alcohol) 1-2 pints vodka daily Sex and Gender Information Value Date Recorded Sex Assigned at Not on file Legal Sex Male 7:11 PM CDT Gender Identity Not on file Sexual Orientation Not on file Last Filed Vital Signs Vital Sign Reading Time Taken Comments Blood Pressure 128/78 03/05/2019 7:56 AM CDT Pulse 93 03/05/2019 7:56 AM CDT Temperature 36.9 C (98.4 F) 03/05/2019 7:56 AM CDT Respiratory Rate 18 03/05/2019 7:56 AM CDT Oxygen Saturation 98% 03/05/2019 7:56 AM CDT Inhaled Oxygen Concentration - - Weight 72 kg (158 lb 11.7 oz) 03/05/2019 3:03 AM CDT Height 177.8 cm (5' 10 ) 03/01/2019 4:51 PM CDT Body Mass Index 22.78 03/01/2019 4:51 PM CDT Plan of Treatment Health Maintenance Due Date Last Done Comments Colorectal Cancer Screening Colonoscopy (10 Years) 1979 Annual Physical 1982 Hepatitis C 1997 DTaP, Tdap and Td Vaccines ( 1 - Tdap) 1998 Hepatitis B Vaccines (1 of 3 - 19+ 3-dose series) 1998 Pneumococcal Vaccine: Pediat rics (0 to 5 Years) and At-Risk Patients (6 to 49 Years) (1 of 2 - PCV) 1998 COVID-19 Vaccine (2023-2 5 season) 2024 Meningococcal B Vaccine Aged Out No l onger eligible based on patient's age to complete this topic Meningococcal Vaccine Aged Out No markus segun eligible based on patient's age to complete this topic RSV Immunizations Under 20 Months Aged Out No longer eligible based on patient's age to complete this topic Insurance Advance Directives Documents on File Type Date Recorded Patient Client Experience Administrator Expl anation Advance Directives and Living Will 11/27/2017 12:00 AM ADVANCED DIRECTIVES Advance Directives and Living Will 09/23/2017 12:00 AM ADVANCED DIRECTIVES Advance Directives and Living Will 06/30/2017 12:00 AM ADVANCED DIRECTIVES * Full Code (Latest Code Status on File) Date Activated Date Inactivated Comments 03/01/2019 10:30 PM 03/05/2019 12:56 PM Care Teams Embossing Tool Setter Relationship Specialty Start Date End Date None, Provider, PCP - General 03/01/19
--- OUTSIDE RECORDS SUMMARY | 2025-04-02 03:40 | XMS_ITS | Encounter Summary ---
Author Organization [facility] Healthcare Address [address] [place] [address] Care Team Providers Care Liquefaction Plant Operator Name Role Phone Ghislaine Garcia MD Primary Care Provider No, Physician Primary Care Provider [phone] Encounter Details Date Type Department Care Team (Late st Contact Info) Description 02/28/2023 Documentation [facility] Warm Hand Off Program [address] [place] [address] Bharat Huitron Social History Tobacco Use Types Packs/Day Years Used Date Smoking Tobacco: Every Day Cigarettes 0.8 30 Sex and Gender Information Value Date Recorded Sex Assigned at Not on file 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
--- OUTSIDE RECORDS SUMMARY | 2025-04-02 03:40 | XMS_ITS | Encounter Summary ---
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 Gender Identity Not on file Sexual Orientation Not on file 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 on file Not on file documented as of this encounter Miscellaneous Notes * Telephone Encounter - Rm Mondragon - 03/28/2025 9:05 AM CDT Refill Request Iker Kuhn ZEYNEP: 07/22/24 NOV due: 04/07/25 NOV scheduled: 03/25/2025 LRF: 03/24/25 Qty Disp: 20 # of refills: 0 Allergies: Allergies[1] Pended Medication Order: Requested Prescriptions Pending Prescriptions Disp Refills LORazepam (Ativan) 1 MG tablet 20 tablet 0 [1] Allergies Allergen Reactions Moxifloxacin Rash documented in this encounter Plan of Treatment Upcoming Encounters Date Type Department Care Team (Late st Contact Info) Description 04/07/2025 10:00 AM CDT Office Visit [facility] - [facility] Medicine [address] [place] [address], [place] [phone] Rasheeda Bajwa APRN-CNP [address] [place] [phone] documented as of this encounter Visit Diagnoses Diagnosis Anxiety Anxiety state, unspecified documented in this encounter Care Teams Auto Machinist Relationship Specialty Start Date End Date None, Physician PCP - General 11/03/24 documented as of this encounter
--- OUTSIDE RECORDS SUMMARY | 2025-04-02 03:40 | XMS_ITS | Encounter Summary ---
Author Organization [facility] Health Address [address] [place] [address] Care Team Providers Care Materials Associate Name Role Phone Power Garcia PA-C Primary Care Provider None, Physician Primary Care Provider Unavailabl e Reason for Visit * Reason Onset Date Comments MEDICATION REFILL 09/18/2021 Encounter Details Date Type Department Care Team (Late st Contact Info) Description 09/18/2021 Refill [facility] Medicine [address] [place], [place] [phone] Power Garcia PA-C [address] [place] [phone] MEDICATION REFILL Social History Tobacco Use Types Packs/Day Years Used Date Smoking Tobacco: Every Day Cigarettes Smokeless Tobacco: Never Alcohol Use Standard Drinks/Week Comments Yes 0 (1 standard drink = 0.6 oz pur e alcohol) 4 per Sex and Gender Information Value Date Recorded Sex Assigned at Not on file 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
--- OUTSIDE RECORDS SUMMARY | 2025-04-02 03:40 | XMS_ITS | Encounter Summary ---
Author Organization [facility] Address [address] [facility] [place] [address] Care Team Providers Care Assistant Golf Coach Name Role Phone None, Physician Primary Care Provider Unavailabl e Reason for Visit * Reason Onset Date Comments MEDICATION REFILL 11/24/2024 Encounter Details Date Type Department Care Team (Late st Contact Info) Description 11/24/2024 Refill [facility] Medicine [address] [place] [address] Audrey Richard MD [address] [address] MEDICATION REFILL Social History Tobacco [...] on file 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 Gender Identity Not on file Sexual Orientation Not on file 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 on file Not on file documented as of this encounter Miscellaneous Notes * Telephone Encounter - Rm Mondragon - 11/25/2024 8:53 AM CST duplicate OR PROGRAMMER documented in this encounter Plan of Treatment Upcoming Encounters Date Type Department Care Team (Late st Contact Info) Description 04/07/2025 10:00 AM CDT Office Visit [facility] - Family [address], [place] [address] Rasheeda Bajwa APRN-ANA [address] [place] [phone] documented as of this encounter Visit Diagnoses Diagnosis Anxiety Anxiety state, unspecified documented in this encounter Care Teams Assistant Golf Coach Relationship Specialty Start Date End Date None, Physician PCP - General 11/03/24 documented as of this encounter
--- OUTSIDE RECORDS SUMMARY | 2025-04-02 03:40 | XMS_ITS | CONTINUITY OF CARE DOCUMENT ---
Author Name marlin isaac Address Unknown Organization [facility] Address [address] [place] [address] [address] [place] [address] Phone [phone] Care Team Providers Care Varnishing Machine Operator Name Role Phone Moe GAMA, Angelo Unavailable INGE IVEY MD Unavailable INSURANCE PROVIDERS Payer name Policy type / Coverage type [place] red constitution party ID [employer] Medicaid [id number]
--- OUTSIDE RECORDS SUMMARY | 2025-04-02 03:40 | XMS_ITS | Encounter Summary ---
Author Organization [facility] Address [address] [facility] [place] [address] Care Team Providers Care Covered Buckle Assembler Name Role Phone None, Physician Primary Care Provider Unavailabl e Reason for Visit * Reason Onset Date Comments MEDICATION REFILL 04/01/2025 Encounter Details Date Type Department Care Team (Late st Contact Info) Description 04/01/2025 Refill [facility] Medicine [address] [place] [address] Audrey Richard MD [address] [address] MEDICATION REFILL Social History Tobacco [...] Recorded Patient Health Questionnaire-2 Score 2 03/14/2025 [facility] [place] of Occupat ional Health - Occupational Stress [...] any time in the past 12 m [facility], were you homeless or living in a skilled nursing (including now)? 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 Answer Date of Assessment Author No 03/31/2025 8:32 AM Chio Lorenzo RN * Is person blind or have serious difficulty seeing? Answer Date of Assessment Author No 03/31/2025 8:32 AM Chio Lorenzo RN * Does person have serious difficulty [...] Chio Lorenzo RN documented in this encounter Plan of Treatment Upcoming Encounters Date Type Department Care Team (Late st Contact Info) Description 04/07/2025 10:00 AM CDT Office Visit [facility] - Family Medicine [address] [place] [address], [place] [address] Rasheeda Bajwa APRN-INTERNAL MEDICINE NURSE [address] [place] [address] [place] [address] documented as of this encounter Visit Diagnoses Diagnosis Anxiety Anxiety state, unspecified documented in this encounter Care Teams Covered Buckle Assembler Relationship Specialty Start Date End Date None, Physician PCP - General 11/03/24 documented as of this encounter
--- OUTSIDE RECORDS SUMMARY | 2025-04-02 03:40 | XMS_ITS | Encounter Summary ---
Author Organization [facility] Address [address] [place] [address] Care Team Providers Care Physical Anthropologist Name Role Phone None, Physician Primary Care Provider Unavailabl e Reason for Visit * Reason Onset Date Comments MEDICATION REFILL 03/28/2025 Encounter Details Date Type Department Care Team (Late st Contact Info) Description 03/28/2025 Refill [facility] Medicine [address] [place] [address] Audrey Richard MD [address] [address] MEDICATION REFILL Social History Tobacco [...] Recorded Patient Health Questionnaire-2 Score 2 03/14/2025 [facility] [place] of Occupat ional Health - Occupational Stress [...] any time in the past [address] [facility], were you homeless or living in a penitentiary (including now)? 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 4 or more times a week 03/30/2025 11:45 AM Christin Castellanos RN Q2: How many drinks containing alcohol do you have on a typical day when you are drinking? 3 or 4 03/30/2025 11:45 AM Christin Castellanos RN Q3: How often do you have six or more drinks on one occasion? Daily or almost daily 03/30/2025 11:45 AM CDT Christin Barth RN * Audit-C Score Answer Date of Assessment Author 9 03/30/2025 11:45 AM CDT Christin Barth RN documented as of this encounter Miscellaneous Notes * Telephone Encounter - Pati Chambers MA - 03/29/2025 8:34 AM CDT .Refill Request Iker Kuhn ZEYNEP: 07/22/24 NOV due: - NOV scheduled 04/07/25 LRF: 03/24/25 Qty Disp: 20 # of [...] Visit [facility] - [facility] Medicine [address] [place] [address], [place] [address] Rasheeda Bajwa APRN-ANA [address] [place] [phone] documented as of this encounter Visit Diagnoses Diagnosis Anxiety Anxiety state, unspecified documented in this encounter Care Teams Physical Anthropologist Relationship Specialty Start Date End Date None, Physician PCP - General 11/03/24 documented as of this encounter
--- OUTSIDE RECORDS SUMMARY | 2025-04-02 03:40 | XMS_ITS | Encounter Summary ---
Author Organization [facility] Address [address] [facility] [address] Care Team Providers Care Dairy Grazer Name Role Phone None, Physician Primary Care Provider Unavailabl e Reason for Visit * Reason Onset Date Comments MEDICATION REFILL 01/13/2025 Encounter Details Date Type Department Care Team (Late st Contact Info) Description 01/13/2025 Refill [facility] [address] [place] [address] Audrey Richard MD [address] [address] MEDICATION REFILL Social History Tobacco [...] on file 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 Gender Identity Not on file Sexual Orientation [...] hours as needed for Anxiety or Agitation TLIGHT LOADING SUPERVISOR documented in this encounter Plan of Treatment Upcoming Encounters Date Type Department Care Team (Late st Contact Info) Description 04/07/2025 10:00 AM CDT Office Visit [facility] - Family Medicine [address] [place] [address], [facility] [place] [address] Rasheeda Bajwa APRN-CIRCUS LABORER [address] [place] [phone] documented as of this encounter Visit Diagnoses Diagnosis Anxiety Anxiety state, unspecified documented in this encounter Care Teams Dairy Grazer Relationship Specialty Start Date End Date None, Physician PCP - General 11/03/24 documented as of this encounter
--- OUTSIDE RECORDS SUMMARY | 2025-04-02 03:40 | XMS_ITS | Encounter Summary ---
Author Organization [facility] Health Address [address] [facility] [place] [address] Care Team Providers Care Capacity Planner Name Role Phone Power Garcia PA-C Primary Care Provider None, Physician Primary Care Provider Unavailabl e Reason for Visit * Reason Onset Date Comments MEDICATION REFILL 10/06/2024 Encounter Details Date Type Department Care Team (Late st Contact Info) Description 10/06/2024 Refill [facility] [address] [place] [address] Power Garcia PA-C [address] [phone] MEDICATION REFILL Social History Tobacco Use Types [...] on file 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 Gender Identity Not on file Sexual [...] hours as needed for Anxiety or Agitation E OPERATIONS MANAGER documented in this encounter Plan of Treatment Upcoming Encounters Date Type Department Care Team (Late st Contact Info) Description 04/07/2025 10:00 AM CDT Office Visit [facility] Medicine [address] [place] [address], [place] [address] Rasheeda Bajwa APRN-AUTOMATIC DRY STARCH OPERATOR [address] [place] [phone] documented as of this encounter Visit Diagnoses Not on filedocumented in this encounter Care Teams Capacity Planner Relationship Specialty Start Date End Date Power Garcia PA-C [address] [facility] [address] [place] [phone] PCP - General 08/13/21 11/02/24 None, Physician PCP - General 11/03/24 documented as of this encounter
--- OUTSIDE RECORDS SUMMARY | 2025-04-02 03:40 | XMS_ITS | Encounter Summary ---
Author Organization [facility] Address [address] [place] [address] Care Team Providers Care Electric Motor Repairman Name Role Phone None, Provider Primary Care Provider Unavaila ble Encounter Details Date Type Department Care Team (Late st Contact Info) Description 03/12/2019 Hospital Follow-up Call [facility] [place] [address] Ekaterina Ramos Social History Tobacco Use Types Packs/Day Years [...] as of this encounter Functional Status * RETIRED Are you deaf or do you have serious difficulty hearing Answer Date of Assessment Author Status No 03/01/2019 9:30 PM CDT Activ e * RETIRED Are you blind or do you have serious difficulty seeing, even when wearing glasses? Answer Date of Assessment Author Status No 03/01/2019 9:30 PM CDT Activ e * Do you have serious difficulty walking or climbing stairs? Answer Date of Assessment Author Status No 03/01/2019 9:30 PM CDT Char Arias, RN Active * Do you have difficulty dressing or bathing? Answer Date of Assessment Author Status No 03/01/2019 9:30 PM Char Bacon, RN Active * Because of a physical, mental, or emotional condition, do you have difficulty doing errands alone such as visiting a doctor's office or shopping? Answer Date of Assessment Author Status No 03/01/2019 9:30 PM Char Bacon RN Active documented as of this encounter Mental Status * Because of a physical, mental, or emotional condition, do you have serious difficulty concentrating, remembering, or making decisions? Answer Entry Date Author Status No 03/01/2019 9:30 PM Char Bacon, RN Active documented in this encounter Plan of Treatment Not on file documented as of this encounter Visit Diagnoses Not on filedocumented in this encounter Care Teams Electric Motor Repairman Relationship Specialty Start Date End Date None, Provider, PCP - General 03/01/19 documented as of this encounter
--- OUTSIDE RECORDS SUMMARY | 2025-04-02 03:40 | XMS_ITS | Encounter Summary ---
Author Organization [facility] Address [address] [place] [address] Care Team Providers Care Md Pediatric Allergist Name Role Phone Power Garcia PA-C Primary Care Provider None, Physician Primary Care Provider Unavailabl e Reason for Visit * Reason Onset Date Comments MEDICATION REFILL 10/01/2024 Encounter Details Date Type Department Care Team (Late st Contact Info) Description 10/01/2024 Refill [facility] - Plastic Surgery [address] [facility], [facility] [place] [phone] Candie Brady PA-C [address] [place] [address] MEDICATION REFILL Social History Tobacco Use Types [...] on file 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 Gender Identity Not on file Sexual Orientation Not on file 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 on file Not on file documented as of this encounter Plan of Treatment Upcoming Encounters Date Type Department Care Team (Late st Contact Info) Description 04/07/2025 10:00 AM CDT Office Visit [facility] - Family [facility] [address] [facility], [place] [phone] Rasheeda Bajwa APRN-SOUVENIR ASSEMBLER [address] [phone] documented as of this encounter Visit Diagnoses Diagnosis Inclusion cyst Sebaceous cyst documented in this encounter Care Teams Md Pediatric Allergist Relationship Specialty Start Date End Date Power Garcia PA-C [address] [facility] [address] [place] [phone] PCP - General 08/13/21 11/02/24 None, Physician PCP - General 11/03/24 documented as of this encounter
--- OUTSIDE RECORDS SUMMARY | 2025-04-02 03:40 | XMS_ITS | Referral Summary ---
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 Gender Identity Not on file Sexual Orientation [...] Plan of Treatment Not on file Insurance [facility] MEDICAID [facility] Member Subscriber Plan / Payer (Ef fective 2023-Present) Name:Iker Kuhn Relation to Subscriber:Self Name:Iker Kuhn Payer ID:[id number] (NAIC) Group ID:Not on file Type:MEDICAID RISK OTHER Address: ATTN: CLAIMS DEPT [address] [facility] [place] [phone] [employer] [facility] Advance Directives For more information, please contact: [phone] * Full Code (Latest Code Status on File) Date Activated Date Inactivated Comments 07/05/2023 9:03 AM 07/07/2023 8:26 PM * Full Code Date Activated Date Inactivated Comments 02/28/2023 12:06 PM 03/05/2023 7:01 PM Care Teams Electrode Cleaner Relationship Specialty Start Date End Date No, Physician PCP - General 03/10/23
--- OUTSIDE RECORDS SUMMARY | 2025-04-02 03:40 | XMS_ITS | Encounter Summary ---
Author Organization [facility] Address [address] [place] [address] Care Team Providers Care Fisher Trawl Line Name Role Phone None, Provider Primary Care Provider Unavaila ble Encounter Details Date Type Department Care Team (Late st Contact Info) Description 03/12/2019 Hospital Follow-up Call [facility] [place] [address] Ekaterina Ramos Social History Tobacco Use Types [...] on filedocumented in this encounter Care Teams Fisher Trawl Line Relationship Specialty Start Date End Date None, Provider, PCP - General 03/01/19 documented as of this encounter
--- OUTSIDE RECORDS SUMMARY | 2025-04-02 03:40 | XMS_ITS | Encounter Summary ---
Author Organization [facility] Address [address] [facility] [place] [address] Care Team Providers Care Rigging Worker Name Role Phone None, Physician Primary Care Provider Unavailabl e Reason for Visit * Reason Onset Date Comments MEDICATION REFILL 11/17/2024 Encounter Details Date Type Department Care Team (Late st Contact Info) Description 11/17/2024 Refill [facility] [address] [place] [address] Audrey Richard MD [address] [address] MEDICATION REFILL Social History Tobacco [...] on file 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 Gender Identity Not on file Sexual Orientation Not on file 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 on file Not on file documented as of this encounter Plan of Treatment Upcoming Encounters Date Type Department Care Team (Late st Contact Info) Description 04/07/2025 10:00 AM CDT Office Visit [facility] - [address], [place] [address] Rasheeda Bajwa APRN-ANA [address] [place] [phone] documented as of this encounter Visit Diagnoses Diagnosis Anxiety Anxiety state, unspecified documented in this encounter Care Teams Rigging Worker Relationship Specialty Start Date End Date None, Physician PCP - General 11/03/24 documented as of this encounter
--- OUTSIDE RECORDS SUMMARY | 2025-04-02 03:40 | XMS_ITS | Encounter Summary ---
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 Male 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 Gender Identity Not on file Sexual Orientation Not on file 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 on file Not on file documented as of this encounter Plan of Treatment Upcoming Encounters Date Type Department Care Team (Late st Contact Info) Description 04/07/2025 10:00 AM CDT Office Visit [facility] - [address], [place] [address] Rasheeda Bajwa APRN-ANA [address] [place] [phone] documented as of this encounter Visit Diagnoses Diagnosis Anxiety Anxiety state, unspecified documented in this encounter Care Teams Pin Maker Relationship Specialty Start Date End Date None, Physician PCP - General 11/03/24 documented as of this encounter
--- OUTSIDE RECORDS SUMMARY | 2025-04-02 03:40 | XMS_ITS | Clinical Summary ---
Author Organization [facility] [employer] Address [address] [facility] [place] [address] Care Team Providers Care Tissue Packer Name Role Phone None, Physician Primary Care Provider Unavailabl e Source Comments [facility],non-owned Affiliates and Associated Physician Practices is amultiple site organization consisting of ambulatory clinics and hospital sitesin [place], [place], [place] and [place]. This disclosure is being madepursuant to the Care Everywhere program and may not contain all information available regarding this patient. Last updated 18.[facility] [employer] Allergies Active Allergy Reactions Criticality Noted Date Comments Moxifloxacin Rash Medium 09/17/2016 Medications * Be aware that medications may not be up to date on this document. Alwaysverify current medications with the patient. busPIRone (BUSPAR) 10 MG tablet Take 0.5 (one-half) tablet by mouth 2 times daily 30 tablet 09/19/20 21 Active senna-docusat e (Senokot-S) 8.6-50 MG tablet Take 1 (one) tablet by mouth once daily 30 tablet 4 12:53 PM CDT 09/17/20 24 Active tretinoin (Retin-A) 0.05 % cream Apply to affected area at bedtime 08/10/20 24 Active acetaminophen (Tylenol) 500 MG tablet Take 1 (one) tablet by mouth every 6 hours as needed for Fever or Pain Maximum allowable Acetaminophen amount = 4 Grams (4000 mg) / 24 hours. 11/12/20 24 Active ondansetron, disintegratin g, (Zofran ODT) 4 MG tablet Take 1 (one) tablet by mouth every 6 hours as needed for Nausea/Vomiting Allow tablet to dissolve on the tongue 6 tablet 11/12/20 24 Active bacitracin ointment Apply to affected area 3 times daily 30 g 11/12/20 24 Active LORazepam (Ativan) 1 MG tabletIndicat ions:Anxiety TAKE 1 TABLET BY MOUTH EVERY 6 HOURS NEEDED FOR ANXIETY OR AGITATION 20 tablet 03/24/20 Active chlordiazepox karsten (LIBRIUM) 25 MG capsule Take 1 Cap by mouth every 6 hours as needed for Anxiety and Agitation. 12 Cap 0 11/02/20 10 2024 Discontinued(T x Complete) hydrOXYzine hcl (ATARAX) 25 MG tabletIndicat ions:Anxiety Take 1 (one) tablet by mouth 4 times daily as needed (anxiety) 40 tablet 1 09/20/20 21 2024 Discontinued(R eorder) oxyCODONE, immediate release, (Roxicodone) 5 MG tabletIndicat ions:Inclusio n cyst Take 1 (one) tablet by mouth every 6 hours as needed for Pain 8 tablet 11/15/20 24 2024 Discontinued(T x Complete) LORazepam (Ativan) 1 MG tabletIndicat ions:Anxiety Take 1 (one) tablet by mouth every 6 hours as needed for Anxiety or Agitation 4 tablet 11/16/20 24 2024 Discontinued(R eorder) LORazepam (Ativan) 1 MG tabletIndicat ions:Anxiety Take 1 (one) tablet by mouth every 6 hours as needed for Anxiety or Agitation 10 tablet 03/07/20 25 2024 Discontinued(T x Complete) hydrOXYzine HCl (Atarax) 25 MG tabletIndicat ions:Anxiety Take 1 (one) tablet by mouth 4 times daily as needed (anxiety) 40 tablet 1 03/07/20 25 2024 Discontinued(T x Complete) LORazepam (Ativan) 1 MG tabletIndicat ions:Anxiety Take 1 (one) tablet by mouth every 6 hours as needed for Anxiety or Agitation 20 tablet 03/11/20 25 2024 Discontinued Active Problems Problem Noted Date Diagnosed Date Alcohol withdrawal syndrome with complication Long Q-T syndrome 03/11/2025 Abdominal pain, epigastric [...] Encounters Date Type Department Care Team Description 04/01/2025 Refill [facility] [place] [address] Audrey Richard MD MEDICATION REFILL 03/30/2025 11:03 AM CDT - 04/01/2025 2:26 PM CDT Hospital Encounter [facility] [address] [place] [address] Kunal Foster MD Addiction Medicine Discharge Disposition: Left Against Medical Advice/Discontinued Care 03/30/2025 Travel 03/28/2025 Refill [facility] [place] [address] Audrey Richard MD MEDICATION REFILL 03/25/2025 Refill [facility] [place] [address] Audrey Richard MD Refill Request 03/25/2025 Refill [place] [address] [place] [address] Audrey Richard MD MEDICATION REFILL 03/23/2025 Refill [place] [address] [place] [address] Audrey Richard MD MEDICATION REFILL 03/23/2025 Refill [address] [place] [address] Audrey Richard MD Refill Request 03/11/2025 Orders Only [place] [address] [place] [address] Audrey Richard MD Anxiety 03/11/2025 Orders Only [place] [address] [place] [address] Audrey Richard MD 03/07/2025 Orders Only [place] [address] [place] [address] Audrey Richard MD Anxiety 03/04/2025 Refill [address] [place] [address] Audrey Richard MD MEDICATION REFILL 02/10/2025 Travel 01/13/2025 Refill [address] [place] [address] Audrey Richard MD MEDICATION REFILL from Last [...] 0.5 27.4 Started: 1997 Smokeless Tobacco: Never Tobacco Cessation:Ready [...] Recorded Patient Health Questionnaire-2 Score 2 03/14/2025 [facility] [place] of Occupat ional Health - Occupational Stress [...] any time in the past 12 m [facility], were you homeless or living in a fci (including now)? 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 Gender Identity Not on file Sexual [...] Mass Index 22.3 03/30/2025 11:00 AM CDT Plan of Treatment Upcoming Encounters Date Type Department Care Team (Late st Contact Info) Description 04/07/2025 10:00 AM CDT Office Visit [facility] [address] [facility] [place] [phone] AydeeRasheedaTIFFANIE-EXPANSION ENVELOPE MAKER HAND [address] [phone] Health Maintenance Due Date Last Done Comments COLOGUARD (AGES 45-75) - COLON CA SCREENING 1979 COLON MONITORING 1979 COLONOSCOPY - COLON CA SCREENING 1979 CT COLONOGRAPHY - COLON CA SCREENING 1979 Colorectal Cancer Screening 1979 FIT - COLON CA SCREENING 1979 FLEX SIG - COLON CA SCREENING 1979 DTAP/TDAP/TD VACCINES (1 - Tdap) 1998 HEPATITIS B VACCINE (1 of 3 - 19+ 3-dose series) 1998 PNEUMOCOCCAL VACCINE (3 of 3 - PCV20 or PCV21) 2029 09/24/2017, 09/24/2016 ZOSTER VACCINE (1 of 2) 2029 LIPID TESTING 08/02/2029 08/02/2024 COVID-19 VACCINE Completed 08/16/2024, , 05/17/2022, Additional history exists INFLUENZA VACCINE Completed 08/31/2024, , 09/11/2022, Additional history exists DEPRESSION SCREENING Completed 03/30/2025, 07/22/20 24 HEPATITIS C SCREENING Completed 03/30/2025, 024 HIV SCREENING Completed 03/30/2025 HIB VACCINE Aged Out No longer eligi [...] ABUSE URINE PANEL Routine 11:34 AM CDT COMPREHENSIVE METABOLIC PANEL Routine 03/30/2025 11:33 AM CDT CBC W/O DIFFERENTIAL Routine 03/30/2025 11:33 AM CDT MAGNESIUM BLOOD Routine 03/30/2025 11:33 AM CDT ALCOHOL ETHYL BLOOD Routine 03/30/2025 1 1:33 AM CDT HIV-1 HIV-2 ANTIBODY + HIV P24 AG PANEL Routine 03/30/2025 11:33 AM CDT HEPATITIS SCREEN ACUTE Routine 11:33 AM CDT LIPID PROFILE Routine 08/02/2024 10:24 AM CDT Lipid screening from Last 3 Months or Most Recently Relevant to Health Maintenance Results * PT-INR (03/30/2025 1:09 PM CDT) PT 12.3 12.1 - 14.8 sec 03/30/2025 1:27 PM CDT [facility] INR 0.9 0.9 - 1.1 03/30/2025 1:27 PM CDT [facility] Blood BLOOD SPECIMEN / Unknown Venipuncture / Unknown 03/30/2025 1:09 PM CDT 03/30/2025 1:15 PM CDT Narrative [facility] - 03/30/2025 1:27 PM CDT Conventional Warfarin Anticoagulant Therapy: INR Reference Range: 2.0-3.0 Intensive Warfarin Anticoagulant Therapy: INR Reference Range: 2.5-3.5 Kunal Foster MD LAB - COAGULATION ORDERABLES Fin al Result [facility] [address] [place] [address] * XR Foot Left 3Vw [...] ABUSE URINE PANEL (03/30/2025 11:34 AM CDT) [facility] Amphetamines Screen Urine Not detected Not detected 03/30/2025 12:09 PM CDT [facility] Barbiturates Screen Urine Detected(A) Not detected 03/30/2025 12:09 PM CDT [facility] Benzodiazepines Screen Urine Detected(A) Not detected 03/30/2025 12:09 PM CDT [facility] Cocaine Screen Urine Not detected Not detected 03/30/2025 12:09 PM CDT [facility] Fentanyl Urine Not detected Not detected 03/30/2025 12:09 PM CDT [facility] Methadone Screen Urine Not detected Not detected 03/30/2025 12:09 PM CDT [facility] Opiate Screen Urine Not detected Not detected 03/30/2025 12:09 PM CDT [facility] Phencyclidine Screen Urine Not detected Not detected 03/30/2025 12:09 PM CDT [facility] Urine URINE / Unknown Collection / Unknown 03/30/2025 11:34 AM CDT 03/30/2025 11:52 AM CDT Narrative [facility] - 03/30/2025 12:09 PM CDT [...] LAB - URINE CHEMISTRY ORDERABLES Final Result [facility] [address] [place] [address] * HIV-1 HIV-2 ANTIBODY + HIV P24 AG PANEL (03/30/2025 11:33 AM CDT) [facility] HIV1/2 Ab + P24 Ag Non Reactive Non Reactive 03/30/2025 12:29 PM CDT [facility] Blood BLOOD SPECIMEN / Unknown Venipuncture / Unknown 03/30/2025 11:33 AM CDT 03/30/2025 11:52 AM CDT Narrative [facility] - 03/30/2025 12:29 PM CDT No Laboratory evidence of HIV infection. us Kunal Foster MD LAB - CHEMISTRY ORDERABLES Final Result Performing Organization Address City/[facility]/ZIP Co de Phone Number [facility] [address] [place], [place] [phone] * (ABNORMAL) CBC W/O DIFFERENTIAL (03/30/2025 11:33 AM CDT) WBC 11.2(H) 4.0 - 10.7 x10E9/L 03/30/2025 11:56 AM CDT [facility] RBC Count 4.24(L) 4.30 - 5.80 x10E12/L 03/30/2025 11:56 AM CDT [facility] Hemoglobin 14.4 13.3 - 17.5 g/dL 03/30/2025 11:56 AM CDT [facility] Hematocrit 41.4 38.7 - 51.1 % 03/30/2025 11:56 AM CDT [facility] MCV 97.6 80.0 - 98.0 fL 03/30/2025 11:56 AM CDT [facility] MCH 34.0(H) 26.7 - 33.6 pg 03/30/2025 11:56 AM CDT [facility] MCHC 34.8 31.7 - 36.3 g/dL 03/30/2025 11:56 AM CDT [facility] RDW-CV 12.3 11.3 - 14.8 % 03/30/2025 11:56 AM CDT [facility] Platelet Count 305 150 - 420 x10E9/L 03/30/2025 11:56 AM CDT [facility] MPV 8.8 7.8 - 11.4 fL 03/30/2025 11:56 AM CDT [facility] Blood BLOOD SPECIMEN / Unknown Venipuncture / Unknown 03/30/2025 11:33 AM CDT 03/30/2025 11:52 AM CDT us Kunal Foster MD LAB - HEMATOLOGY ORDERABLES Trish l Result Performing Organization Address City/[facility]/ZIP Co de Phone Number [facility] [address] [place] [address] * (ABNORMAL) COMPREHENSIVE METABOLIC PANEL (03/30/2025 11:33 AM CDT) [facility] Glucose 82 70 - 99 mg/dL 03/30/2025 12:09 PM [facility] Sodium 141 136 - 145 mmol/L 03/30/2025 12:09 PM [facility] Potassium 4.1 3.5 - 5.1 mmol/L 03/30/2025 12:09 PM [facility] Chloride 105 98 - 107 mmol/L 03/30/2025 12:09 PM [facility] CO2 24 22 - 29 mmol/L 03/30/2025 12:09 PM [facility] Calcium 8.8 8.4 - 10.4 mg/dL 03/30/2025 12:09 PM [facility] Anion Gap 12 6 - 16 mmol/L 03/30/2025 12:09 PM [facility] BUN 7 5.3 - 18.7 mg/dL 03/30/2025 12:09 PM [facility] Creatinine 0.73 0.72 - 1.25 mg/dL 03/30/2025 12:09 PM [facility] Alkaline Phosphatase 92 40 - 150 U/L 03/30/2025 12:09 PM [facility] ALT 41 6 - 57 U/L 03/30/2025 12:09 PM [facility] AST 62(H) 10 - 48 U/L 03/30/2025 12:09 PM [facility] Protein Total 6.7 6.4 - 8.3 gm/dL 03/30/2025 12:09 PM [facility] Albumin 3.7 3.4 - 5.0 gm/dL 03/30/2025 12:09 PM [facility] Bilirubin Total 0.3 0.2 - 1.2 mg/dL 03/30/2025 12:09 PM [facility] eGFR by CKD-EPI >90 >=90 mL/min/1.7 3 m2 03/30/2025 12:09 PM [facility] Blood BLOOD SPECIMEN / Unknown Venipuncture / Unknown 03/30/2025 11:33 AM CDT 03/30/2025 11:52 AM CDT Kunal Foster MD LAB - CHEMISTRY ORDERABLES Final Result Performing Organization Address City/[facility] Co de Phone Number [facility] [id number] [place] [id number] * MAGNESIUM BLOOD (03/30/2025 11:33 AM CDT) Magnesium 1.8 1.6 - 2.6 mg/dL 03/30/2025 12:09 PM CDT [facility] Blood BLOOD SPECIMEN / Unknown Venipuncture / Unknown 03/30/2025 11:33 AM CDT 03/30/2025 11:52 AM CDT Kunal Foster MD LAB - CHEMISTRY ORDERABLES Final Result Performing Organization Address [facility] Phone Number [facility] [address] [place] [phone] * (ABNORMAL) ALCOHOL ETHYL BLOOD (03/30/2025 11:33 AM CDT) Ethanol 52.1(H) <10 mg/dL 03/30/2025 12:09 PM CDT [facility] Ethanol Calculated 0.052 <=0.100 gm/dL 03/30/2025 12:09 PM CDT [facility] Blood BLOOD SPECIMEN / Unknown Venipuncture / Unknown 03/30/2025 11:33 AM CDT 03/30/2025 11:52 AM CDT Narrative [facility] - 03/30/2025 12:09 PM CDT [...] CHEMISTRY ORDERABLES Final Result Performing Organization Address City/[facility] Co de Phone Number [facility] [address] [place] [address] * HEPATITIS SCREEN ACUTE (03/30/2025 11:33 AM CDT) Pathologist [facility] HAV Antibody IgM Non Reactive Non Reactive 03/30/2025 12:30 PM CDT [facility] HBsAg Non Reactive Non Reactive 03/30/2025 12:30 PM CDT [facility] HBc Antibody IgM Non Reactive Non Reactive 03/30/2025 12:30 PM CDT [facility] HCV Antibody Screen Non Reactive Non Reactive 03/30/2025 12:30 PM CDT [facility] Blood BLOOD SPECIMEN / Unknown Venipuncture / Unknown 03/30/2025 11:33 AM CDT 03/30/2025 11:52 AM CDT Narrative [facility] - 03/30/2025 12:30 PM CDT Non Reactive - Antibodies to Hepatitis C virus (HCV) were not detected, result does not exclude early acute HCV infection. Kunal Foster MD LAB - CHEMISTRY ORDERABLES Final Result Performing Organization Address [facility] de Phone Number [facility] [address] [place] [address] * (ABNORMAL) LIPID PROFILE (08/02/2024 10:24 AM CDT) [facility] Cholesterol 193 <200 mg/dL [facility] HDL Cholesterol 68 > OR = 40 mg/dL [facility] Triglycerides 108 <150 mg/dL [facility] LDL Calculated 105(H) mg/dL (calc) [facility] Comment: Reference range: <100 Desirable range <100 mg/dL for primary prevention; <70 mg/dL for patients with CHD or diabetic patients with > or = 2 CHD risk factors. LDL-C is now calculated using the Mj-Joe calculation, which is a validated novel method providing better accuracy than the Friedewald equation in the estimation of LDL-C. Mj DUONG et al. REBECCA. 2013;310(19): 4766-6090 (http://education.[employer].AnovaStorm/faq/FUS764) CHOL/HDLC RATIO 2.8 <5.0 (calc) [facility] Non HDL Cholesterol 125 <130 mg/dL (calc) [facility] Comment: For patients with diabetes plus 1 major ASCVD risk factor, treating to a non-HDL-C goal of <100 mg/dL (LDL-C of <70 mg/dL) is considered a therapeutic option. Test Performed at: [facility] [address] LUISA FRAZIER MD Blood BLOOD SPECIMEN / Unknown 08/02/2024 10:24 AM CDT 08/02/2024 10:26 AM CDT us Power Garcia PA-C LAB - CHEMISTRY ORDERA BLES Final Result [address] [address] from Last 3 Months or Most Recently Relevant to Health Maintenance Insurance [facility] Advance Directives * Full Code (Latest Code Status on File) Date Activated Date Inactivated Comments 03/30/2025 9:40 AM 04/01/2025 3:26 PM * Full Code Date Activated Date Inactivated Comments 08/23/2021 5:26 AM 08/24/2021 10:29 AM Care Teams Tissue Packer Relationship Specialty Start Date End Date None, Physician PCP - General 11/03/24
--- OUTSIDE RECORDS SUMMARY | 2025-04-02 03:40 | XMS_ITS | Encounter Summary ---
Author Organization [facility] Address [address] [facility] [place] [address] Care Team Providers Care Starch Factory Laborer Name Role Phone Power Garcia PA-C Primary Care Provider None, Physician Primary Care Provider Unavailabl e Reason for Visit * Reason Onset Date Comments MEDICATION REFILL 10/14/2024 Encounter Details Date Type Department Care Team (Late st Contact Info) Description 10/14/2024 Refill [facility] [address] 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 [place] [place] [phone] Rasheeda Bajwa APRN-MOSAIC TECHNICIAN [address] [phone] documented as of this encounter Visit Diagnoses Diagnosis Inclusion cyst Sebaceous cyst documented in this encounter Care Teams Starch Factory Laborer Relationship Specialty Start Date End Date Power Garcia PA-C [address] [facility] [address] [place] [phone] PCP - General 08/13/21 11/02/24 None, Physician PCP - General 11/03/24 documented as of this encounter
--- OUTSIDE RECORDS SUMMARY | 2025-04-02 03:40 | XMS_ITS | Encounter Summary ---
Author Organization 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 Gender Identity Not on file Sexual Orientation [...] hours as needed for Anxiety or Agitation CTOR SUPPLY CHAIN documented in this encounter Plan of Treatment Upcoming Encounters Date Type Department Care Team (Late st Contact Info) Description 04/07/2025 10:00 AM CDT Office Visit [facility] Medicine [address] [place] [address], [place] [phone] Rasheeda Bajwa APRN-ANA [address] [place] [phone] documented as of this encounter Visit Diagnoses Diagnosis Anxiety Anxiety state, unspecified documented in this encounter Care Teams Line Out Man Relationship Specialty Start Date End Date None, Physician PCP - General 11/03/24 documented as of this encounter
--- OUTSIDE RECORDS SUMMARY | 2025-04-02 03:40 | XMS_ITS | Encounter Summary ---
Author Organization [facility] Address [address] [facility] [place] [address] Care Team Providers Care Warranty Coordinator Name Role Phone Power Garcia PA-C Primary Care Provider None, Physician Primary Care Provider Unavailabl e Reason for Visit * Reason Onset Date Comments MEDICATION REFILL 10/04/2024 Encounter Details Date Type Department Care Team (Late st Contact Info) Description 10/04/2024 Refill [facility] [address] [facility], [facility] [place] [phone] Candie Brady PA-C [address] [place] [address] MEDICATION REFILL Social History Tobacco Use Types [...] on file 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 Gender Identity Not on file Sexual Orientation Not on file 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 on file Not on file documented as of this encounter Plan of Treatment Upcoming Encounters Date Type Department Care Team (Late st Contact Info) Description 04/07/2025 10:00 AM CDT Office Visit [facility] [address] [facility], [place] [phone] Rasheeda Bajwa APRN-PARCEL POST CLERK [address] [phone] documented as of this encounter Visit Diagnoses Diagnosis Inclusion cyst Sebaceous cyst documented in this encounter Care Teams Warranty Coordinator Relationship Specialty Start Date End Date Power Garcia PA-C [address] [facility] [address] [place] [phone] PCP - General 08/13/21 11/02/24 None, Physician PCP - General 11/03/24 documented as of this encounter
--- OUTSIDE RECORDS SUMMARY | 2025-04-02 03:40 | XMS_ITS | Patient Health Record ---
Author Organization Formerly [facility], [facility] Address [address] [place] [address] Care Team Providers Care Phone Technician Name Role Phone Ankitaaiden Edgar Primary Care Provider Veronica Chadwick [phone] Allergies Allergen (clinical drug ingredient) Drug/Non Drug Allergy documented on EMR Reaction Allergy Type Onset Date Status moxifloxacin Avelox hives Drug Allergy Acti ve Reason For Referral No Information Medications Medication SIG (Take, Route, Fr equency, Duration) Notes Start Date End Date Status hydrOXYzine HCl 50 MG 1 tablet as needed Orally Once a day 03/29/2022 Active OLANZapine 10 MG 1 tablet Orally Once a day for 30 days Active Social History Tobacco Use: Social History Observation Description Date Details (start date - stop date) Current Smoker NA - NA Sex Assigned At : Social History Observation Description Sex Assigned At Male Dont use, Tobacco Use/Smoking Question Answer Notes Are you a current every day smoker Alcohol Screen (Audit-C) Question Answer Notes Did you have a drink contain ing alcohol in the past year? Yes How often did you have a dri nk containing alcohol in the past year? 4 or more times a week (4 points) How many drinks did you have on a typical day when you were drinking in the past year? 3 or 4 drinks (1 point) How often did you have 6 or more drinks on one occasion in the past year? Daily or almost daily (4 points) Points 9 Interpretation Positive Problems Problem Type SNOMED Code ICD Code Onset Dates Problem Status W/U Status Risk Notes Problem Tobacco user (012799921) Nicotine dependence, unspecified, uncomplicated (F17.200) Active confirmed Problem 13913735 Tobacco dependen ce (F17.200) Active confirmed Problem Insomnia (645852430) Insomnia (G47.00) Active confirmed Problem 03946494 Anxiety (F41.9) 08/23/20 22 Active confirmed Problem 695694847 Chemical depende ncy (F19.20) Active confirmed Problem Alcohol dependence (23955811) Alcohol dependence (F10.20) Active confirmed Problem Physical examination, complete (54661623) Physical exam (Z00.00) Active confirmed Problem 74600206 Alcohol use disorder (F10.99) Active confirmed Problem 39754814 Depression, unspecified depression type (F32.9) 08/23/20 22 Active confirmed Problem General examination of patient (992617338) Routine medical exam (Z00.00) Active confirmed Problem 565850960 Gastroesophageal reflux disease without esophagitis (K21.9) Active confirmed Plan Of Treatment No Information Insurance Providers Payer Name Payer Address Payer Phone Subscriber Number Group Number Insured Name Patient Relationship to Insured Coverage Start Date Coverage End Date [facility] Attn Claims Department [address] [place] [address] [phone] [id number] Iker Kuhn Self - patient is the insured 2 [facility] [address] [address] [place] [address] [id number] Iker Kuhn Self - patient is the insured 6 8 [facility] Attn Claims Department [address] [place] [address] [phone] [id number] Iker Kuhn Self - patient is the insured 2 Medications Administered Medication Instructions Date of Administration Dosage Notes Vivitrol 07/30/2017 380 mg Exp Dec 2019 M anufact by [employer] Pt shelley well. Vivitrol 08/27/2017 380 mg exp 12/2019 man ufact [employer]. pt tolerated well. Vivitrol 10/07/2017 380 mg Exp Jan 2020 M anufact by [employer] Pt shelley well. Vivitrol 11/05/2017 380 mg Exp 02/2020 Man ufact by [employer] Pt shelley well. Vivitrol 12/03/2017 380 mg Exp 02/2020 Man ufact by [employer] Pt shelley well. Vivitrol 12/31/2017 380 mg Exp 02/2020 Man ufact by [employer] Pt shelley well. Medical (General) History Medical History History ICD Code COPD Pancreatitis Insomnia Surgical History Surgery Date(Month/Year) Gall bladder removed 2020 Hospitalization History Reason Date(Month/Year) Seizure 01/2022 ER visit for abd pain,ulcer Nov 2017 alcohol detox 06/2017 pancreatitis 10/2016
--- OUTSIDE RECORDS SUMMARY | 2025-04-02 04:28 | XMS_ITS | Encounter Summary ---
Author Organization [facility] Address [address] [facility] [place] [address] Care Team Providers Care Bartender Helper Name Role Phone None, Physician Primary Care Provider Unavailabl e Reason for Visit * Reason Onset Date Comments MEDICATION REFILL 01/13/2025 Encounter Details Date Type Department Care Team (Late st Contact Info) Description 01/13/2025 Refill [facility] - Family Medicine [address] [place] [address] Audrey Richard MD [address] [address] MEDICATION REFILL Social History Tobacco [...] on file 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 Gender Identity Not on file Sexual [...] hours as needed for Anxiety or Agitation TRUCTION WORKER documented in this encounter Plan of Treatment Upcoming Encounters Date Type Department Care Team (Late st Contact Info) Description 04/07/2025 10:00 AM CDT Office Visit [facility] - Family Medicine [address] [place] [address], [facility] [place] [address] Rasheeda Bajwa APRN-AUDIO/VISUAL OPERATOR [address] [place] [phone] documented as of this encounter Visit Diagnoses Diagnosis Anxiety Anxiety state, unspecified documented in this encounter Care Teams Bartender Helper Relationship Specialty Start Date End Date None, Physician PCP - General 11/03/24 documented as of this encounter
--- OUTSIDE RECORDS SUMMARY | 2025-04-02 04:28 | XMS_ITS | Encounter Summary ---
Author Organization [facility] Address [address] [facility] [place] [address] Care Team Providers Care Public Health Worker Name Role Phone None, Physician Primary Care Provider Unavailabl e Reason for Visit * Reason Onset Date Comments MEDICATION REFILL 03/23/2025 Encounter Details Date Type Department Care Team (Late st Contact Info) Description 03/23/2025 Refill [facility] - Family Medicine [address] [place] [address] Audrey Richard MD [address] [address] MEDICATION REFILL Social History Tobacco [...] on file Legal Sex Male 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 Gender Identity Not on file Sexual Orientation Not on file 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 on file Not on file documented as of this encounter Plan of Treatment Upcoming Encounters Date Type Department Care Team (Late st Contact Info) Description 04/07/2025 10:00 AM CDT Office Visit [facility] - [address] [place] [address] Rasheeda Bajwa APRN-ANA [address] [place] [phone] documented as of this encounter Visit Diagnoses Diagnosis Anxiety Anxiety state, unspecified documented in this encounter Care Teams Public Health Worker Relationship Specialty Start Date End Date None, Physician PCP - General 11/03/24 documented as of this encounter
--- OUTSIDE RECORDS SUMMARY | 2025-04-02 04:28 | XMS_ITS | Encounter Summary ---
Author Organization [facility] Address [address] [facility] [place] [address] Care Team Providers Care Sanitation Truck Cleaner Name Role Phone None, Physician Primary Care Provider Unavailabl e Reason for Visit * Reason Onset Date Comments MEDICATION REFILL 11/24/2024 Encounter Details Date Type Department Care Team (Late st Contact Info) Description 11/24/2024 Refill [facility] - Family Medicine [address] [place] [address] Audrey Richard MD [address] [address] MEDICATION REFILL Social History Tobacco [...] on file Legal 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 Gender Identity Not on file Sexual Orientation Not on file 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 on file Not on file documented as of this encounter Miscellaneous Notes * Telephone Encounter - Rm Mondragon - 11/25/2024 8:53 AM CST duplicate TS DOCTOR documented in this encounter Plan of Treatment Upcoming Encounters Date Type Department Care Team (Late st Contact Info) Description 04/07/2025 10:00 AM CDT Office Visit [facility] - Family [address] [place] [address] Rasheeda Bajwa APRN-ANA [address] [place] [phone] documented as of this encounter Visit Diagnoses Diagnosis Anxiety Anxiety state, unspecified documented in this encounter Care Teams Sanitation Truck Cleaner Relationship Specialty Start Date End Date None, Physician PCP - General 11/03/24 documented as of this encounter
--- OUTSIDE RECORDS SUMMARY | 2025-04-02 04:28 | XMS_ITS | Encounter Summary ---
Author Organization [facility] Address [address] [place] [address] Care Team Providers Care Lead Pressman Roto Gravure Printing Name Role Phone None, Provider Primary Care Provider Unavaila ble Encounter Details Date Type Department Care Team (Late st Contact Info) Description 03/12/2019 Hospital Follow-up Call [facility] [place] [address] Ekaterina Ramos Social History Tobacco Use Types [...] on filedocumented in this encounter Care Teams Lead Pressman Roto [employer] Printing Relationship Specialty Start Date End Date None, Provider, PCP - General 03/01/19 documented as of this encounter
--- OUTSIDE RECORDS SUMMARY | 2025-04-02 04:28 | XMS_ITS | Encounter Summary ---
Author Organization [facility] Address [address] [facility] [place] [address] Care Team Providers Care Microbiology Lab Analyst Name Role Phone Power Garcia PA-C Primary Care Provider None, Physician Primary Care Provider Unavailabl e Reason for Visit * Reason Onset Date Comments MEDICATION REFILL 10/04/2024 Encounter Details Date Type Department Care Team (Late st Contact Info) Description 10/04/2024 Refill [facility] - Plastic Surgery [address] [facility] [place] [phone] Candie Brady PA-C [address] [place] [address] MEDICATION REFILL Social History Tobacco Use Types [...] file 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 Gender Identity Not on file Sexual Orientation Not on file 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 on file Not on file documented as of this encounter Plan of Treatment Upcoming Encounters Date Type Department Care Team (Late st Contact Info) Description 04/07/2025 10:00 AM CDT Office Visit [facility] - Family [facility] [address] [facility], [place] [phone] Rasheeda Bajwa APRN-YEAST MAKER [address] [phone] documented as of this encounter Visit Diagnoses Diagnosis Inclusion cyst Sebaceous cyst documented in this encounter Care Teams Microbiology Lab Analyst Relationship Specialty Start Date End Date Power Garcia PA-C [address] [facility] [address] [place] [phone] PCP - General 08/13/21 11/02/24 None, Physician PCP - General 11/03/24 documented as of this encounter
--- OUTSIDE RECORDS SUMMARY | 2025-04-02 04:28 | XMS_ITS | Encounter Summary ---
Author Organization [facility] Address [address] [place] [address] Care Team Providers Care Fryer Line Helper Name Role Phone None, Physician Primary Care Provider Unavailabl e Reason for Visit * Auth/Cert (Routine) Specialty Diagnoses / Procedures Referred By Contac t Referred To Contact Diagnoses Alcohol withdrawl Referral ID Status Reason Start Date Expiration Date Visits Re quested Visits Authorized [id number] 1 1 Encounter Details Date Type Department Care Team (Latest Contact Info) Description 03/30/2025 11:03 AM CDT - 04/01/2025 2:26 PM CDT Hospital Encounter [facility] [address] [place] [address] Kunal Foster MD [address] [address] Addiction Medicine Discharge Disposition: Left [...] Recorded Patient Health Questionnaire-2 Score 2 03/14/2025 [facility] - Occupational Stress [...] any time in the past 12 m [facility], were you homeless or living in a nursing home (including now)? Patient declined 03/30/2025 Sex and Gender Information Value Date Recorded Sex Assigned at Not on file Legal Sex Male 5:33 AM ABSTRACT MAKER Gender Identity Not on file Sexual Orientation [...] was assigned a 'bad Bed', RN and SAFE TECHNICIAN replaced the bed, Pt. Con tinued toto [...] Emergency Contact: Dale Kuhn Mobile Relation: Father Personal Caregiver needed? No Secondary Emergency Contact: Renzo Kuhnen Address: [place] [address] Mobile Relation: Mother Personal Caregiver needed? No Transportation at Discharge: Family: READMISSION RISK SCORE is 6 at 11:14 AM 04/01/2025.: Name: Chio Garcia RN [phone] * Kunal Foster MD - 04/01/2025 9:47 AM CDT Progress Note 04/01/2025 Patient Name: Iker Kuhn CSN: [id number] Date of : 1980 Admit Date: 03/30/2025 [...] on in the past) Plans to attend [facility] for aftercare Conservative treatment left 5th [...] time: home. Pt plans to go to [facility] for aftercare. Pt will follow up with AA/NA meetings also. Barriers to discharge: medical clearance. Lives with: Family Members Physical Limitations: None Requires Assistance With: None Preferred Pharmacy: [id number] - [address] [facility] [address] [facility] [employer] [address] [employer] [facility] [address] READMISSION RISK SCORE is 5 at 10:14 AM 03/31/2025. Met with patient Family Support (name and phone): Extended Emergency Contact Information Primary Emergency Contact: Dale Kuhn Mobile Relation: Father Personal Caregiver needed? No Secondary Emergency Contact: Cherelle Kuhn Address: [place] [address] Mobile Relation: Mother Personal Caregiver needed? No Patient or tax representative requests care coordination reach out to family or caregiver listed above regarding discharge planning and at time of discharge? Yes Durable Medical Equipment Planning Equipment at Home: None List DME pt. requires but does not have.: None Communication Skills Instructor Referral: Yes Will continue to follow. For any questions or needs please contact: Building Manager/Social Work Name/Phone number: Chio Garcia RN [phone] * Kunal Foster MD - 03/31/2025 8:32 AM CDT Progress Note 03/31/2025 Patient Name: Iker Kuhn CSN: [id number] Date of : 1980 Admit Date: 03/30/2025 [...] on in the past) Plans to attend [facility] for aftercare Conservative treatment left 5th [...] Reason Seeking Treatment, and Appointment Observations: Pt, Ikre Kuhn is a 44 yearold male seeking [...] time) Previous CD/ Treatment (Dates and Locations): [facility]. Threats to Engagement in Treatment, Reported [...] Reactions: Avalox. HI/SI/Hallucinations: Denies Medications: None. Pharmacy: [facility]. Primary Procedure and Provisional Diagnosis: Medical Stabilization [...] at Admission: Pt plans to go to [facility] for aftercare. Pt will follow up [...] night. Past Medical History: Seen at a [place] clinic but previous provider has left and has yet to meet his new one 1) Seizures, probably withdrawal 2) Pancreatitis x 2 3) s/p lab cholecystectomy 4) s/p excision facial cysts 2023 Medicines: Medications[1] Allergies: Allergies[2] Social History: Continuous alcohol use as above, also smokes marijuana and 1/2 packs of cigarettes daily. Has some college towards a welding degree. 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 Plans to attend [facility] for aftercare Check left foot X-ray Outpatient management not feasible due to severity of withdrawal symptoms requiring gychs-jye-qcmqknjvyhlk supervision to reduce risk for relapse. [1] No medications prior to admission. [2] Allergies Allergen Reactions Moxifloxacin Rash documented in this encounter Plan of Treatment Upcoming Encounters Date Type Department Care Team (Late st Contact Info) Description 04/07/2025 10:00 AM CDT Office Visit [facility] - Family Medicine [address] [place] [address], [place] [address] Rasheeda Bajwa APRN-ANA [address] [place] [address] documented as of this encounter Procedures Procedure [...] LAB - COAGULATION ORDERABLES Fin al Result [facility] [address] [place] [address] * XR Foot Left 3Vw [...] ABUSE URINE PANEL (03/30/2025 11:34 AM CDT) [facility] Amphetamines Screen Urine Not detected Not detected 03/30/2025 12:09 PM CDT [facility] Barbiturates Screen Urine Detected(A) Not detected 03/30/2025 12:09 PM CDT [facility] Benzodiazepines Screen Urine Detected(A) Not detected [...] detected Not detected 03/30/2025 12:09 PM CDT [facility] Urine URINE / Unknown Collection / Unknown 03/30/2025 11:34 AM CDT 03/30/2025 11:52 AM CDT Narrative [facility] - 03/30/2025 12:09 PM CDT This [...] LAB - URINE CHEMISTRY ORDERABLES Final Result [facility] [address] [place] [address] * (ABNORMAL) COMPREHENSIVE METABOLIC PANEL (03/30/2025 11:33 AM CDT) Pathologist [facility] Glucose 82 70 - 99 mg/dL 03/30/2025 12:09 PM CDT [facility] Sodium 141 136 - 145 mmol/L 03/30/2025 12:09 PM CDT [facility] Potassium 4.1 3.5 - 5.1 mmol/L 03/30/2025 12:09 PM CDT [facility] Chloride 105 98 - 107 mmol/L 03/30/2025 12:09 PM CDT [facility] CO2 24 22 - 29 mmol/L 03/30/2025 12:09 PM CDT [facility] Calcium 8.8 8.4 - 10.4 mg/dL 03/30/2025 12:09 PM T [facility] Anion Gap 12 6 - 16 mmol/L 03/30/2025 12:09 PM CDT [facility] BUN 7 5.3 - 18.7 mg/dL 03/30/2025 12:09 PM T [facility] Creatinine 0.73 0.72 - 1.25 mg/dL 03/30/2025 12:09 PM T [facility] Alkaline Phosphatase 92 40 - 150 U/L 03/30/2025 12:09 PM CDT [facility] ALT 41 6 - 57 U/L 03/30/2025 12:09 PM T [facility] AST 62(H) 10 - 48 U/L 03/30/2025 12:09 PM T [facility] Protein Total 6.7 6.4 - 8.3 gm/dL 03/30/2025 12:09 PM T [facility] Albumin 3.7 3.4 - 5.0 gm/dL 03/30/2025 12:09 PM T [facility] Bilirubin Total 0.3 0.2 - 1.2 mg/dL 03/30/2025 12:09 PM T [facility] eGFR by CKD-EPI >90 >=90 mL/min/1.7 3 m2 03/30/2025 12:09 PM T [facility] Blood BLOOD SPECIMEN / Unknown Venipuncture / Unknown 03/30/2025 11:33 AM CDT 03/30/2025 11:52 AM CDT us Kunal Foster MD LAB - CHEMISTRY ORDERABLES Final Result [facility] [address] [place] [address] * (ABNORMAL) CBC W/O DIFFERENTIAL (03/30/2025 11:33 AM CDT) WBC 11.2(H) 4.0 - 10.7 x10E9/L 03/30/2025 11:56 AM CDT [facility] RBC Count 4.24(L) 4.30 - 5.80 x10E12/L 03/30/2025 11:56 AM CDT [facility] Hemoglobin 14.4 13.3 - 17.5 g/dL 03/30/2025 11:56 AM CDT [facility] Hematocrit 41.4 38.7 - 51.1 % 03/30/2025 11:56 AM CDT [facility] MCV 97.6 80.0 - 98.0 fL 03/30/2025 11:56 AM CDT [facility] MCH 34.0(H) 26.7 - 33.6 pg 03/30/2025 11:56 AM CDT [facility] MCHC 34.8 31.7 - 36.3 g/dL 03/30/2025 11:56 AM CDT [facility] RDW-CV 12.3 11.3 - 14.8 % 03/30/2025 11:56 AM CDT [facility] Platelet Count 305 150 - 420 x10E9/L 03/30/2025 11:56 AM CDT [facility] MPV 8.8 7.8 - 11.4 fL 03/30/2025 11:56 AM CDT [facility] Blood BLOOD SPECIMEN / Unknown Venipuncture / Unknown 03/30/2025 11:33 AM CDT 03/30/2025 11:52 AM CDT Kunal Foster MD LAB - HEMATOLOGY ORDERABLES Trish Result [facility] [address] [place] [address] * MAGNESIUM BLOOD (03/30/2025 11:33 AM CDT) [facility] Magnesium 1.8 1.6 - 2.6 mg/dL 03/30/2025 12:09 PM CDT [facility] Blood BLOOD SPECIMEN / Unknown Venipuncture / Unknown 03/30/2025 11:33 AM CDT 03/30/2025 11:52 AM CDT Kunal Foster MD LAB - CHEMISTRY ORDERABLES Final Result Performing Organization Address [facility] Co de Phone Number [facility] [address] [place] [address] * (ABNORMAL) ALCOHOL ETHYL BLOOD (03/30/2025 11:33 AM CDT) Ethanol 52.1(H) <10 mg/dL 03/30/2025 12:09 PM CDT [facility] Ethanol Calculated 0.052 <=0.100 gm/dL 03/30/2025 12:09 PM CDT [facility] Blood BLOOD SPECIMEN / Unknown Venipuncture / Unknown 03/30/2025 11:33 AM CDT 03/30/2025 11:52 AM CDT Narrative [facility] - 03/30/2025 12:09 PM CDT Ethanol [...] CHEMISTRY ORDERABLES Final Result Performing Organization Address [facility] de Phone Number [facility] [address] [place] [address] * HIV-1 HIV-2 ANTIBODY + HIV P24 AG PANEL (03/30/2025 11:33 AM CDT) Pathologist [facility] HIV1/2 Ab + P24 Ag Non Reactive Non Reactive 03/30/2025 12:29 PM CDT [facility] Blood BLOOD SPECIMEN / Unknown Venipuncture / Unknown 03/30/2025 11:33 AM CDT 03/30/2025 11:52 AM CDT Narrative [facility] - 03/30/2025 12:29 PM CDT No Laboratory evidence of HIV infection. Kunal Foster MD LAB - CHEMISTRY ORDERABLES Final Result Performing Organization Address [facility] Co de Phone Number [facility] [address] [place] [address] * HEPATITIS SCREEN ACUTE (03/30/2025 11:33 AM CDT) HAV Antibody IgM Non Reactive Non Reactive 03/30/2025 12:30 PM CDT [facility] HBsAg Non Reactive Non Reactive 03/30/2025 12:30 PM CDT [facility] HBc Antibody IgM Non Reactive Non Reactive 03/30/2025 12:30 PM CDT [facility] HCV Antibody Screen Non Reactive Non Reactive 03/30/2025 12:30 PM CDT [facility] Blood BLOOD SPECIMEN / Unknown Venipuncture / Unknown 03/30/2025 11:33 AM CDT 03/30/2025 11:52 AM CDT Narrative [facility] - 03/30/2025 12:30 PM CDT Non Reactive - Antibodies to Hepatitis C virus (HCV) were not detected, result does not exclude early acute HCV infection. Kunal Foster MD LAB - CHEMISTRY ORDERABLES Final Result Performing Organization Address [facility] de Phone Number [facility] [address] [place] [address] documented in this encounter Visit Diagnoses Diagnosis [...] DAILY, First dose (after last modification) on [facility] 04/02/25 at 0900, Until Discontinued, Please remove [...] 60 1212 ($ Given - Provider: Christin Batrh RN)2026 ($ Given - Provider: Veronica Olmos [...] Nurse) 0853 ($ Given - Provider: Hannah Cordova Nurse) chlordiazePOXIDE (Librium) capsule 5 mg () [...] patency. documented in this encounter Care Teams Fryer Line Helper Relationship Specialty Start Date End Date None, Physician PCP - General 11/03/24 documented as of this encounter
--- OUTSIDE RECORDS SUMMARY | 2025-04-02 04:28 | XMS_ITS | Encounter Summary ---
Author Organization [facility] Address [address] [facility] [place] [address] Care Team Providers Care Personal Financial Representative Name Role Phone None, Physician Primary Care Provider Unavailabl e Reason for Visit * Reason Onset Date Comments MEDICATION REFILL 03/28/2025 Encounter Details Date Type Department Care Team (Late st Contact Info) Description 03/28/2025 Refill [facility] - Family Medicine [address] [place] [address] Audrey Richard MD [address] [address] MEDICATION REFILL Social History Tobacco [...] Recorded Patient Health Questionnaire-2 Score 2 03/14/2025 [facility] [place] of Occupat ional Health - Occupational Stress [...] any time in the past [address] [facility], were you homeless or living in a custodial (including now)? 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
--- OUTSIDE RECORDS SUMMARY | 2025-04-02 04:28 | XMS_ITS | Encounter Summary ---
Author Organization [facility] Address [address] [facility] [place] [address] Care Team Providers Care Wooden Boat Builder Name Role Phone Power Garcia PA-C Primary Care Provider None, Physician Primary Care Provider Unavailabl e Reason for Visit * Reason Onset Date Comments MEDICATION REFILL 10/14/2024 Encounter Details Date Type Department Care Team (Late st Contact Info) Description 10/14/2024 Refill [facility] - Plastic Surgery [address] [facility], [facility] 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 on file Not on file documented as of this encounter Plan of Treatment Upcoming Encounters Date Type Department Care Team (Late st Contact Info) Description 04/07/2025 10:00 AM CDT Office Visit [facility] - Family [facility] [address] [facility], [place] [phone] Rasheeda Bajwa APRN-HISTORIC CLOTHING AND COSTUME MAKER [address] [phone] documented as of this encounter Visit Diagnoses Diagnosis Inclusion cyst Sebaceous cyst documented in this encounter Care Teams Wooden Boat Builder Relationship Specialty Start Date End Date Power Garcia PA-C [address] [facility] [address] [place] [phone] PCP - General 08/13/21 11/02/24 None, Physician PCP - General 11/03/24 documented as of this encounter
--- OUTSIDE RECORDS SUMMARY | 2025-04-02 04:28 | XMS_ITS | Encounter Summary ---
Author Organization [facility] Address [address] [place] [address] Care Team Providers Care [place] Internship Name Role Phone None, Physician Primary Care Provider Unavailabl e Reason for Visit * Reason Onset Date Comments MEDICATION REFILL 03/25/2025 Encounter Details Date Type Department Care Team (Late st Contact Info) Description 03/25/2025 Refill [facility] Medicine [address] [place] [address] Audrey Richard MD [address] [phone] MEDICATION REFILL Social History Tobacco [...] file Legal Sex Male 5:33 AM SUPERVISOR TELLERS Gender Identity Not on file Sexual Orientation [...] [facility] [address] [place] [address], [place] [phone] Rasheeda Bajwa APRN-CNP [address] [place] [phone] documented as of this encounter Visit Diagnoses Diagnosis Anxiety Anxiety state, unspecified documented in this encounter Care Teams Spring Internship Relationship Specialty Start Date End Date None, Physician PCP - General 11/03/24 documented as of this encounter
--- OUTSIDE RECORDS SUMMARY | 2025-04-02 04:28 | XMS_ITS | Referral Summary ---
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 Gender Identity Not on file Sexual [...] Plan of Treatment Not on file Insurance [facility] MEDICAID [facility] Member Subscriber Plan / Payer (Ef fective 2023-Present) Name:Iker Kuhn Relation to Subscriber:Self Name:Iker Kuhn Payer ID:[id number] (NAIC) Group ID:Not on file Type:MEDICAID RISK OTHER Address: ATTN: CLAIMS DEPT [address] [facility] [place] [phone] [facility] Advance Directives For more information, please contact: [phone] * Full Code (Latest Code Status on File) Date Activated Date Inactivated Comments 07/05/2023 9:03 AM 07/07/2023 8:26 PM * Full Code Date Activated Date Inactivated Comments 02/28/2023 12:06 PM 03/05/2023 7:01 PM Care Teams Writer Producer Relationship Specialty Start Date End Date No, Physician PCP - General 03/10/23
--- OUTSIDE RECORDS SUMMARY | 2025-04-02 04:28 | XMS_ITS | CONTINUITY OF CARE DOCUMENT ---
Author Name marlin isaac Address Unknown Organization [facility] Address [address] [place] [address] [address] [place] [address] Phone [phone] Care Team Providers Care Final Inspector And Tester Name Role Phone Moe GAMA, Angelo Unavailable INGE IVEY MD Unavailable INSURANCE PROVIDERS Payer name Policy type / Coverage type [place] red democrat ID [employer] Medicaid [id number]
--- OUTSIDE RECORDS SUMMARY | 2025-04-02 04:28 | XMS_ITS | Encounter Summary ---
Author Organization [facility] Address [address] [facility] [place] [address] Care Team Providers Care Voice Systems Engineer Name Role Phone Power Garcia PA-C Primary Care Provider None, Physician Primary Care Provider Unavailabl e Reason for Visit * Reason Onset Date Comments MEDICATION REFILL 09/18/2021 Encounter Details Date Type Department Care Team (Late st Contact Info) Description 09/18/2021 Refill [facility] Family and Community Medicine [address] [place], [place] [phone] Power Garcia PA-C [address] [place] [phone] MEDICATION REFILL Social History Tobacco Use Types Packs/Day Years Used Date Smoking Tobacco: Every Day Cigarettes Smokeless Tobacco: Never Alcohol Use Standard Drinks/Week Comments Yes 0 (1 standard drink = 0.6 oz pur e alcohol) 4 per Sex and Gender Information Value Date Recorded Sex Assigned at Not on file 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
--- OUTSIDE RECORDS SUMMARY | 2025-04-02 04:28 | XMS_ITS | Encounter Summary ---
Author Organization [facility] Address [address] [place] [address] Care Team Providers Care Senior Java Web Developer Name Role Phone None, Physician Primary Care Provider Unavailabl e Reason for Visit * Reason Onset Date Comments MEDICATION REFILL 04/01/2025 Encounter Details Date Type Department Care Team (Late st Contact Info) Description 04/01/2025 Refill [facility] [address] [place] [address] Audrey Richard MD [address] [phone] MEDICATION REFILL Social History Tobacco [...] Recorded Patient Health Questionnaire-2 Score 2 03/14/2025 [facility] [place] of Occupat ional Health - Occupational Stress [...] any time in the past 12 m [facility], were you homeless or living in a correction (including now)? 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
--- OUTSIDE RECORDS SUMMARY | 2025-04-02 04:28 | XMS_ITS | Encounter Summary ---
Author Organization [facility] Address [address] [facility] [place] [address] Care Team Providers Care Transmitter Engineer In Charge Name Role Phone Power Garcia PA-C Primary Care Provider None, Physician Primary Care Provider Unavailabl e Reason for Visit * Reason Onset Date Comments MEDICATION REFILL 10/01/2024 Encounter Details Date Type Department Care Team (Late st Contact Info) Description 10/01/2024 Refill [facility] - Plastic Surgery [address] [facility], [facility] [place] [phone] Candie Brady PA-C [address] [place] [address] MEDICATION REFILL Social History Tobacco Use Types [...] on file 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 Gender Identity Not on file Sexual Orientation Not on file 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 on file Not on file documented as of this encounter Plan of Treatment Upcoming Encounters Date Type Department Care Team (Late st Contact Info) Description 04/07/2025 10:00 AM CDT Office Visit [facility] - Family [facility] [address] [facility] [place] [phone] Rasheeda Bajwa APRN-AUTOMOTIVE SERVICE PROFESSIONAL [address] [phone] documented as of this encounter Visit Diagnoses Diagnosis Inclusion cyst Sebaceous cyst documented in this encounter Care Teams Transmitter Engineer In Charge Relationship Specialty Start Date End Date Power Garcia PA-C [address] [facility] [address] [place] [phone] PCP - General 08/13/21 11/02/24 None, Physician PCP - General 11/03/24 documented as of this encounter
--- OUTSIDE RECORDS SUMMARY | 2025-04-02 04:28 | XMS_ITS | Encounter Summary ---
Author Organization [facility] Address [address] [place] [address] Care Team Providers Care Bobtailer Name Role Phone None, Provider Primary Care Provider Unavaila ble Encounter Details Date Type Department Care Team (Late st Contact Info) Description 03/12/2019 [facility] Follow-up [facility] [place] [address] Ekaterina Ramos Social History Tobacco Use Types [...] on filedocumented in this encounter Care Teams Bobtailer Relationship Specialty Start Date End Date None, Provider, PCP - General 03/01/19 documented as of this encounter
--- OUTSIDE RECORDS SUMMARY | 2025-04-02 04:28 | XMS_ITS | Clinical Summary ---
Author Organization [facility] Address [address] [place] [address] Care Team Providers Care Wind Power Project Manager Name Role Phone None, Physician Primary Care Provider Unavailabl e Source Comments [facility],non-owned Affiliates and Associated Physician Practices is amultiple site organization consisting of ambulatory clinics and hospital sitesin [place], [place], [place] and [place]. This disclosure is being madepursuant to the Care Everywhere program and may not contain all information available regarding this patient. Last updated 18.[facility] Allergies Active Allergy Reactions Criticality Noted Date [...] Refill [facility] [place] [address] [address] [address] [place] [address] Audrey Richard MD MEDICATION REFILL 03/30/2025 11:03 AM CDT - 04/01/2025 2:26 PM CDT Hospital Encounter [facility] [address] [place] [address] Kunal Foster MD Addiction Medicine Discharge Disposition: Left Against Medical Advice/Discontinued Care 03/30/2025 Travel 03/28/2025 Refill [facility] [place] [address] [address] Audrey Richard MD MEDICATION REFILL 03/25/2025 Refill [facility] [place] [address] Audrey Richard MD Refill Request 03/25/2025 Refill [place] [address] [place] [address] Audrey Richard MD MEDICATION REFILL 03/23/2025 Refill [place] [address] [place] [address] Audrey Richard MD MEDICATION REFILL 03/23/2025 Refill [place] [address] [place] [address] Audrey Richard MD Refill Request 03/11/2025 Orders Only [place] [address] [place] [address] Audrey Richard MD Anxiety 03/11/2025 Orders Only [place] [address] [place] [address] Audrey Richard MD 03/07/2025 Orders Only [place] [address] [place] [address] Audrey Richard MD Anxiety 03/04/2025 Refill [place] [address] [place] [address] Audrey Richard MD MEDICATION REFILL 02/10/2025 Travel 01/13/2025 Refill [place] [address] [place] [address] Audrey Richard MD MEDICATION REFILL from Last [...] Recorded Patient Health Questionnaire-2 Score 2 03/14/2025 [facility] [place] [facility] Occupat ional Health - Occupational Stress [...] time in the past [address] [facility], were you homeless or living in a [facility] (including now)? 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 Gender Identity Not on file [...] CDT Office Visit [facility] [address] [facility] [place] [phone] AydeeRasheedaTIFFANIE-UNDER GROUND MINER [address] [phone] Health Maintenance Due Date Last Done Comments [...] 0.9 - 1.1 03/30/2025 1:27 PM CDT [facility] Blood BLOOD SPECIMEN / Unknown Venipuncture / Unknown 03/30/2025 1:09 PM CDT 03/30/2025 1:15 PM CDT Narrative [facility] - 03/30/2025 1:27 PM CDT Conventional Warfarin Anticoagulant Therapy: INR Reference Range: 2.0-3.0 Intensive Warfarin Anticoagulant Therapy: INR Reference Range: 2.5-3.5 Kunal Foster MD LAB - COAGULATION ORDERABLES Fin al Result [facility] [address] [place] [address] * XR Foot Left 3Vw [...] ABUSE URINE PANEL (03/30/2025 11:34 AM CDT) [facility] Amphetamines Screen Urine Not detected Not detected 03/30/2025 12:09 PM CDT [facility] Barbiturates Screen Urine Detected(A) Not detected 03/30/2025 12:09 PM CDT [facility] Benzodiazepines Screen Urine Detected(A) Not detected 03/30/2025 12:09 PM CDT [facility] Cocaine Screen Urine Not detected Not detected 03/30/2025 12:09 PM CDT [facility] Fentanyl Urine Not detected Not detected 03/30/2025 12:09 PM CDT [facility] Methadone Screen Urine Not detected Not detected 03/30/2025 12:09 PM CDT [facility] Opiate Screen Urine Not detected Not detected 03/30/2025 12:09 PM CDT [facility] Phencyclidine Screen Urine Not detected Not detected 03/30/2025 12:09 PM CDT [facility] Urine URINE / Unknown Collection / Unknown 03/30/2025 11:34 AM CDT 03/30/2025 11:52 AM CDT Narrative [facility] - 03/30/2025 12:09 PM CDT [...] LAB - URINE CHEMISTRY ORDERABLES Final Result [facility] [address] [place] [address] * HIV-1 HIV-2 ANTIBODY + HIV P24 AG PANEL (03/30/2025 11:33 AM CDT) [facility] HIV1/2 Ab + P24 Ag Non Reactive Non Reactive 03/30/2025 12:29 PM CDT [facility] Blood BLOOD SPECIMEN / Unknown Venipuncture / Unknown 03/30/2025 11:33 AM CDT 03/30/2025 11:52 AM CDT Narrative [facility] - 03/30/2025 12:29 PM CDT No Laboratory evidence of HIV infection. us Kunal Foster MD LAB - CHEMISTRY ORDERABLES Final Result Performing Organization Address City/[facility]/ZIP Co de Phone Number [facility] [address] [place], [place] [phone] * (ABNORMAL) CBC W/O DIFFERENTIAL (03/30/2025 11:33 AM CDT) WBC 11.2(H) 4.0 - 10.7 x10E9/L 03/30/2025 11:56 AM CDT [facility] RBC Count 4.24(L) 4.30 - 5.80 x10E12/L 03/30/2025 11:56 AM CDT [facility] Hemoglobin 14.4 13.3 - 17.5 g/dL 03/30/2025 11:56 AM CDT [facility] Hematocrit 41.4 38.7 - 51.1 % 03/30/2025 11:56 AM CDT [facility] MCV 97.6 80.0 - 98.0 fL 03/30/2025 11:56 AM CDT [facility] MCH 34.0(H) 26.7 - 33.6 pg 03/30/2025 11:56 AM CDT [facility] MCHC 34.8 31.7 - 36.3 g/dL 03/30/2025 11:56 AM CDT [facility] RDW-CV 12.3 11.3 - 14.8 % 03/30/2025 11:56 AM CDT [facility] Platelet Count 305 150 - 420 x10E9/L 03/30/2025 11:56 AM CDT [facility] MPV 8.8 7.8 - 11.4 fL 03/30/2025 11:56 AM CDT [facility] Blood BLOOD SPECIMEN / Unknown Venipuncture / Unknown 03/30/2025 11:33 AM CDT 03/30/2025 11:52 AM CDT us Kunal Foster MD LAB - HEMATOLOGY ORDERABLES Trish l Result Performing Organization Address City/[facility]/ZIP Co de Phone Number [facility] [address] [place] [address] * (ABNORMAL) COMPREHENSIVE METABOLIC PANEL (03/30/2025 11:33 AM CDT) [facility] Glucose 82 70 - 99 mg/dL 03/30/2025 12:09 PM [facility] Sodium 141 136 - 145 mmol/L 03/30/2025 12:09 PM [facility] Potassium 4.1 3.5 - 5.1 mmol/L 03/30/2025 12:09 PM [facility] Chloride 105 98 - 107 mmol/L 03/30/2025 12:09 PM [facility] CO2 24 22 - 29 mmol/L 03/30/2025 12:09 PM [facility] Calcium 8.8 8.4 - 10.4 mg/dL 03/30/2025 12:09 PM [facility] Anion Gap 12 6 - 16 mmol/L 03/30/2025 12:09 PM [facility] BUN 7 5.3 - 18.7 mg/dL 03/30/2025 12:09 PM [facility] Creatinine 0.73 0.72 - 1.25 mg/dL 03/30/2025 12:09 PM [facility] Alkaline Phosphatase 92 40 - 150 U/L 03/30/2025 12:09 PM [facility] ALT 41 6 - 57 U/L 03/30/2025 12:09 PM [facility] AST 62(H) 10 - 48 U/L 03/30/2025 12:09 PM [facility] Protein Total 6.7 6.4 - 8.3 gm/dL 03/30/2025 12:09 PM [facility] Albumin 3.7 3.4 - 5.0 gm/dL 03/30/2025 12:09 PM [facility] Bilirubin Total 0.3 0.2 - 1.2 mg/dL 03/30/2025 12:09 PM [facility] eGFR by CKD-EPI >90 >=90 mL/min/1.7 3 m2 03/30/2025 12:09 PM [facility] Blood BLOOD SPECIMEN / Unknown Venipuncture / Unknown 03/30/2025 11:33 AM CDT 03/30/2025 11:52 AM CDT Kunal Foster MD LAB - CHEMISTRY ORDERABLES Final Result Performing Organization Address City/[facility] Co de Phone Number [facility] [id number] [place] [phone] * MAGNESIUM BLOOD (03/30/2025 11:33 AM CDT) Magnesium 1.8 1.6 - 2.6 mg/dL 03/30/2025 12:09 PM CDT [facility] Blood BLOOD SPECIMEN / Unknown Venipuncture / Unknown 03/30/2025 11:33 AM CDT 03/30/2025 11:52 AM CDT Kunal Foster MD LAB - CHEMISTRY ORDERABLES Final Result Performing Organization Address [facility] Phone Number [facility] [address] [place] [phone] * (ABNORMAL) ALCOHOL ETHYL BLOOD (03/30/2025 11:33 AM CDT) Ethanol 52.1(H) <10 mg/dL 03/30/2025 12:09 PM CDT [facility] Ethanol Calculated 0.052 <=0.100 gm/dL 03/30/2025 12:09 PM CDT [facility] Blood BLOOD SPECIMEN / Unknown Venipuncture / Unknown 03/30/2025 11:33 AM CDT 03/30/2025 11:52 AM CDT Narrative [facility] - 03/30/2025 12:09 PM CDT [...] CHEMISTRY ORDERABLES Final Result Performing Organization Address City/[facility] Co de Phone Number [facility] [address] [place] [address] * HEPATITIS SCREEN ACUTE (03/30/2025 11:33 AM CDT) Pathologist [facility] Antibody IgM Non Reactive Non Reactive 03/30/2025 12:30 PM CDT [facility] HBsAg Non Reactive Non Reactive 03/30/2025 12:30 PM CDT [facility] HBc Antibody IgM Non Reactive Non Reactive 03/30/2025 12:30 PM CDT [facility] HCV Antibody Screen Non Reactive Non Reactive 03/30/2025 12:30 PM CDT [facility] Blood BLOOD SPECIMEN / Unknown Venipuncture / Unknown 03/30/2025 11:33 AM CDT 03/30/2025 11:52 AM CDT Narrative [facility] - 03/30/2025 12:30 PM CDT Non Reactive - Antibodies to Hepatitis C virus (HCV) were not detected, result does not exclude early acute HCV infection. Kunal Foster MD LAB - CHEMISTRY ORDERABLES Final Result Performing Organization Address [facility] de Phone Number [facility] [address] [place] [address] * (ABNORMAL) LIPID PROFILE (08/02/2024 10:24 AM CDT) [facility] Cholesterol 193 <200 mg/dL [facility] HDL Cholesterol [...] LDL-C. Mj DUONG et al. REBECCA. 2013;310(19): 2572-0092 (http://education.[employer].WineNice/faq/WRY143) CHOL/HDLC RATIO 2.8 <5.0 (calc) [facility] Non HDL Cholesterol 125 <130 mg/dL (calc) [facility] Comment: For patients with diabetes plus 1 major ASCVD risk factor, treating to a non-HDL-C goal of <100 mg/dL (LDL-C of <70 mg/dL) is considered a therapeutic option. Test Performed at: [facility] [address] LUISA FRAZIER MD Blood BLOOD SPECIMEN / Unknown 08/02/2024 10:24 AM CDT 08/02/2024 10:26 AM CDT us Power Garcia PA-C LAB - CHEMISTRY ORDERA BLES Final Result [address] [address] from Last 3 Months or Most Recently Relevant to Health Maintenance Insurance [facility] Advance Directives * Full Code (Latest Code Status on File) Date Activated Date Inactivated Comments 03/30/2025 9:40 AM 04/01/2025 3:26 PM * Full Code Date Activated Date Inactivated Comments 08/23/2021 5:26 AM 08/24/2021 10:29 AM Care Teams Wind Power Project Manager Relationship Specialty Start Date End Date None, Physician PCP - General 11/03/24
--- OUTSIDE RECORDS SUMMARY | 2025-04-02 04:28 | XMS_ITS | Encounter Summary ---
Author Organization [facility] Healthcare Address [address] [place] [address] Care Team Providers Care Gas Controller Name Role Phone Ghislaine Garcia MD Primary Care Provider No, Physician Primary Care Provider [phone] Encounter Details Date Type Department Care Team (Late st Contact Info) Description 02/28/2023 Documentation [facility] Warm Hand Off Program [address] [place] [address] Bharat Huitron Social History Tobacco Use Types Packs/Day Years Used Date Smoking Tobacco: Every Day Cigarettes 0.8 30 Sex and Gender Information Value Date Recorded Sex Assigned at Not on file 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
--- OUTSIDE RECORDS SUMMARY | 2025-04-02 04:28 | XMS_ITS | Clinical Summary ---
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 Gender Identity Not on file Sexual Orientation [...] patient's age to complete this topic Insurance [facility] MEDICAID [facility] Advance Directives For more information, please contact: [phone] * Full Code (Latest Code Status on File) Date Activated Date Inactivated Comments 07/05/2023 9:03 AM 07/07/2023 8:26 PM * Full Code Date Activated Date Inactivated Comments 02/28/2023 12:06 PM 03/05/2023 7:01 PM Care Teams Patrol Community Service Officer Relationship Specialty Start Date End Date No, Physician PCP - General 03/10/23
--- OUTSIDE RECORDS SUMMARY | 2025-04-02 04:28 | XMS_ITS | Clinical Summary ---
Author Organization [facility] Address [address] [place] [address] Phone Care Team Providers Care Internet Security Specialist Name Role Phone Provider, None Primary Care [...] file Legal Sex Male 3:56 AM MANAGER AGENCY Gender Identity Not on file Sexual Orientation [...] BLOOD Negative POC FECAL OCCULT BLOOD CONTROL Baggage Security Checker Pass Stool specimen (specimen) 09/27/2010 4:00 PM CDT Dale Ye MD POINT [facility] CARE TEST[facility] Final Result from Last 3 Months or Most Recently Relevant to Health Maintenance Insurance MEDICAID [facility] Advance Directives * Full Code (Latest Code Status on File) Date Activated Date Inactivated Comments 01/04/2012 6:02 PM 01/11/2012 6:48 PM * Full Code Date Activated Date Inactivated Comments 09/23/2010 9:50 PM 09/28/2010 6:39 PM * Full Code Date Activated Date Inactivated Comments 09/07/2010 5:22 PM 09/12/2010 5:06 PM Care Teams Internet Security Specialist Relationship Specialty Start Date End Date Provider, None ND PCP - General 09/07/10
--- OUTSIDE RECORDS SUMMARY | 2025-04-02 04:28 | XMS_ITS | Encounter Summary ---
Author Organization [facility] Address [address] [place] [address] Care Team Providers Care Geothermal Operations Engineer Name Role Phone Power Garcia PA-C Primary Care Provider None, Physician Primary Care Provider Unavailabl e Reason for Visit * Reason Onset Date Comments MEDICATION REFILL 10/06/2024 Encounter Details Date Type Department Care Team (Late st Contact Info) Description 10/06/2024 Refill [facility] [address] [place] [address] Power Garcia PA-C [address] [phone] MEDICATION REFILL Social History Tobacco Use Types [...] on file 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 Gender Identity Not on file Sexual Orientation [...] hours as needed for Anxiety or Agitation ETRICS TECHNICIAN documented in this encounter Plan of Treatment Upcoming Encounters Date Type Department Care Team (Late st Contact Info) Description 04/07/2025 10:00 AM CDT Office Visit [facility] [address] [place] [address], [place] [phone] Rasheeda Bajwa APRN-AUTOMOTIVE DIAGNOSTIC TECHNICIAN [address] [place] [phone] documented as of this encounter Visit Diagnoses Not on filedocumented in this encounter Care Teams Geothermal Operations Engineer Relationship Specialty Start Date End Date Power Garcia PA-C [address] [facility] [address] [place] [phone] PCP - General 08/13/21 11/02/24 None, Physician PCP - General 11/03/24 documented as of this encounter
--- OUTSIDE RECORDS SUMMARY | 2025-04-02 04:28 | XMS_ITS | Encounter Summary ---
Author Organization [facility] Address [address] [place] [address] Care Team Providers Care Water Plant Maintenance Mechanic Name Role Phone None, Physician Primary Care Provider Unavailabl e Reason for Visit * Reason Onset Date Comments MEDICATION REFILL 11/27/2024 Encounter Details Date Type Department Care Team (Late st Contact Info) Description 11/27/2024 Refill [facility] [address] [place] [address] Audrey Richard MD [address] [address] MEDICATION REFILL Social History Tobacco [...] on file 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 Gender Identity Not on file Sexual Orientation [...] hours as needed for Anxiety or Agitation NER MANAGEMENT CONSULTANT documented in this encounter Plan of Treatment Upcoming Encounters Date Type Department Care Team (Late st Contact Info) Description 04/07/2025 10:00 AM CDT Office Visit [facility] [address] [place] [address], [place] [phone] Rasheeda Bajwa APRN-ANA [address] [place] [phone] documented as of this encounter Visit Diagnoses Diagnosis Anxiety Anxiety state, unspecified documented in this encounter Care Teams Water Plant Maintenance Mechanic Relationship Specialty Start Date End Date None, Physician PCP - General 11/03/24 documented as of this encounter
--- OUTSIDE RECORDS SUMMARY | 2025-04-02 04:28 | XMS_ITS | Clinical Summary ---
Author Organization [facility] Address [address] [place] [address] Care Team Providers Care Joint Cleaning Machine Operator Name Role Phone None, Provider MD Primary Care Provider Unavaila ble Allergies Active Allergy Reactions Criticality Noted Date Comments Moxifloxacin Rash Low 03/01/2019 Medications citalopram 20 MG tablet Take 1 tablet (20 mg total) by mouth daily. 30 tablet 03/05/2019 Active multi vitamin/minerals tablet Take 1 tablet by mouth daily. 30 tablet 03/05/2019 Active Active Problems Problem Noted Date Diagnosed Date Alcohol withdrawal ([facility]) 03/01/2019 Social History Tobacco Use Types Packs/Day [...] Documents on File Type Date Recorded Patient Mechanical Maintenance Supervisor Expl anation Advance Directives and Living Will 11/27/2017 12:00 AM ADVANCED DIRECTIVES Advance Directives and Living Will 09/23/2017 12:00 AM ADVANCED DIRECTIVES Advance Directives and Living Will 06/30/2017 12:00 AM ADVANCED DIRECTIVES * Full Code (Latest Code Status on File) Date Activated Date Inactivated Comments 03/01/2019 10:30 PM 03/05/2019 12:56 PM Care Teams Joint Cleaning Machine Operator Relationship Specialty Start Date End Date None, Provider, PCP - General 03/01/19
--- OUTSIDE RECORDS SUMMARY | 2025-04-02 04:28 | XMS_ITS | Encounter Summary ---
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 Gender Identity Not on file Sexual Orientation Not on file 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 on file Not on file documented as of this encounter Plan of Treatment Upcoming Encounters Date Type Department Care Team (Late st Contact Info) Description 04/07/2025 10:00 AM CDT Office Visit [facility] - [address] [place] [address] Rasheeda Bajwa APRN-ANA [address] [place] [phone] documented as of this encounter Visit Diagnoses Diagnosis Anxiety Anxiety state, unspecified documented in this encounter Care Teams Transportation Dispatch Manager Relationship Specialty Start Date End Date None, Physician PCP - General 11/03/24 documented as of this encounter
--- NOTE | 2025-04-02 05:27 | ED_ITS ---
HPI - General Adult General Chief complaint: Alcohol Stated complaint: still detoxing, just left [facility]. Time Seen by Provider: 04/02/25 04:06 History of Present Illness HPI narrative: This is a 45-year-old male history of alcohol abuse and withdrawal presenting for detox. Patient was at [facility] for 3 days. He was then discharged then went and drank half a pt of vodka just prior to arrival. Patient says he is now withdrawing. Patient says that he has shakes. He also states he has tactile sensation. Patient is concerned that he is still withdrawal. Patient denies fevers chills chest pain difficulty breathing abdominal pain nausea vomiting diarrhea. Related Data Allergies Allergy/AdvReac Type Severity Reaction Status Date / Time moxifloxacin Allergy Intermediate Rash Verified 04/02/25 03:47 [facility] Past Medical History Medical History Seizure Due to alcohol withdrawal Smoker Anxiety History of ETOH abuse Chronic cholecystitis without calculus Gastritis Alcohol dependence Pancreatitis Surgical History Surgical History H/O removal of cyst Hx laparoscopic cholecystectomy 09/26/21 Family History Family History Father Cerebrovascular accident Hypertension Other Cancer Sibling Diabetes mellitus Grandparent Heart disease Social History Social History Social History: The patient lives with his parents. He has been drinking a pt of vodka and a 6 pack of beer daily and had his last drink 2 days ago. He does not currently work and does not have any children. Patient currently smokes a pack a cigarettes a day. 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 NO DRINKS IN PAST 2 WEEKS. 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 Resting comfortably in bed, initially a visible course tremor that disappears with distraction Head: atraumatic. EYES: EOMI, NOSE: Atraumatic NECK: Trachea midline RESPIRATORY: No increased rate of breathing clear to auscultation CARDIOVASCULAR: RRR, no peripheral edema ABDOMINAL: Non-distended soft nontender MUSCULOSKELETAl: No obvious deformities NEURO: Alert. Moving 4/4 extremities SKIN:: Warm, dry. Normal color PSYCHIATRIC: Normal affect Course Vital Signs Vital signs: Vital Signs Temperature 98.1 F 04/02/25 03:44 Pulse Rate 109 H 04/02/25 03:44 Respiratory Rate 16 04/02/25 03:44 Blood Pressure 145/71 H 04/02/25 03:44 Pulse Oximetry 98 04/02/25 03:44 Oxygen Delivery Room Air 04/02/25 03:44 Temperature 98 F 04/02/25 04:24 Pulse Rate 94 04/02/25 04:24 Respiratory Rate 25 H 04/02/25 04:24 Blood Pressure 104/77 04/02/25 04:24 Pulse Oximetry 98 04/02/25 04:24 Oxygen Delivery Room Air 04/02/25 03:44 Medical Decision Making [facility] Narrative Medical decision making narrative: -Course: 45-year-old male with alcohol use disorder presenting after being discharged from [facility]. Patient immediately left and then drank a bottle of vodka. Patient's vital signs are stable, he is not diaphoretic or vomiting. He is not tachycardic. Alcohol withdrawal is mild with some sub jective symptoms but no objective signs. Patient will be treated with Librium/Zofran. Given prescription for Librium. Patient says he has resources for outpatient follow-up which she has been encouraged to attend. Given return precautions for worsening symptoms. -DDX includes but is not limited to: Alcohol withdrawal, anxiety, malingering/secondary gain -Co-morbidities complicating care: Alcohol use disorder -External Chart Review: Review of ER visit from 03/17/2025 for similar presentation. Vital Signs Vital Signs: Vital Signs Temperature 98.1 F 04/02/25 03:44 Pulse Rate 109 H 04/02/25 03:44 Respiratory Rate 16 04/02/25 03:44 Blood Pressure 145/71 H 04/02/25 03:44 Pulse Oximetry 98 04/02/25 03:44 Oxygen Delivery Room Air 04/02/25 03:44 Temperature 98 F 04/02/25 04:24 Pulse Rate 94 04/02/25 04:24 Respiratory Rate 25 H 04/02/25 04:24 Blood Pressure 104/77 04/02/25 04:24 Pulse Oximetry 98 04/02/25 04:24 Oxygen Delivery Room Air 04/02/25 03:44 Discharge Plan Discharge Clinical Impression: Alcohol dependence Patient Disposition: Home Condition: Stable Instructions: Antibiotic Form, Abuse of Alcohol (ED) Additional Instructions: You were seen in the emergency department for alcohol abuse. Please use Librium as needed for withdrawal symptoms. Please follow-up the rehab facilities that you establish with. If you develop new or worsening symptoms return to ED for re-evaluation. Patient Language: Gibraltarian Prescriptions: New chlordiazepoxide HCl 25 mg capsule 25 mg PO TID PRN (Reason: alcohol withdrawal) Qty: 20 0RF No Action chlordiazepoxide HCl 25 mg capsule See Rx Instructions .ROUTE .COMPLEX Qty: 20 0RF Rx Instructions: 50mg of chlordiazepoxide every 8 hours for two days, then decrease to 25mg every 8 hours for another two days followed by 25mg as needed ondansetron 4 mg tablet,disintegrating 4 mg PO Q8H PRN (Reason: nausea and vomiting) Qty: 10 0RF Follow-up/Referrals: Dwayne Leos MD [Primary Care Provider] - 3 Days (ED F/U - ETOH abuse)
[2025-04-02] MEDS: ONDANSETRON INJ 4 MG/2 ML VIAL IV PUSH (05:55)
[2025-04-02] MEDS: chlordiazePOXIDE (*CRX) 25 MG CAPSULE PO (05:55)
== END 2025-04-02 06:03 | disposition home or self-care (01) ==
PROVIDERS: Emergency Provider Emergency Medicine; PCP Family Medicine
DX: F10.20 Alcohol dependence, uncomplicated (principal); Y90.9 Presence of alcohol in blood, level not specified; F41.9 Anxiety disorder, unspecified; F17.210 Nicotine dependence, cigarettes, uncomplicated; Z90.49 Acquired absence of other specified parts of digestive tract
CPT/HCPCS: 96374; 99283; 99284; A9270; J2405

== ENCOUNTER 2025-08-21 06:01 | Observation (INO) | payer OTHER, SELFPAY ==
[2025-08-21] VITALS (20 sets, daily range): BP systolic 115–186; BP diastolic 68–103; PULSE 96–139; RESP 13–28; TEMP 36.2–36.8; O2SAT 96–100; BMI 20.8
--- NOTE | ~2025-08-21 | XR_ITS ---
Examination: XR chest 2V Clinical History: vomiting Comparison: None Technique: PA and Lateral Findings: Cardiomediastinal silhouette normal size and configuration. Lungs clear. No acute bony abnormality. IMPRESSION: 1. No acute cardiopulmonary findings. Reviewed, dictated and finalized at location R.
--- NOTE | ~2025-08-21 | CT_ITS ---
EXAMINATION: CT abdomen pelvis w con DATE: 08/21/2025 08:06 INDICATION: Epigastric pain. Vomiting. TECHNIQUE: Computed tomography (CT) of the abdomen and pelvis was performed with 100 mL Omnipaque 350 intravenous contrast. Automated exposure control and iterative reconstruction technique were employed. The dose-length product was 282.93 mGy-cm. COMPARISON: CT abdomen and pelvis 09/13/2021 FINDINGS: The visualized portions of the lung bases are clear without pneumonia or pleural effusion. The heart size is normal. No pericardial effusion. There is diffuse hepatic steatosis. There are changes of cholecystectomy. The spleen, pancreas, adrenal glands, and left kidney are normal. There is a 6 mm cyst in right kidney. There are no dilated loops of bowel. The appendix is normal. There are no pathologically enlarged lymph nodes. There is no free intraperitoneal fluid. There is mild thoracic and lumbar spondylosis. IMPRESSION: 1. Diffuse hepatic steatosis. Reviewed, dictated and finalized at location E.
--- OUTSIDE RECORDS SUMMARY | 2025-08-21 06:04 | XMS_ITS | Clinical Summary ---
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 Gender Identity Not on file Sexual Orientation [...] 10:01 AM CDT Height 177.8 cm (5' 10) 07/12/2023 12:45 AM CDT Body Mass Index 20.81 07/12/2023 12:45 AM CDT Plan of Treatment Health Maintenance Due Date Last Done Comments Colon Cancer Screening-Colonoscopy 1979 Depression Screening 1979 Hepatitis C Screening 1979 DTaP/Tdap/Td Vaccine (1 - Tdap) 1990 Hepatitis B Screening 1997 Regular Well Visit/Exam 18-64 1997 Covid-19 Vaccine ( season) 2025 05/17/2022, 08/31/2021, 01/26/2021, Additional history exists Influenza Vaccine (#1) 2025 , 09/14/2021, 10/05/2016, Additional history exists Pneumococcal vaccine <65 (3 of 3 - PCV20 or PCV21) 2029 09/24/2017, 09/24/2016 HPV Vaccines Aged Out No longer eligi ble based on patient's age to complete this topic Insurance [facility] MEDICAID [facility] Advance Directives For more information, please contact: [phone] * Full Code (Latest Code Status on File) Date Activated Date Inactivated Comments 07/05/2023 9:03 AM 07/07/2023 8:26 PM * Full Code Date Activated Date Inactivated Comments 02/28/2023 12:06 PM 03/05/2023 7:01 PM Care Teams Plisse Machine Operator Relationship Specialty Start Date End Date No, Physician PCP - General 03/10/23
--- OUTSIDE RECORDS SUMMARY | 2025-08-21 06:04 | XMS_ITS | Encounter Summary ---
Author Organization [facility] Address [address] [place] [address] Care Team Providers Care Electronic Funds Transfer Coordinator Name Role Phone None, Provider Primary Care Provider Unavaila ble Encounter Details Date Type Department Care Team (Late st Contact Info) Description 03/12/2019 Hospital Follow-up Call [facility] [place] [address] Ekaterina Ramos Social History Tobacco Use Types [...] on filedocumented in this encounter Care Teams Electronic Funds Transfer Coordinator Relationship Specialty Start Date End Date None, Provider, PCP - General 03/01/19 documented as of this encounter
--- OUTSIDE RECORDS SUMMARY | 2025-08-21 06:04 | XMS_ITS | Encounter Summary ---
Author Organization [facility] Healthcare Address [address] [place] [address] Care Team Providers Care Systems Lead Name Role Phone Ghislaine Garcia MD Primary Care Provider No, Physician Primary Care Provider [phone] Encounter Details Date Type Department Care Team (Late st Contact Info) Description 02/28/2023 Documentation [facility] Warm Hand Off Program [address] [place] [address] Bharat Huitron Social History Tobacco Use Types Packs/Day Years Used Date Smoking Tobacco: Every Day Cigarettes 0.8 30 Sex and Gender Information Value Date Recorded Sex Assigned at Not on file 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
--- OUTSIDE RECORDS SUMMARY | 2025-08-21 06:04 | XMS_ITS | Clinical Summary ---
Author Organization [facility] Address [address] [place] [address] Care Team Providers Care Office Workforce Planner Name Role Phone None, Provider MD Primary Care Provider Unavaila ble Allergies Active Allergy Reactions Criticality Noted Date Comments Moxifloxacin Rash Low 03/01/2019 Medications citalopram 20 MG tablet Take 1 tablet (20 mg total) by mouth daily. 30 tablet 03/05/2019 Active multi vitamin/minerals tablet Take 1 tablet by mouth daily. 30 tablet 03/05/2019 Active Active Problems Problem Noted Date Diagnosed Date Alcohol withdrawal ([facility]) 03/01/2019 Social History Tobacco Use Types Packs/Day [...] 3:03 AM CDT Height 177.8 cm (5' 10) 03/01/2019 4:51 PM CDT Body Mass Index [...] of 2 - PCV) 1998 COVID-19 Vaccine ( - 2023-2 5 season) 2025 Meningococcal B Vaccine Aged Out No l onger eligible based on patient's age to complete this topic Meningococcal Vaccine Aged Out No markus segun eligible based on patient's age to complete this topic RSV Immunizations Under 20 Months Aged Out No longer eligible based on patient's age to complete this topic Insurance Advance Directives Documents on File Type Date Recorded Patient Packaging Sales Representative Expl anation Advance Directives and Living Will 11/27/2017 12:00 AM [employer] Advance Directives and Living Will 09/23/2017 12:00 AM [employer] Advance Directives and Living Will 06/30/2017 12:00 AM [employer] * Full Code (Latest Code Status on File) Date Activated Date Inactivated Comments 03/01/2019 10:30 PM 03/05/2019 12:56 PM Care Teams Office Workforce Planner Relationship Specialty Start Date End Date None, Provider, PCP - General 03/01/19
--- OUTSIDE RECORDS SUMMARY | 2025-08-21 06:05 | XMS_ITS | Clinical Summary ---
Author Organization [facility] Address [address] [place] [address] Phone Care Team Providers Care Bucket Wash Operator Name Role Phone Provider, None Primary Care Provider Unavailabl e Allergies Active Allergy Reactions Criticality Noted Date Comments Moxifloxacin Hcl In Nacl Swelling 01/04/2012 Medications * This document contains information received from the source organization and may not represent a complete record from that organization. chlordiazePOXIDE (LIBRIUM) 25 MG CapsuleIndicatio ns:Alcohol withdrawal syndrome, with delirium Take 1 Capsule by mouth 3 times daily as needed for Withdrawal or Anxiety. 30 Capsule 5 Active folic acid (FOLVITE) 1 MG Tablet Take 1 Tablet by mouth daily. 30 Tablet 5 Active citalopram (CeleXA) 40 MG Tablet Take 1 Tablet by mouth daily. 30 Tablet 5 Active metoprolol Succinate (TOPROL-XL) 50 MG TABLET SR 24 HR Take 1 Tablet by mouth daily. 90 Tablet 5 Active nicotine (NICODERM CQ) 21 MG/24HR PATCH 24 HR 1 Patch by Transdermal route daily. 30 Patch 5 Active ondansetron (ZOFRAN-ODT) 4 MG TABLET DISPERSIBLE Take 1 Tablet by mouth every 12 hours as needed for Nausea - 1st line. 20 Tablet 5 Active thiamine (VITAMIN B1) 100 MG Tablet Take 1 Tablet by mouth daily. 30 Tablet 5 Active Active Problems Problem Noted Date Diagnosed Date Alcohol withdrawal 04/06/2025 Hypertension 01/11/2012 HUAN (acute kidney injury) 01/04/2012 [...] 4 alcohol withdrawal seizures in the past Peptic ulcer disease Essential hypertension, benign Seizure due to alcohol withdrawal Marijuana abuse Tobacco abuse Immunizations Immunization Administration Dates Next Due Influenza Vaccine less than 3 yrs 09/24/2011, Social History Tobacco Use Types Packs/Day Years Used Date Smoking Tobacco: Every Day Alcohol Use Standard Drinks/Week Comments Yes 0 (1 standard drink = 0.6 oz pur e alcohol) heavy - 1 - 2 gallons daily Easy Pairings Utilities Answer Date Recorded In the past 12 months has [employer], gas, oil, or water [employer] threatened to shut off services in your home? Patient declined 04/06/2025 Social Connection and Isolation Panel Answer Date Recorded In a typical week, how many times do you talk on the phone with family, friends, or neighbors? Patient declined 04/06/2025 How often do you get togethe r with friends or relatives? Patient declined 04/06/2025 How often do you attend episcopal or sikh serv ices? Patient declined 04/06/2025 Do you belong to any clubs o r organizations such as episcopal groups, unions, fraternal or athletic groups, or school groups? Patient declined 04/06/2025 How often do you attend meet ings of the clubs or organizations you belong to? Patient declined 04/06/2025 Are you , , di vorced, , never , or living with a partner? Patient declined 04/06/2025 AUDIT-C Answer Date Recorded Q1: How often do you have a drink containing alc ohol? Patient declined 04/06/2025 Q2: How many drinks containi ng alcohol do you have on a typical day when you are drinking? Patient declined 04/06/2025 Q3: How often do you have si x or more drinks on one occasion? Patient declined 04/06/2025 Overall Financial Resource Strain (CARDIA) Answe r Date Recorded How hard is it for you to pa y for the very basics like food, housing, medical care, and heating? Patient declined 04/06/2025 [facility] - Occupational Stress Questionnaire Answer Date Recorded Do you feel stress - tense, restless, nervous, or anxious, or unable to sleep at night because your mind is troubled all the time - these days? Patient declined 04/06/2025 Exercise Vital Sign Answer Date Recorde d On average, how many days pe r week do you engage in moderate to strenuous exercise (like a brisk walk)? Patient declined On average, how many minutes do you engage in exercise at this level? Patient declined 04/06/2025 Hunger Vital Sign Answer Date Recorded Within the past 12 months, y ou worried that your food would run out before you got the money to buy more. Patient declined Within the past 12 months, t he food you bought just didn't last and you didn't have money to get more. Patient declined PRAPARE - Transportation Answer Date Re corded In the past 12 months, has l ack of transportation kept you from medical appointments or from getting medications? Patient declined 04/06/2025 In the past 12 months, has l ack of transportation kept you from meetings, work, or from getting things needed for daily living? Patient declined 04/06/2025 Housing Stability Vital Sign Answer Abraham e Recorded In the last 12 months, was t here a time when you were not able to pay the mortgage or rent on time? Patient declined 04/06/20 25 In the past 12 months, how m any times have you moved where you were living? 1 04/06/2025 At any time in the past 12 m [facility], were you homeless or living in a alf (including now)? 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 Gender Identity Not on file Sexual Orientation Not on file Last Filed Vital Signs Vital Sign Reading Time Taken Comments Blood Pressure 114/77 04/09/2025 4:00 AM CDT Pulse 78 04/08/2025 4:25 PM CDT Temperature 36.5 C (97.7 F) 04/09/2025 4:00 AM CDT Respiratory Rate 16 04/09/2025 8:46 AM CDT Oxygen Saturation 98% 04/09/2025 4:00 AM CDT Inhaled Oxygen Concentration - - Weight 70.3 kg (155 lb) 04/06/2025 10:49 AM CDT Height 177.8 cm (5' 10) 04/06/2025 10:49 AM CDT Body Mass Index 22.24 04/06/2025 10:49 AM CDT Plan of Treatment Health Maintenance Due Date Last Done Comments TdaP Immunization 1979 Hepatitis B Immunization (1 of 3 - 19+ 3-dose series) 1998 Cologuard 2024 Colonoscopy 2024 Colorectal Cancer Screening 2024 Immunochemical Fecal Occult Blood 2024 09/27/2010, 09/08/2010 Influenza Immunization (#1) 2025 10/0 06/2024, 09/15/2023, 09/11/2022, Additional history exists Pneumococcal Immunization Combined (3 of 3 - PCV20 or PCV21) 2029 09/24/2017, 09/24/2016 Respiratory Syncytial Virus (RSV) Immunization (Adult) (1 - 1-dose 75+ series) 2054 SARS-COV-2 Immunization Completed 08/16/20 24, 09/15/2023, 05/17/2022, Additional history exists Hepatitis C Virus (HCV) Screening Completed 03/30/2025 Human Papillomavirus (HPV) Immunization Aged Out No longer eligible based on patient's age to complete this topic Meningococcal Immunization (ACWY) Aged Out No longer [...] BLOOD Negative POC FECAL OCCULT BLOOD CONTROL Machine Edge Bander Pass Stool specimen (specimen) 09/27/2010 4:00 PM CDT Dale Ye MD POINT OF CARE TESTING (MANUA L) Final Result from Last 3 Months or Most Recently Relevant to Health Maintenance Insurance MEDICAID [employer] Advance Directives * Full Code (Latest Code Status on File) Date Activated Date Inactivated Comments 01/04/2012 6:02 PM 01/11/2012 6:48 PM * Full Code Date Activated Date Inactivated Comments 09/23/2010 9:50 PM 09/28/2010 6:39 PM * Full Code Date Activated Date Inactivated Comments 09/07/2010 5:22 PM 09/12/2010 5:06 PM Care Teams Bucket Wash Operator Relationship Specialty Start Date End Date Provider, Torie [place] PCP - General 09/07/10
--- OUTSIDE RECORDS SUMMARY | 2025-08-21 06:05 | XMS_ITS | Patient Health Record ---
Author Organization [facility] Address [address] [place] [address] Care Team Providers Care [facility] Name Role Phone Ankitaaiden Edgar Primary Care Provider [phone] Veronica Chadwick [phone] Allergies Allergen (clinical drug ingredient) Drug/Non Drug [...] 10 MG 1 tablet Orally Once a day; Duration: 30 days Active Social History Tobacco Use: [...] W/U Status Risk Notes Problem Tobacco user (484069040) Nicotine dependence, unspecified, uncomplicated (F17.200) Active confirmed Problem Tobacco dependence (83169344) Tobacco dependence (F17.200) Active confirmed Problem Insomnia (317987899) Insomnia (G47.00) Active confirmed Problem Anxiety (98306084) Anxiety (F41.9) Active confirmed Problem Psychoactive substance dependence (3183541) Chemical dependency (F19.20) Active confirmed Problem Alcohol dependence (06293837) Alcohol dependence (F10.20) Active confirmed Problem Physical examination, complete (06944456) Physical exam (Z00.00) Active confirmed Problem Alcohol use disorder (7846058281) Alcohol use disorder (F10.99) Active confirmed Problem Depressive disorder (disorder) (79830022) Depression, unspecified depression type (F32.9) Active confirmed Problem General examination of patient (222178365) Routine medical exam (Z00.00) Active confirmed Problem Gastroesophageal reflux disease without esophagitis (891900649) Gastroesophageal reflux disease without esophagitis (K21.9) Active confirmed Plan Of Treatment No Information Insurance Providers Payer Name Payer Address Payer Phone Subscriber Number Group Number Insured Name Patient Relationship to Insured Coverage Start Date Coverage End Date [facility] Attn Claims Department [address] [place] [phone] [id number] Iker Kuhn Self - patient is the insured 2 [facility] [address] [address] [place] [address] [id number] Iker Kuhn Self - patient is the insured 6 8 [facility] Attn Claims Department [address] [place] [address] [phone] [id number] Iker Kuhn Self - patient is the [...]
[2025-08-21] MEDS: ONDANSETRON INJ 4 MG/2 ML VIAL IV PUSH ×2 (06:26→07:42)
[2025-08-21] MEDS: SODIUM CHLORIDE 0.9% IV 1,000 ML 999 ML IV CONT ×2 (06:26→07:42)
[2025-08-21 06:36] LABS: Hematocrit 51.7 % (42.0-52.0); Hemoglobin 17.5 g/dL (14.0-18.0); Immature Granulocyte Percent A 0.6 % (0-0.5); Lymphocytes Absolute Auto 1.48 K/mm3 (0.9-3.2); Mean Corpuscular HGB Conc 33.8 g/dl (32-36); Mean Corpuscular Hemoglobin 33.0 pg (26-34); Mean Corpuscular Volume 97.5 fl (80-100); Nucleated Red Blood Cells Absolute Auto 0.000 K/mm3 (0.0-0.012); Nucleated Red Blood Cells Perc 0.0 % (0.0-0.2); Platelet Count Result 298 k/mm3 (150-375); Red Blood Count 5.30 M/mm3 (4.6-6.20); White Blood Count 20.5 K/mm3 (4.5-10.0)
[2025-08-21 06:56] LABS: Alanine Aminotransferase 53 U/L (6-50); Albumin Level 5.1 g/dL (3.5-5.1); Alkaline Phosphatase 163 U/L (38-126); Anion Gap 33 mmol/L (4-12); Aspartate Amino Transferase 76 U/L (17-59); Bilirubin,Total 1.5 mg/dL (0.2-1.3); Blood Urea Nitrogen 10 mg/dL (9-20); Calcium 9.5 mg/dL (8.4-10.2); Carbon Dioxide 13 mmol/L (22-30); Chloride 91 mmol/L (98-107); Estimated CRCL calculation 74 ml/min; Estimated Glomerular Filt Rate > 60; Glucose 154 mg/dL (65-110); Lipase 40 U/L (23-300); Magnesium 1.6 mg/dL (1.6-2.3); Potassium 3.8 mmol/L (3.4-5.0); Sodium 137 mmol/L (137-145); Total Protein 8.5 g/dL (6.3-8.2)
[2025-08-21 07:22] LABS: Add Urine Microscopic? YES; Appearance Urine Clear (Clear); Glucose Urine UA Negative (Negative); Leukocyte Esterase Ur Negative LEU/UL (Negative); Need Manual Microscopic Reviewed; Nitrate Urine Negative (Negative); Specific Grav Ur 1.021 (1.001-1.035)
[2025-08-21] MEDS: diazePAM INJ (*CRX) 10 MG/2 ML SYRINGE 5 MG IV PUSH ×3 (07:42→10:23)
--- NOTE | 2025-08-21 08:32 | PC.NURSE ---
Pt. educated to keep his arm straight so IV fluids can infuse.
--- NOTE | 2025-08-21 09:09 | ED.GENADULT ---
HPI - General Adult General Chief complaint: Abdominal Pain Stated complaint: n/v, abd pain Time Seen by Provider: 08/21/25 07:26 History of Present Illness HPI narrative: Patient is a 45-year-old male who presents ER with nausea vomiting. Ongoing for a couple of days. It is associated with epigastric discomfort. Reports he began feeling ill with some sinus congestion and some nausea and then stop drinking alcohol. Typically drinks a pt and half a day. Has history of alcohol withdrawal seizure. Feels like he may be withdrawing at this time. No diarrhea. No alleviating factors at home. Related Data Allergies Allergy/AdvReac Type Severity Reaction Status Date / Time moxifloxacin Allergy Intermediate Rash Verified 08/21/25 12:10 Review of Systems Review of Systems: All systems reviewed & are unremarkable except as noted in HPI and below Constitutional: Constitutional: Reports no additional constitutional complaints ENT: Reports system reviewed and no additional complaints, except as documented Cardiovascular: Cardiovascular: Reports no additional cardiovascular complaints Respiratory: Respiratory: Reports no additional respiratory complaints Gastrointestinal: Gastrointestinal: Reports no additional gastrointestinal complaints Genitourinary: Genitourinary: Reports no additional male genitourinary complaints Musculoskeletal: Musculoskeletal: Reports no additional musculoskeletal complaints [facility] Past Medical History Medical History Seizure Due to alcohol withdrawal Smoker Anxiety History of ETOH abuse Chronic cholecystitis without calculus s/p cholecystectomy Gastritis Alcohol dependence Pancreatitis ETOH induced Surgical History Surgical History H/O removal of cyst Hx laparoscopic cholecystectomy 09/26/21 Family History Family History Father Cerebrovascular accident Hypertension Other Cancer Sibling Diabetes mellitus Grandparent Heart disease Social History Social History Social History: The patient lives with his parents. He has been drinking a pt of vodka and a 6 pack of beer daily and had his last drink 2 days ago. He does not currently work and does not have any children. Patient currently smokes a pack a cigarettes a day. Code status full code Smoking packs per day: 0.5 Smoking cigarettes per day: 10.0 Years smoked: 22 Smoking pack-years: 11.00 Smoking status: Current every day smoker Tobacco type: cigarettes Alcohol intake: current Drinks per week: 35 Alcohol use details: AT LEAST 1/2 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 NO DRINKS IN PAST 2 WEEKS. 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 HEAD: Normocephalic, atraumatic. EYES: PERRL and EOMI. ENT: Mucous membranes moist. CHEST: Clear to auscultation. No respiratory distress. HEART: Tachycardic and regular. Normal peripheral pulses. ABDOMEN: Soft, nontender, nondistended. EXTREMITIES: Normal range of motion. No edema. SKIN: Warm, dry, no rash. NEURO: No focal deficits. Mildly tremulous. Alert and oriented x3. Course Course Emergency Course: Persistently tremulous and tachycardic despite 2 L of IV fluid as well as 15 mg of Valium. Admit for alcohol withdrawal. Will give folic acid and thiamine. CT without acute process in abdomen. Patient does have a significant gap but no acidosis. 4+ ketones in the urine. Patient accepted by the hospitalist service. Vital Signs Vital signs: Vital Signs Temperature 97.2 F L 08/21/25 06:02 Pulse Rate 139 H 08/21/25 06:02 Respiratory Rate 08/21/25 06:02 Blood Pressure 186/103 H 08/21/25 06:02 Pulse Oximetry 100 08/21/25 06:02 Oxygen Delivery Room Air 08/21/25 06:02 Temperature 97.2 F L 08/21/25 06:02 Pulse Rate 112 H 08/21/25 17:54 Respiratory Rate 08/21/25 11:32 Blood Pressure 132/90 08/21/25 11:32 Pulse Oximetry 100 08/21/25 11:32 Oxygen Delivery Room Air 08/21/25 16:00 Medical Decision Making Vital Signs Vital Signs: Vital Signs Temperature 97.2 F L 08/21/25 06:02 Pulse Rate 139 H 08/21/25 06:02 Respiratory Rate 08/21/25 06:02 Blood Pressure 186/103 H 08/21/25 06:02 Pulse Oximetry 100 08/21/25 06:02 Oxygen Delivery Room Air 08/21/25 06:02 Temperature 97.2 F L 08/21/25 06:02 Pulse Rate 112 H 08/21/25 17:54 Respiratory Rate 08/21/25 11:32 Blood Pressure 132/90 08/21/25 11:32 Pulse Oximetry 08/21/25 11:32 Oxygen Delivery Room Air 08/21/25 16:00 Lab Data 08/21/25 06:27 08/21/25 06:27 Labs: Lab Results 08/21/25 08/21/25 08/21/25 Range/Units 06:27 06:53 09:19 WBC 20.5 H (4.5-10.0) K/mm3 RBC 5.30 (4.6-6.20) M/mm3 Hgb 17.5 (14.0-18.0) g/dL Hct 51.7 (42.0-52.0) % MCV 97.5 (80-100) fl MCH 33.0 (26-34) pg MCHC 33.8 (32-36) g/dl RDW 12.7 (11.5-14.5) % Plt Count 298 (150-375) k/mm3 MPV 9.7 (7.4-10.4) fl Immature Gran % (Auto) 0.6 H (0-0.5) % Neut % (Auto) 88.3 H (45.5-73.1) % Lymph % (Auto) 7.2 L (18.3-44.2) % [place] % (Auto) 3.5 (2.6-8.5) % Eos % (Auto) 0.0 (0-4.4) % Baso % (Auto) 0.4 (0.2-1.2) % Lymph # (Auto) 1.48 (0.9-3.2) K/mm3 [place] # (Auto) 0.7 H (0.1-0.6) K/mm3 Eos # (Auto) 0.0 (0-0.3) K/mm3 Baso # (Auto) 0.1 (0.0-0.1) K/mm3 Abs Immat Gran (auto) 0.13 H (0.00-0.031) K/mm3 Absolute Neuts (auto) 18.1 H (1.3-6.7) K/mm3 Absolute Nucleated RBC 0.000 (0.0-0.012) K/mm3 Nucleated RBC % 0.0 (0.0-0.2) % Methemoglobin 0.3 (0-1.5) %THb Sodium 137 (137-145) mmol/L Potassium 3.8 (3.4-5.0) mmol/L Chloride 91 L (98-107) mmol/L Carbon Dioxide 13 L (22-30) mmol/L Anion Gap 33 H (4-12) mmol/L BUN 10 (9-20) mg/dL Creatinine 1.06 (0.7-1.3) mg/dL Estim Creat Clear Calc 74 ml/min Estimated GFR > 60 (59 - ) Glucose 154 H (65-110) mg/dL Calcium 9.5 (8.4-10.2) mg/dL Magnesium 1.6 (1.6-2.3) mg/dL Total Bilirubin 1.5 H (0.2-1.3) mg/dL AST 76 H (17-59) U/L ALT 53 H (6-50) U/L Alkaline Phosphatase 163 H (38-126) U/L Total Protein 8.5 H (6.3-8.2) g/dL Albumin 5.1 (3.5-5.1) g/dL Lipase 40 (23-300) U/L Urine Color Yellow (Yellow) Urine Appearance Clear (Clear) Urine pH 5.5 (5.0-9.0) Ur Specific [place] 1.021 (1.001-1.035) Urine Protein Trace (Negative) mg/dL Urine Glucose (UA) Negative (Negative) mg/dL Urine Ketones 4+ H (Negative) mg/dL Ur Blood (Man) Negative (Negative) Urine Nitrate Negative (Negative) Urine Bilirubin Negative (Negative) Urine Urobilinogen 1.0 (<2.0) mg/dL Add Ur Microanalysis Reviewed Leukocyte Esterase Rfl Negative (Negative) KYLER/UL Urine RBC 0-2 (0-2) /hpf Urine WBC 0-5 (0-3) /hpf Ur Squamous Epith Cells None seen (Few) /hpf Urine Bacteria None seen /hpf Urine Casts 6-10 Hyaline Casts Present (None) /lpf Ethyl Alcohol < 10 (<10) mg/dL ABG Data ABG results: 08/21/25 09:19 Puncture Site Left radial ABG pH 7.392 ABG pCO2 32.4 L ABG pO2 77.1 L ABG PO2/FiO2 Ratio 3.67 ABG HCO3 19.3 L ABG O2 Saturation 95.5 ABG O2 Content 19.6 ABG Base Excess -4.6 A-a Gradient 33.8 Oxyhemoglobin 92.4 Carboxyhemoglobin 2.3 H Reduced Hemoglobin 5.0 Total Hemoglobin 15.1 O2 Delivery Device Room air O2 Liters/Min Not Reportable FiO2 21 Imaging Data Radiologist's impression: ITS Impressions Abdomen/Pelvis CT 08/21/25 08:09 IMPRESSION: 1. Diffuse hepatic steatosis. Critical Care Time Critical Care Time Critical Care Time: Yes Total Critical Care Time: 35 Discharge Plan Discharge Clinical Impression: Alcohol withdrawal Qualifiers: Complication of substance-induced condition: uncomplicated Qualified Code(s): F10.930 - Alcohol use, unspecified with withdrawal, uncomplicated Patient Disposition: Still a Patient Condition: Stable
[2025-08-21 09:25] LABS: Alveolar/Arterial O2 Gradient 33.8 mmHg; Carboxyhemoglobin 2.3 % THb (0-2.0); Fractional Inspired Oxygen 21 %; HCO3 ABG 19.3 mEq/l (22.0-26.0); Methemoglobin ABG 0.3 %THb (0-1.5); Oxygen Content ABG 19.6 %vol (16.0-22.0); Oxygen Saturation ABG 95.5 % (95.0-100.0); PCO2 ABG 32.4 mmHg (35.0-45.0); PO2 ABG 77.1 mmHg (80.0-100.0); PO2 FiO2 Ratio Arterial Blood 3.67 %; Reduced Hemoglobin 5.0 %THb (0-5.0)
[2025-08-21 09:26] LABS: Modified Allen's Test Pass; Site Drawn LEFT RADIAL
--- NOTE | 2025-08-21 10:16 | PC.NURSE ---
Dr. Kirk at bedside updating pt. and pt. dad.
[2025-08-21] MEDS: BELLADONNA ALK/PHENOB ELIX 10 ML, MAG HYDROX/ALUMINUM HYD/SIMETH 30 ML, LIDOCAINE 2% VI... PO (10:24)
[2025-08-21] MEDS: THIAMINE HCL 200 MG/2 ML VIAL 100 MG IV PUSH (11:17)
[2025-08-21] MEDS: FOLIC ACID 1 MG/0.2 ML INJ IV PUSH (11:17)
[2025-08-21] MEDS: SODIUM CHLORIDE 0.9% IV 1,000 ML 125 ML IV CONT ×2 (11:17→19:30)
--- NOTE | 2025-08-21 12:48 | P.HP_ITS ---
H&P: HPI History of Present Illness Date/Time: 08/21/25 12:48 Chief Complaint: Abdominal Pain, N/V Narrative: 45 y/o M with PMH of alcohol dependence, anxiety, chronic cholecystitis, gastritis, history alcohol abuse, pancreatitis, and tobacco abuse presents here with abdominal pain, nausea, and vomiting. The patient presents here from home on 08/21 for further evaluation of abdominal pain and N/V. He reports his symptoms initially started with sinus congestion, sneezing, and dry cough around 1 week ago which prompted him to stop drinking alcohol on Friday (08/19). Patient then developed nausea, vomiting, and abdominal pain yesterday (08/20). Patient describes the abdominal pain as epigastric, burning, nonradiating, constant, with no modifying factors. He has a history alcohol abuse complicated by alcohol withdrawal seizures and daily use, estimates he drinks a pt and half a day. Last attended rehab approximately 1 month ago for 30 days. Currently reporting visual disturbances this morning that have resolved, pain and nausea vomiting have improved. Denies fever, chills, body aches, chest pain, or shortness of breath. Per chart review, last admitted here in 2022 for ETOH withdrawal but elected to leave AMA. Later seen in the emergency department in February and March of 2025 for alcohol-related issues. Initial VS at presentation: 97.2? F, HR 139, RR 20, 186/103, and 100% on RA. ED workup showed: WBC 20.5, no anemia, ABG showed no significant abnormalities, anion gap 33, glucose 154, creatinine 1.06 and GFR >60, total bilirubin 0.5/AST 76/ALT 53 (similar to lab work done in February of 2025), and UA showed 4+ ketones. ETOH negative. CXR showed no acute cardiopulmonary findings. CT of the abdomen/pelvis showed diffuse hepatic steatosis. Review of Systems Review of Systems: All systems reviewed & are unremarkable except as noted in HPI and below PMFSH Past Medical History Medical History Seizure Due to alcohol withdrawal Smoker Anxiety History of ETOH abuse Chronic cholecystitis without calculus s/p cholecystectomy Gastritis Alcohol dependence Pancreatitis ETOH induced Surgical History Surgical History H/O removal of cyst Hx laparoscopic cholecystectomy 09/26/21 Family History Family History Father Cerebrovascular accident Hypertension Other Cancer Sibling Diabetes mellitus Grandparent Heart disease Social History Social History Social History: The patient lives with his parents. He has been drinking a pt of vodka and a 6 pack of beer daily and had his last drink 2 days ago. He does not currently work and does not have any children. Patient currently smokes a pack a cigarettes a day. Code status full code Smoking packs per day: 0.5 Smoking cigarettes per day: 10.0 Years smoked: 22 Smoking pack-years: 11.00 Smoking status: Current every day smoker Tobacco type: cigarettes Alcohol intake: current Drinks per week: 35 Alcohol use details: AT LEAST 1/2 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 NO DRINKS IN PAST 2 WEEKS. 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 .COMPLEX #20 caps Instructions: Patient no longer taking ondansetron 4 mg disintegrating 4 mg PO Q8H PRN nausea and 03/17/25 08/21/25 Rx tablet vomiting #10 tabs Held on 08/21/25. Instructions: Patient no longer taking chlordiazepoxide HCl 25 mg capsule 25 mg PO TID PRN al cohol 04/02/25 08/21/25 Rx Held on 08/21/25. withdrawal #20 caps Instructions: Patient no longer taking Allergies Allergy/AdvReac Type Severity Reaction Status Date / Time moxifloxacin Allergy Intermediate Rash Verified 08/21/25 12:10 Vital Signs Vital Signs - 24 hr 08/21/25 06:02 08/21/25 07:05 08/21/25 07:33 Temperature 97.2 F L Pulse Rate 139 H 124 H 122 H Respiratory Rate 20 20 14 Blood Pressure 186/103 H 153/99 H Pulse Oximetry 100 97 99 Oxygen Delivery Room Air 08/21/25 08:31 08/21/25 08:32 08/21/25 09:15 Temperature Pulse Rate 126 H 122 H 118 H Respiratory Rate 13 16 14 Blood Pressure 122/88 122/80 142/88 H Pulse Oximetry 96 98 99 Oxygen Delivery 08/21/25 09:16 08/21/25 10:27 08/21/25 10:45 Temperature Pulse Rate 117 H 123 H 119 H Respiratory Rate 14 15 21 H Blood Pressure 142/88 H 134/83 137/91 H Pulse Oximetry 100 98 99 Oxygen Delivery 08/21/25 11:19 08/21/25 11:32 Temperature Pulse Rate 127 H 126 H Respiratory Rate 24 H 20 Blood Pressure 132/90 Pulse Oximetry 99 100 Oxygen Delivery Exam Const: General: comfortable and no acute distress Other: , male, nontoxic appearance HENMT: Face/Nose/Sinus: Normal nares present Mouth: Yes moist mucous membranes Eyes: General: appearance normal, both eyes and all related structures Sclera: sclerae normal Pupils: Equal, round and reactive pupils present EOM: EOMs intact bilaterally Resp: Effort & Inspection: normal respiratory effort Auscultation: clear to auscultation bilaterally Cardio: Rate: tachycardic Rhythm: regular rhythm Other: S1-S2 present without murmur, rub, ectopy GI: Other: + epigastric tenderness, mild. Abdomen otherwise soft and nontender, normoactive bowel sounds in all quadrants. Skin: General skin exam: no rashes or lesions noted Wounds: no wounds Other: + yasmeen pallor Neuro: Speech: normal speech Motor exam (neuro): 5/5 motor strength present throughout Sensory Exam: normal sensation Other: A&O x4, no visual or tactile hallucinations. Fine tremor noted to bilateral upper extremities, left worse than right. Extrem: General: normal to inspection Psych: Mental Status: mental status grossly normal Affect: normal affect Other: Good insight and judgment, pleasant. Denies hallucinations. No agitation noted. H&P: Results Labs Labs: Short CBC 08/21/25 Range/Units 06:27 WBC 20.5 H (4.5-10.0) K/mm3 Hgb 17.5 (14.0-18.0) g/dL Hct 51.7 (42.0-52.0) % Plt Count 298 (150-375) k/mm3 BMP 08/21/25 06:27 Sodium 137 Potassium 3.8 Chloride 91 L Carbon Dioxide 13 L BUN 10 Creatinine 1.06 Glucose 154 H Calcium 9.5 Liver Function 08/21/25 Range/Units 06:27 Total Bilirubin 1.5 H (0.2-1.3) mg/dL AST 76 H (17-59) U/L ALT 53 H (6-50) U/L Alkaline Phosphatase 163 H (38-126) U/L Albumin 5.1 (3.5-5.1) g/dL Urine 08/21/25 Range/Units 06:53 Urine Color Yellow (Yellow) Urine Appearance Clear (Clear) Urine pH 5.5 (5.0-9.0) Ur Specific [place] 1.021 (1.001-1.035) Urine Protein Trace (Negative) mg/dL Urine Glucose (UA) Negative (Negative) mg/dL Assessment and Plan Assessment and plan (1) Alcohol withdrawal: Qualifiers: Complication of substance-induced condition: uncomplicated Qualified Code(s): F10.930 - Alcohol use, unspecified with withdrawal, uncomplicated Code(s): F10.239 - Alcohol dependence with withdrawal, unspecified Status: Acute Assessment and Plan: Last drink on Friday, at 9:26 a.m.. Does not believe he has been drinking enough that he should have withdrawal seizures. However is feeling dehydrated as he has had decreased urine output over the last 48 hours. Reporting tremors, visual hallucinations at if improved, nausea, vomiting, and epigastric pain that he describes as burning. Symptoms have improved since arrival with IV fluids, diazepam, and Librium. - daily ETOH use: 1.5 pints per day - last drink: Friday, 08/19 - [facility] protocol in place Ativan PO PRN, shortage of IV Librium prn seizure precautions neurochecks Q2H - IV fluids: 2L bolus -> 125 mL/hr - antiemetics PRN - started on daily thiamine and folic acid - Mag WNL upon admission, monitor - patient has previously attended rehab and verbalized understanding of the steps he had to take to cease drinking, denies need for rehab at this time. No care coordination consultation placed. (2) Tobacco abuse: Code(s): Z72.0 - Tobacco use Status: Chronic Assessment and Plan: - 0.5 PPD x 10-15 years - nicotine patch - discussed smoking cessation with the patient. Reports he has a half pack in his vehicle at the moment, states this will be his last 1 and he has nicotine patches at home to help him with cessation. Plan Diet: regular GI Prophylaxis: PPI IV DVT Prophylaxis: scds IV fluids: 2L bolus -> 125 mL/hr Lines/Tubes: peripheral IV Code Status: full code Quality VTE Prophylaxis VTE prophylaxis: mechanical ordered Hospitalist MIPS Advance Care Plan I have confirmed that the patient's Advanced Care Plan is present, code status is documented, or surrogate decision maker is listed in patient medical record.: Yes Medication Reconciliation I have utilized all available resources to obtain, update and review the patients current medications (includes all prescriptions, OTC, herbals, cannabis, and nutritional supplements).: Yes
--- NOTE | 2025-08-21 12:58 | ECG_ITS ---
Test Date: 2025-08-21 13:26:12 Measurements Intervals [place] Rate: 112 P: 50 MD: 140 QRS: 37 QRSD: 82 T: 61 QT: 375 QTc: 512 Interpretive Statements SINUS TACHYCARDIA SEPTAL MYOCARDIAL INFARCTION , PROBABLY OLD Electronically Signed On 08-21-2025 20:50:41 CDT by Dinesh Alva D.O
[2025-08-21] MEDS: chlordiazePOXIDE (*CRX) 25 MG CAPSULE PO ×2 (13:12→20:34)
--- NOTE | 2025-08-21 14:17 | ADMGEN ---
This patient, Iker Kuhn, was admitted to IMU Room 206-02 at approximately 1200. Patient/family oriented to hospital policies and general routines including ID bracelet, bed and alarms, visiting hours, pain management, procedures, bathroom and other care routines, personal items, smoking policy, room service/diet, and visiting hours. Information on how to activate the Rapid Response Team has been discussed. Patient/Family are encouraged to report perceived risks to care and to ask questions if they do not understand what they are told or what they should do.
[2025-08-21] MEDS: NICOTINE (*PBKC) 14 MG PATCH 1 PATCH TRANSDERM (15:07)
[2025-08-21] MEDS: LORazepam (*CRX) 1 MG TABLET 2 MG PO ×2 (15:24→17:56)
[2025-08-21] MEDS: ACETAMINOPHEN 325 MG TABLET 650 MG PO (17:56)
[2025-08-21 21:13] LABS: Influenza A QL RT-PCR Negative (Negative); Influenza B QL RT-PCR Negative (Negative); RSV RNA, RT-PCR Negative (Negative); SARS-CoV-2 RNA PCR Negative (Negative)
[2025-08-22] VITALS (14 sets, daily range): BP systolic 105–151; BP diastolic 64–97; PULSE 71–101; RESP 16–24; TEMP 36.5–37.1; O2SAT 96–100
[2025-08-22] MEDS: LORazepam (*CRX) 1 MG TABLET 2 MG PO ×3 (00:28→12:42)
[2025-08-22] MEDS: SODIUM CHLORIDE 0.9% IV 1,000 ML 125 ML IV CONT ×3 (02:59→21:17)
[2025-08-22] MEDS: chlordiazePOXIDE (*CRX) 25 MG CAPSULE PO ×4 (04:30→21:02)
[2025-08-22 04:46] LABS: Hematocrit 41.4 % (42.0-52.0); Hemoglobin 13.8 g/dL (14.0-18.0); Immature Granulocyte Percent A 0.3 % (0-0.5); Lymphocytes Absolute Auto 2.66 K/mm3 (0.9-3.2); Mean Corpuscular HGB Conc 33.3 g/dl (32-36); Mean Corpuscular Hemoglobin 33.3 pg (26-34); Mean Corpuscular Volume 100.0 fl (80-100); Nucleated Red Blood Cells Absolute Auto 0.000 K/mm3 (0.0-0.012); Nucleated Red Blood Cells Perc 0.0 % (0.0-0.2); Platelet Count Result 184 k/mm3 (150-375); Red Blood Count 4.14 M/mm3 (4.6-6.20); White Blood Count 10.0 K/mm3 (4.5-10.0)
[2025-08-22 06:10] LABS: Anion Gap 6 mmol/L (4-12); Blood Urea Nitrogen 10 mg/dL (9-20); Calcium 8.0 mg/dL (8.4-10.2); Carbon Dioxide 24 mmol/L (22-30); Chloride 102 mmol/L (98-107); Estimated CRCL calculation 115 ml/min; Estimated Glomerular Filt Rate > 60; Glucose 91 mg/dL (65-110); Magnesium 2.0 mg/dL (1.6-2.3); Potassium 3.8 mmol/L (3.4-5.0); Sodium 132 mmol/L (137-145)
[2025-08-22] MEDS: HYDROcodone/acetaminophen (*CRX) 5-325 MG TABLET 1 TAB PO (10:26)
[2025-08-22] MEDS: THIAMINE HCL 200 MG/2 ML VIAL 100 MG IV PUSH (10:27)
[2025-08-22] MEDS: PANTOPRAZOLE SODIUM IV 40 MG VIAL IV PUSH (10:27)
[2025-08-22] MEDS: NICOTINE (*PBKC) 14 MG PATCH 1 PATCH TRANSDERM (10:27)
[2025-08-22] MEDS: FOLIC ACID 1 MG/0.2 ML INJ IV PUSH (10:28)
--- NOTE | 2025-08-22 11:15 | PM.IMPN ---
Progress Note: A&P Assessment and Plan (1) Alcohol withdrawal: Qualifiers: Complication of substance-induced condition: uncomplicated Qualified Code(s): F10.930 - Alcohol use, unspecified with withdrawal, uncomplicated Code(s): F10.239 - Alcohol dependence with withdrawal, unspecified Status: Acute Assessment and Plan: Last drink on Friday, at 9:26 a.m.. Does not believe he has been drinking enough that he should have withdrawal seizures. However is feeling dehydrated as he has had decreased urine output over the last 48 hours. Reporting tremors, visual hallucinations at if improved, nausea, vomiting, and epigastric pain that he describes as burning. Symptoms have improved since arrival with IV fluids, diazepam, and Librium. - daily ETOH use: 1.5 pints per day - last drink: Friday, 08/19 - CIWA protocol in place Ativan PO PRN, shortage of IV Librium prn seizure precautions neurochecks Q2H - IV fluids: 2L bolus -> 125 mL/hr - antiemetics PRN - Continue on daily thiamine and folic acid - Continue Electrolyte monitoring and replete as needed - patient has previously attended rehab and verbalized understanding of the steps he had to take to cease drinking, denies need for rehab at this time. No care coordination consultation placed. (2) Tobacco abuse: Code(s): Z72.0 - Tobacco use Status: Chronic Assessment and Plan: - 0.5 PPD x 10-15 years - nicotine patch - discussed smoking cessation with the patient. Reports he has a half pack in his vehicle at the moment, states this will be his last 1 and he has nicotine patches at home to help him with cessation. (3) Epigastric pain: Code(s): R10.13 - Epigastric pain Status: Acute Assessment and Plan: Lipase 40 CT A/P did not show acute pancreatitis. Epigastric pain likely 2/2 Vomiting. pain control like above Plan Diet: regular GI Prophylaxis: PPI IV DVT Prophylaxis: scds IV fluids: 2L bolus -> 125 mL/hr Lines/Tubes: peripheral IV Code Status: full code Time Spent With Patient Time: 25 minutes Subjective Date/time seen: 08/22/25 11:15 Interval history: Patient still has tremors. Nausea is improved. Complains epigastric pain. No fever or chest pain. Exam Narrative: APPEARANCE: bilateral hand Tremor EYES: EOMI HEENT: Normocephalic, atraumatic, OMM RESPIRATORY: No respiratory distress Clear to auscultation bilaterally with no rhonchi wheezing or rales. CARDIOVASCULAR: tachycardia and RR, S1 and S2 without murmurs rubs or gallops. ABDOMINAL: Soft, nontender, nondistended, no rebound or guarding MSK: normal range of motion with all extremities, motor strength is intact NEURO: Awake and alert. Following commands, speech normal, no focal deficits SKIN:: Warm, dry. No rashes lesions or abrasions PSYCHIATRIC: anxious Objective Data Vital Signs Vital Signs: Vital Signs - 24 hr 08/21/25 11:19 08/21/25 11:32 08/21/25 12:30 Temperature Pulse Rate 127 H 126 H Pulse Rate [Bilateral Radial Palpation] Respiratory Rate 24 H 20 Blood Pressure 132/90 Pulse Oximetry 99 100 Oxygen Delivery Room Air 08/21/25 12:30 08/21/25 14:00 08/21/25 15:08 Temperature Pulse Rate 123 H 115 H Pulse Rate [Bilateral Radial Palpation] 115 H Respiratory Rate Blood Pressure Pulse Oximetry Oxygen Delivery 08/21/25 16:00 08/21/25 16:00 08/21/25 16:00 Temperature Pulse Rate 118 H Pulse Rate [Bilateral Radial Palpation] 117 H Respiratory Rate Blood Pressure Pulse Oximetry Oxygen Delivery Room Air 08/21/25 16:00 08/21/25 17:54 08/21/25 18:00 Temperature 36.8 C Pulse Rate 113 H 110 H Pulse Rate [Bilateral Radial Palpation] 112 H Respiratory Rate 20 Blood Pressure 115/68 Pulse Oximetry 97 Oxygen Delivery 08/21/25 19:44 08/21/25 20:00 08/21/25 20:00 Temperature 36.5 C Pulse Rate 101 H Pulse Rate [Bilateral Radial Palpation] 110 H Respiratory Rate 28 H Blood Pressure 122/70 Pulse Oximetry 99 Oxygen Delivery Room Air 08/21/25 20:00 08/21/25 22:00 08/22/25 00:00 Temperature 36.8 C Pulse Rate 100 96 85 Pulse Rate [Bilateral Radial Palpation] Respiratory Rate 21 H Blood Pressure 105/64 Pulse Oximetry 98 Oxygen Delivery 08/22/25 00:00 08/22/25 00:00 08/22/25 00:00 Temperature Pulse Rate 95 Pulse Rate [Bilateral Radial Palpation] 98 Respiratory Rate Blood Pressure Pulse Oximetry Oxygen Delivery Room Air 08/22/25 02:00 08/22/25 04:00 08/22/25 04:00 Temperature Pulse Rate 95 Pulse Rate [Bilateral Radial Palpation] 93 Respiratory Rate Blood Pressure Pulse Oximetry Oxygen Delivery Room Air 08/22/25 04:00 08/22/25 04:00 08/22/25 06:00 Temperature 36.5 C Pulse Rate 94 89 87 Pulse Rate [Bilateral Radial Palpation] Respiratory Rate 24 H Blood Pressure 123/81 Pulse Oximetry 98 Oxygen Delivery 08/22/25 08:00 Temperature 36.6 C Pulse Rate 99 Pulse Rate [Bilateral Radial Palpation] Respiratory Rate 18 Blood Pressure 151/97 H Pulse Oximetry 97 Oxygen Delivery Intake/Output Intake/Output: Intake & Output 08/19/25 08/20/25 08/21/25 08/22/25 23:59 23:59 23:59 23:59 Intake Total 3240 1235.4 Output Total 275 0 Balance 2965 1235.4 Meds/Results Medications: Active Medications Generic Name Dose Route Start Last Admin Trade Name Freq PRN Reason Stop Dose Admin Acetaminophen 650 mg 08/21/25 10:46 08/21/25 17:56 Acetaminophen 325 Mg Tablet PO 650 mg Q4H PRN Administration Mild Pain (1-3) or Fever Hydrocodone Bitart/Acetaminophen 1 tab 08/21/25 10:46 08/22/25 10:26 Hydrocodone/Acetaminophen (*Crx) 5-325 Mg Tablet PO 1 tab Q4H PRN Administration Pain Rated 4-6 Calcium Carbonate 200 mg 08/21/25 14:04 Calcium Carbonate (Tums) 500 Mg (200 Mg Elemental) PO Q6H PRN Indigestion Chlordiazepoxide HCl 25 mg 08/21/25 12:52 08/22/25 10:30 Chlordiazepoxide (*Crx) 25 Mg Capsule PO 25 mg Q6H PRN Administration Withdrawal Folic Acid 1 mg 08/22/25 09:00 08/22/25 10:28 Folic Acid 1 Mg/0.2 Ml Inj IV PUSH 1 mg DAILY VICTORIA Administration Sodium Chloride 1,000 mls @ 125 mls/hr 08/21/25 10:50 08/22/25 02:59 Normal Saline Iv IV CONT 125 mls/hr .Q8H VICTORIA Administration Lorazepam 2 mg 08/21/25 12:52 08/22/25 10:44 Lorazepam (*Crx) 1 Mg Tablet PO 2 mg Q2H PRN Administration CIWA>8, HR>100, or DBP>100 Morphine Sulfate 2 mg 08/22/25 09:58 Morphine Sulfate (*Crx) 4 Mg/Ml Inj IV PUSH Q2H PRN Pain Rated 7-10 Nicotine 1 patch 08/21/25 14:10 08/22/25 10:27 Nicotine (*Pbkc) 14 Mg Patch TRANSDERM 1 patch DAILY VICTORIA Administration Ondansetron HCl 4 mg 08/21/25 10:46 Ondansetron Inj 4 Mg/2 Ml Vial IV PUSH Q4H PRN Nausea Pantoprazole Sodium 40 mg 08/22/25 09:00 08/22/25 10:27 Pantoprazole Sodium Iv 40 Mg Vial IV PUSH 40 mg QAM VICTORIA Administration Thiamine HCl 100 mg 08/22/25 09:00 08/22/25 10:27 Thiamine Hcl 200 Mg/2 Ml Vial IV PUSH 100 mg DAILY VICTORIA Administration Radiology Results: ITS Impressions Abdomen/Pelvis CT 08/21/25 08:09 IMPRESSION: 1. Diffuse hepatic steatosis. Chest X-Ray 08/21/25 11:02 IMPRESSION: 1. No acute cardiopulmonary findings. Labs Labs: Laboratory Results - last 24 hr 08/21/25 08/21/25 08/21/25 11:15 15:08 15:23 WBC RBC Hgb Hct MCV MCH MCHC RDW Plt Count MPV Immature Gran % (Auto) Neut % (Auto) Lymph % (Auto) Taylor % (Auto) Eos % (Auto) Baso % (Auto) Lymph # (Auto) Taylor # (Auto) Eos # (Auto) Baso # (Auto) Abs Immat Gran (auto) Absolute Neuts (auto) Absolute Nucleated RBC Nucleated RBC % Sodium Potassium Chloride Carbon Dioxide Anion Gap BUN Creatinine Estim Creat Clear Calc Estimated GFR Glucose POC Capillary Glucose 106 H Lactic Acid 1.2 Calcium Magnesium Influenza A (RT-PCR) Negative Influenza B (RT-PCR) Negative RSV (RT-PCR) Negative SARS-CoV-2 RNA (RT-PCR) Negative 08/22/25 08/22/25 08/22/25 00:15 04:40 06:16 WBC 10.0 RBC 4.14 L Hgb 13.8 L D Hct 41.4 L MCV 100.0 MCH 33.3 MCHC 33.3 RDW 12.8 Plt Count 184 MPV 9.5 Immature Gran % (Auto) 0.3 Neut % (Auto) 66.3 Lymph % (Auto) 26.7 Taylor % (Auto) 6.0 Eos % (Auto) 0.3 Baso % (Auto) 0.4 Lymph # (Auto) 2.66 Taylor # (Auto) 0.6 Eos # (Auto) 0.0 Baso # (Auto) 0.0 Abs Immat Gran (auto) 0.03 Absolute Neuts (auto) 6.6 Absolute Nucleated RBC 0.000 Nucleated RBC % 0.0 Sodium 132 L Potassium 3.8 Chloride 102 Carbon Dioxide 24 Anion Gap 6 BUN 10 Creatinine 0.68 L Estim Creat Clear Calc 115 Estimated GFR > 60 Glucose 91 POC Capillary Glucose 72 91 Lactic Acid Calcium 8.0 L Magnesium 2.0 Influenza A (RT-PCR) Influenza B (RT-PCR) RSV (RT-PCR) SARS-CoV-2 RNA (RT-PCR) Quality VTE Prophylaxis VTE prophylaxis: mechanical ordered
[2025-08-22] MEDS: ONDANSETRON INJ 4 MG/2 ML VIAL IV PUSH (12:42)
[2025-08-22] MEDS: diazePAM INJ (*CRX) 10 MG/2 ML SYRINGE 5 MG IV PUSH ×2 (14:56→20:08)
[2025-08-23] VITALS (7 sets, daily range): BP systolic 131–147; BP diastolic 80–89; PULSE 56–84; RESP 16; TEMP 36.5–36.8; O2SAT 97–98
[2025-08-23] MEDS: diazePAM INJ (*CRX) 10 MG/2 ML SYRINGE 5 MG IV PUSH ×3 (00:06→12:43)
[2025-08-23] MEDS: chlordiazePOXIDE (*CRX) 25 MG CAPSULE 50 MG PO ×3 (00:07→10:04)
[2025-08-23] MEDS: SODIUM CHLORIDE 0.9% IV 1,000 ML 125 ML IV CONT ×2 (05:19→12:44)
[2025-08-23] MEDS: THIAMINE HCL 200 MG/2 ML VIAL 100 MG IV PUSH (09:53)
[2025-08-23] MEDS: PANTOPRAZOLE SODIUM IV 40 MG VIAL IV PUSH (09:57)
[2025-08-23] MEDS: NICOTINE (*PBKC) 14 MG PATCH 1 PATCH TRANSDERM (09:59)
[2025-08-23] MEDS: FOLIC ACID 1 MG/0.2 ML INJ IV PUSH (09:59)
--- NOTE | 2025-08-23 13:00 | PC.NURSE ---
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 made aware. Dr. Amaro with come see pt at bedside.
--- NOTE | 2025-08-23 13:38 | PM.DS ---
DS: Admitting Diagnosis Discharge Date 08/23/25 Admitting Diagnosis Abdominal Pain, N/V DS: Discharge Diagnosis Discharge Diagnosis (1) Alcohol withdrawal: Qualifiers: Complication of substance-induced condition: uncomplicated Qualified Code(s): F10.930 - Alcohol use, unspecified with withdrawal, uncomplicated Code(s): F10.239 - Alcohol dependence with withdrawal, unspecified Status: Acute DS: Summary Hospital Course Hospital Course: 45 y/o M with PMH of alcohol dependence, anxiety, chronic cholecystitis, gastritis, history alcohol abuse, pancreatitis, and tobacco abuse presents here with abdominal pain, nausea, and vomiting. Initial VS at presentation: 97.2? F, HR 139, RR 20, 186/103, and 100% on RA. ED workup showed: WBC 20.5, no anemia, ABG showed no significant abnormalities, anion gap 33, glucose 154, creatinine 1.06 and GFR >60, total bilirubin 0.5/AST 76/ALT 53 (similar to lab work done in February of 2025), and UA showed 4+ ketones. ETOH negative. CXR showed no acute cardiopulmonary findings. CT of the abdomen/pelvis showed diffuse hepatic steatosis. Patient was started on placed on CIWA protocol, he stated his last alcohol intake was 5 days ago. Currently not withdrawing. S/p IVF. Discharged on tapering dose of Librium 20mg bid x 2 days, 10 mg bid x2 and 5mg bid x 2 days and stop, and one month of Zfolic acid and thiamine. F/u with PCP in 3-5 days Time Spent with Patient Time attestation: Total time spent providing and/or coordinating discharge services: DS: Data Data Completed and Pending Labs on day of discharge: Labs from last 24 hours 08/23/25 08/23/25 08/23/25 11:36 06:25 00:06 POC Capillary Glucose 137 H 103 107 H Discharge Plan Discharge Attending physician on discharge: Karlos Amaro Consulting providers: Karlos Amaro Discharging Clinician: Karlos Amaro Anticipated Discharge Date/Time: 08/23/25 13:33 Patient Disposition: Home Activity: as tolerated Diet: as tolerated and regular Patient Instructions: Antibiotic Form, Cigarette Smoking and Your Health (GEN) Patient Language: Syriac Stand Alone Forms: General Discharge Information Follow-up/Referrals: Dwayne Leos MD [Primary Care Provider, Family Practice] Referral Note: F/u with PCP in 3-5 days Discharge Medications: New chlordiazepoxide HCl 5 mg capsule 5 mg PO BID Qty: 28 0RF Rx Instructions: 20mg bid x 2 days, then 10 mg bid x2 days then 5mg bid x 2 days then stop. folic acid 1 mg tablet 1 mg PO DAILY 30 Days Qty: 30 0RF thiamine HCl (vitamin B1) 50 mg tablet 50 mg PO DAILY 30 Days Qty: 30 0RF Discontinued chlordiazepoxide HCl 25 mg capsule See Rx Instructions .ROUTE .COMPLEX Qty: 20 0RF Rx Instructions: 50mg of chlordiazepoxide every 8 hours for two days, then decrease to 25mg every 8 hours for another two days followed by 25mg as needed ondansetron 4 mg tablet,disintegrating 4 mg PO Q8H PRN (Reason: nausea and vomiting) Qty: 10 0RF chlordiazepoxide HCl 25 mg capsule 25 mg PO TID PRN (Reason: alcohol withdrawal) Qty: 20 0RF Date of admission: 08/23/25 10:43 Primary Care Provider: Dwayne Leos Admitting Provider: Fritz Gracia Attending physician on admission: Fritz Gracia Condition: Stable
== END 2025-08-23 14:02 | disposition home or self-care (01) ==
LOC: ANHED 07:38 → ANHIMU 13:11
PROVIDERS: Emergency Medicine; Student in an Organized Health Care Education/Training Program; Admitting Provider Internal Medicine; Emergency Provider Emergency Medicine; PCP Family Medicine; Visit Provider Internal Medicine
DX: F10.239 Alcohol dependence with withdrawal, unspecified (principal); F41.9 Anxiety disorder, unspecified; F17.210 Nicotine dependence, cigarettes, uncomplicated; K86.0 Alcohol-induced chronic pancreatitis; R10.13 Epigastric pain; Z20.822 Contact with and (suspected) exposure to COVID-19
CPT/HCPCS: 36415; 36600; 71046; 74177; 80048; 80053; 81001; 82077; 82375; 82805; 82948; 83050; 83605; 83690; 83735; 85018; 85025; 87637; 93005; 96361; 96374; 96375; 96376; 99285; A9270; G0378; G0379; J1200; J2405; J2470; J3360; J3411; J7030; Q9967